=== PATIENT | male | born 1995 | race Caucasian/White ===

== ENCOUNTER 2022-11-10 16:14 | Emergency (ER) | payer BC, SELFPAY ==
[2022-11-10 16:17] VITALS: BP 122/74; PULSE 125; RESP 16; TEMP 36.6; O2SAT 99; BMI 25.8
--- NOTE | 2022-11-10 16:33 | CRLHL7_ITS ---
For Patients: As a result of the Century Cures Act, medical imaging exams and procedure reports are released immediately into your electronic medical record. You may view this report before your referring provider. If you have questions, please contact your health care provider. INDICATION: Right lower quadrant abdominal pain. Vomiting. History of pancreatitis. CT ABDOMEN AND PELVIS WITH CONTRAST TECHNIQUE: Multidetector CT imaging was performed through the abdomen and pelvis following intravenous contrast administration using 79 mL Isovue 370. Coronal and sagittal reconstructions were generated. COMPARISON: 05/30/2020 CT abdomen and pelvis. FINDINGS: Lower chest: Lung bases are clear aside from minimal bibasilar atelectasis or scarring. Liver: Within normal limits. Gallbladder and bile ducts: Status post cholecystectomy, as before. No biliary dilation identified. Pancreas: Atrophic pancreas containing punctate calcifications, consistent with chronic pancreatitis. Spleen: Normal sized spleen. 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 Adrenals: No nodules or masses. Kidneys, ureters, and urinary bladder: No renal masses or hydronephrosis. Urinary bladder wall prominence due to nondistention. No bladder mass or definite pathologic wall thickening. Gastrointestinal tract: Normal caliber small bowel without obstruction or wall thickening. The appendix is normal. Diffuse wall prominence of the colon is likely due to nondistention as no definite pericolonic fat stranding is seen to indicate colitis. Vascular structures: Normal for age. Peritoneum: No free air, abscess, or significant free fluid. Lymph nodes: No pathologically enlarged nodes identified. Reproductive organs: No pelvic masses. Bones: Normal for age. IMPRESSION: 1. No acute abnormality identified. Normal appendix. No specific cause for the patient`s symptoms is demonstrated. 2. 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 3. Status post cholecystectomy. SHIVA DORANTES MD [facility] Dictated by Shiraz Dorantes MD @ 11/10/2022 6:38:46 PM Please note that all CT scans at this facility use dose modulation, iterative reconstruction, and/or weight-based dosing when appropriate to reduce radiation dose to as low as reasonably achievable. Dictated by: Shiraz Dorantes MD @ 11/10/2022 18:39:06 (Electronically Signed)
--- NOTE | 2022-11-10 16:34 | ED_ITS ---
HPI - General Adult General Chief complaint: Abdominal Pain Stated complaint: Abdominal pain, Vomiting Time Seen by Provider: 11/10/22 16:16 Source: patient Mode of arrival: ambulatory Limitations: no limitations History of Present Illness HPI narrative: 27-year-old male well known to our team presents with abdominal pain in the right lower quadrant area of his abdomen that started last evening and was very mild at initial onset. He woke up this morning with worsening pain, intermittent, crampy in nature. Vomiting started at 5:00 a.m. and has been persistent throughout the day, unable to hold down even liquids. His last drink of alcohol was about 2 days ago. His last bout of pancreatitis was 2 years ago. His pancreatitis course has been quite complicated in the past. He has required drains, never stenting. He does not currently have any implanted devices in his abdomen. No history of other abdominal surgeries besides drain placement. He normally does not drink alcohol due to his history of pa ncreatitis but since he had not had a spell in so long, he indulged in a couple of drinks. Reports that his symptoms started a couple of days later. He does not think that this pain he is having is related to his pancreatitis as it is located more in the right lower quadrant area and does seem different than his typical pancreatitis episodes. There is no dysuria, no fevers. There is no blood in his vomit. Last bowel movement was yesterday, uncomplicated. No trauma or injury. He tried taking some Tylenol this morning with some mild temporary improvement in his symptoms, has not tried other interventions. No history of kidney stones. Past medical history is notable for recurrent pancreatitis, type 1 diabetes as a result of the pancreatitis. His only home medications are NovoLog and Lantus. Socially, no tobacco use but did have alcohol a couple of days ago, does not normally drink. No pertinent travel. Family history negative for GI cancers per his report. No history of inflammatory bowel disease either. Less is notable for the GI symptoms as above, otherwise denies times 12 systems. Related Data Home Medications Medication Instructions Recorded Confirmed insulin aspart U-100 100 unit/mL 6 unit subcut 3XD 11/10/22 11/10/22 (3 mL) subcutaneous pen insulin glargine 100 unit/mL (3 34 unit subcut QPM 11/10/22 11/10/22 mL) subcutaneous pen (Lantus Solostar U-100 Insulin) Previous Rx's Medication Instructions Recorded ondansetron 4 mg disintegrating 4 mg PO Q8H #15 tabs 11/10/22 tablet Allergies Allergy/AdvReac Type Severity Reaction Status Date / Time No Known Drug Allergies Allergy Verified 11/10/22 16:22 [facility] Medical History (Updated 11/10/22 @ 18:49 by Paris Shahid MD) Insulin dependent diabetes mellitus Recurrent pancreatitis Social History Smoking Status: Current some day smoker Do you use any of these nicotine containing products: None Second hand tobacco smoke exposure: No How often do you have a drink containing alcohol: 2-3 times a week How many standard drinks containing alcohol do you have on a typical day: 3 or 4 How often do you have six or more drinks on one occasion: Less than monthly AUDIT-C Alcohol total score: 5 Non-prescribed substance use: marijuana (any form) service: No Exam Const: Vital Signs, click to edit/add: Vital Signs - 24 hr 11/10/22 16:17 11/10/22 17:06 Temperature 97.9 F Pulse Rate [Right Pulse Oximeter] 125 H 94 Respiratory Rate 16 20 Blood Pressure [Le ft Upper Arm] 108/62 Blood Pressure [Ri ght Upper Arm] 122/74 Pulse Oximetry 99 97 Oxygen Delivery Me thod Room Air Room Air Documenting provider has reviewed patient's vital signs: yes Common normals: no apparent distress and alert General appearance: cooperative, comfortable and well kempt Other: Looks a little thinner than the last time I saw him but well-nourished, well- hydrated, not intoxicated. HENMT: Common normals: normocephalic and head/scalp atraumatic Head and scalp: normocephalic and atraumatic Face and sinus: normal facial exam Mo uth: oral and palatal mucosa normal Throat: posterior oropharynx normal Eye: Common normals: EOMs intact bilaterally and conjunctivae normal General eye: normal appearance of both eyes Conjunctiva: conjunctiva(e) normal Neck & C-Spine: Common normals: no lymphadenopathy Resp: Common normals: normal respiratory effort and no use of accessory mu scles Effort & inspection: able to speak in complete sentences Cardio: Common normals: regular rate, regular rhythm, S1 normal heart sound, S2 normal heart sound, no murmurs and peripheral pulses 2+ throughout Rate: regular rate Rhythm: regular rhythm Heart sounds: S1 normal and S2 normal Peripheral pulses: pulses 2+ throughout GI: Other: Bowel sounds normoactive throughout. No masses, no hernia. Liver is not enlarged. Mild tenderness in the right lower quadrant only, not the right upper quadrant. There is some very mild CVA tenderness on the right only but not is reproducible is the right lower quadrant abdominal pain. There is no guarding. No mass. Extremity: Common normals: normal to inspection, normal capillary refill and no pedal edema Neuro: Sensorium/orientation: alert Speech: speech normal Motor exam: no tremor noted and no movement abnormalities noted Psych: Common normals: speech normal Appearance: well kempt Attitude: engaged Activity/motor behavior: appropriate eye contact Speech: normal speech Attention/concentration: attention grossly intact Memory/cognition: memory grossly intact Insight: insight good Judgement: judgment good Skin: Common normals: no rashes or lesions noted General skin exam: no rashes or lesions noted Course Vital Signs Vital signs: Initial Vital Signs Temperature 97.9 F 11/10/22 16:17 Temperature Source Temporal Artery Scan 11/10/22 16:17 Pulse Rate 125 H 11/10/22 16:17 Respiratory Rate 16 11/10/22 16:17 Blood Pressure 122/74 11/10/22 16:17 Blood Pressure Mean 90 11/10/22 16:17 Blood Pressure Position Sitting 11/10/22 16:17 Pulse Oximetry 99 11/10/22 16:17 Oxygen Delivery Method 11/10/22 16:17 Vital Signs Temperature 97.9 F 11/10/22 16:17 Pulse Rate 125 H 11/10/22 16:17 Respiratory Rate 16 11/10/22 16:17 Blood Pressure 122/74 11/10/22 16:17 Pulse Oximetry 99 11/10/22 16:17 Oxygen Delivery Method 11/10/22 16:17 Temperature 97.9 F 11/10/22 16:17 Pulse Rate 94 11/10/22 17:06 Respiratory Rate 20 11/10/22 17:06 Blood Pressure 108/62 11/10/22 17:06 Pulse Oximetry 97 11/10/22 17:06 Oxygen Delivery Method 11/10/22 17:06 Medical Decision Making MDM Narrative Medical decision making narrative: Pancreatitis high in the differential diagnosis, cannot exclude colitis, kidney stone, appendicitis, other etiologies. Recommended placing an IV, LR, Zofran. CT scan of the abdomen, liver enzymes, CBC, CRP, lipase levels. Re-evaluate once these results are available. Will hold off on IV pain medicine for now. Update: No vomiting while here. Pain has not worsened. Labs and CT findings reviewed with patient. Suspect some underlying gastroenteritis. I do strongly recommend that he avoid alcohol because his pancreas history than the we are not seeing any signs of acute pancreatitis today. Prescription for Zofran provided, discussed soft, bland diet, off of work tomorrow, alarm symptoms reviewed as indications to come back to the ED. He verbalizes understanding and agreement. Mild leukocytosis noted but nonspecific. Remainder of labs are encouraging as his CT scan. Lab Data Lab results reviewed: Yes I reviewed the patient's lab results Labs: Lab Results 11/10/22 11/10/22 Range/Units 16:50 16:50 WBC 15.01 H (4.50-11.00) K/uL RBC 5.20 (4.30-5.90) m/uL Hgb 14.7 (13.5-17.5) gm/dL Hct 42.8 (37.0-53.0) % MCV 82 (80-100) fL MCH 28 (26-34) pg MCHC 34 (32-36) gm/dL RDW Coeff of Braydon 12.1 (11.5-15.5) % Plt Count 236 (140-440) K/uL Neut % (Auto) 89.4 H (42.0-72.0) % Lymph % (Auto) 3.9 L (20-44) % [place] % (Auto) 5.3 (0.0-11.0) % Eos % (Auto) 0.1 (0.0-7.0) % Baso % (Auto) 0.3 (0.0-3.0) % Neut # (Auto) 13.40 H (1.7-7.0) K/uL Lymph # (Auto) 0.60 L (0.90-2.90) K/uL [place] # (Auto) 0.80 (0.00-0.90) K/UL Eos # (Auto) 0.00 (0.00-0.50) K/uL Baso # (Auto) 0.00 (0.00-0.30) K/uL Sodium 143 (135-149) mmol/L Potassium 3.8 (3.6-5.1) mmol/L Chloride 103 (96-114) mmol/L Carbon Dioxide 31 (20-32) mmol/L BUN 10 (5-24) mg/dL Creatinine 0.6 (0.5-1.5) mg/dL Estimated Creat Clear 165.41 Estimated GFR 135 ml/min Glucose 222 H (60-115) mg/dL Calcium 9.4 (8.4-10.6) mg/dL Total Bilirubin 0.6 (0.1-1.5) mg/dL AST 33 (12-35) U/L ALT 34 (4-50) U/L Alkaline Phosphatase 119 (40-150) U/L C-Reactive Protein 0.6 (0.5-1.0) mg/dL Total Protein 8.1 (6.0-8.3) g/dL Albumin 4.9 (3.3-5.0) g/dL Lipase 11 L (23-300) U/L Imaging Data CT scan - abdomen: My impression: Chronic pancreatitis with splenic vein abnormality. Did compare to previous reports from prior to computer upgraded does note chronic findings there. Appendix looks okay per my interpretation. Radiologist's impression: IMPRESSION: 1. No acute abnormality identified. Normal appendix. No specific cause for the patient`s symptoms is demonstrated. 2. 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 3. Status post cholecystectomy. Discharge Plan Discharge Clinical Impression: Gastroenteritis Condition: Improved Instructions: Gastroenteritis (DC) Additional Instructions: Your CT scan shows chronic changes of pancreatitis but nothing acute, this is good news. Your appendix looks normal. Your labs show mild infection but nonspecific. Your inflammatory markers look okay. Your liver and pancreas labs look great today. I suspect that the vomiting is from gastroenteritis, a common stomach flu. I w ould like for you to use Zofran as needed for nausea and vomiting. I would like for you to stay away from alcohol as it certainly will only make the situation worse. Drink plenty of fluids, rest for today and tomorrow. You should be able to resume all normal activity on Monday. Come back to the emergency department if the pain becomes severe, constant. Come back especially if it is accompanied by fever, blood in your stools or other worrisome signs. Activity Level: Activity as Tolerated Discharge Diet: Diabetic Prescriptions: New ondansetron 4 mg tablet,disintegrating 4 mg PO Q8H Qty: 15 0RF No Action insulin aspart U-100 100 unit/mL (3 mL) insulin pen 6 unit subcut 3XD insulin glargine [Lantus Solostar U-100 Insulin] 100 unit/mL (3 mL) insulin pen 34 unit subcut QPM Follow Up/Referrals: JEVON KEY DO [Primary Care Provider] - Stand Alone Forms: [facility] Info Instructions
[2022-11-10] MEDS: LACTATED RINGERS 1000 ML 1,000 ML IV (16:52)
[2022-11-10 16:58] LABS: Basophils Percent Auto 0.3 % (0.0-3.0); Eosinophils Percent Auto 0.1 % (0.0-7.0); Hematocrit 42.8 % (37.0-53.0); Hemoglobin* 14.7 gm/dL (13.5-17.5); Lymphocytes Percent Auto 3.9 % (20-44); Mean Corpuscular HGB Conc 34 gm/dL (32-36); Mean Corpuscular Hemoglobin 28 pg (26-34); Mean Corpuscular Volume 82 fL (80-100); Monocytes Percent Auto 5.3 % (0.0-11.0); Neutrophils Percent Auto 89.4 % (42.0-72.0); Platelet Count* 236 K/uL (140-440); RDW Coefficient of Variation % 12.1 % (11.5-15.5); White Blood Count* 15.01 K/uL (4.50-11.00)
[2022-11-10] MEDS: ONDANSETRON 2 MG/ML inj 8 MG IVP (16:58)
[2022-11-10 17:02] LABS: Slide Review Reflex No
[2022-11-10 17:06] VITALS: BP 108/62; PULSE 94; RESP 20; O2SAT 97
[2022-11-10 17:14] LABS: Albumin* 4.9 g/dL (3.3-5.0); Chloride* 103 mmol/L (96-114); Sodium* 143 mmol/L (135-149)
[2022-11-10 17:15] LABS: Potassium* 3.8 mmol/L (3.6-5.1)
[2022-11-10 17:17] LABS: Carbon Dioxide* 31 mmol/L (20-32); Creatinine* 0.6 mg/dL (0.5-1.5); Est. Creatinine Clearance* 165.41; Estimated Glomerular Filt Rate 135 ml/min
[2022-11-10 17:18] LABS: Alanine Aminotransferase* 34 U/L (4-50); Alkaline Phosphatase* 119 U/L (40-150); Aspartate Amino Transferase* 33 U/L (12-35); Bilirubin Total* 0.6 mg/dL (0.1-1.5); Blood Urea Nitrogen* 10 mg/dL (5-24); Calcium* 9.4 mg/dL (8.4-10.6); Glucose* 222 mg/dL (60-115); Lipase* 11 U/L (23-300); Total Protein* 8.1 g/dL (6.0-8.3)
[2022-11-10 17:21] LABS: C Reactive Protein* 0.6 mg/dL (0.5-1.0)
== END 2022-11-10 19:09 | disposition home or self-care (01) ==
PROVIDERS: Emergency Provider Family Medicine; PCP Student in an Organized Health Care Education/Training Program
DX: K52.9 Noninfective gastroenteritis and colitis, unspecified (principal)
CPT/HCPCS: 36415; 74177; 80053; 81003; 83690; 85025; 86140; 96361; 96374; 99283; 99284; 99285; J2405; J7120; Q9967

== ENCOUNTER 2022-11-24 07:50 | Day surgery (SDC) | payer BC, SELFPAY ==
[2022-11-24] MEDS: LACTATED RINGERS 1000 ML 1,000 ML 100 ML IV (08:20)
--- NOTE | 2022-11-24 08:24 | SUR.PREOP ---
Patient provided home covid negative results to RN.
--- NOTE | 2022-11-24 08:27 | PC.NURSE ---
Patient used monitoring system at home for BS levels
--- NOTE | 2022-11-24 08:45 | W.ANESCHARGE ---
Anesthesia Charges Start Date/Time Anesthesia Start Date: 11/24/22 Anesthesia Start Time: 09:45 Stop Date/Time Anesthesia Stop Date: 11/24/22 Anesthesia Stop Time: 10:20
[2022-11-24 09:16] VITALS: BP 138/98; PULSE 58; RESP 16; TEMP 36.3; O2SAT 99
[2022-11-24] MEDS: SODIUM CHLORIDE 0.9 % (FLUSH) 10 ML SYRINGE IVF (09:19)
[2022-11-24] MEDS: CEFAZOLIN 1 GM inj IVP (09:55)
[2022-11-24] MEDS: BUPIVACAINE 0.25% 30 ML INJECTION (10:03)
--- NOTE | 2022-11-24 10:14 | PM.GSPRC ---
Operative Note Date of procedure: 11/24/22 Pre-op diagnosis: Posterior left ear mass Post-op diagnosis: Same Type of Procedure: Excision of posterior left ear mass Indications: Patient is a 27-year-old male who presented to clinic with an enlarging mass on the back of his left ear. Different treatment options were reviewed with the patient, including observation versus excision. Risks and benefits of excision were discussed at length. Risks included, but were not limited to: Bleeding, infection, risk of recurrence and possible need for additional procedures. Additionally we reviewed the risk of damage to surrounding structures. All questions and concerns were addressed with patient agreeing to proceed. Procedure Description: After discussing the risks and benefits of the procedure, the patient signed informed consent.? The operative site was marked and the patient was brought to the operating room and placed on the operating table in supine position.? Care was taken to pad the patient's pressure points.?? The patient was then given sedation by anesthesia.?? The operative site was then prepped and draped in the usual sterile fashion.? A time-out was then performed. Local anesthetic of 1% lidocaine and 0.25% Marcaine was used to anesthetize the surgical field. An elliptical incision was made around the subcutaneous mass. Dissection was continued through subcutaneous tissue. The mass was able to be removed in its entirety and did not appear to invade the underlying cartilage. Once the specimen was removed it was sent for pathology. Hemostasis was assured with electrocautery. The incision was then brought together in layers of interrupted Vicryl and running 4-0 chromic suture. A single interrupted 4-0 chromic suture were its place in the middle of the incision, to minimize the risk of dehiscence. The incision length was 2 cm. The size of the mass was 5 mm. The incision was dressed with Dermabond. ? The patient was then woken and transported to the recovery area in stable condition. ? The patient tolerated the procedure well. Findings: Posterior left ear mass Anesthesia: MAC and local Surgeon: Nesha Reddy MD Estimated blood loss (mL): 2 Additional Specimen Information: Posterior left ear mass Condition: stable Disposition: same day
[2022-11-24 10:15] VITALS: BP 98/50; PULSE 78; RESP 12; TEMP 36.4; O2SAT 95
[2022-11-24 10:30] VITALS: BP 97/59; PULSE 68; RESP 14; TEMP 36.3; O2SAT 95
[2022-11-24 10:46] VITALS: BP 102/71; PULSE 68; RESP 14; TEMP 36.3; O2SAT 96
[2022-11-24 11:00] VITALS: BP 99/70; PULSE 73; RESP 16; O2SAT 96
[2022-11-24 11:15] VITALS: BP 107/73; PULSE 59; RESP 16; TEMP 36.4; O2SAT 96
--- NOTE | 2022-11-24 11:18 | W.ANESCHARGE ---
Anesthesia Charges Start Date/Time Anesthesia Start Date: 11/24/22 Anesthesia Start Time: 09:45 Stop Date/Time Anesthesia Stop Date: 11/24/22 Anesthesia Stop Time: 10:20
--- NOTE | 2022-11-24 11:20 | W.ANESCHARGE ---
Anesthesia Charges Start Date/Time Anesthesia Start Date: 11/24/22 Anesthesia Start Time: 09:45 Stop Date/Time Anesthesia Stop Date: 11/24/22 Anesthesia Stop Time: 10:20
== END 2022-11-24 12:04 | disposition home or self-care (01) ==
PROVIDERS: PCP Student in an Organized Health Care Education/Training Program; Visit Provider Surgery
PROC: (CPT 11444; principal; 2022-11-24 09:15)
DX: L91.0 Hypertrophic scar (principal)
CPT/HCPCS: 11444; 12051; 00300; 88305; J0690; J2250; J2405; J2704; J2710; J3010; J3490; J7120

== ENCOUNTER 2023-03-27 03:45 | Emergency (ER) | payer BC, SELFPAY ==
[2023-03-27 03:51] VITALS: BP 157/83; PULSE 83; RESP 16; TEMP 36.7; O2SAT 98; BMI 25.0
--- NOTE | 2023-03-27 04:06 | CRLHL7_ITS ---
For Patients: As a result of the Century Cures Act, medical imaging exams and procedure reports are released immediately into your electronic medical record. You may view this report before your referring provider. If you have questions, please contact your health care provider. INDICATION: Injury COMPARISON: May 30, 2020 TECHNIQUE: CT examination of the head was performed as axial sections without intravenous contrast. Images were obtained from the vertex of the skull through the skull base. Please note that all CT scans at this facility use dose modulation, iterative reconstruction, and/or weight-based dosing when appropriate to reduce radiation dose to as low as reasonably achievable. FINDINGS: The brain shows no sign of mass lesion, mass effect, hemorrhage, or edema. The ventricles and sulci are normal in appearance for the patient`s age. The visualized portions of the orbits are normal in appearance. The osseous structures are normal in their appearance with no sign of abnormality in the skull base or calvarium. IMPRESSION: No acute intracranial posttraumatic findings Please note that all CT scans at this facility use dose modulation, iterative reconstruction, and/or weight-based dosing when appropriate to reduce radiation dose to as low as reasonably achievable. Dictated by Pete Chand MD @ 03/27/2023 4:48:17 AM (Electronically Signed)
--- NOTE | 2023-03-27 04:06 | CRLHL7_ITS ---
For Patients: As a result of the Century Cures Act, medical imaging exams and procedure reports are released immediately into your electronic medical record. You may view this report before your referring provider. If you have questions, please contact your health care provider. Indication: Injury Technique: CT of the facial bones was performed. Contrast was not administered. The study was acquired in the axial plane. Imaging was performed from above the frontal sinuses to below the hyoid bone. Sagittal and coronal reformatted imaging was performed. Please note that all CT scans at this facility use dose modulation, iterative reconstruction, and/or weight-based dosing when appropriate to reduce radiation dose to as low as reasonably achievable. Comparison: None specific to this area Findings: Extensive dental caries including multiple periapical lucencies. Follow-up dental consultation recommended at a clinically appropriate time Facial region soft tissue swelling. No gas within soft tissues. No radiopaque foreign body No fracture identified involving the facial bones. Incidental frontoethmoidal osteoma. Impression: 1. No fracture identified involving the facial bones 2. Facial region soft tissue swelling but no gas within soft tissues or radiopaque foreign body. 3. Extensive dental caries with multiple periapical lucencies Please note that all CT scans at this facility use dose modulation, iterative reconstruction, and/or weight-based dosing when appropriate to reduce radiation dose to as low as reasonably achievable. Dictated by Pete Chand MD @ 03/27/2023 4:53:58 AM (Electronically Signed)
[2023-03-27 04:11] VITALS: TEMP 36.7
[2023-03-27] MEDS: ACETAMINOPHEN 500 MG TABLET 1000 MG PO (04:11)
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
[2023-03-27 04:20] LABS: Basophils Percent Auto 0.4 % (0.0-3.0); Eosinophils Percent Auto 1.2 % (0.0-7.0); Hematocrit 46.6 % (37.0-53.0); Hemoglobin* 15.6 gm/dL (13.5-17.5); Immature Granulocytes Pct Auto 0.2 %; Lymphocytes Percent Auto 18.6 % (20-44); Mean Corpuscular HGB Conc 34 gm/dL (32-36); Mean Corpuscular Hemoglobin 28 pg (26-34); Mean Corpuscular Volume 84 fL (80-100); Monocytes Percent Auto 7.8 % (0.0-11.0); Neutrophils Percent Auto 71.8 % (42.0-72.0); Platelet Count* 270 K/uL (140-440); Red Blood Count 5.55 m/uL (4.30-5.90); White Blood Count* 11.25 K/uL (4.50-11.00)
[2023-03-27 04:23] LABS: Slide Review Reflex No
[2023-03-27 04:42] LABS: Chloride* 107 mmol/L (96-114); Sodium* 144 mmol/L (135-149)
[2023-03-27 04:43] LABS: Potassium* 3.7 mmol/L (3.6-5.1)
[2023-03-27 04:45] LABS: Blood Urea Nitrogen* 6 mg/dL (5-24); Carbon Dioxide* 24 mmol/L (20-32); Creatinine* 0.5 mg/dL (0.5-1.5); Estimated Glomerular Filt Rate 142 ml/min
[2023-03-27 04:46] LABS: Calcium* 9.7 mg/dL (8.4-10.6); Ethanol* 0.18 % (0.01-0.03); Glucose* 161 mg/dL (60-115)
[2023-03-27 04:50] VITALS: BP 144/74; PULSE 87; RESP 16; TEMP 36.7; O2SAT 98
[2023-03-27 04:58] VITALS: BP 144/74; PULSE 87; RESP 16; TEMP 36.7
--- OUTSIDE RECORDS SUMMARY | 2023-03-27 05:17 | XMS_ITS | Continuity of Care Document ---
Author Name Unknown Organization [facility] Address [address] [address] [place] [address] Phone Care Team Providers Care Trade Economist Name Role Phone Nesset SENIOR CONSUMER INSIGHTS CONSULTANT, [place] Unavailable Unavailable Procedures Procedure Date Subsqt Hosp-da E&m Minr Compl 7 Subsqt Hosp-da E&m Stable 15 M 17 Subsqt Hosp-da E&m Minr Compl 7 Init Inpt Cons New/est Mod-hi 7 Subsqt Hosp-da E&m Minr Compl 7 Subsqt Hosp-da E&m Minr Compl 7 Subsqt Hosp-da E&m Minr Compl 7 Ercp; W/endo Retro Remov Stone 17 ERCP w/rem stent & sphinc Init Inpt Cons New/est Mod-hi 7 Subsqt Hosp-da E&m Minr Compl 7 Subsqt Hosp-da E&m Minr Compl 7 Subsqt Hosp-da E&m Minr Compl 7 Init Inpt Cons New/est Mod-hi 7 Subsqt Hosp-da E&m Minr Compl 7 Subsqt Hosp-da E&m Minr Compl 7 Ugi Endo; W/endo Ultrasound Ex 17 ERCP w/stent & sphinc Subsqt Hosp-da E&m Minr Compl 7 Subsqt Hosp-da E&m Minr Compl 7 Init Inpt Cons New/estab Mod 5 17 Init Inpt Cons New/est Mod-hi 7 Subsqt Hosp-da E&m Minr Compl 6 Init Inpt Cons New/est Mod-hi 6 ERCP w/rem stent & sphinc Ercp; W/endo Retro Remov Stone 15 Subsqt Hosp-da E&m Minr Compl 5 Subsqt Hosp-da E&m Minr Compl 5 Ercp; W/endo Retro Remov Stone 15 ERCP w/stent & sphinc Subsqt Hosp-da E&m Minr Compl 5 Subsqt Hosp-da E&m Minr Compl 5 Subsqt Hosp-da E&m Minr Compl 5 Subsqt Hosp-da E&m Minr Compl 5 Subsqt Hosp-da E&m Stable 15 M 15 Init Inpt Cons New/estab Mod 5 15 Offic/outpt E&m Estab Low-mod 5 Init Inpt Cons New/est Mod-hi 5 Subsqt Hosp-da E&m Minr Compl 5 Subsqt Hosp-da E&m Minr Compl 5 Subsqt Hosp-da E&m Minr Compl 5 Subsqt Hosp-da E&m Minr Compl 5 Subsqt Hosp-da E&m Stable 15 M 15 Subsqt Hosp-da E&m Minr Compl 5 Subsqt Hosp-da E&m Minr Compl 5 Subsqt Hosp-da E&m Minr Compl 5 Init Inpt Cons New/est Mod-hi 5 Ugi Endo; W/endo Ultrasound Ex 15 Ercp; W/endo Retro Remov Stone 15 Subsqt Hosp-da E&m Minr Compl 5 Subsqt Hosp-da E&m Minr Compl 5 Init Inpt Cons New/est Mod-hi 5 Hepatic Function Panel Offic/outpt E&m Estab Low-mod 4 Routine Serum Collection Offic/outpt E&m Estab Mod-tn 2 13 Offic/outpt E&m Estab Low-mod 3 Subsqt Hosp-da E&m Minr Compl 3 Subsqt Hosp-da E&m Minr Compl 3 Subsqt Hosp-da E&m Minr Compl 3 Subsqt Hosp-da E&m Minr Compl 3 Offic/outpt E&m Estab Mod-tn 2 12 Ercp; W/endo Retro Remov Stone 12 Ercp; W/endo Retro Remov Fb/ch 12 Subsqt Hosp-da E&m Stable 15 M 12 Subsqt Hosp-da E&m Minr Compl 2 Subsqt Hosp-da E&m Minr Compl 2 Ugi Endo; W/remov Fb Ercp; W/sphincterotomy/papillo Outpt Mar Ercp; W/endo Retro Insrt Tube Outpt Ugi Endo; W/endo Untrasound Ex Outpt Mar Ercp; W/endo Retro Insrt Tube Outpt Ercp; W/endo Retro Remov Stone Outpt Mar Subsqt Hosp-da E&m Minr Compl 2 Subsqt Hosp-da E&m Minr Compl 2 Subsqt Hosp-da E&m Minr Compl 2 Subsqt Hosp-da E&m Minr Compl 2 Subsqt Hosp-da E&m Minr Compl 2 Subsqt Hosp-da E&m Minr Compl 2 Subsqt Hosp-da E&m Minr Compl 2 Subsqt Hosp-da E&m Minr Compl 2 Subsqt Hosp-da E&m Minr Compl 2 Subsqt Hosp-da E&m Minr Compl 2 Subsqt Hosp-da E&m Stable 15 M 12 Subsqt Hosp-da E&m Minr Compl 2 Subsqt Hosp-da E&m Minr Compl 2 Subsqt Hosp-da E&m Minr Compl 2 Subsqt Hosp-da E&m Minr Compl 2 Subsqt Hosp-da E&m Minr Compl 2 Subsqt Hosp-da E&m Minr Compl 2 Init Inpt Cons New/est Mod-hi 2 Subsqt Hosp-da E&m Minr Compl 2 Subsqt Hosp-da E&m Minr Compl 2 Subsqt Hosp-da E&m Minr Compl 2 Subsqt Hosp-da E&m Minr Compl 2 Subsqt Hosp-da E&m Minr Compl 2 Subsqt Hosp-da E&m Minr Compl 2 Subsqt Hosp-da E&m Stable 15 M 12 Subsqt Hosp-da E&m Minr Compl 2 Subsqt Hosp-da E&m Minr Compl 2 Subsqt Hosp-da E&m Minr Compl 2 Subsqt Hosp-da E&m Minr Compl 2 Subsqt Hosp-da E&m Minr Compl 2 Subsqt Hosp-da E&m Minr Compl 2 Subsqt Hosp-da E&m Sig Compl 3 12 Subsqt Hosp-da E&m Minr Compl 2 Subsqt Hosp-da E&m Minr Compl 2 Subsqt Hosp-da E&m Minr Compl 2 Subsqt Hosp-da E&m Minr Compl 2 Subsqt Hosp-da E&m Minr Compl 2 Subsqt Hosp-da E&m Minr Compl 2 Subsqt Hosp-da E&m Minr Compl 2 Subsqt Hosp-da E&m Minr Compl 2 Subsqt Hosp-da E&m Minr Compl 2 Subsqt Hosp-da E&m Minr Compl 2 Subsqt Hosp-da E&m Minr Compl 2 Subsqt Hosp-da E&m Minr Compl 2 Subsqt Hosp-da E&m Minr Compl 2 Subsqt Hosp-da E&m Minr Compl 2 Subsqt Hosp-da E&m Minr Compl 2 Init Inpt Cons New/est Mod-hi 2 Subsqt Hosp-da E&m Minr Compl 2 Subsqt Hosp-da E&m Minr Compl 2 Offic/outpt E&m Estab Mod-hi 2 12 Routine Serum Collection G8447 Offic Cons New/estab Mod Routine Serum Collection [id number] Advance Directives Directive Yes / No Effective Date File Name No Information Encounters Encounter Description Practice Location Reason(s) For Visit Diagnoses Date Provider Providers Copied on Encounter Subsqt Hosp-da E&m Minr Compl [facility] [address], [place], [place], [address], [place] tel:[phone] [facility] No Information 7 Collin SENIOR CONSUMER INSIGHTS CONSULTANT [place]. [address], [id number], [place]. tel:[phone] Galo Huang DO. tel:[phone] erring Provider: Robin Holcomb, [address], [place], [address]. tel:[phone] Subsqt Hosp-da E&m Stable 15 M [facility], [address] [address], [place], [address], [place] tel:[phone] [facility] No Information Sep-2 7 Chandrakant Joyher. [address] [place] [address], [id number], [place]. tel:[phone] Referring Provider: Robin Holcomb, [address], [place], [address]. tel:[phone] Init Inpt Cons New/est Mod-hi [facility], [address] [address], [place], [address], [place] tel:[phone] [facility] No Information Sep-2 7 Jean Claude Diaz. [address] [place] [address], [id number], [place]. tel:[phone] Referring Provider: Robin Holcomb, [address], [place], [address]. tel:[phone] Subsqt Hosp-da E&m Minr Compl [facility], [address] [address], [place], [address], [place] tel:[phone] [facility] No Information Sep-2 0 7 Nesset SENIOR CONSUMER INSIGHTS CONSULTANT [place]. [address] [place] [address], [id number], [place]. tel:[phone] Referring Provider: Robin Holcomb, [address], [place], [address]. tel:[phone] Subsqt Hosp-da E&m Minr Compl [facility], [address] [address], [place], [address], [place] tel:[phone] [facility] No Information Apr- 7 Chandrakant CHANG Kay. [address] [facility], [facility] [address], [place], [address], [place]. tel:[phone] Referring Provider: Robin Holcomb, [address], [place], [address]. tel:[phone] [facility], [address] [address], [place], [address], [place] tel:[phone] [facility] No Information Apr- 7 Licha Pryor. [address] [facility], [facility] [address], [place], [address], [place]. tel:[phone] Referring Provider: Robin Holcomb, [address], [place], [address]. tel:[phone] [facility], [address] [address], [place], [address], [place] tel:[phone] [facility] Encounter for removal of biliary stentChronic pancreatitis , unspecified pancreatitis type Sep- 7 Licha Pryor. [address] [facility], [address], [address], [place]. tel:[phone] Init Inpt Cons New/est Mod-hi [facility], [address] [address], [place], [address], [place] tel:[phone] [facility] No Information Apr- 7 Elsa Alfred. [address] [facility], [facility] [address], [place], [address], [place]. tel:[phone] Referring Provider: Robin Holcomb, [address], [place], [address]. tel:[phone] [facility], [address] [address], [place], [address], [place] tel:[phone] [facility] Chronic pancreatitis , unspecified pancreatitis type Sep- 7 Ganesh King. [address], [address], [place]. tel:[phone] Galo Huang DO. tel:[phone] Subsqt Hosp-da E&m Minr [facility] [place], [address] [address], [place], [place], [address], [place] tel:[phone] [facility] No Information Sep-0 7 Stephane EDWIN Nel. [address] [place] [address], [place], [address], [place]. tel:[phone] Referring Provider: Robin Holcomb, [address], [place], [address]. tel:[phone] Subsqt Hosp-da E&m [facility] [place], [address] [address], [place], [place], [address], [place] tel:[phone] [facility] No Information Sep-0 7 Chandrakant Villanueva. [address] [place] [address], [id number], [place]. tel:[phone] Referring Provider: Robin Holcomb, [address], [place], [address]. tel:[phone] Init Inpt Cons New/est Mod-hi [facility] [place], [address] [address], [place], [place], [address], [place] tel:[phone] [facility] No Information Sep-0 7 Ganesh King. [address] [facility] [address], [place], [address], [place]. tel:[phone] Referring Provider: Robin Holcomb, [address], [place], [address]. tel:[phone] Subst Hosp-da E&m [facility] [place], [address] [address], [place], [place], [address], [place] tel:[phone] [facility] No Information Mar-2 7 No Information Referring Provider: Robin Holcomb, [address], [place], [address]. tel:[phone] [facility], [address] [address], [place], [address], [place] tel:[phone] [facility] No Information Licha Pryor. [address] [facility], [facility] [address], [place], [place], [address], [place]. tel:[phone] Referring Provider: Robin Holcomb, [address], [place], [address]. tel:[phone] Subsqt Hosp-da E&m Minr Compl [facility], [address] [address], [place], [address], [place] tel:[phone] [facility] No Information No Information Referring Provider: Robin Holcomb, [address], [place], [address]. tel:[phone] Init Inpt Cons New/estab Mod 5 [facility], [address] [address], [place], [address], [place] tel:[phone] [facility] No Information Madi Mcconnell. [address] [place] [address], [facility] [address], [place], [place], [address], [place]. tel:[phone] Referring Provider: Robin Holcomb, [address], [place], [address]. tel:[phone] [facility], [address] [address], [place], [address], [place] tel:[phone] [facility] Chronic pancreatitis , unspecified pancreatitis type Licha Pryor. [address] [place] [address], [facility] [address], [place], [place], [address], [place]. tel:[phone] Galo Huang DO. tel:[phone] Init Inpt Cons New/est Mod-hi [facility], [address] [address], [place], [address], [place] tel:[phone] [facility] No Information 7 Paloma Gomes. [address] [facility], [facility] 500, [place], [place], [address], [place]. [phone] Referring Provider: Robin Alcantar MD R, [address], [place], [address]. tel:[phone] [facility], [address] [address], [place], [address], [place] tel:[phone] [facility] Chronic pancreatitis , unspecified pancreatitis type 7 Dakota Reed. [address] [place] [address], [facility] [address], [place], [place], [address], [place]. tel:[phone] Subsqt Hosp-da E&m Minr Compl [facility], [address] [address], [place], [address], [place] tel:[phone] [facility] No Information 6 Jesus Duran. [address] [facility], [facility] 500, [place], [place], [address], [place]. tel:[phone] Referring Provider: Renee Lee NP P, [address] [facility] 500, [place], [address] . tel:[phone] Init Inpt Cons New/est Mod-hi [facility], [address] [address], [place], [address], [place] tel:[phone] [facility] No Information 6 Danuta Gomes. [address] [facility], [facility] [address], [place], [place], [address], [place]. [phone] Referring Provider: Eliseo Burkett, [address] [facility] [address], [place], [address] . tel:[phone] [facility], [address] [address], [place], [address], [place] tel:[phone] [facility] No Information Licha Pryor. [address] [facility], [address], [place], [place], [address], [place]. tel:[phone] Referring Provider: Konstantin uHrt MD, [address] [facility] [address], [place], [address] . tel:[phone] [facility], [address] [address], [place], [address], [place] tel:[phone] [facility] Bile duct obstruction Licha Pryor. [address] [facility], [address], [place], [place], [address], [place]. tel:[phone] Galo Huang DO. tel:[phone] erring Provider: Referral Self. [facility], [address] [address], [place], [address], [place] tel:[phone] [facility] No Information Licha Pryor. [address] [facility], [address], [place], [place], [address], [place]. tel:[phone] Referring Provider: Konstantin Hurt MD, [address] [facility] [address], [place], [address] . tel:[phone] Subsqt Hosp-da E&m Minr Compl [facility] [place], [address] [address], [place], [address], [place] tel:[phone] [facility] No Information 5 Nesset SENIOR CONSUMER INSIGHTS CONSULTANT [place]. [address] [facility], [address], [place], [place], [address], [place]. tel:[phone] Referring Provider: Isai Ac MD, [address], [place], [address]. tel:[phone] [facility], [address] [address], [place], [address], [place] tel:[phone] [facility] No Information Sep-0 9201 5 Licha Pryor. [address] [facility], [address], [place], [place], [address], [place]. tel:[phone] Referring Provider: Isai Ac MD, [address], [place], [address]. tel:[phone] [facility], [address] [address], [place], [address], [place] tel:[phone] [facility] Acute Pancreatitis Acute pancreatitis , unspecified Sep-0 8201 5 Licha Pryor. [address] [facility], [facility] 500, [place], [place], [address], [place]. tel:[phone] [facility], [address] [address], [place], [address], [place] tel:[phone] [facility] Acute Pancreatitis Aug-0 6 5 Licha Pryor. [address] [facility], [facility] 500, [place], [place], [address], [place]. tel:[phone] Referring Provider: Referral Self. Subsqt Hosp-da E&m Minr Compl [facility], [address] [address], [place], [address], [place] tel:[phone] [facility] No Information Aug-0 3-201 5 Mckennaset BIANCA Zambrano. [address] [facility], [facility] [address], [place], [address], [place]. tel:[phone] Referring Provider: Isai Ac MD, [address] [facility] [address], [place], [address]. tel:[phone] Subsqt Hosp-da E&m Minr Compl [facility], [address] [address], [place], [address], [place] tel:[phone] [facility] No Information Aug-0 1201 5 Stephane Neumann. [address] [facility], [address], [place], [place], [address], [place]. tel:[phone] Referring Provider: Isai Ac MD, [address], [place], [address]. tel:[phone] Init Inpt Cons New/estab Mod 5 [facility], [address] [address], [place], [address], [place] tel:[phone] [facility] No Information Nesset SENIOR CONSUMER INSIGHTS CONSULTANT [place]. [address] [facility] 500, [place], [place], [address], [place]. tel:[phone] Referring Provider: Isai Ac MD, [address], [place], [address]. tel:[phone] Offic/outpt E&m Estab Low-mod [facility], [address] [address], [place], [address], [place] tel:[phone] [facility] No Information Licha Pryor. [address] [facility] [address], [place], [place], [address], [place]. tel:[phone] Referring Provider: Annabelle Nieto, [address] [facility], [place], [address]. tel:[phone] Init Inpt Cons New/est Mod-hi [facility], [address] [address], [place], [address], [place] tel:[phone] [facility] No Information 5 Danuta Gomes. [address] [facility], [facility] 500, [place], [place], [address], [place]. tel:[phone] Referring Provider: Annabelle Nieto, [address] [facility], [place], [address]. tel:[phone] Subsqt Hosp-da E&m Minr Compl [facility], [address] [address], [place], [address], [place] tel:[phone] [facility] No Information Nesset SENIOR CONSUMER INSIGHTS CONSULTANT [place]. [address] [facility] 500, [place], [place], [address], [place]. tel:[phone] Referring Provider: Annabelle Nieto, [address], [place], [address]. tel:[phone] Subsqt Hosp-da E&m Minr Compl [facility], [address] [address], [place], [address], [place] tel:[phone] [facility] No Information Nesset SENIOR CONSUMER INSIGHTS CONSULTANT [place]. [address] [facility], [facility] 500, [place], [place], [address], [place]. tel:[phone] Referring Provider: Annabelle Nieto, [address], [place], [address]. tel:[phone] Subsqt Hosp-da E&m Stable 15 M [facility], [address] [address], [place], [address], [place] tel:[phone] [facility] No Information No Information Referring Provider: Annabelle Nieto, [address], [place], [address]. tel:[phone] Subsqt Hosp-da E&m Minr Compl [facility], [address] [address], [place], [address], [place] tel:[phone] [facility] No Information Nesset SENIOR CONSUMER INSIGHTS CONSULTANT [place]. [address] [facility], [facility] 500, [place], [place], [address], [place]. tel:[phone] Referring Provider: Annabelle Nieto, [address], [place], [address]. tel:[phone] Init Inpt Cons New/est Mod-hi [facility], [address] [address], [place], [address], [place] tel:[phone] [facility] No Information Licha Pryor. [address], [address], [place]. tel:[phone] Referring Provider: Annabelle Nieto, [address], [place], [address]. tel:[phone] [facility], [address] [address], [place], [address], [place] tel:[phone] [facility] No Information 5 Licha Pryor. [facility] [address], [place], [address], [place]. tel:[phone] Referring Provider: Annabelle Nieto, [address], [place], [address]. tel:[phone] [facility], [address] [address], [place], [address], [place] tel:[phone] [facility] Acute Pancreatitis 0 5 No Information Referring Provider: Referral Self. Subsqt Hosp-da E&m Minr Compl [facility], [address] [address], [place], [address], [place] tel:[phone] [facility] No Information 0 5 Collin Zambrano. [address] [place] [address], [address], [place]. tel:[phone] Referring Provider: Yariel Cortez MD, [address] [facility] [address], [place], [address]. tel:[phone] Init Inpt Cons New/est Mod-hi [facility], [address] [address], [place], [address], [place] tel:[phone] [facility] No Information 0 5 No Information Referring Provider: Yariel Cortez MD, [address], [place], [address]. 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 tel:[phone] Offic/outpt E&m Estab Low-mod [facility], [address] [address], [place], [place], [address], [place] tel:[phone] [facility] No Information 3 Licha Pryor. [address] [address], [place], [place], [address], [place]. tel:[phone] Referring Provider: Annabelle Nieto, [address] [facility], [place], [address]. tel:[phone] Subsqt Hosp-da E&m Minr Compl [facility], [address] [address], [place], [place], [address], [place] tel:[phone] [facility] No Information 3 Nesset SENIOR CONSUMER INSIGHTS CONSULTANT [place]. [address], [address], [place]. tel:[phone] Referring Provider: Rudi Garcia MD A, [address], [place], [address]. tel:[phone] Subsqt Hosp-da E&m Minr Compl [facility] Dig[facility]ive [facility], [address] [address], [place], [place], [address], [place] tel:[phone] [facility] No Information 3 [place] SENIOR CONSUMER INSIGHTS CONSULTANT [place]. [address], [id number], [place]. tel:[phone] Referring Provider: Rudi Burkett, [address], [place], [address]. tel:[phone] Subsqt Hosp-da E&m Minr Compl [facility], [address] [address], [facility] [place], [id number], [place] tel:[phone] [facility] No Information 3 Chandrakant Joyher. [address] [facility], [address], [place], [place], [id number], [place]. tel:[phone] Referring Provider: Rudi Burkett, [address], [place], [address]. tel:[phone] Offic/outpt E&m Estab Mod-hi 2 [facility], [address] [address], [place], [place], [id number], [place] tel:[phone] [facility] No Information 2 Licha Pryor. [address] [facility], [facility] [address], [place], [place], [id number], [place]. tel:[phone] [facility], [address] [address], [place], [place], [id number], [place] tel:[phone] [facility] Obstruction Of Bile Duct 2 Licha Pryor. [address] [facility], [facility] [address], [place], [place], [id number], [place]. tel:[phone] [facility], PO [address] [address], [place], [place], [id number], [place] tel:[phone] [facility] No Information 2 Licha Pryor. [address] [facility], [facility] [address], [place], [place], [id number], [place]. tel:[phone] Referring Provider: Annabelle Nieto, [address] [facility], [place], [address]. tel:[phone] [facility] H[facility]&m Stable 15 M [facility], [address] [address], [place], [id number], [place] tel:[phone] [facility] No Information 2 Mahamedcristina PINEDA Radha. [address] [place] [address], [id number], [place]. tel:[phone] Referring Provider: Annabelle Nieto, [address], [place], [address]. tel:[phone] Sub[facility] H[facility]-da E&m Minr Compl [facility] [place], [address] [address], [place], [id number], [place] tel:[phone] [facility] No Information 2 Collin Zambrano. [address] [place] [address], [id number], [place]. tel:[phone] Referring Provider: Annabelle Nieto, [address], [place], [address]. tel:[phone] [facility], [address] [address], [place] [address], [place] tel:[phone] [facility] No Information 2 Licha Pryor. [address] [place] [address], [id number], [place]. tel:[phone] Referring Provider: Annabelle Nieto, [address], [place], [address]. tel:[phone] [facility], [address] [address], [place], [id number], [place] tel:[phone] [facility] Obstruction Of Bile DuctAcute Pancreatitis 2 Licha Pryor. [address] [place] [address], [id number], [place]. tel:[phone] Referring Provider: Annabelle Nieto, [address], [place], [address]. tel:[phone] [facility] Minr Compl [facility], [address] [address], [place], [id number], [place] tel:[phone] [facility] No Information 2 Nesset [employer]SULT[employer] [place]. [address] [facility], [facility] [address], [place], [place], [id number], [place]. tel:[phone] Referring Provider: Maurice Burkett, [address] [place] [address], [place], [address]. tel:[phone] [facility]da [facility]&m Minr Compl [facility], [address] [address], [place], [address], [place] tel:[phone] [facility] No Information 2 No Information Referring Provider: Maurice Burkett, [address] [place] [address], [place], [address]. tel:[phone] Subsqt Hosp-da E&m Minr Compl [facility], [address] [address], [place], [id number], [place] tel:[phone] [facility] No Information 2 No Information Referring Provider: Maurice Burkett, [address] [facility] [place] [place] [place] [address], [place], [address]. tel:[phone] Sub[facility]t H[facility]-da E&m Minr Compl [facility], [address] [address], [place], [id number], [place] tel:[phone] [facility] No Information 2 Nesset [employer] CONSULTANT [place]. [address] [facility] [address], [place], [place], [id number], [place]. tel:[phone] Referring Provider: Maurice Burkett, [address] [place] [address], [place], [address]. tel:[phone] Sub[facility]t Hosp-da E&m Minr Compl [facility], [address] [address], [place], [address], [place] tel:[phone] [facility]osp No Information 2 Chandrakant Villanueva. [address] [facility], [facility] [address], [place], [place], [id number], [place]. tel:[phone] Referring Provider: Maurice Burkett, [address] [place] [address], [place], [address]. tel:[phone] [facility]da E&m Stable 15 M [facility], [address] [address], [place], [address], [place] tel:[phone] [facility] No Information 2 Mahamed Garcia. [address] [facility], [facility] [address], [place], [place], [id number], [place]. tel:[phone] Referring Provider: Maurice Burkett, [address] [place] [address], [place], [address]. tel:[phone] Subsqt Hosp-da E&m Minr Compl [facility], [address] [address], [place], [id number], [place] tel:[phone] [facility] No Information 2 No Information Referring Provider: Maurice Burkett, [address] [place] [address], [place], [address]. tel:[phone] Subsqt Hosp-da E&m Minr Compl [facility], [address] [address], [place], [address], [place] tel:[phone] [facility] No Information 2 No Information Referring Provider: Maurice Burkett, [address] [place] [address], [place], [address]. tel:[phone] Subsqt Hosp-da E&m Minr Compl [facility], [address] [address], [place], [address], [place] tel:[phone] [facility] No Information 2 Chandrakant Villanueva. [address] [facility], [address], [place], [place], [id number], [place]. tel:[phone] Referring Provider: Maurice Burkett, [address] [place] [address], [place], [address]. tel:[phone] Subsqt Hosp-da E&m Minr Compl [facility], [address] [address], [place], [address], [place] tel:[phone] [facility] No Information 2 No Information Referring Provider: Maurice Burkett, [address] [place] [address], [place], [address]. tel:[phone] Init Inpt Cons New/est Mod-hi [facility], [address] [address], [place], [address], [place] tel:[phone] [facility] No Information 2 Flora Alexandra. [address] [place] [address], [place], [place], [id number], [place]. tel:[phone] Referring Provider: Maurice Burkett, [address] [place] [address], [place], [address]. tel:[phone] Subsqt Hosp-da E&m Minr Compl [facility], [address] [address], [place], [address], [place] tel:[phone] [facility] No Information 2 No Information Referring Provider: Maurice Burkett, [address] [place] [address], [place], [address]. tel:[phone] Subsqt Hosp-da E&m Minr Compl [facility], [address] [address], [place], [id number], [place] tel:[phone] [facility] No Information 2 Chandrakant Villanueva. [address] [place] [address], [id number], [place]. tel:[phone] Referring Provider: Maurice Burkett, [address] [place] [address], [place], [address]. tel:[phone] Subsqt Hosp-da E&m Minr Compl [facility], [address] [address], [place], [place], [address], [place] tel:[phone] [facility] No Information 2 Chandrakant CHANG Kay. [address] [facility], [address], [place], [place], [address], [place]. tel:[phone] Referring Provider: Kay Vu, [address] [facility] [address], [place], [address] . tel:[phone] Subsqt Hosp-da E&m Stable 15 M [facility] [place], [address] [address], [place], [place], [address], [place] tel:[phone] [facility] No Information 2 No Information Subsqt Hosp-da E&m Minr Compl [facility] [place], [address] [address], [place], [place], [address], [place] tel:[phone] [facility] No Information 2 No Information Subsqt Hosp-da E&m Minr Compl [facility] [place], [address] [address], [place], [place], [address], [place] tel:[phone] [facility] No Information 2 Chandrakant CHANG Kay. [address] [facility], [address], [place], [place], [address], [place]. tel:[phone] Referring Provider: Annabelle Burkett [facility], [address] [place] [address], [place], [address]. tel:[phone] Subsqt Hosp-da E&m Minr Compl [facility] [place], [address] [address], [place], [place], [id number], [place] tel:[phone] [facility] No Information 2 No Information Subsqt Hosp-da E&m Sig Compl 3 [facility] [place], [address] [address], [place], [place], [id number], [place] tel:[phone] [facility] No Information Tyler ARMSTRONG November. [address] [facility], [facility] [address], [place], [place], [address], [place]. tel:[phone] Referring Provider: Annabelle Nieto, [address], [place], [address]. tel:[phone] Subsqt Hosp-da E&m Minr Compl [facility], [address] [address], [place], [place], [address], [place] tel:[phone] [facility] No Information 2 No Information Referring Provider: Annabelle Nieto, [address] , [place], [address]. tel:[phone] Subsqt Hosp-da E&m Minr Compl [facility], [address] [address], [place], [place], [address], [place] tel:[phone] [facility] No Information No Information Referring Provider: Annabelle Nieto, [address] , [place], [address]. tel:[phone] Subsqt Hosp-da E&m Minr Compl [facility], [address] [address], [place], [place], [address], [place] tel:[phone] [facility] No Information No Information Referring Provider: Annabelle Nieto, [address] , [place], [address]. tel:[phone] Subsqt Hosp-da E&m Minr Compl [facility], [address] [address], [place], [place], [address], [place] tel:[phone] [facility] No Information No Information Referring Provider: Annabelle Nieto, [address], [place], [address]. tel:[phone] Subsqt Hosp-da E&m Minr Compl [facility], [address] [address], [place], [place], [address], [place] tel:[phone] [facility] No Information 2 Nesset [employer] CONSULTANT [place]. [address] [place] [address], [id number], [place]. tel:[phone] Referring Provider: Annabelle Nieto, [address], [place], [address]. tel:[phone] Subsqt Hosp-da E&m Minr Compl [facility], [address] [address], [place], [place], [address], [place] tel:[phone] [facility] No Information 0 2 No Information Referring Provider: Annabelle Nieto, [address], [place], [address]. tel:[phone] Subsqt Hosp-da E&m Minr Compl [facility], [address] [address], [place], [place], [address], [place] tel:[phone] [facility] No Information 0 2 Nesset [employer] INSIGHT[employer] CONSULTANT [place]. [address] [place] [address], [id number], [place]. tel:[phone] Referring Provider: Annabelle Nieto, [address] , [place], [address]. tel:[phone] Init Inpt Cons New/est Mod-hi [facility], [address] [address], [place], [place], [address], [place] tel:[phone] [facility] No Information 0 2 Paloma Gomes. [address] [place] [address], [id number], [place]. tel:[phone] Referring Provider: Annabelle Nieto, [address], [place], [address]. 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 tel:[phone] [facility] [employer] [facility], [address] [address], [place], [id number], tel:[phone] [facility] Acute Pancreatitis 1 No Information Offic Cons New/estab Mod [facility] [employer] [place], [address] [address], [place], [id number], tel:[phone] [facility] Pancreatitis (chief complaint) Acute Pancreatitis Non-alcoholi c Fatty Liver 1 No Information Referring Provider: Annabelle Nieto, [address], [place], [address]. tel:[phone] Family History Family Member Type Diagnosis Age At Onset Paternal aunt Problem (finding) Maternal histo ry of diabetes mellitus First degree family history Problem (finding) No Family history of No history of Colon Polyps First degree family history Problem (finding) No history of Colon Rectal Cancer First degree family history Problem (finding) No histo ry of Crohn's Paternal uncle Problem (finding) Maternal histo ry of diabetes mellitus Paternal grandmother Problem (finding) Maternal history of diabetes mellitus First degree family history Problem (finding) No history of Ulcerative Colitis First degree family history Problem (finding) Thyroid disorder Payers Payer name Insurance type Covered constitution party ID Authoriza tion(s) [employer] [facility] [id number] Social History Type Description Quantity Date Captured Comments Alcohol Use Details Unknown Caffeine Use Details Unknown Tobacco Use Status No Information Smoking Status No Information Sex Male Chief Complaint And Reason For Visit No Information Reason For Referral Reason For Referral No Information Plan Of Treatment Date Type Action Status Referral Ordered: Xray Abdomen; Limited (AP View Only) (KUB) Appointment date/timeframe: 05/29/2017 ordered Referral Ordered: referred to [facility] chronic pain w/ pancreatitis ordered Referral Ordered: ERCP Appointment date/timeframe: 11/20/2014 ordered Referral Ordered: EUS Appointment date/timeframe: 11/20/2014 ordered History Of Present Illness Encounter Date Complaint History Of Prese nt Illness No Information Functional Status Date Functional Assessmen t No Information Instructions Date Instruction Additional Dur estelle ERCP Assessments Type Assessment Date No Information Patient Care Teams Name Effective Dates (start - stop) Status Members No Information
== END 2023-03-27 05:15 | disposition home or self-care (01) ==
LOC: ED 05:15
PROVIDERS: Emergency Provider Family Medicine; PCP Student in an Organized Health Care Education/Training Program
DX: F10.129 Alcohol abuse with intoxication, unspecified (principal); S61.212A Laceration without foreign body of right middle finger without damage to nail, initial encounter; S06.0X0A Concussion without loss of consciousness, initial encounter; Y04.2XXA Assault by strike against or bumped into by another person, initial encounter
CPT/HCPCS: 36415; 70450; 70486; 80048; 82077; 85025; 99284; A9270

== ENCOUNTER 2023-04-01 10:30 | Emergency (ER) | payer BC, SELFPAY ==
[2023-04-01 10:33] VITALS: BP 148/106; PULSE 80; RESP 18; TEMP 36.1; O2SAT 99; BMI 26.6
--- NOTE | 2023-04-01 11:20 | ED_ITS ---
HPI - Wound/Laceration General Chief Complaint: Laceration/Wound Stated Complaint: infected lacerations Time Seen by Provider: 04/01/23 10:50 History of Present Illness HPI narrative: This 27-year-old male was seen fiber 6 days ago in this emergency department after an injury that occurred involving his fingers of the right and left hand among other places. He returns today because the right middle finger has a wound that was closed with Steri-Strips and now appears worse with infection. He states that 1 of the Steri-Strips came off and now there is drainage from this portion of the wound. He has erythema extending throughout that particular finger. He does not report any fevers. He has superficial lacerations on other fingers that do not appear to be infected and seem to be healing properly. Related Data Home Medications Medication Instructions Recorded Confirmed insulin aspart U-100 100 unit/mL 6 unit subcut 3XD 11/10/22 03/27/23 (3 mL) subcutaneous pen insulin glargine 100 unit/mL (3 34 unit subcut QPM 11/10/22 03/27/23 mL) subcutaneous pen (Lantus Solostar U-100 Insulin) sumatriptan succinate 25 mg tablet 25 mg PO Q2H PRN 11/22/22 03/27/23 (Imitrex) Previous Rx's Medication Instructions Recorded ondansetron 4 mg disintegrating 4 mg PO Q8H #15 tabs 11/10/22 tablet cephalexin 500 mg capsule 500 mg PO TID 7 days #21 caps 04/01/23 Allergies Allergy/AdvReac Type Severity Reaction Status Date / Time ketorolac [From Toradol] Allergy Mild Hives Verified 03/27/23 03:53 oxycodone Allergy Mild itching Verified 03/27/23 03:53 prochlorperazine Allergy Mild hives, Verified 03/27/23 03:53 [From Compazine] itching Review of Systems Status of ROS: Reports: 10 or more systems reviewed and unremarkable except as noted in History and below Narrative: Constitutional: No fevers, no weight gain or loss. Eyes: No discharge. No vision changes. HENT: No congestion, no sore throat, no ear pain. Cardiovascular: No chest pain, no palpitations. Respiratory: No shortness of breath, no wheezes, no cough. Gastrointestinal: No abdominal pain, no vomiting, no diarrhea. Genitourinary: No dysuria, no hematuria. Musculoskeletal: Decreased range of motion of the right middle finger due to swelling and infection. Skin: No rashes, no pruritis. Neurological: No dizziness, weakness, sensory change, speech change. Endo/Heme/Allergies: No bruising or bleeding. No polydipsia. Pysch: no suicidality, no anxiety, no insomnia. All other systems reviewed and are negative. [facility] History Microcytic anemia ?D50.9 - Iron deficiency anemia, unspecified (ICD-10) Leukocytosis ?D72.829 - Elevated white blood cell count, unspecified (ICD-10) Chronic pain ?G89.29 - Other chronic pain (ICD-10) Depression ?F32.A - Depression, unspecified (ICD-10) Insulin dependent diabetes mellitus Recurrent pancreatitis Surgical History Hx of tracheostomy ?Z98.890 - Other specified postprocedural states (ICD-10) History of esophagogastroduodenoscopy (EGD) ?Z98.890 - Other specified postprocedural states (ICD-10) History of ERCP ?Z98.890 - Other specified postprocedural states (ICD-10) Hx of cholecystectomy ?Z90.49 - Acquired absence of other specified parts of digestive tract (ICD- 10) Social History Smoking Status: Never smoker Do you use any of these nicotine containing products: None Second hand tobacco smoke exposure: No How often do you have a drink containing alcohol: monthly or less Alcohol type: beer How many standard drinks containing alcohol do you have on a typical day: 1 or 2 How often do you have six or more drinks on one occasion: Never AUDIT-C Alcohol total score: 1 Non-prescribed substance use: marijuana (any form) Caffeine: Yes service: No Exam Narrative: Exam Narrative: Constitutional: Well-developed, well-nourished, no acute distress. HEENT: Normocephalic, atraumatic. Neck: Normal range of motion. Nontender. Supple. Heart: Intact distal pulses. Lungs: No chest discomfort. No wheezes, rhonchi, or rales. Abdomen: Nontender. Back: Normal range of motion. Extremities: Right middle finger has a laceration over the dorsal aspect of the PIP joint that has [address] The proximal portion of the wound is yielding a small amount of drainage. He has erythema and some swelling throughout the finger typical of a secondary infection of this wound. Skin: Intact. No rash. Warm. No erythema or pallor. Neurologic: No altered sensation. No weakness. Alert and oriented. Psychiatric: No suicidality. No anxiety or depression. No insomnia. Nursing notes and vitals signs are reviewed. Const: Vital Signs, click to edit/add: Vital Signs - 24 hr 04/01/23 10:33 Temperature 96.9 F L Pulse Rate [Pulse Oximeter] 80 Respiratory Rate 18 Blood Pressure [Le ft Upper Arm] 148/106 H Pulse Oximetry 99 Oxygen Delivery Me thod Room Air Course Vital Signs Vital signs: Initial Vital Signs Temperature 96.9 F L 04/01/23 10:33 Temperature Source Temporal Artery Scan 04/01/23 10:33 Pulse Rate 80 04/01/23 10:33 Respiratory Rate 18 04/01/23 10:33 Blood Pressure 148/106 H 04/01/23 10:33 Blood Pressure Mean 120 H 04/01/23 10:33 Blood Pressure Position Sitting 04/01/23 10:33 Pulse Oximetry 99 04/01/23 10:33 Oxygen Delivery Method Room Air 04/01/23 10:33 Vital Signs Temperature 96.9 F L 04/01/23 10:33 Pulse Rate 80 04/01/23 10:33 Respiratory Rate 18 04/01/23 10:33 Blood Pressure 148/106 H 04/01/23 10:33 Pulse Oximetry 99 04/01/23 10:33 Oxygen Delivery Method Room Air 04/01/23 10:33 Temperature 96.9 F L 04/01/23 10:33 Pulse Rate 80 04/01/23 10:33 Respiratory Rate 18 04/01/23 10:33 Blood Pressure 148/106 H 04/01/23 10:33 Pulse Oximetry 99 04/01/23 10:33 Oxygen Delivery Method Room Air 04/01/23 10:33 MDM - Wound/Laceration MDM Narrative Medical decision making narrative: This patient has wounds on his fingers 1 of which show sign of infection. This is a localized area of infection involving the middle finger of the right hand only. The proximal portion of the wound is providing a small amount of drainage. The other wounds on his fingers are superficial and appear to be healing properly. The patient received a prescription for Keflex. I did describe signs and symptoms that would indicate need for return and re- evaluation if worsening. Discharge Plan Discharge Clinical Impression: Posttraumatic wound infection Patient Disposition: Home, Self-Care Condition: Stable Additional Instructions: Take medication as prescribed. Follow up with MD or return if worsening symptoms occur. Prescriptions: New cephalexin 500 mg capsule 500 mg PO TID 7 Days Qty: 21 0RF No Action insulin aspart U-100 100 unit/mL (3 mL) insulin pen 6 unit subcut 3XD insulin glargine [Lantus Solostar U-100 Insulin] 100 unit/mL (3 mL) insulin pen 34 unit subcut QPM ondansetron 4 mg tablet,disintegrating 4 mg PO Q8H Qty: 15 0RF sumatriptan succinate [Imitrex] 25 mg tablet 25 mg PO Q2H PRN Rx Instructions: do not exceed 8 doses per 24 hrs Follow Up/Referrals: JEVON KEY DO [Primary Care Provider] - Stand Alone Forms: MyHealth Info Instructions
== END 2023-04-01 11:33 | disposition home or self-care (01) ==
PROVIDERS: Emergency Provider Emergency Medicine Emergency Medical Services; PCP Student in an Organized Health Care Education/Training Program
DX: T81.41XA Infection following a procedure, superficial incisional surgical site, initial encounter (principal)
CPT/HCPCS: 99283; 99284

== ENCOUNTER 2023-06-18 15:56 | Emergency (ER) | payer BC, SELFPAY ==
[2023-06-18 16:00] VITALS: BP 153/84; RESP 18; TEMP 36.2; O2SAT 99; BMI 25.8
--- NOTE | 2023-06-18 16:08 | ED_ITS ---
HPI - General Adult General Time Seen by Provider: 16:08 Date Seen: 06/18/23 Chief complaint: Unspecified Complaint, Adult Stated complaint: insulin issue Time Seen by Provider: 06/18/23 16:08 Source: patient and RN notes reviewed Mode of arrival: ambulatory Limitations: no limitations History of Present Illness HPI narrative: Ascencion is a very pleasant 27-year-old male who comes to the emergency room as he has been unable to fill his insulin. Patient usually takes Lantus 24 units every night as well as NovoLog 6 units with meals t.i.d.. He notes that he try to fill his insulin on MondayJune 14 and told that he would not be able to get it that day. They did not give him reason for this. The following day he tried to contact his primary physician Dr Mathur at [facility]. Unfortunately did not hear back from this provider. Nor did patient received his response to a [employer] message sent on MondayJune 16. Patient last had insulin yesterday. He has not had any insulin today. States he is feeling tired but denies excessive urination, fever, dizziness. States he has been limiting his food intake today. Nursing checks with [facility] and patient was denied prescription for NovoLog secondary to refill on May 24. 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 However, instead of 24 units they have documented 34 units nightly. Patient denies losing any bottles or sharing his prescription. Related Data Home Medications Medication Instructions Recorded Confirmed insulin aspart U-100 100 unit/mL 6 unit subcut 3XD 11/10/22 03/27/23 (3 mL) subcutaneous pen insulin glargine 100 unit/mL (3 34 unit subcut QPM 11/10/22 03/27/23 mL) subcutaneous pen (Lantus Solostar U-100 Insulin) sumatriptan succinate 25 mg tablet 25 mg PO Q2H PRN 11/22/22 03/27/23 (Imitrex) Previous Rx's Medication Instructions Recorded ondansetron 4 mg disintegrating 4 mg PO Q8H #15 tabs 11/10/22 tablet cephalexin 500 mg capsule 500 mg PO TID 7 days #21 caps 04/01/23 insulin aspart U-100 100 unit/mL 10 unit (0.1 mL) subcut TID #15 mL 06/18/23 (3 mL) subcutaneous pen insulin glargine 100 unit/mL (3 24 unit (0.24 mL) subcut QPM #15 mL 06/18/23 mL) subcutaneous pen (Lantus Solostar U-100 Insulin) Allergies Allergy/AdvReac Type Severity Reaction Status Date / Time ketorolac [From Toradol] Allergy Mild Hives Verified 03/27/23 03:53 oxycodone Allergy Mild itching Verified 03/27/23 03:53 prochlorperazine Allergy Mild hives, Verified 03/27/23 03:53 [From Compazine] itching Review of Systems Narrative: Denies dizziness, fever, vomiting, excessive urination, abdominal pain. PFSH PFS Medical History Microcytic anemia ?D50.9 - Iron deficiency anemia, unspecified (ICD-10) Leukocytosis ?D72.829 - Elevated white blood cell count, unspecified (ICD-10) Chronic pain ?G89.29 - Other chronic pain (ICD-10) Depression ?F32.A - Depression, unspecified (ICD-10) Insulin dependent diabetes mellitus Recurrent pancreatitis Surgical History Hx of tracheostomy ?Z98.890 - Other specified postprocedural states (ICD-10) History of esophagogastroduodenoscopy (EGD) ?Z98.890 - Other specified postprocedural states (ICD-10) History of ERCP ?Z98.890 - Other specified postprocedural states (ICD-10) Hx of cholecystectomy ?Z90.49 - Acquired absence of other specified parts of digestive tract (ICD- 10) Social History Smoking Status: Never smoker Do you use any of these nicotine containing products: None Second hand tobacco smoke exposure: No How often do you have a drink containing alcohol: monthly or less Alcohol type: beer How many standard drinks containing alcohol do you have on a typical day: 1 or 2 How often do you have six or more drinks on one occasion: Never AUDIT-C Alcohol total score: 1 Non-prescribed substance use: marijuana (any form) Caffeine: Yes service: No Exam Narrative: Exam Narrative: Alert and oriented. Mentating normally. Bedside glucose check 209. No respiratory distress. Nontoxic in appearance. Moving all extremities. \ Const: Vital Signs, click to edit/add: Vital Signs - 24 hr 06/18/23 16:00 Temperature 97.2 F L Respiratory Rate 18 Blood Pressure [Ri ght Upper Arm] 153/84 H Pulse Oximetry 99 Oxygen Delivery Me thod Room Air Documenting provider has reviewed patient's vital signs: yes Course Course ED Course: At this time I also call clementina pacheco to ascertain what we can do about giving him a prescription for NovoLog. Ascencion did explain to me that he has actually been using instead of 6 units occasionally 8-9 based on his blood sugar reading. He is adamant that he has been using Lantus 24 units at night. [facility] does instruct me to created new prescription with instructions for 6-9 units with meals. Vital Signs Vital signs: Initial Vital Signs Temperature 97.2 F L 06/18/23 16:00 Temperature Source Temporal Artery Scan 06/18/23 16:00 Respiratory Rate 18 06/18/23 16:00 Blood Pressure 153/84 H 06/18/23 16:00 Blood Pressure Mean 107 H 06/18/23 16:00 Blood Pressure Position Sitting 06/18/23 16:00 Pulse Oximetry 99 06/18/23 16:00 Oxygen Delivery Method Room Air 06/18/23 16:00 Vital Signs Temperature 97.2 F L 06/18/23 16:00 Respiratory Rate 18 06/18/23 16:00 Blood Pressure 153/84 H 06/18/23 16:00 Pulse Oximetry 99 06/18/23 16:00 Oxygen Delivery Method Room Air 06/18/23 16:00 Temperature 97.2 F L 06/18/23 16:00 Respiratory Rate 18 06/18/23 16:00 Blood Pressure 153/84 H 06/18/23 16:00 Pulse Oximetry 99 06/18/23 16:00 Oxygen Delivery Method Room Air 06/18/23 16:00 Medical Decision Making MDM Narrative Medical decision making narrative: 1. Medication refill need-prescription for Lantus 24 units nightly as well as NovoLog 6-9 units with meals or/t.i.d. sent to [facility]. I have instructed patient to do frequent blood checks over the next 72 hours to ensure that he does not actually experience low blood sugar. I would like him to check with his primary as well. 2. Disposition-return to the emergency room as needed. Follow-up with primary MD. Medical Records Medical records reviewed: Yes I reviewed the patient's medical records Lab Data Lab results reviewed: Yes I reviewed the patient's lab results Lab results narrative: Glucose 209 bedside Discharge Plan Discharge Clinical Impression: Medication refill Patient Disposition: Home, Self-Care Condition: Unchanged Additional Instructions: 1. Prescription for Lantus 24 units nightly sent to [facility]. Notes that they have you on file for 34 units so you may want to check with your primary doctor regarding the correct dosing. 2. I did send prescription for NovoLog 6-9 units 3 times daily or with meals. Monitor your blood sugar frequently over the next 72 hours. We would want to avoid low blood sugars. Return to the emergency room as needed. Prescriptions: New insulin glargine [Lantus Solostar U-100 Insulin] 100 unit/mL (3 mL) insulin pen 24 unit subcut QPM Qty: 15 0RF insulin aspart U-100 100 unit/mL (3 mL) insulin pen 10 unit subcut TID Qty: 15 0RF Rx Instructions: Use 6-9 units with meals 3 times daily. No Action insulin aspart U-100 100 unit/mL (3 mL) insulin pen 6 unit subcut 3XD insulin glargine [Lantus Solostar U-100 Insulin] 100 unit/mL (3 mL) insulin pen 34 unit subcut QPM ondansetron 4 mg tablet,disintegrating 4 mg PO Q8H Qty: 15 0RF sumatriptan succinate [Imitrex] 25 mg tablet 25 mg PO Q2H PRN Rx Instructions: do not exceed 8 doses per 24 hrs cephalexin 500 mg capsule 500 mg PO TID 7 Days Qty: 21 0RF Follow Up/Referrals: JEVON KEY DO [Primary Care Provider] - Stand Alone Forms: [facility] Info Inst[facility]
== END 2023-06-18 17:05 | disposition home or self-care (01) ==
PROVIDERS: Emergency Provider Family Medicine; PCP Student in an Organized Health Care Education/Training Program
DX: Z76.0 Encounter for issue of repeat prescription (principal)
CPT/HCPCS: 82962; 99281; 99282; 99283

== ENCOUNTER 2023-06-20 16:02 | Outpatient (CLI) | payer OTHER, BC, SELFPAY | END 2023-06-20 16:03 | disposition home or self-care (01) | LOC: AMB 07-13 13:16 | PROVIDERS: PCP Student in an Organized Health Care Education/Training Program; Visit Provider Emergency Medicine Emergency Medical Services | DX: S89.91XA Unspecified injury of right lower leg, initial encounter (principal); V23.41XA Electric (assisted) bicycle driver injured in collision with car, pick-up truck or van in traffic accident, initial encounter; Y92.414 Local residential or business street as the place of occurrence of the external cause | CPT/HCPCS: A0425; A0427 ==

== ENCOUNTER 2023-06-20 16:33 | Emergency (ER) | payer OTHER, BC, SELFPAY ==
[2023-06-20] VITALS (9 sets, daily range): BP systolic 138–148; BP diastolic 86–95; PULSE 73–99; RESP 22; TEMP 36.6; O2SAT 97–100; BMI 25.8
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
[2023-06-20] MEDS: HYDROmorphone 0.5 mg/0.5 ml inj IVP (16:48)
[2023-06-20 16:51] LABS: Basophils Absolute Auto 0.04 K/uL (0.00-0.30); Basophils Percent Auto 0.4 % (0.0-3.0); Hemoglobin* 16.8 gm/dL (13.5-17.5); Immature Granulocytes Abs Auto 0.02 K/uL (0.00-0.30); Immature Granulocytes Pct Auto 0.2 %; Lymphocytes Percent Auto 15.1 % (20-44); Mean Corpuscular HGB Conc 34 gm/dL (32-36); Mean Corpuscular Hemoglobin 28 pg (26-34); Mean Corpuscular Volume 84 fL (80-100); Monocytes Percent Auto 7.8 % (0.0-11.0); Neutrophils Percent Auto 75.5 % (42.0-72.0); Platelet Count* 254 K/uL (140-440); RDW Coefficient of Variation % 12.3 % (11.5-15.5); Red Blood Count 5.97 m/uL (4.30-5.90); White Blood Count* 10.37 K/uL (4.50-11.00)
[2023-06-20 16:53] LABS: Slide Review Reflex No
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
[2023-06-20 17:07] LABS: Chloride* 104 mmol/L (96-114); Potassium* 3.9 mmol/L (3.6-5.1); Sodium* 143 mmol/L (135-149)
[2023-06-20 17:10] LABS: Creatinine* 0.6 mg/dL (0.5-1.5); Est. Creatinine Clearance* 165.41; Estimated Glomerular Filt Rate 135 ml/min
[2023-06-20 17:11] LABS: Anion Gap 13 mEq/L (7-15); Blood Urea Nitrogen* 7 mg/dL (5-24); Calcium* 9.8 mg/dL (8.4-10.6); Carbon Dioxide* 26 mmol/L (20-32); Glucose* 91 mg/dL (60-115)
== END 2023-06-20 18:34 | disposition home or self-care (01) ==
PROVIDERS: Emergency Provider Emergency Medicine Emergency Medical Services; PCP Student in an Organized Health Care Education/Training Program
DX: S82.891A Other fracture of right lower leg, initial encounter for closed fracture (principal); V86.06XA Driver of dirt bike or motor/cross bike injured in traffic accident, initial encounter
CPT/HCPCS: 36415; 70450; 72125; 73610; 76604; 76705; 80048; 85025; 93005; 93308; 96374; 99284; 99285; 99291; G0390; J1170

== ENCOUNTER 2023-06-28 09:45 | Day surgery (SDC) | payer OTHER, BC, SELFPAY ==
[2023-06-28] VITALS (14 sets, daily range): BP systolic 97–123; BP diastolic 55–90; PULSE 67–101; RESP 13–17; TEMP 36.3–36.9; O2SAT 95–97; BMI 25.2
[2023-06-28] MEDS: LACTATED RINGERS 1000 ML 1,000 ML 100 ML IV ×2 (10:40→11:46)
[2023-06-28] MEDS: SODIUM CHLORIDE 0.9 % (FLUSH) 10 ML SYRINGE IVF (10:40)
--- NOTE | 2023-06-28 11:00 | W.PM.H&PU ---
History & Physical Update History & Physical Update H&P Reviewed and patient assessed: No changes noted
[2023-06-28] MEDS: fentaNYL 100 MCG/2 ML inj IVP (11:21)
[2023-06-28] MEDS: MIDAZOLAM HCL 1 MG/ML inj IVP (11:21)
--- NOTE | 2023-06-28 11:35 | SUR.PREOP ---
TIME?OUT:?1120 PT/RN/MDA?VERIFICATION?OF?SURGICAL?SITE,?PROCEDURE,?AND?CONSENT OBTAINED?PRIOR?TO?INVASIVE?PROCEDURE. all in agreement
[2023-06-28] MEDS: CEFAZOLIN 2 GM in 0.9 % SODIUM CHLORIDE Mini-bag 100 ML IVPB (11:46)
--- NOTE | 2023-06-28 11:56 | P.NB_ITS ---
Nerve Block Nerve Block Time Seen by Provider: : Date Seen: 06/28/23 Type of block requested by surgeon for post-operative analgesia: popliteal Side: right Time out performed: Yes Verification of patient name: Yes Verification of date of : Yes Site marking: site marked Name of person performing procedure: Rohit Continuous monitoring Was continuous monitoring of O2 sat, B/P, editor continuity and script, recorded every 15 minutes?: Yes Procedure Checklist: sterile prep, needles and gloves Ultrasound guided. Images saved: Yes Medications given in 5ml increments after negative aspiration: Ropivicaine %: 0.5 mL: 20 Needle gauge: 22 Patient tolerated procedure well: Yes Additional comments: Needle noted adjacent to nerve Block Charges Block Charge (with Pro Fee): Sciatic Nerve Use of Ultrasound Machine for Block: Yes- US Guidance/pain block
--- NOTE | 2023-06-28 11:57 | P.NB_ITS ---
Nerve Block Nerve Block Time Seen by Provider: :20 Date Seen: 06/28/23 Type of block requested by surgeon for post-operative analgesia: adductor canal Side: right Time out performed: Yes Verification of patient name: Yes Verification of date of : Yes Site marking: site marked Name of person performing procedure: Rohit Continuous monitoring Was continuous monitoring of O2 sat, B/P, rn cardiac, recorded every 15 minutes?: Yes Procedure Checklist: sterile prep, needles and gloves Ultrasound guided. Images saved: Yes Medications given in 5ml increments after negative aspiration: Ropivicaine %: 0.5 mL: 20 Needle gauge: 20 Patient tolerated procedure well: Yes Additional comments: Needle noted adjacent to nerve Block Charges Block Charge (with Pro Fee): Femoral Nerve Use of Ultrasound Machine for Block: Yes- US Guidance/pain block
--- NOTE | 2023-06-28 11:57 | W.ANESCHARGE ---
Anesthesia Charges Start Date/Time Anesthesia Start Date: 06/28/23 Anesthesia Start Time: 11:35 Stop Date/Time Anesthesia Stop Date: 06/28/23 Anesthesia Stop Time: 12:54
--- NOTE | 2023-06-28 12:00 | CRLHL7_ITS ---
For Patients: As a result of the Cures Act, medical imaging exams and procedure reports are released immediately into your electronic medical record. You may view this report before your referring provider. If you have questions, please contact your health care provider. Indication: Right Ankle Medial Malleolus ORIF Technique: Three fluoroscopic images of the right ankle. Fluoroscopic time 9.8 seconds. IMPRESSION: Fluoroscopic guidance for open reduction internal fixation of medial malleolus fracture. Dictated by Fernando Arboleda MD @ 06/28/2023 12:32:43 PM (Electronically Signed)
--- NOTE | 2023-06-28 12:21 | PM.ORPRC ---
Procedure Note Date of procedure: 06/28/23 Procedure: PREOPERATIVE DIAGNOSES: 1. Right ankle medial malleolus fracture, intra-articular, closed, acute POSTOPERATIVE DIAGNOSES: 1. Right ankle medial malleolus fracture, intra-articular, closed, acute NAME OF OPERATION: 1. Right ankle medial malleolus open reduction with internal fixation 2. 00501 - intraoperative fluoroscopy up to 1 hour. SURGEON: Bruno Baker MD SUPERVISOR DENTAL LABORATORY: Donny TRIPP; Of note, an anesthesiologist assistant certified was critical for this case to aide in patient positioning, leg manipulation, tissue retraction, closure, & splinting. ANESTHESIA: Spinal plus popliteal block. EBL: IMPLANTS: Arthrex 4.0 mm partially threaded cannulated screws (x2). TOURNIQUET: 20 minutes at 300 torr INDICATIONS: The patient is a pleasant 27-year-old male who sustained a right ankle injury in the recent past with difficulty bearing weight. Workup included xrays which revealed an unstable ankle fracture as noted above. Given these findings, surgery was recommended to stablize the ankle. FINDINGS: Closed, comminuted, displaced medialmalleolar fractures with good bone quality. The fracture was intra-articular and mildly displaced. After securing this, the syndesmosis was tested and found to be stable. There was a question if there is a proximal fibular fracture like a masonneuve fracture, but this could not be confirmed as we did not clearly see a proximal fibular neck fracture. Large heme arthrosis of the ankle noted and evacuated with thorough irrigation of normal saline following that. PROCEDURE: Following a thorough discussion of risks, benefits, and alternatives, consent was obtained and the right ankle was marked. The patient was brought to the operating room and placed supine on the operating table. Induction of anesthesia was undertaken. Appropriate time out was performed identifying proper patient, site and procedure. 1 gram of iv Ancef was administered within 1 hour of incision preoperatively. The right lower extremity was prepped and draped in the appropriate sterile fashion using ChloraPrep. The limb was exsanguinated and the tourniquet inflated. A longitudinal incision was made overlying the distal medial malleolus. Sharp incision through skin and subcutaneous tissue was performed while protecting any crossing neurologic structures. The fracture was encountered, and cleared of interposed periosteum and fracture hematoma. The joint was entered, and thoroughly irrigated with normal saline completed after evacuating the hemarthrosis. The fracture was reduced and temporarily held with a dental pick. 4.0 mm partially-threaded cannulated screws were then placed with guidewires, drilling, and screw placement. C-arm fluoroscopic imaging was utilized at various stages to confirm the pins to be extra-articular but in appropriate position for securing the fracture fragment. Again, after stabilizing the medial malleolus, the syndesmosis was tested for stability and found to be stable without significant medial clear space widening. The proximal fibula was assessed fluoroscopically, and no clear proximal fibular fracture could be appreciated. At this stage, the wound was thoroughly irrigated with normal saline. Closure was performed with #2-0 Vicryl for the deep periosteum. 2-0 Stratafix and 4-0 Stratafix for the subcutaneous and subcuticular layers, respectively. Dressings were applied and a sugar-tong splint was applied. The patient was awoken from anesthesia and transferred to the PACU in stable condition. PLAN: 1. Elevate operative extremity. 2. Encouraged ice. 3. Arcade for pain as needed. 4. Follow up with me in 2-3 weeks for wound check and splint removal. Anticipate cam boot placement at that time and initiation of weight-bearing as tolerated as well as Physical Therapy for ROM and gradual strengthing. 5. Toe-touch weight-bearing operative lower extremity
--- NOTE | 2023-06-28 13:02 | W.ANESCHARGE ---
Anesthesia Charges Start Date/Time Anesthesia Start Date: 06/28/23 Anesthesia Start Time: 11:35 Stop Date/Time Anesthesia Stop Date: 06/28/23 Anesthesia Stop Time: 12:54
== END 2023-06-28 14:40 | disposition home or self-care (01) ==
PROVIDERS: PCP Student in an Organized Health Care Education/Training Program; Visit Provider Orthopaedic Surgery Sports Medicine
PROC: (CPT 27766; principal; 2023-06-28 12:00)
DX: S82.51XA Displaced fracture of medial malleolus of right tibia, initial encounter for closed fracture (principal); G89.18 Other acute postprocedural pain
CPT/HCPCS: 27766; 01480; 64445; 64447; 73600; 76000; 76942; 82962; A4580; C1713; J0690; J1100; J2250; J2405; J2704; J2795; J3010; J7120

== ENCOUNTER 2023-06-29 07:26 | Emergency (ER) | payer BC, SELFPAY ==
[2023-06-29 07:34] VITALS: BP 171/105; PULSE 101; RESP 18; TEMP 37.4; O2SAT 97; BMI 25.8
--- NOTE | 2023-06-29 08:20 | ED_ITS ---
HPI - General Adult General Date Seen: 06/29/23 Chief complaint: Post Op Complication Stated complaint: post surgery, R ankle pain Time Seen by Provider: 06/29/23 08:08 Source: patient Mode of arrival: ambulatory Limitations: no limitations History of Present Illness HPI narrative: Patient is a 27-year-old male who had an ORIF of his right ankle yesterday. He says he woke up this morning feeling like the nerve block had worn off. He took 1 [place], but an hour later he still had pain so he called his mother, and then they called the hospital and they were told to come here. No problem with perfusion of the toes. No fevers. No other complaints. Related Data Home Medications Medication Instructions Recorded Confirmed insulin aspart U-100 100 unit/mL 6 unit subcut 3XD 11/10/22 06/22/23 (3 mL) subcutaneous pen insulin glargine 100 unit/mL (3 34 unit subcut QPM 11/10/22 06/22/23 mL) subcutaneous pen (Lantus Solostar U-100 Insulin) sumatriptan succinate 25 mg tablet 25 mg PO Q2H PRN 11/22/22 06/22/23 (Imitrex) flash glucose sensor (FreeStyle 06/20/23 06/22/23 Jean 14 Day Sensor kit) Previous Rx's Medication Instructions Recorded insulin aspart U-100 100 unit/mL 10 unit (0.1 mL) subcut TID #15 mL 06/18/23 (3 mL) subcutaneous pen insulin glargine 100 unit/mL (3 24 unit (0.24 mL) subcut QPM #15 mL 06/18/23 mL) subcutaneous pen (Lantus Solostar U-100 Insulin) hydrocodone 5 mg-acetaminophen 325 1 tab PO Q4-6H PRN pain #15 tabs 06/22/23 mg tablet sulfamethoxazole 800 1 tab PO BID #14 tabs 06/22/23 mg-trimethoprim 160 mg tablet (Bactrim DS) hydrocodone 5 mg-acetaminophen 325 1 tab PO Q4-8H PRN pain #20 tabs 06/28/23 mg tablet ondansetron 4 mg disintegrating 4 mg PO Q8H #15 tabs 06/28/23 tablet sennosides 8.6 mg-docusate sodium 1 tab-cap PO BID PRN constipation 06/28/23 50 mg tablet (Senna-S) #60 tabs Allergies Allergy/AdvReac Type Severity Reaction Status Date / Time ketorolac [From Toradol] Allergy Mild Hives Verified 06/22/23 10:23 oxycodone Allergy Mild itching Verified 06/22/23 10:23 prochlorperazine Allergy Mild hives, Verified 06/22/23 10:23 [From Compazine] itching Review of Systems Status of ROS: Reports: 6 or more systems reviewed and unremarkable except as noted in History and below [facility] Medical History Ankle fracture, right ?S82.891A - Other fracture of right lower leg, initial encounter for closed fracture (ICD-10) Microcytic anemia ?D50.9 - Iron deficiency anemia, unspecified (ICD-10) Leukocytosis ?D72.829 - Elevated white blood cell count, unspecified (ICD-10) Chronic pain ?G89.29 - Other chronic pain (ICD-10) Depression ?F32.A - Depression, unspecified (ICD-10) Insulin dependent diabetes mellitus Recurrent pancreatitis Surgical History Hx of tracheostomy ?Z98.890 - Other specified postprocedural states (ICD-10) History of esophagogastroduodenoscopy (EGD) ?Z98.890 - Other specified postprocedural states (ICD-10) History of ERCP ?Z98.890 - Other specified postprocedural states (ICD-10) Hx of cholecystectomy ?Z90.49 - Acquired absence of other specified parts of digestive tract (ICD- 10) Social History Smoking Status: Never smoker Do you use any of these nicotine containing products: None Second hand tobacco smoke exposure: No How often do you have a drink containing alcohol: monthly or less Alcohol type: beer How many standard drinks containing alcohol do you have on a typical day: 1 or 2 How often do you have six or more drinks on one occasion: Never AUDIT-C Alcohol total score: 1 Non-prescribed substance use: marijuana (any form) Caffeine: Yes service: No Exam Narrative: Exam Narrative: Vital signs reviewed. Mildly tachy, hypertensive. In general, an alert, tearful male. Extremities: The right lower extremity is in a Eliseo Heck type cast. Toes are well perfused. No significant swelling in the visible foot. Skin: Warm dry well perfused Const: Vital Signs, click to edit/add: Vital Signs - 24 hr 06/29/23 07:34 Temperature 99.3 F Pulse Rate [Pulse Oximeter] 101 H Respiratory Rate 18 Blood Pressure [Ri ght Forearm] 171/105 H Pulse Oximetry 97 Oxygen Delivery Me thod Room Air Documenting provider has reviewed patient's vital signs: yes Course Course ED Course: Will give him some IM morphine and touch base with Orthopedics. Advised him that regardless of treatment he will have some pain in the ankle now that the nerve block has worn off. Feels improved after morphine. Orthopedics saw him and changed his cast to something less bulky. At this time he reports feeling well. Okay to discharge, call Orthopedics for ongoing concerns. Otherwise follow-up as planned. Vital Signs Vital signs: Initial Vital Signs Temperature 99.3 F 06/29/23 07:34 Temperature Source Temporal Artery Scan 06/29/23 07:34 Pulse Rate 101 H 06/29/23 07:34 Pulse Rhythm Regular 06/29/23 07:34 Respiratory Rate 18 06/29/23 07:34 Blood Pressure 171/105 H 06/29/23 07:34 Blood Pressure Mean 127 H 06/29/23 07:34 Blood Pressure Position Supine 06/29/23 07:34 Pulse Oximetry 97 06/29/23 07:34 Oxygen Delivery Method Room Air 06/29/23 07:34 Vital Signs Temperature 99.3 F 06/29/23 07:34 Pulse Rate 101 H 06/29/23 07:34 Respiratory Rate 18 06/29/23 07:34 Blood Pressure 171/105 H 06/29/23 07:34 Pulse Oximetry 97 06/29/23 07:34 Oxygen Delivery Method Room Air 06/29/23 07:34 Temperature 99.3 F 06/29/23 07:34 Pulse Rate 101 H 06/29/23 07:34 Respiratory Rate 18 06/29/23 07:34 Blood Pressure 171/105 H 06/29/23 07:34 Pulse Oximetry 97 06/29/23 07:34 Oxygen Delivery Method Room Air 06/29/23 07:34 Discharge Plan Discharge Clinical Impression: Post-op pain Patient Disposition: Home, Self-Care Condition: Improved Instructions: Pain Management After Surgery (DC) Additional Instructions: Continue current medications. Call the ortho clinic if you have ongoing concerns. Prescriptions: No Action sulfamethoxazole-trimethoprim [Bactrim DS] 800-160 mg tablet 1 tab PO BID Qty: 14 0RF hydrocodone-acetaminophen 5-325 mg tablet 1 tab PO Q4-6H MDD 6 PRN (Reason: pain) Qty: 15 0RF insulin aspart U-100 100 unit/mL (3 mL) insulin pen 6 unit subcut 3XD insulin glargine [Lantus Solostar U-100 Insulin] 100 unit/mL (3 mL) insulin pen 34 unit subcut QPM insulin glargine [Lantus Solostar U-100 Insulin] 100 unit/mL (3 mL) insulin pen 24 unit subcut QPM Qty: 15 0RF insulin aspart U-100 100 unit/mL (3 mL) insulin pen 10 unit subcut TID Qty: 15 0RF Rx Instructions: Use 6-9 units with meals 3 times daily. hydrocodone-acetaminophen 5-325 mg tablet 1 tab PO Q4-8H PRN (Reason: pain) Qty: 20 0RF sennosides-docusate sodium [Senna-S] 8.6-50 mg tablet 1 tab-cap PO BID PRN (Reason: constipation) Qty: 60 2RF Rx Instructions: 1-2 tabs by mouth twice daily as needed. Recommended to take while using narcotics. ondansetron 4 mg tablet,disintegrating 4 mg PO Q8H Qty: 15 0RF sumatriptan succinate [Imitrex] 25 mg tablet 25 mg PO Q2H PRN Rx Instructions: do not exceed 8 doses per 24 hrs (DME) FreeStyle Jean 14 Day Sensor Kit MISCELLANEOUS DIRECTED Follow Up/Referrals: JEVON KEY DO [Primary Care Provider] - Stand Alone Forms: [facility] Info Instructions
[2023-06-29] MEDS: MORPHINE 4 MG/ML INJ 8 MG IM (08:26)
[2023-06-29 09:39] VITALS: BP 143/81; PULSE 70; RESP 16; O2SAT 96
--- NOTE | 2023-06-29 10:01 | ED.NURSE ---
did get new plaster cast placed per ortho PA.
== END 2023-06-29 09:51 | disposition home or self-care (01) ==
PROVIDERS: Emergency Provider Emergency Medicine; PCP Student in an Organized Health Care Education/Training Program
DX: G89.18 Other acute postprocedural pain (principal)
CPT/HCPCS: 96372; 99283; 99284; J2270

== ENCOUNTER 2023-09-17 13:49 | Emergency (ER) | payer BC, SELFPAY ==
[2023-09-17 13:54] VITALS: BP 148/98; PULSE 122; RESP 16; TEMP 37.3; O2SAT 96; BMI 27.5
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
--- OUTSIDE RECORDS SUMMARY | 2023-09-17 14:16 | XMS_ITS | Referral Summary ---
Author Name Unknown Organization [facility] Address [address] [place] [address] Care Team Providers Care Swimming Instructor Name Role Phone Elsewhere, Pcp Primary Care Provider Unavailabl e Source Comments Patient records contain information from all sites at [facility]. For routine questions regarding patient records, call [phone] during business hours, M-F 8:00 AM - 5:00 PM Central Time. Record requests for emergency care only can be directed to [phone] at any time.[facility] Allergies No known active allergies Medications No known medications Active Problems No known active problems Social History Tobacco Use Types Packs/Day Years Used Date Smoking Tobacco: Never Smokeless Tobacco: Never Alcohol Use Standard Drinks/Week Comments Not Currently 0 (1 standard drink = 0.6 oz pur e alcohol) trying to quit Nutrition Answer Date Recorded Nutrition: EVOO Fat Source Unknown 01/01 Nutrition: Servings of Fruits/Vegetables per Day Not on file 01/01/2022 Dental Answer Date Recorded Dental: Regular Dentist Unknown 01/02/20 Sex and Gender Information Value Date Recorded Sex Assigned at Not on file Gender Identity Not on file Sexual Orientation Not on file Last Filed Vital Signs Vital Sign Reading Time Taken Comments Blood Pressure 144/98 01/01/2022 10:30 PM CDT Pulse 97 01/01/2022 10:30 PM CDT Temperature 36.7 ??C (98.1 ??F) 01/01/2022 8:57 PM CD T Respiratory Rate 16 01/01/2022 10:30 PM CDT Oxygen Saturation 98% 01/01/2022 10:30 PM CDT Inhaled Oxygen Concentration - - Weight 70.1 kg (154 lb 8.7 oz) 01/01/2022 8:58 P M CDT Height 165.1 cm (5' 5) 01/01/2022 8:58 PM CDT Body Mass Index 25.72 01/01/2022 8:58 PM CDT Plan of Treatment Not on file Care Teams Swimming Instructor Relationship Specialty Start Date End Date Elsewhere, Pcp PCP - General Internal Medicine 01/01/22
--- OUTSIDE RECORDS SUMMARY | 2023-09-17 14:16 | XMS_ITS ---
Author Name Unknown Organization [facility] Address [address] [place] [address] Care Team Providers Care Sales Project Coordinator Name Role Phone Unavailable Unavailable Unavailable Surgery Details Not on file Complications Check Surgery Details section. Procedure Estimated Blood Loss Check Surgery Details section. Procedure Findings Check Surgery Details section. Procedure Specimens Taken Check Surgery Details section.
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
--- OUTSIDE RECORDS SUMMARY | 2023-09-17 14:16 | XMS_ITS | Clinical Summary ---
Author Name Unknown Organization [facility] Address [address] [place] [address] Care Team Providers Care Environmental Technical Officer Name Role Phone Elsewhere, Pcp Primary Care Provider Unavailabl e Source Comments Patient records contain information from all sites at [facility]. For routine questions regarding patient records, call [phone] during business hours, M-F 8:00 AM - 5:00 PM Central Time. Record requests for emergency care only can be directed to [phone] at any time.[facility] Allergies No known active allergies Medications No [...] of Treatment Not on file Care Teams Environmental Technical Officer Relationship Specialty Start Date End Date Elsewhere, Pcp PCP - General Internal Medicine 01/01/22
== END 2023-09-17 14:22 | disposition home or self-care (01) ==
LOC: ED 14:14
PROVIDERS: Emergency Provider Family Medicine; PCP Student in an Organized Health Care Education/Training Program
DX: K04.7 Periapical abscess without sinus (principal)
CPT/HCPCS: 99283

== ENCOUNTER 2023-09-17 17:52 | Emergency (ER) | payer BC, SELFPAY ==
[2023-09-17 18:00] VITALS: BP 165/113; PULSE 97; RESP 14; TEMP 36.5; O2SAT 96; BMI 27.5
[2023-09-17] MEDS: MORPHINE 4 MG/ML INJ IM (18:31)
--- OUTSIDE RECORDS SUMMARY | 2023-09-17 18:47 | XMS_ITS | Referral Summary ---
Author Name Unknown Organization [facility] Address [address] [place] [address] Care Team Providers Care Residential Care Officer Name Role Phone Elsewhere, Pcp Primary Care Provider Unavailabl e Source Comments Patient records contain information from all sites at [facility]. For routine questions regarding patient records, call [phone] during business hours, M-F 8:00 AM - 5:00 PM Central Time. Record requests for emergency care only can be directed to [phone] at any time.[facility] Allergies No known active allergies Medications No [...] of Treatment Not on file Care Teams Residential Care Officer Relationship Specialty Start Date End Date Elsewhere, Pcp PCP - General Internal Medicine 01/01/22
--- OUTSIDE RECORDS SUMMARY | 2023-09-17 18:47 | XMS_ITS ---
Author Name Unknown Organization [facility] Address [address] [place] [address] Care Team Providers Care Malt Liquors Sales Representative Name Role Phone Unavailable Unavailable Unavailable Surgery Details Not on file Complications Check Surgery Details section. Procedure Estimated Blood Loss Check Surgery Details section. Procedure Findings Check Surgery Details section. Procedure Specimens Taken Check Surgery Details section.
--- OUTSIDE RECORDS SUMMARY | 2023-09-17 18:47 | XMS_ITS | Clinical Summary ---
Author Name Unknown Organization [facility] Address [place], [place] [address] Care Team Providers Care Bead Filler Name Role Phone Kyle Scherer Primary Care Provider Allergies Active Allergy Reactions Criticality Noted Date [...] Department Care Team Description 09/16/2023 Nurse Triage [facility] [address] [place] [address] Kyle Scherer DO Questions 09/15/2023 1:40 PM BAG SHAKER Office Visit [facility] [address] [place] [address] Kyle Scherer DO Diabetes (X1 week - 200-300s - has been giving himself 9u for meals and 28-29u at bedtime - coming down to 120s with that - no new diet changes or medications ) 09/15/2023 Telephone [facility] [address] [place] [address] Kyle Scherer DO Medication Problem (insulin aspart, U-100, (NOVOLOG FLEXPEN) 100 unit/mL (3 mL) pen) 09/15/2023 Travel 09/08/2023 Refill [facility] [address] [place] [address] Kyle Scherer DO Refill Request (Bd Insulin Pen Needle Uf) 08/17/2023 Refill [facility] [address] [place] [address] Kyle Scherer DO Refill Request (Insulin Aspart (U-100)) 07/26/2023 Refill [facility] [address] [place] [address] Kyle Scherer DO Refill Request (Insulin Aspart (U-100)) 07/25/2023 Refill [facility] [address] [place] [address] Kyle Scherer DO Refill Request (Freestyle Jean 14 Day Sensor) 06/28/2023 Orders Only [facility] Scanner 1 scan: (1-Ord) [facility], XR ANKLE RT 2V, 06/28/2023 06/27/2023 8:40 AM CDT Preop Visit [facility] [address] [place] [address] Carlin Quezada MD Pre-Op Exam (DOS 06/28/23) 06/27/2023 Travel 06/20/2023 Orders Only [facility] Scanner 1 scan: (1-Ord) [facility], CERVICAL SPINE WO CONTRAST, 06/20/2023 06/20/2023 Orders Only [facility] Scanner 1 scan: (1-Ord) [facility], HEAD/BRAIN WO CONTRAST, 06/20/2023 from Last 3 [...] Diabetes Paternal Grandmother Heart Disease Paternal Uncle [place] Anesthesia Problem No Family History Blood Disease [...] Comments Blood Pressure 145/95 09/15/2023 1:43 PM BAG SHAKER Pulse 82 09/15/2023 1:43 PM BAG SHAKER Temperature 36.9 ??C (98.5 ??F) 06/27/2023 8 :44 AM CDT Respiratory Rate 20 05/30/2017 12:0 3 PM CDT Oxygen Saturation 100% 09/15/2023 1:4 3 PM BAG SHAKER Inhaled Oxygen Concentration - - Weight 75.2 kg (165 lb 12.8 oz) 09/15/2023 1:43 PM BAG SHAKER w/ coat and shoes Height 167.6 cm (5' 6) 06/27/2023 8:44 AM CDT Body Mass Index 26.76 06/27/2023 8:44 AM CDT Plan of Treatment Upcoming Encounters Date Type Department Care Team (Late st Contact Info) Description 10/16/2023 2:30 PM BAG SHAKER Office Visit [facility] [address] [place] [address] Kyle Scherer DO [address] [place] [address] Health Maintenance Due Date Last Done Comments [...] 11/12/19, 10/11/2021 Medical Devices Implanted Type Area Cremator Device Identifier Shelf Expiration Date Model / Serial / Lot Stent Biliary 10-7 Cotton Huibregste - [id number] Implanted:Qty: 1 on 04/11/2012 by Konstantin Hurt MD at [facility] N/A: Common Bile Duct [facility] CHBSO-10- 7# / / [id number] Stent Pancreatic Geenen 7-9gepd-7-9 Cook - [id number] Implanted:Qty: 1 on 04/11/2012 by Konstantin Hurt MD at [facility] N/A: Pancreas [employer] GEPD-7-9# / / Stent Pancreatic 9emb1kj Geenen Set - [id number] Implanted:Qty: 1 on 05/06/2015 by Konstantin Hurt MD at [facility] N/A: Pancreas [employer] GEPD-7-9# / / [id number] Stent Pancreatic 10fr 7cm Gpso Geenen - [id number] Implanted:Qty: 1 on 06/10/2015 by Konstantin Hurt MD at [facility] GPSO-10-7 # / / [id number] Stent Pancreatic 7mty4ff Geenen Sof-Flex No Flap - [id number] Implanted:Qty: 1 on 07/01/2015 by Konstantin Hurt MD at [facility] 01/25/2018 GPSOS-SF- 5-7# / / [id number] Description:implanted to ibrahim creatic duct during ERCP. Stent Pancreatic 5knt1qh Advanix Stra Una Plst - [id number] Implanted:Qty: 1 on 04/21/2017 by Konstantin Hurt MD at [facility] N/A: Pancreas [facility] 07/11/2018 [id number] # / / [id number] Inactive/Delete 04/07/17stent Pancreatic 9ffk2bk Geene - [id number] Implanted:Qty: 1 on 05/15/2017 by Konstantin Hurt MD at [facility] 03/16/2020 [facility]-SF- 5-5# / / Procedures Procedure Name Priority [...] 11.0 thou/cu mm 06/27/2023 9:22 AM CDT [facility] RED BLOOD COUNT 5.30 4.30 - 5.90 mil/cu mm 06/27/2023 9:22 AM CDT [facility] HEMOGLOBIN 15.5 13.5 - 17.5 g/dL 06/27/2023 9:22 AM CDT [facility] HEMATOCRIT 45.6 37.0 - 53.0 % 06/27/2023 9:22 AM CDT [facility] MCV 86 80 - 100 fL 06/27/2023 9:22 AM CDT [facility] MCH 29.2 26.0 - 34.0 pg 06/27/2023 9:22 AM CDT [facility] MCHC 34.0 32.0 - 36.0 g/dL 06/27/2023 9:22 AM CDT [facility] RDW 13.7 11.5 - 15.5 % 06/27/2023 9:22 AM CDT [facility] PLATELET COUNT 257 140 - 440 thou/cu mm 06/27/2023 9:22 AM CDT [facility] MPV 8.8 6.5 - 11.0 fL 06/27/2023 9:22 AM CDT [facility] % NEUT 65.9 % 06/27/2023 9:22 AM CDT [facility] % LYMPH 16.4 % 06/27/2023 9:22 AM CDT [facility] % MONO 11.3 % 06/27/2023 9:22 AM CDT [facility] % EOS 6.0 % 06/27/2023 9:22 AM CDT [facility] % BASO 0.4 % 06/27/2023 9:22 AM CDT [facility] ABSOLUTE NEUTROPHILS 5.6 1.7 - 7.0 thou/cu mm 06/27/2023 9:22 AM CDT [facility] ABSOLUTE LYMPHOCYTES 1.4 0.9 - 2.9 thou/cu mm 06/27/2023 9:22 AM CDT [facility] ABSOLUTE MONOCYTES 1.0(H) <0.9 thou/cu mm 06/27/2023 9:22 AM CDT [facility] ABSOLUTE EOSINOPHILS 0.5(H) <0.5 thou/cu mm 06/27/2023 9:22 AM CDT [facility] ABSOLUTE BASOPHILS 0.0 <0.3 thou/cu mm 06/27/2023 9:22 AM CDT [facility] Blood BLOOD SPECIMEN / Unknown Venipuncture / Unknown 06/27/2023 9:17 AM CDT 06/27/2023 9:18 AM CDT Carlin Quezada MD HEMATOLOGY Performing Organization Address [facility] Co de Phone Number [facility] [address] [place] [address], * PROTIME-INR (06/27/2023 9:17 AM CDT) INR 1.0 <1.3 06/27/2023 3:24 PM CDT [facility] PROTIME 13.3 12.2 - 14.3 sec 06/27/2023 3:24 PM CDT [facility] Blood BLOOD SPECIMEN / Unknown Venipuncture / Unknown 06/27/2023 9:17 AM CDT 06/27/2023 9:18 AM CDT Narrative [facility] - 06/27/2023 3:24 PM CDT [...] Carlin Quezada MD HEMATOLOGY Performing Organization Address [facility] Co de Phone Number [facility] [address] [place] [address], * HEMOGLOBIN A1C MONITORING (POCT) (06/27/2023 9:17 AM CDT) HEMOGLOBIN A1C MONITORING (POCT) 5.9 <=6.4 % 06/27/2023 9:28 AM CDT [facility] Blood BLOOD SPECIMEN / Unknown Venipuncture / Unknown 06/27/2023 9:17 AM CDT 06/27/2023 9:18 AM CDT Narrative [facility] - 06/27/2023 9:28 AM [...] Anemias, Splenectomy ? Carlin Quezada MD CHEMISTRY [facility] [address] [place] [address], * (ABNORMAL) COMP METABOLIC PANEL (06/27/2023 9:17 AM CDT) SODIUM 138 136 - 145 mmol/L 06/27/2023 5:42 PM CDT [facility] POTASSIUM 4.9 3.5 - 5.1 mmol/L 06/27/2023 5:42 PM CDT [facility] CHLORIDE 101 98 - 107 mmol/L 06/27/2023 5:42 PM CDT [facility] CO2,TOTAL 23 22 - 29 mmol/L 06/27/2023 5:42 PM CDT [facility] ANION GAP 14 5 - 18 06/27/2023 5:42 PM CDT [facility] GLUCOSE 97 70 - 99 mg/dL 06/27/2023 5:42 PM CDT [facility] CALCIUM 10.4(H) 8.6 - 10.0 mg/dL 06/27/2023 5:42 PM CDT [facility] BUN 10 6 - 20 mg/dL 06/27/2023 5:42 PM CDT [facility] CREATININE 0.98 0.70 - 1.20 mg/dL 06/27/2023 5:42 PM CDT [facility] BUN/CREAT RATIO 10 10 - 20 5:42 PM CDT [facility] eGFR >90 >90 mL/min/1.7 3m2 06/27/2023 5:42 PM CDT [facility] Comment:As of 2021, eG FR is calculated by the CKD-EPI creatinine equation without race adjustment. ??eGFR can be influenced by muscle mass, exercise, and diet. ??The reported eGFR is an estimation only and is only applicable if the renal function is stable. ALBUMIN 4.9 4.0 - 4.9 g/dL 06/27/2023 5:42 PM CDT [facility] PROTEIN,TOTAL 7.9 6.0 - 8.0 g/dL 06/27/2023 5:42 PM CDT [facility] BILIRUBIN,TOTAL 0.4 0.0 - 1.2 mg/dL 06/27/2023 5:42 PM CDT [facility] ALK PHOSPHATASE 133(H) 40 - 129 IU/L 06/27/2023 5:42 PM CDT [facility] ALT (SGPT) 74(H) 10 - 50 IU/L 06/27/2023 5:42 PM CDT [facility] AST (SGOT) 68(H) 10 - 50 IU/L 06/27/2023 5:42 PM CDT [facility] Blood BLOOD SPECIMEN / Unknown Venipuncture / Unknown 06/27/2023 9:17 AM CDT 06/27/2023 9:18 AM CDT Carlin Quezada MD CHEMISTRY [facility] [address] [place] [address], * SCAN-CT INTERPRETATION (06/20/2023 12:00 AM CDT) [...] 7:59 AM 05/04/2017 9:53 AM Care Teams Bead Filler Relationship Specialty Start Date End Date Kyle Scherer DO [address] [place] [address] PCP - General Family Practice 03/11/21
--- OUTSIDE RECORDS SUMMARY | 2023-09-17 18:47 | XMS_ITS | Clinical Summary ---
Author Name Unknown Organization [facility] Address [address] [place] [address] Care Team Providers Care Boiler/Chiller Operator Name Role Phone Elsewhere, Pcp Primary Care Provider Unavailabl e Source Comments Patient records contain information from all sites at [facility]. For routine questions regarding patient records, call [phone] during business hours, M-F 8:00 AM - 5:00 PM Central Time. Record requests for emergency care only can be directed to [phone] at any time.[facility] Allergies No known active allergies Medications No [...] of Treatment Not on file Care Teams Boiler/Chiller Operator Relationship Specialty Start Date End Date Elsewhere, Pcp PCP - General Internal Medicine 01/01/22
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
== END 2023-09-17 19:36 | disposition home or self-care (01) ==
PROVIDERS: Emergency Provider Student in an Organized Health Care Education/Training Program; PCP Student in an Organized Health Care Education/Training Program
DX: K02.9 Dental caries, unspecified (principal)
CPT/HCPCS: 96372; 99282; 99283; 99284; J2270

== ENCOUNTER 2023-09-18 04:45 | Emergency (ER) | payer BC, SELFPAY ==
[2023-09-18 04:50] VITALS: BP 168/124; PULSE 100; RESP 18; TEMP 36.4; O2SAT 97; BMI 27.5
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
[2023-09-18] MEDS: ONDANSETRON ODT 4 MG TAB PO (05:37)
[2023-09-18] MEDS: OXYCODONE 5 MG TABLET 10 MG PO (05:37)
[2023-09-18] MEDS: cefTRIAXone 1 GM VIAL IM (05:41)
[2023-09-18] MEDS: LIDOCAINE 1% 5 ml (pf) 5 ML VIAL 2.1 ML IM (05:42)
== END 2023-09-18 05:54 | disposition home or self-care (01) ==
LOC: ED 05:25
PROVIDERS: Emergency Provider Family Medicine; PCP Student in an Organized Health Care Education/Training Program
DX: K02.9 Dental caries, unspecified (principal)
CPT/HCPCS: 96372; 99283; 99284; A9270; J0696

== ENCOUNTER 2023-12-18 20:45 | Emergency (ER) | payer MEDICAID, SELFPAY ==
[2023-12-18 20:58] VITALS: BP 143/94; PULSE 82; RESP 16; TEMP 37.1; O2SAT 98
[2023-12-18 21:45] VITALS: PULSE 80; RESP 18; TEMP 36.7; O2SAT 96
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
--- OUTSIDE RECORDS SUMMARY | 2023-12-18 22:41 | XMS_ITS | Continuity of Care Document ---
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 [address] [address], [place], [place], [id number], [place]. tel:[phone] Galo Huang DO. tel:[phone] erring Provider: Robin Holcomb, [address], [place], [address]. tel:[phone] Subsqt Hosp-da E&m Stable 15 M [facility], [address] [address], [place], [address], [place] tel:[phone] [facility] No Information Sep-2 Chandrakant Villanueva. [address], [id number], [place]. tel:[phone] Referring Provider: Robin Holcomb, [address], [place], [address]. tel:[phone] Init Inpt Cons New/est Mod-hi [facility], [address] [address], [facility] [place] [address], [place] tel:[phone] [facility] No Information Sep-2 7 No Information Referring Provider: Robin Holcomb, [address], [place], [address]. tel:[phone] Subsqt Hosp-da E&m Minr Compl [facility], [address] [address], [facility] [place], [address], [place] tel:[phone] [facility] No Information Sep-2 7 Nesset BIANCA Ortizy. [address] [address], [place], [place], [address], [place]. tel:[phone] Referring Provider: Robin Holcomb, [address], [place], [address]. tel:[phone] Subsqt Hosp-da E&m Minr Compl [facility], [address] [address], [place], [address], [place] tel:[phone] [facility] No Information Sep-1 Chandrakant Villanueva. [address] [facility] 500, [place], [place], [address], [place]. tel:[phone] Referring Provider: Robin Holcomb, [address], [place], [address]. tel:[phone] [facility], [address] [address], [place], [address], [place] tel:[phone] [facility] No Information Apr- 7 Licha Pryor. [address] [facility] [address], [place], [address], [place]. tel:[phone] Referring Provider: Robin Holcomb, [address], [place], [address]. tel:[phone] [facility], [address] [address], [place], [address], [place] tel:[phone] [facility] Encounter for removal of biliary stentChronic pancreatitis , unspecified pancreatitis type Sep- 7 Licha Pryor. [facility] [address], [place], [address], [place]. tel:[phone] Init Inpt Cons New/est Mod-hi [facility], [address] [address], [place], [address], [place] tel:[phone] [facility] No Information Apr- 7 Elsa Alfred. [address] [place] [address], [place], [address], [place]. tel:[phone] Referring Provider: Robin Holcomb, [address], [place], [address]. tel:[phone] [facility], [address] [address], [place], [address], [place] tel:[phone] [facility] Chronic pancreatitis , unspecified pancreatitis type Sep- 7 Ganesh King. [facility], [facility] [address], [place], [address], [place]. tel:[phone] Galo Huang DO. tel:[phone] Subsqt Hosp-da E&m Minr Compl [facility], [address] [address], [place], [address], [place] tel:[phone] [facility] No Information Sep-0 7 Stephane EDWIN Nel. [address] [place] [address], [id number], [place]. tel:[phone] Referring Provider: Robin Holcomb, [address], [place], [address]. tel:[phone] Subsqt Hosp-da E&m Minr Compl [facility], [address] [address], [place], [address], [place] tel:[phone] [facility] No Information Apr-0 7 Chandrakant Joyher. [address] [place] [address], [id number], [place]. tel:[phone] Referring Provider: Robin Holcomb, [address], [place], [address]. tel:[phone] Init Inpt Cons New/est Mod-hi [facility], [address] [address], [place], [address], [place] tel:[phone] [facility] No Information Apr-0 7 Ganesh King. [address] [place] [address], [id number], [place]. tel:[phone] Referring Provider: Robin Holcomb, [address], [place], [address]. tel:[phone] Subsqt Hosp-da E&m Minr Compl [facility], [address] [address], [place], [address], [place] tel:[phone] [facility] No Information 7 No Information Referring Provider: Robin Holcomb, [address], [place], [address]. tel:[phone] [facility], [address] [address], [place], [address], [place] tel:[phone] [facility] No Information Licha Pryor. [address] [facility], [address], [id number], [place]. tel:[phone] Referring Provider: Robin Holcomb, [address], [place], [address]. tel:[phone] Subsqt Hosp-da E&m Minr Compl [facility], [address] [address], [place], [address], [place] tel:[phone] [facility] No Information No Information Referring Provider: Robin Holcomb, [address] , [place], [address]. tel:[phone] Init Inpt Cons New/estab Mod 5 [facility], [address] [address], [place], [address], [place] tel:[phone] [facility] No Information Madi Mcconnell. [address] [facility], [facility] [address], [place], [address], [place]. tel:[phone] Referring Provider: Robin Holcomb, [address] , [place], [address]. tel:[phone] [facility], [address] [address], [place], [address], [place] tel:[phone] [facility] Chronic pancreatitis , unspecified pancreatitis type Licha Pryor. [address] [facility], [facility] [address], [place], [address], [place]. tel:[phone] Galo Huang DO. tel:[phone] Init Inpt Cons New/est Mod-hi [facility], [address] [address], [place], [address], [place] tel:[phone] [facility] No Information Paloma Gomes. [address] [facility], [facility] 500, [place], [place], [address], [place]. tel:[phone] Referring Provider: Robin Alcantar MD R, [address], [place], [address]. tel:[phone] [facility], [address] [address], [place], [address], [place] tel:[phone] [facility] Chronic pancreatitis , unspecified pancreatitis type 7 Dakota Reed. [facility], [facility] 500, [place], [place], [address], [place]. tel:[phone] Subsqt Hosp-da E&m Minr Compl [facility], [address] [address], [place], [address], [place] tel:[phone] [facility] No Information 6 Jesus Duran. [address] [place] [address], [facility] [address], [place], [address], [place]. tel:[phone] Referring Provider: Renee Lee NP P, [address] [place] [address] 500, [place], [address] . tel:[phone] Init Inpt Cons New/est Mod-hi [facility], [address] [address], [place], [address], [place] tel:[phone] [facility] No Information 6 Danuta Gomes. [address] [place] [address], [facility] 500, [place], [place], [address], [place]. tel:[phone] Referring Provider: Eliseo Burkett, [address] [place] [address] [address], [facility], [address] . tel:[phone] [facility], [address] [address], [place], [address], [place] tel:[phone] [facility] No Information 5 Licha Pryor. [address] [place] [address], [facility] 500, [place], [place], [address], [place]. tel:[phone] Referring Provider: Konstantin Hurt MD, [address] [facility] [address], [place], [address] . tel:[phone] [facility], [address] [address], [place], [address], [place] tel:[phone] [facility] Bile duct obstruction 5 Licha Pryor. [address] [facility], [address], [place], [place], [address], [place]. tel:[phone] Galo Huang DO. tel:[phone] erring Provider: Referral Self, USE FOR SELF REFERRALS. [facility], [address] [address], [place], [address], [place] tel:[phone] [facility] No Information 5 Licha Pryor. [address] [facility], [address], [place], [place], [address], [place]. tel:[phone] Referring Provider: Konstantin Hurt MD, [address] [facility] [address], [place], [address] . tel:[phone] Subst Hosp-da E&m Minr Compl [facility], [address] [address], [facility] [place], [address], [place] tel:[phone] [facility] No Information 5 Collin Zambrano. [address] [facility], [address], [place], [place], [address], [place]. tel:[phone] Referring Provider: Isai Ac MD, [address], [place], [address]. tel:[phone] [facility], [address] [address], [place], [address], [place] tel:[phone] [facility] No Information Sep0 5 Licha Pryor. [address] [facility], [address], [place], [place], [address], [place]. tel:[phone] Referring Provider: Isai Ac MD, [address], [place], [address]. tel:[phone] [facility], [address] [address], [place], [address], [place] tel:[phone] [facility] Acute Pancreatitis Acute pancreatitis , unspecified Apr-0 5 Licha Pryor. [address] [facility], [address], [place], [place], [address], [place]. tel:[phone] [facility], [address] [address], [place], [address], [place] tel:[phone] [facility] Acute Pancreatitis Mar- 5 Licha Pryor. [address] [facility], [facility] 500, [place], [place], [address], [place]. tel:[phone] Referring Provider: Referral Self, USE FOR SELF REFERRALS. Subsqt Hosp-da E&m Minr Compl [facility], [address] [address], [place], [address], [place] tel:[phone] [facility] No Information 0 5 Collin Zambrano. [address] [facility], [facility] 500, [place], [place], [address], [place]. tel:[phone] Referring Provider: Isai Ac MD, [address], [place], [address]. tel:[phone] Subsqt Hosp-da E&m Minr Compl [facility], [address] [address], [place], [address], [place] tel:[phone] [facility] No Information 5 Stephane Neumann. [address] [facility], [address], [place], [place], [address], [place]. tel:[phone] Referring Provider: Isai Ac MD, [address], [place], [address]. tel:[phone] Init Inpt Cons New/estab Mod 5 [facility], [address] [address], [facility] [place], [address], [place] tel:[phone] [facility] No Information [facility] [place]. [address] [facility], [facility] 500, [place], [place], [address], [place]. tel:[phone] Referring Provider: Isai Ac MD, [facility] [address], [place], [address]. tel:[phone] Offic/outpt E&m Estab Low-mod [facility], [address] [address], [facility] [place], [address], [place] tel:[phone] [facility] No Information 5 Licha Pryor. [address] [facility], [facility] 500, [place], [place], [address], [place]. tel:[phone] Referring Provider: Annabelle Nieto, [address] [facility], [place], [address]. tel:[phone] Init Inpt Cons New/est Mod-hi [facility], [address] [address], [facility] [place], [address], [place] tel:[phone] [facility] No Information 5 Danuta Gomes. [address] [facility], [facility] 500, [place], [place], [address], [place]. tel:[phone] Referring Provider: Annabelle Nieto, [address] [facility], [place], [address]. tel:[phone] Subsqt Hosp-da E&m Minr Compl [facility], [address] [address], [facility] [place], [address], [place] tel:[phone] [facility] No Information 5 [facility] [place]. [address] [facility], [facility] 500, [place], [address], [place]. tel:[phone] Referring Provider: Annabelle Nieto, [address], [place], [address]. tel:[phone] Subsqt Hosp-da E&m Minr Compl [facility], [address] [address], [place], [place], [address], [place] tel:[phone] [facility] No Information [facility] [place]. [address], [id number], [place]. tel:[phone] Referring Provider: Annabelle Nieto, [address] [facility], [place], [address]. tel:[phone] Subsqt Hosp-da E&m Stable 15 M [facility], [address] [address], [place], [place], [address], tel:[phone] [facility] No Information No Information Referring Provider: Annabelle Nieto, [address] [facility], [place], [address]. tel:[phone] Subsqt Hosp-da E&m Minr Compl [facility] [place], [address] [address], [place], [place], [address], [place] tel:[phone] [facility] No Information 5 [facility] [place]. [address] [place] [address], [id number], [place]. tel:[phone] Referring Provider: Annabelle Nieto, [address] [facility], [place], [address]. tel:[phone] Init Inpt Cons New/est Mod-hi [facility], [address] [address], [place], [address], [place] tel:[phone] [facility] No Information Licha Pryor. [address], [address], [place]. tel:[phone] Referring Provider: Annabelle Nieto, [address], [place], [address]. tel:[phone] [facility], [address] [address], [place], [address], [place] tel:[phone] [facility] No Information 0 5 Licha Pryor. [address] [facility], [facility] 500, [place], [place], [address], [place]. tel:[phone] Referring Provider: Annabelle Nieto, [address] [facility], [place], [address]. tel:[phone] [facility], [address] [address], [facility] [place], [address], [place] tel:[phone] [facility] Acute Pancreatitis b0 5 No Information Referring Provider: Referral Self, USE FOR SELF REFERRALS. Subsqt Hosp-da E&m Minr Compl [facility], [address] [address], [place], [address], [place] tel:[phone] [facility] No Information b0 5 Collin Zambrano. [address] [facility], [facility] 500, [place], [place], [address], [place]. tel:[phone] Referring Provider: Yariel Cortez MD, [address], [place], [address]. tel:[phone] Init Inpt Cons New/est Mod-hi [facility], [address] [address], [facility] [place], [address], [place] tel:[phone] [facility] No Information b0 5 No Information Referring Provider: Yariel Cortez MD, [address], [place], [address]. 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 Offic/outpt E&m Estab Mod-hi 2 [facility], [address] [address], [place], [place], [address], [place] tel:[phone] [facility] Non-alcoholi c Fatty LiverNon-alc oholic Fatty Liver 3 No Information Referring Provider: Annabelle Nieto, [address], [place], [address]. tel:[phone] Offic/outpt E&m Estab Low-mod [facility], [address] [address], [place], [place], [address], [place] tel:[phone] [facility] No Information 3 Licha Pryor. [address] [place] [address], [id number], [place]. tel:[phone] Referring Provider: Annabelle Nieto, [address] , [place], [address]. tel:[phone] Subsqt Hosp-da E&m Minr Compl [facility] [place], [address] [address], [place], [place], [address], [place] tel:[phone] [facility] No Information 3 [facility] [place]. [address] [place] [address], [id number], [place]. tel:[phone] Referring Provider: Rudi Burkett, [address], [place], [address]. tel:[phone] Subsqt Hosp-da E&m Minr Compl [facility] [place], [address] [address], [place], [place], [address], [place] tel:[phone] [facility] No Information 3 [facility] [place]. [address] [place] [address], [id number], [place]. tel:[phone] Referring Provider: Rudi Burkett, [address], [place], [address]. tel:[phone] Subsqt Hosp-da E&m Minr Compl [facility], [address] [address], [place], [address], [place] tel:[phone] [facility] No Information 3 Chandrakant CHANG Kay. [address] [facility], [address], [place], [place], [address], [place]. tel:[phone] Referring Provider: Rudi Burkett, [address], [place], [address]. tel:[phone] Offic/outpt E&m Estab Mod-hi 2 [facility], [address] [address], [place], [address], [place] tel:[phone] [facility] No Information 2 Licha Pryor. [address] [facility], [facility] 500, [place], [place], [address], [place]. tel:[phone] [facility], [address] [address], [place], [id number], [place] tel:[phone] [facility] Obstruction Of Bile Duct 2 Licha Pryor. [address] [facility], [facility] 500, [place], [place], [address], [place]. tel:[phone] [facility], [address] [address], [place], [address], [place] tel:[phone] [facility] No Information 2 Licha Pryor. [address] [facility], [facility] 500, [place], [place], [address], [place]. tel:[phone] Referring Provider: Annabelle Nieto, [address] [place] [address], [place], [address]. tel:[phone] Subsqt Hosp-da E&m Stable 15 M [facility] PA, [address] [address], [place], [address], [place] tel:[phone] [facility] No Information 2 Mahamed EDWIN Radha. [address] [place] [address], [id number], [place]. tel:[phone] Referring Provider: Annabelle Nieto, [address], [place], [address]. tel:[phone] Subsqt Hosp-da E&m Minr Compl [facility] [place], [address] [address], [place], [address], [place] tel:[phone] [facility] No Information 2 Collin Ortizy. [address] [place] [address], [id number], [place]. tel:[phone] Referring Provider: Annabelle Nieto, [address] , [place], [address]. tel:[phone] [facility] [place], [address] [address], [facility], [place], [address], [place] tel:[phone] [facility] No Information 2 Licha Pryor. [address] [place] [address], [id number], [place]. tel:[phone] Referring Provider: Annabelle Nieto, [address] , [place], [address]. tel:[phone] [facility], [address] [address], [facility] [place], [address], [place] tel:[phone] [facility] Obstruction Of Bile DuctAcute Pancreatitis 2 Licha Pryor. [address] [place] [address], [id number], [place]. tel:[phone] Referring Provider: Annabelle Nieto, [address], [place], [address]. tel:[phone] Subsqt Hosp-da E&m Minr Compl [facility] [place], [address] [address], [place], [address], [place] tel:[phone] [facility] No Information 2 [facility] [place]. [address] [address], [place], [place], [id number], [place]. tel:[phone] Referring Provider: Maurice Burkett, [address] [place] [address], [place], [address]. tel:[phone] Subsqt Hosp-da E&m Minr Compl [facility], [address] [address], [place], [address], [place] tel:[phone] [facility] No Information 2 No Information Referring Provider: Maurice Burkett, [address] [place] [address], [place], [address]. tel:[phone] Subsqt Hosp-da E&m Minr Compl [facility] [place], [address] [address], [place], [address], [place] tel:[phone] [facility] No Information 2 No Information Referring Provider: Maurice Burkett, [address] [place] [address], [place], [address]. tel:[phone] Subsqt Hosp-da E&m Minr Compl [facility] [place], [address] [address], [place], [address], [place] tel:[phone] [facility] No Information 2 [facility] [place]. [address] [facility] 500, [place], [place], [address], [place]. tel:[phone] Referring Provider: Maurice Burkett, [address] [facility] [place] [id number], [place], [address]. tel:[phone] [facility], [address] [address], [place], [place], [id number], [place] tel:[phone] [facility] No Information 2 Chandrakant Villanueva. [address] [facility], [place], [place], [id number], [place]. tel:[phone] Referring Provider: Maurice Burkett, [address] [place] [address] [place] [id number], [place], [address]. tel:[phone] [facility] Stable [address] [facility] [facility], [address] [address], [place], [place], [id number], [place] tel:[phone] [facility] No Information 2 Mahamed EDWIN Radha. [address] [facility], [facility] [address], [place], [place], [id number], [place]. tel:[phone] Referring Provider: Maurice Burkett, [address] [place] [address], [place], [address]. tel:[phone] Subsqt Hosp-[facility] E&m Minr Compl [facility], [address] [address], [place], [id number], [place] tel:[phone] [facility] No Information 2 No Information Referring Provider: Maurice Burkett, [address] [place] [id number], [place], [address]. tel:[phone] Sub[facility]t Hosp-da E&m Minr Compl [facility], [address] [address], [place], [id number], [place] tel:[phone] [facility] No Information No Information Referring Provider: Maurice Burkett, [address] [place] [id number], [place], [address]. tel:[phone] Sub[facility]t Hosp-da E&m Minr Compl [facility], [address] [address], [place], [id number], [place] tel:[phone] [facility] No Information 2 Chandrakant Villanueva. [address], [address], [place], [place], [id number], [place]. tel:[phone] Referring Provider: Maurice Burkett, [address] [place] [address], [place], [address]. tel:[phone] Sub[facility]t Hosp-da E&m Minr Compl [facility], [address] [address], [place], [id number], [place] tel:[phone] [facility] No Information 2 No Information Referring Provider: Maurice Burkett, [address] [place] [address], [place], [address]. tel:[phone] Init Inpt Cons New/est Mod-hi [facility], [address] [address], [place], [address], [place] tel:[phone] [facility] No Information 2 Flora Alexandra. [address] [place] [address], [id number], [place]. tel:[phone] Referring Provider: Maurice Burkett, [address] [place] [address], [place], [address]. tel:[phone] Subsqt Hosp-da E&m Minr Compl [facility], [address] [address], [place], [address], [place] tel:[phone] [facility] No Information 2 No Information Referring Provider: Maurice Burkett, [address] [place] [address], [place], [address]. tel:[phone] Subsqt Hosp-da E&m Minr Compl [facility], [address] [address], [place], [address], [place] tel:[phone] [facility] No Information 2 Chandrakant Villanueva. [address] [place] [address], [id number], . tel:[phone] Referring Provider: Maurice Burkett, [address] [facility] [place] [address], [place], [address]. tel:[phone] Subsqt Hosp-da E&m Minr Compl [facility] [place], [address] [address], [place], [id number], [place] tel:[phone] [facility] No Information 2 Chandrakant CHANG Kay. [address] [facility], [address], [place], [place], [id number], [place]. tel:[phone] Referring Provider: Kay Vu, [address] [facility] [address], [place], [address] . tel:[phone] Subsqt Hosp-da E&m Stable 15 M [facility] [place], [address] [address], [place], [id number], [place] tel:[phone] [facility] No Information 2 No Information Subsqt Hosp-da E&m Minr Compl [facility] [place], [address] [address], [place], [id number], [place] tel:[phone] [facility] No Information 2 No Information Subsqt Hosp-da E&m Minr Compl [facility]ive [facility] [place], [address] [address], [place], [id number], [place] tel:[phone] [facility] No Information 2 Chandrakant CHANG Kay. [address] [facility], [address], [place], [place], [id number], [place]. tel:[phone] Referring Provider: Annabelle Nieto, [address] [place] [address], [address]. tel:[phone] Subsqt Hosp-da E&m Minr Compl [facility] [place], [address] [address], [place], [id number], [place] tel:[phone] [facility] No Information 2 No Information Subsqt Hosp-da E&m Sig Compl 3 [facility] [place], [address] [address], [place], [id number], [place] tel:[phone] [facility] No Information Tyler ARMSTRONG November. [address], [address], [place], [place], [id number], [place]. tel:[phone] Referring Provider: Annabelle Nieto, [address] , [place], [address]. tel:[phone] Subsqt Hosp-da E&m Minr Compl [facility], [address] [address], [place], [id number], [place] tel:[phone] [facility] No Information 2 No Information Referring Provider: Annabelle Nieto, [address] , [place], [address]. tel:[phone] Subsqt Hosp-da E&m Minr Compl [facility], [address] [address], [place], [address], [place] tel:[phone] [facility] No Information No Information Referring Provider: Annabelle Nieto, [address] , [place], [address]. tel:[phone] Subsqt Hosp-da E&m Minr Compl [facility], [address] [address], [place], [id number], [place] tel:[phone] [facility] No Information No Information Referring Provider: Annabelle Nieto, [address], [place], [address]. tel:[phone] Subsqt Hosp-da E&m Minr Compl [facility], [address] [address], [place], [address], [place] tel:[phone] [facility] No Information No Information Referring Provider: Annabelle Nieto, [address], [place], [address]. tel:[phone] Subsqt Hosp-da E&m Minr Compl [facility], [address] [address], [place], [address], [place] tel:[phone] [facility] No Information 2 [employer] [facility] [employer] [place]. [address], [id number], [place]. tel:[phone] Referring Provider: Annabelle Nieto, [address] , [place], [address]. tel:[phone] Subsqt Hosp-da E&m Minr Compl [facility], [address] [address], [place], [place], [address], [place] tel:[phone] [facility] No Information 0 2 No Information Referring Provider: Annabelle Nieto, [address] [facility], [place], [address]. tel:[phone] Subsqt Hosp-da E&m Minr Compl [facility], [address] [address], [place], [place], [id number], [place] tel:[phone] [facility] No Information 0 2 [employer] [employer] [place]. [address], [id number], [place]. tel:[phone] Referring Provider: Annabelle Nieto, [address] [place] [address], [place], [address]. tel:[phone] Init Inpt Cons New/est Mod-hi [facility] [place], [address] [address], [place], [place], [id number], [place] tel:[phone] [facility] No Information 0 2 Paloma Gomes. [address] [facility] [address], [place], [place], [id number], [place]. tel:[phone] Referring Provider: Annabelle Nieto, [address] [facility], [place], [address]. 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 tel:[phone] [facility] [employer] [place], [address] [address], [place], [id number], tel:[phone] [facility] Acute Pancreatitis No Information Offic Cons New/estab Mod [facility] [employer] [facility], [address] [address], [place], [place], [id number], [place] tel:[phone] [facility] Pancreatitis (chief complaint) Acute Pancreatitis Non-alcoholi c Fatty Liver No Information Referring Provider: Annabelle Nieto, [address] , [place], [address]. tel:[phone] Family History Family Member Type Diagnosis Age [...] disorder Payers Payer name Insurance type Covered democrat ID Wil ca(s) [employer] Of [facility] [id number] Social History Type Description Quantity Date Captured [...] date/timeframe: 05/29/2017 ordered Referral Ordered: referred to [facility] chronic pain w/ pancreatitis ordered [...]
--- OUTSIDE RECORDS SUMMARY | 2023-12-18 22:41 | XMS_ITS | Referral Summary ---
Author Name Unknown Organization [facility] Address [address] [place] [address] Care Team Providers Care Adult Psychiatrist Name Role Phone Elsewhere, Pcp Primary Care Provider Unavailabl e Source Comments Patient records contain information from all sites at [facility]. For routine questions regarding patient records, call [phone] during business hours, M-F 8:00 AM - 5:00 PM Central Time. Record requests for emergency care only can be directed to [phone] at any time.[facility] Allergies No known active allergies Medications [...] of Treatment Not on file Care Teams Adult Psychiatrist Relationship Specialty Start Date End Date Elsewhere, Pcp PCP - General Internal Medicine 01/01/22
--- OUTSIDE RECORDS SUMMARY | 2023-12-18 22:41 | XMS_ITS ---
Author Name Unknown Organization [facility] Address [address] [place] [address] Care Team Providers Care Manager Willow Name Role Phone Unavailable Unavailable Unavailable Surgery Details Not on file Complications Check Surgery Details section. Procedure Estimated Blood Loss Check Surgery Details section. Procedure Findings Check Surgery Details section. Procedure Specimens Taken Check Surgery Details section.
--- OUTSIDE RECORDS SUMMARY | 2023-12-18 22:41 | XMS_ITS | Clinical Summary ---
Author Name Unknown Organization [facility] Address [place], [place] [address] Care Team Providers Care Prospecting Driller Name Role Phone Kyle Scherer Primary Care Provider [phone] Allergies Active Allergy Reactions Criticality Noted Date Comments Prochlorperazine Hives,Itching 04/17/2017 Oxycodone Itching 05/27/2017 Per patient he does not get itching with Percocet and is effective .05/27/2017 Ketorolac Hives 05/30/2017 Medications Medication Sig Dispensed Refills Start Date End Date Status lancetsIndications:T ype 1 diabetes mellitus without complication (HC) As directed. Test 3-4 times per day. 400 Each 11 01/15/2019 Active SUMAtriptan (IMITREX) 25 mg tabletIndications:Mi graine syndrome Take 1 Tablet (25 mg) by mouth every 2 hours if needed for Migraine. Give at minimum 2hrs apart. Max Dose: 200mg per 24hrs. 10 Tablet 3 08/31/2021 Active blood-glucose meterIndications:Typ e 1 diabetes mellitus without complication (HC) Dispense meter covered by pt ins. 1 Kit 08/31/2021 Active Blood Sugar Diagnostic, Disc stripIndications:Typ e 1 diabetes mellitus without complication (HC) As directed. Test 3 times per day 200 Each 3 09/01/2021 Active Accu-Chek Guide test strips strip 3 times daily. 10/02/2021 Active erythromycin ophthalmic ointment 0.5%Indications:Solo eolum externum of left upper eyelid Apply 1 Strip to left eye 6 times daily. 3.5 g 07/04/2022 Active ondansetron (ZOFRAN ODT) 4 mg disintegrating tablet 11/10/2022 Active trimethoprim-sulfame thoxazole, 160-800 mg, (BACTRIM DS, SEPTRA DS) tab Take 1 Tablet by mouth two times daily. 06/22/2023 Active FreeStyle Jean 14 Day SensorIndications:Ty pe 1 diabetes mellitus with hyperglycemia (HC) USE DIRECTED 6 Each 3 07/25/2023 Active pen needle, diabetic (BD Insulin Pen Needle UF) 31 gauge x 01/10Indications:Court betes mellitus type 1, uncomplicated (HC) USE FOUR TIMES DAILY 400 Each 3 09/10/2023 Active Lantus Solostar U-100 Insulin 100 unit/mL (3 mL) penIndications:Type 1 diabetes mellitus without complication (HC) Inject 32 units subcutaneous before bedtime. Product desired: LANTUS SOLOSTAR 30 mL 3 09/15/2023 Active insulin aspart, U-100, (NOVOLOG FLEXPEN) 100 unit/mL (3 mL) penIndications:Type 1 diabetes mellitus without complication (HC) INJECT 9 UNITS PREMEAL SUBCUTANEOUS THREE TIMES DAILY 60 mL 09/15/2023 Active Active Problems Problem Noted Date Diagnosed Date [...] Encounters Date Type Department Care Team Description 11/17/2023 Lab Requisition [facility] [phone] Anjelica Barrios MD 09/26/2023 Refill [facility] [address] [place] [address] Kyle Scherer DO Refill Request (Bd Insulin Pen Needle Uf) from Last 3 Months Immunizations Name Administration [...] Diabetes Paternal Grandmother Heart Disease Paternal Uncle PR Anesthesia Problem No Family History Blood Disease [...] Comments Blood Pressure 145/95 09/15/2023 1:43 PM POTTERY DECORATOR Pulse 82 09/15/2023 1:43 PM POTTERY DECORATOR Temperature 36.9 ??C (98.5 ??F) 06/27/2023 8 :44 AM CDT Respiratory Rate 20 05/30/2017 12:0 3 PM CDT Oxygen Saturation 100% 09/15/2023 1:4 3 PM POTTERY DECORATOR Inhaled Oxygen Concentration - - Weight 75.2 kg (165 lb 12.8 oz) 09/15/2023 1:43 PM POTTERY DECORATOR w/ coat and shoes Height 167.6 cm (5' 6) 06/27/2023 8:44 AM CDT Body Mass Index 26.76 06/27/2023 8:44 AM CDT Plan of Treatment Health Maintenance Due Date Last Done Comments COVID-19 vaccine series ( season) 2023 07/05/2022, 07/08/2021, 11/04/2020 Depression screening for age 12+ 11/02/2023 11/01/2022, 07/15/2021, 07/07/2021, Additional history exists Influenza for age 9-49 04/28/2024 , 06/02/2021, 06/06/2019, Additional history exists BMI (ht and wt [...] 11/12/19, 10/11/2021 Medical Devices Implanted Type Area Tarp Repairer Device Identifier Shelf Expiration Date Model / Serial / Lot Stent Biliary 10-7 Cotton Huibregste - [id number] Implanted:Qty: 1 on 04/11/2012 by Konstantin Hurt MD at [facility] N/A: Common Bile Duct [facility] CHBSO-10- 7# / / [id number] Stent Pancreatic Geenen 7-9gepd-7-9 Cook - [id number] Implanted:Qty: 1 on 04/11/2012 by Konstantin Hurt MD at [facility] N/A: Pancreas [facility] GEPD-7-9# / / Stent Pancreatic 6ixb3tm Geenen Set - [id number] Implanted:Qty: 1 on 05/06/2015 by Konstantin Hurt MD at [facility] N/A: Pancreas [facility] GEPD-7-9# / / [id number] Stent Pancreatic 10fr 7cm Gpso Geenen - [id number] Implanted:Qty: 1 on 06/10/2015 by Konstantin Hurt MD at [facility] Endoscopy GPSO-10-7 # / / [id number] Stent Pancreatic 9ooc5zw Geenen Sof-Flex No Flap - [id number] Implanted:Qty: 1 on 07/01/2015 by Konstantin Hurt MD at [facility]oscopy 01/25/2018 GPSOS-SF- 5-7# / / [id number] Description:implanted to ibrahim creatic duct during ERCP. Stent Pancreatic 3qxp3ll Advanix Stra Una Plst - [id number] Implanted:Qty: 1 on 04/21/2017 by Konstantin Hurt MD at [facility] N/A: Pancreas [facility] 07/11/2018 [id number] # / / [id number] Inactive/Delete 04/07/17stent Pancreatic [id number] Geene - [id number] Implanted:Qty: 1 on 05/15/2017 by Konstantin Hurt MD at [facility] 03/16/2020 GPSOS-SF- 5-5# / / Procedures Procedure Name Priority Date/Time Associated Diagnosis Comments QFT MITOGEN PERFORMABLE Routine 11/16/2023 1:26 PM CDT QFT TB2 PERFORMABLE Routine 11/16/2023 1 :26 PM CDT QFT TB1 PERFORMABLE Routine 11/16/2023 1 :26 PM CDT QUANTIFERON TB GOLD PLUS Routine 11/16/2023 1:26 PM CDT QUANTIFERON TB GOLD PLUS Routine 11/16/2023 1:26 PM CDT LC HIV-1/O/2, 4TH GENERATION Routine 11/01/2022 3:38 PM POTTERY DECORATOR Screening for HIV (human immunodeficiency virus) ANTI HCV Early AM 04/18/2017 7:23 AM CDT from Last 3 Months or Most Recently Relevant to Health Maintenance Results * QFT MITOGEN PERFORMABLE (11/16/2023 1:26 PM CDT) MITOGEN 10.00 IU/mL 11/18/2023 11:04 AM CDT [facility] Blood BLOOD SPECIMEN / Unknown Client Collect / Unknown 11/16/2023 1:26 PM CDT 11/17/2023 8:51 PM CDT Anjelica Barrios MD CHEMISTRY [facility] [address] [place] [address], [place] * QFT TB2 PERFORMABLE (11/16/2023 1:26 PM CDT) TB2 0.00 IU/mL 11/18/2023 11:04 AM CDT [facility] Blood BLOOD SPECIMEN / Unknown Client Collect / Unknown 11/16/2023 1:26 PM CDT 11/17/2023 8:51 PM CDT Anjelica Barrios MD CHEMISTRY Performing Organization Address City/[facility]/ZIP Co de Phone Number [facility] [address] [place] [address], [place] * QFT TB1 PERFORMABLE (11/16/2023 1:26 PM CDT) TB1 0.00 IU/mL 11/18/2023 11:04 AM CDT [facility] Blood BLOOD SPECIMEN / Unknown Client Collect / Unknown 11/16/2023 1:26 PM CDT 11/17/2023 8:51 PM CDT Anjelica Barrios MD CHEMISTRY [facility] [address] [address], [place] * QUANTIFERON TB GOLD PLUS (11/16/2023 1:26 PM CDT) QFTP NIL 0.00 11/18/2023 11:58 AM CDT [facility] TB1 0.00 IU/mL 11/18/2023 11:58 AM CDT [facility] TB2 0.00 IU/mL 11/18/2023 11:58 AM CDT [facility] MITOGEN 10.00 IU/mL 11/18/2023 11:58 AM CDT [facility] QFTP TB AG1 - NIL 0.00 024 11:58 AM CDT [facility] TB1-NIL % OF NIL 11/18/19 24 11:58 AM CDT [facility] Comment:Unable to calculate QFTP TB AG2 - NIL 0.00 024 11:58 AM CDT [facility] TB2-NIL % OF NIL 11/18/19 24 11:58 AM CDT [facility] Comment:Unable to calculate QFTP MITOGEN - NIL 10.00 2023 11:58 AM CDT [facility] QFTP QUANTIFERON INTERPRETATION Negative Negative 11/18/2023 11:58 AM CDT [facility] Blood BLOOD SPECIMEN / Unknown Client Collect / Unknown 11/16/2023 1:26 PM CDT 11/17/2023 8:51 PM CDT [facility] - 11/18/2023 11:58 AM CDT M. tuberculosis infection not likely, but cannot be excluded in cases of immunosuppression. CAUTION: The performance of QuantiFERON-TB Gold Plus has not been evaluated in specimens from: - Individuals with impaired or altered immune factors (HIV infections, transplant patients, those receieving immunosuppressive drugs such as corticosteroids) and those with other clinical conditions (e.g., diabetes, hematological disorders). - Individuals younger than 17 years old. ??Refer to CDC website for testing recommendations in children 6-17 years old. - women Anjelica Barrios MD CHEMISTRY [facility] [address] [place] [address], * LC HIV-1/O/2, 4TH GENERATION (11/01/2022 3:38 PM POTTERY DECORATOR) Pathologist [facility] HIV Scr 4th Gen Non Reactive Non Reactive 11/04/2022 10:06 PM POTTERY DECORATOR [facility]) Comment: HIV Negative HIV-1/HIV-2 antibodies and HIV-1 p24 antigen were NOT detected. There is no laboratory evidence of HIV infection. Blood BLOOD SPECIMEN / Unknown Venipuncture / Unknown 11/01/2022 3:38 PM POTTERY DECORATOR 11/01/2022 3:39 PM POTTERY DECORATOR Narrative [facility] - 11/04/2022 10:06 PM POTTERY DECORATOR Performed at: ??01 - [address] ??[id number] Photoengraving Etcher Apprentice: Pravin Gardner MD, Phone: ??[phone] Kyle Scherer DO LABORATORY [facility] ([facility]) [facility] [address] * ANTI HCV (04/18/2017 7:23 AM CDT) HEPATITIS C ANTIBODY Non-Reacti ve Non-Reacti ve 04/18/2017 9:14 AM CDT [facility]AT[facility] Blood BLOOD SPECIMEN / Unknown Venipuncture / Unknown 04/18/2017 7:23 AM CDT 04/18/2017 7:29 AM CDT Narrative [facility] - 04/18/2017 9:14 AM CDT Antibodies to HCV not detected; does not exclude the possibility of exposure to HCV. Enedina Barraza MD SEND OUTS [facility] [address] [place] [address], from Last 3 Months or Most Recently Relevant to Health Maintenance Advance Directives * Full Code (Latest Code Status on File) Date Activated Date Inactivated Comments 05/27/2017 9:28 AM 05/28/2017 7:17 PM * Full Code Date Activated Date Inactivated Comments 05/21/2017 4:59 AM 05/24/2017 5:31 PM * Full Code Date Activated Date Inactivated Comments 05/14/2017 11:17 AM 05/18/2017 6:26 PM Question Answer Comments Code Status Discussion: Discussed * Full Code Date Activated Date Inactivated Comments 05/04/2017 9:53 AM 05/08/2017 2:06 PM * Full Code Date Activated Date Inactivated Comments 05/04/2017 7:59 AM 05/04/2017 9:53 AM Care Teams Prospecting Driller Relationship Specialty Start Date End Date Kyle Scherer DO [address] [place] [address] PCP - General Family Practice 03/11/21
--- OUTSIDE RECORDS SUMMARY | 2023-12-18 22:41 | XMS_ITS | Clinical Summary ---
Author Name Unknown Organization [facility] Address [address] [place] [address] Care Team Providers Care Noise Tester Name Role Phone Elsewhere, Pcp Primary Care Provider Unavailabl e Source Comments Patient records contain information from all sites at [facility]. For routine questions regarding patient records, call [phone] during business hours, M-F 8:00 AM - 5:00 PM Central Time. Record requests for emergency care only can be directed to [phone] at any time.[facility] Allergies No known active allergies Medications No [...] of Treatment Not on file Care Teams Noise Tester Relationship Specialty Start Date End Date Elsewhere, Pcp PCP - General Internal Medicine 01/01/22
--- NOTE | 2023-12-19 14:21 | ED.NURSE ---
ELLEN calling for update on patient disposition. Understands patient was discharged home. No further questions/concerns.
== END 2023-12-18 22:48 | disposition home or self-care (01) ==
LOC: ED 22:40
PROVIDERS: Emergency Provider Student in an Organized Health Care Education/Training Program; PCP Student in an Organized Health Care Education/Training Program
DX: F32.A Depression, unspecified (principal)
CPT/HCPCS: 99283

== ENCOUNTER 2024-05-09 14:17 | Emergency (ER) | payer BC, SELFPAY ==
[2024-05-09 14:30] VITALS: BP 122/76; PULSE 95; RESP 18; TEMP 36.6; O2SAT 97; BMI 27.4
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
--- NOTE | 2024-05-09 14:58 | CRLHL7_ITS ---
For Patients: As a result of the Century Cures Act, medical imaging exams and procedure reports are released immediately into your electronic medical record. You may view this report before your referring provider. If you have questions, please contact your health care provider. INDICATION: Abdominal pain, history of pancreatitis. TECHNIQUE: CT abdomen and pelvis acquired with 83 cc Isovue 370 IV contrast. COMPARISON: None. FINDINGS: Lower chest: Scattered atelectasis. Tiny 5 millimeter right lower lobe pulmonary nodule. Tiny hiatal hernia. Liver: Hepatic steatosis. No suspicious masses. Gallbladder and bile ducts: Cholecystectomy. Pancreas: Trace peripancreatic inflammatory stranding. No drainable fluid collections or pancreatic duct dilation Spleen: Unremarkable. Normal in size. No masses. Adrenal glands: Unremarkable. No nodules. Kidneys: Punctate nonobstructing renal stones. No suspicious masses, or hydronephrosis. GI tract: Mild wall thickening of the ileum and proximal colon. No bowel obstruction. Normal appendix. Vasculature: Abdominal aorta is normal in caliber. Mesenteric arteries are patent. Lymph nodes: No lymphadenopathy. Peritoneum/Abdominal Wall: Unremarkable. No sign of mass or infiltration. No free air or significant free fluid. Pelvis: Prostatomegaly. Mildly distended bladder with circumferential wall thickening. Bones: Unremarkable for age. IMPRESSION: Trace peripancreatic inflammatory stranding possibly related to prior pancreatitis. Recommend correlation with lipase to exclude acute uncomplicated pancreatitis. No drainable fluid collections. Mild wall thickening of the ileum and proximal colon, likely enterocolitis in the appropriate clinical setting. Hepatic steatosis. Additional chronic findings as above. Please note that all CT scans at this facility use dose modulation, iterative reconstruction, and/or weight-based dosing when appropriate to reduce radiation dose to as low as reasonably achievable. Dictated by Brian Yoon MD @ 05/09/2024 5:30:25 PM (Electronically Signed)
[2024-05-09] MEDS: ONDANSETRON 2 MG/ML inj 4 MG IVP (15:27)
[2024-05-09] MEDS: fentaNYL 100 MCG/2 ML inj 50 MCG IVP (15:28)
[2024-05-09] MEDS: 0.9 % SODIUM CHLORIDE 1000 ml 1,000 ML 500 ML IV (15:28)
[2024-05-09 15:37] LABS: Lactate* 2.2 mmol/L (0.5-1.9)
[2024-05-09 15:53] LABS: Albumin* 4.5 g/dL (3.3-5.0); Chloride* 105 mmol/L (96-114); Sodium* 138 mmol/L (135-149)
[2024-05-09 15:54] LABS: Potassium* 3.8 mmol/L (3.6-5.1)
[2024-05-09 15:55] LABS: Amylase* 57 U/L (18-89); Creatinine* 0.6 mg/dL (0.5-1.5); Est. Creatinine Clearance* 163.93; Estimated Glomerular Filt Rate 134 ml/min
[2024-05-09 15:56] LABS: Alanine Aminotransferase* 22 U/L (4-50); Alkaline Phosphatase* 83 U/L (40-150); Anion Gap 9 mEq/L (7-15); Aspartate Amino Transferase* 25 U/L (12-35); Bilirubin Direct* 0.4 mg/dL (0.0-0.5); Bilirubin Total* 0.7 mg/dL (0.1-1.5); Blood Urea Nitrogen* 15 mg/dL (5-24); Calcium* 9.4 mg/dL (8.4-10.6); Carbon Dioxide* 24 mmol/L (20-32); Glucose* 175 mg/dL (60-115); Lipase* 14 U/L (23-300); Total Protein* 7.1 g/dL (6.0-8.3)
[2024-05-09 15:58] LABS: Basophils Percent Auto 0.7 % (0.0-3.0); Eosinophils Percent Auto 6.5 % (0.0-7.0); Hematocrit 46.3 % (37.0-53.0); Hemoglobin* 15.6 gm/dL (13.5-17.5); Immature Granulocytes Pct Auto 0.2 %; Lymphocytes Percent Auto 25.4 % (20-44); Mean Corpuscular HGB Conc 34 gm/dL (32-36); Mean Corpuscular Hemoglobin 29 pg (26-34); Mean Corpuscular Volume 85 fL (80-100); Monocytes Percent Auto 21.9 % (0.0-11.0); Neutrophils Percent Auto 45.3 % (42.0-72.0); Platelet Count* 236 K/uL (140-440); RDW Coefficient of Variation % 12.1 % (11.5-15.5); Red Blood Count 5.46 m/uL (4.30-5.90); White Blood Count* 4.33 K/uL (4.50-11.00)
[2024-05-09 16:11] LABS: Slide Review Reflex No
[2024-05-09 16:14] LABS: Ethanol* < 0.01 % (0.01-0.03)
[2024-05-09 16:29] LABS: Appearance Urine Clear (Clear); Bilirubin Urine 1+ (Negative); Blood Urine Negative (Negative); Color Urine Orange (Yellow); Glucose Urine Negative (Negative); Ketones Urine Trace (Negative); Leukocyte Esterase Urine Negative (Negative); Nitrite Urine Negative (Negative); Protein Urine 1+ (Negative); Specific Gravity Urine >= 1.030 (1.000-1.030); Urobilinogen Urine 0.2 (0.2-1.0)
[2024-05-09 16:37] VITALS: BP 111/59; PULSE 76; O2SAT 97
[2024-05-09 16:59] LABS: Bacteria Urine Few; RBC Urine 0-2 (0-2); Squamous Epithelial Cell Urine Few (None-Few); WBC Urine 0-2 (0-5)
[2024-05-09 17:02] LABS: SARS PCR* Negative SARS-CoV-2 (Negative)
[2024-05-09 17:45] VITALS: RESP 16
[2024-05-09 18:03] VITALS: BP 129/85; PULSE 61; RESP 18
== END 2024-05-09 18:05 | disposition home or self-care (01) ==
PROVIDERS: Emergency Provider Family Medicine; PCP Student in an Organized Health Care Education/Training Program
DX: K52.9 Noninfective gastroenteritis and colitis, unspecified (principal)
CPT/HCPCS: 36415; 74177; 80053; 81001; 82077; 82150; 82248; 83605; 83690; 85025; 86140; 87086; 87635; 94761; 96361; 96374; 96375; 99284; 99285; J2405; J3010; J7030; Q9967

== ENCOUNTER 2024-06-20 09:21 | Emergency (ER) | payer BC, SELFPAY ==
[2024-06-20 09:27] VITALS: BP 160/99; PULSE 99; RESP 18; TEMP 36.7; O2SAT 98; BMI 26.3
[2024-06-20 09:41] VITALS: BP 138/88
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
[2024-06-20] MEDS: ONDANSETRON 2 MG/ML inj 4 MG IVP ×2 (10:38→12:46)
[2024-06-20] MEDS: HYDROmorphone 0.5 mg/0.5 ml inj IVP ×2 (10:38→12:45)
[2024-06-20 10:39] LABS: HCO3 VBG 26 mmol/L (21-28); PCO2 VBG 38 mmHG (40-50); PO2 VBG 64.9 mmHG (25-47)
[2024-06-20 10:43] LABS: Appearance Urine Clear (Clear); Bilirubin Urine Negative (Negative); Blood Urine Negative (Negative); Color Urine Yellow (Yellow); Glucose Urine 2+ (Negative); Ketones Urine 2+ (Negative); Leukocyte Esterase Urine Negative (Negative); Nitrite Urine Negative (Negative); Protein Urine Negative (Negative); Specific Gravity Urine 1.015 (1.000-1.030); Urobilinogen Urine 0.2 (0.2-1.0)
[2024-06-20 10:45] LABS: Basophils Absolute Auto 0.04 K/uL (0.00-0.30); Basophils Percent Auto 0.4 % (0.0-3.0); Eosinophils Absolute Auto 0.15 K/uL (0.00-0.50); Eosinophils Percent Auto 1.4 % (0.0-7.0); Hematocrit 44.9 % (37.0-53.0); Hemoglobin* 15.6 gm/dL (13.5-17.5); Immature Granulocytes Abs Auto 0.02 K/uL (0.00-0.30); Immature Granulocytes Pct Auto 0.2 %; Lymphocytes Percent Auto 8.2 % (20-44); Mean Corpuscular HGB Conc 35 gm/dL (32-36); Mean Corpuscular Hemoglobin 29 pg (26-34); Mean Corpuscular Volume 83 fL (80-100); Monocytes Percent Auto 4.2 % (0.0-11.0); Neutrophils Percent Auto 85.6 % (42.0-72.0); Platelet Count* 227 K/uL (140-440); RDW Coefficient of Variation % 11.8 % (11.5-15.5); Red Blood Count 5.42 m/uL (4.30-5.90); White Blood Count* 10.66 K/uL (4.50-11.00)
[2024-06-20 10:50] LABS: Slide Review Reflex No
[2024-06-20 10:59] LABS: Bacteria Urine Few; RBC Urine 0-2 (0-2); Squamous Epithelial Cell Urine Few (None-Few); WBC Urine 0-2 (0-5)
[2024-06-20 11:12] LABS: Chloride* 98 mmol/L (96-114); Potassium* 4.1 mmol/L (3.6-5.1); Sodium* 133 mmol/L (135-149)
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
[2024-06-20 11:14] LABS: Anion Gap 12 mEq/L (7-15); Aspartate Amino Transferase* 22 U/L (12-35); Bilirubin Total* 0.6 mg/dL (0.1-1.5); Carbon Dioxide* 23 mmol/L (20-32); Creatinine* 0.4 mg/dL (0.5-1.5); Est. Creatinine Clearance* 237.03; Estimated Glomerular Filt Rate 151 ml/min; Total Protein* 7.8 g/dL (6.0-8.3)
[2024-06-20 11:15] LABS: Alanine Aminotransferase* 25 U/L (4-50); Alkaline Phosphatase* 146 U/L (40-150); Blood Urea Nitrogen* 9 mg/dL (5-24); Calcium* 9.7 mg/dL (8.4-10.6); Lipase* 107 U/L (23-300)
[2024-06-20 11:23] LABS: Glucose* 487 mg/dL (60-115)
[2024-06-20] MEDS: INSULIN REGULAR, HUMAN 100 UNIT/ML VIAL 10 UNIT SUBCUT (12:00)
[2024-06-20 12:02] VITALS: BP 133/81; RESP 16
[2024-06-20 12:55] VITALS: PULSE 68; O2SAT 96
[2024-06-20 12:58] LABS: Glucose, Point-of-Care* 355 mg/dl (60-115)
[2024-06-20 14:16] VITALS: BP 115/72; PULSE 85; RESP 18; O2SAT 98
== END 2024-06-20 14:35 | disposition home or self-care (01) ==
PROVIDERS: Emergency Provider Emergency Medicine; PCP Student in an Organized Health Care Education/Training Program
DX: K85.90 Acute pancreatitis without necrosis or infection, unspecified (principal)
CPT/HCPCS: 36415; 74177; 80053; 81001; 82803; 82947; 83690; 85025; 87086; 96374; 96375; 99284; 99285; J1171; J1815; J2405; Q9967

== ENCOUNTER 2024-06-20 22:21 | Emergency (ER) | payer BC, SELFPAY ==
--- OUTSIDE RECORDS SUMMARY | 2024-06-20 23:19 | XMS_ITS | Continuity of Care Document ---
Author Organization [facility] Address [address] [address] [place] [address] Phone Care Team Providers Care Airport Operations Manager Name Role Phone Nesset LEATHER SPONGER, [place] Unavailable Unavailable Procedures Procedure Date Subsqt [...] E&m Minr Compl 3 Offic/outpt E&m Estab Mod-hi 2 12 Ercp; W/endo Retro Remov Stone [...] Compl [facility] [address] [address], [place], [place], [address], [place] tel:[phone] [facility] No Information 7 Collin Zambrano. [address] [facility], [address], [place], [place], [address], [place]. tel:[phone] Galo Huang DO. tel:[phone] erring Provider: Robin Holcomb, [address], [place], [address]. tel:[phone] Subsqt Hosp-da E&m Stable [address] [facility], [address] [address], [place], [address], [place] tel:[phone] [facility] No Information Sep-2 7 Chandrakant Villanueva. [address], [id number], [place]. tel:[phone] Referring Provider: Robin Holcomb, [address], [place], [address]. tel:[phone] Init Inpt Cons New/est Mod-hi [facility], [address] [address], [facility] [place] [address], [place] tel:[phone] [facility] No Information Sep-2 7 No Information Referring Provider: Robin Holcomb, [address], [place], [address]. tel:[phone] Subsqt Hosp-da E&m Minr Compl [facility], [address] [address], [place], [address], [place] tel:[phone] [facility] No Information Sep-2 7 Nesset LEATHER SPONGER [place]. [address] [address], [place], [place], [address], [place]. tel:[phone] Referring Provider: Robin Holcomb, [address], [place], [address]. tel:[phone] Subsqt Hosp-da E&m Minr Compl [facility], [address] [address], [place], [address], [place] tel:[phone] [facility] No Information Sep-1 7 Chandrakant Villanueva. [address], [address], [id number], [place]. tel:[phone] Referring Provider: Robin Holcomb, [address], [place], [address]. tel:[phone] [facility], [address] [address], [place], [address], [place] tel:[phone] [facility] No Information Apr- 7 Licha Pryor. [address] [facility] [address], [place], [address], [place]. tel:[phone] Referring Provider: Robin Holcomb, [address], [place], [address]. tel:[phone] [facility], [address] [address], [place], [address], [place] tel:[phone] [facility] Encounter for removal of biliary stentChronic pancreatitis , unspecified pancreatitis type Apr- 7 Licha Pryor. [address] [place] [address], [id number], [place]. tel:[phone] Init Inpt Cons New/est Mod-hi [facility], [address] [address], [place], [address], [place] tel:[phone] [facility] No Information Apr- 7 Elsa Alfred. [address] [place] [address], [place], [address], [place]. tel:[phone] Referring Provider: Robin Holcomb, [address], [place], [address]. tel:[phone] [facility], [address] [address], [place], [address], [place] tel:[phone] [facility] Chronic pancreatitis , unspecified pancreatitis type Sep- 7 Ganesh King. [address] [place] [address], [facility] [address], [place], [address], [place]. tel:[phone] Galo Huang DO. tel:[phone] Subsqt Hosp-da E&m Minr Compl [facility], [address] [address], [place], [address], [place] tel:[phone] [facility] No Information Sep-0 7 Stephane EDWIN Nel. [address] [place] [address], [id number], [place]. tel:[phone] Referring Provider: Robin Holcomb, [address], [place], [address]. tel:[phone] Subsqt Hosp-da E&m Minr Compl [facility], [address] [address], [place], [address], [place] tel:[phone] [facility] No Information Sep-0 7 Chandrakant Joyher. [address] [place] [address], [id number], [place]. tel:[phone] Referring Provider: Robin Holcomb, [address], [place], [address]. tel:[phone] Init Inpt Cons New/est Mod-hi [facility], [address] [address], [place], [address], [place] tel:[phone] [facility] No Information Sep-0 7 Ganesh King. [address] [place] [address], [id number], [place]. tel:[phone] Referring Provider: Robin Holcomb, [address], [place], [address]. tel:[phone] Subsqt Hosp-da E&m Minr Compl [facility], [address] [address], [place], [address], [place] tel:[phone] [facility] No Information 2 7 No Information Referring Provider: Robin Holcomb, [address], [place], [address]. tel:[phone] [facility], [address] [address], [place], [address], [place] tel:[phone] [facility] No Information Licha Pryor. [address] [facility], [address], [id number], [place]. tel:[phone] Referring Provider: Robin Holcomb, [address], [place], [address]. tel:[phone] Subsqt Hosp-da E&m Minr Compl [facility], [address] [address], [place], [address], [place] tel:[phone] [facility] No Information No Information Referring Provider: Robin Holcomb, [address] , [place], [address]. tel:[phone] Init Inpt Cons New/estab Mod 5 [facility], [address] [address], [place], [address], [place] tel:[phone] [facility] No Information Madi Mcconnell. [address] [facility], [facility] 500, [place], [place], [address], [place]. tel:[phone] Referring Provider: Robin Holcomb, [address] [facility], [place], [address]. tel:[phone] [facility], [address] [address], [place], [address], [place] tel:[phone] [facility] Chronic pancreatitis , unspecified pancreatitis type Licha Pryor. [address] [facility], [facility] [address], [place], [address], [place]. tel:[phone] Galo Huang DO. tel:[phone] Init Inpt Cons New/est Mod-hi [facility], [address] [address], [place], [address], [place] tel:[phone] [facility] No Information 7 Paloma Gomes. [address] [facility], [facility] 500, [place], [place], [address], [place]. tel:[phone] Referring Provider: Robin Alcantar MD R, [address], [place], [address]. tel:[phone] [facility], [address] [address], [facility] [address], [place] tel:[phone] [facility] Chronic pancreatitis , unspecified pancreatitis type 7 Dakota Reed. [address] [place] [address] 500, [place], [address], [place]. tel:[phone] Subsqt Hosp-da E&m Minr Compl [facility], [address] [address], [facility], [address], [place] tel:[phone] [facility] No Information 6 Jesus Duran. [address] [place] [address], [id number], [place]. tel:[phone] Referring Provider: Renee Lee NP P, [address] [place] [address] 500, [facility] [place], [address] . tel:[phone] Init Inpt Cons New/est Mod-hi [facility], [address] [address], [facility], [address], [place] tel:[phone] [facility] No Information 6 Danuta Gomes. [address] [place] [address], [facility] 500, [place], [place], [address], [place]. tel:[phone] Referring Provider: Eliseo Burkett, [address] [place] [address] 500, [place], [address] . tel:[phone] [facility], [address] [address], [facility], [address], [place] tel:[phone] [facility] No Information 5 Licha Pryor. [address] [place] [address] 500, [place], [place], [address], [place]. tel:[phone] Referring Provider: Konstantin Hurt MD, [address] [facility] [address], [place], [address] . tel:[phone] [facility], [address] [address], [place], [address], [place] tel:[phone] [facility] Bile duct obstruction 5 Licha Pryor. [address] [facility], [address], [place], [place], [address], [place]. tel:[phone] Galo Huang DO. tel:[phone] erring Provider: Referral Self, USE FOR SELF REFERRALS. [facility], [address] [address], [place], [address], [place] tel:[phone] [facility] No Information 5 Licha Pryor. [address] [facility], [address], [place], [place], [address], [place]. tel:[phone] Referring Provider: Konstantin Hurt MD, [address] [facility] [address], [place], [address] . tel:[phone] Subst Hosp- E&m Minr Compl [facility], [address] [address], [facility] [place], [address], [place] tel:[phone] [facility] No Information 5 Collin Zambrano. [address] [facility], [address], [place], [place], [address], [place]. tel:[phone] Referring Provider: Isai Ac MD, [address], [place], [address]. tel:[phone] [facility], [address] [address], [place], [address], [place] tel:[phone] [facility] No Information Sep-0 5 Licha Pryor. [address] [facility], [address], [place], [place], [address], [place]. tel:[phone] Referring Provider: Isai Ac MD, [address], [place], [address]. tel:[phone] [facility], [address] [address], [place], [address], [place] tel:[phone] [facility] Acute Pancreatitis Acute pancreatitis , unspecified Apr- 5 Licha Pryor. [address] [facility], [address], [place], [place], [address], [place]. [phone] [facility], [address] [address], [place], [address], [place] tel:[phone] [facility] Acute Pancreatitis Mar- Licha Pryor. [address] [facility], [facility] 500, [place], [place], [address], [place]. [phone] Referring Provider: Referral Self, USE FOR SELF REFERRALS. Subsqt Hosp-da E&m Minr Compl [facility], [address] [address], [place], [address], [place] tel:[phone] [facility] No Information 0 5 Collin Zambrano. [address] [facility], [facility] 500, [place], [place], [address], [place]. [phone] Referring Provider: Isai Ac MD, [address], [place], [address]. tel:[phone] Subsqt Hosp-da E&m Minr Compl [facility], [address] [address], [place], [address], [place] tel:[phone] [facility] No Information 5 Stephane Neumann. [address] [facility], [facility] 500, [place], [place], [address], [place]. tel:[phone] Referring Provider: Isai Ac MD, [address], [place], [address]. tel:[phone] Init Inpt Cons New/estab Mod 5 [facility], [address] [address], [place], [address], [place] tel:[phone] [facility] No Information Nesset LEATHER SPONGER [place]. [address] [facility], [facility] 500, [place], [place], [address], [place]. tel:[phone] Referring Provider: Isai Ac MD, [address] [facility] [address], [place], [address]. tel:[phone] Offic/outpt E&m Estab Low-mod [facility], [address] [address], [place], [address], [place] tel:[phone] [facility] No Information Licha Pryor. [address] [facility], [facility] 500, [place], [place], [address], [place]. tel:[phone] Referring Provider: Annabelle Nieto, [address] [facility], [place], [address]. tel:[phone] Init Inpt Cons New/est Mod-hi [facility], [address] [address], [place], [address], [place] tel:[phone] [facility] No Information 5 Danuta Gomes. [address] [facility], [facility] 500, [place], [place], [address], [place]. tel:[phone] Referring Provider: Annabelle Nieto, [address] [facility], [place], [address]. tel:[phone] Subsqt Hosp-da E&m Minr Compl [facility], [address] [address], [place], [address], [place] tel:[phone] [facility] No Information Nesset LEATHER SPONGER [place]. [address] [facility], [facility] 500, [place], [place], [address], [place]. tel:[phone] Referring Provider: Annabelle Nieto, [address], [place], [address]. tel:[phone] Subsqt Hosp-da E&m Minr Compl [facility], [address] [address], [place], [place], [address], [place] tel:[phone] [facility] No Information Nesset LEATHER SPONGER [place]. [address], [address], [place]. tel:[phone] Referring Provider: Annabelle Nieto, [address] [facility], [place], [address]. tel:[phone] Subsqt Hosp-da E&m Stable [address] [facility] [place], [address] [address], [place], [place], [address], tel:[phone] [facility] No Information No Information Referring Provider: Annabelle Nieto, [address] [facility], [place], [address]. tel:[phone] Subsqt Hosp-da E&m Minr Compl [facility] [place], [address] [address], [place], [place], [address], [place] tel:[phone] [facility] No Information 5 Nesset LEATHER SPONGER [place]. [address], [id number], [place]. tel:[phone] Referring Provider: Annabelle Nieto, [address] [facility], [place], [address]. tel:[phone] Init Inpt Cons New/est Mod-hi [facility], [address] [address], [place], [place], [address], [place] tel:[phone] [facility] No Information Licha Pryor. [address], [id number], [place]. tel:[phone] Referring Provider: Annabelle Nieto, [address] [facility], [place], [address]. tel:[phone] [facility], [address] [address], [place], [address], [place] tel:[phone] [facility] No Information 5 Licha Pryor. [address] [facility], [facility] 500, [place], [place], [address], [place]. tel:[phone] Referring Provider: Annabelle Nieto, [address] [facility], [place], [address]. tel:[phone] [facility], [address] [address], [place], [address], [place] tel:[phone] [facility] Acute Pancreatitis 0 5 No Information Referring Provider: Referral Self, USE FOR SELF REFERRALS. Subsqt Hosp-da E&m Minr Compl [facility], [address] [address], [place], [address], [place] tel:[phone] [facility] No Information 0 5 Collin Zambrano. [address] [facility], [facility] 500, [place], [place], [address], [place]. tel:[phone] Referring Provider: Yariel Cortez MD, [address], [place], [address]. tel:[phone] Init Inpt Cons New/est Mod-hi [facility], [address] [address], [facility] [place], [address], [place] tel:[phone] [facility] No Information 0 5 No Information Referring Provider: Yariel Cortez MD, [address], [place], [address]. tel:[phone] Offic/outpt E&m Estab Low-mod 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 Offic/outpt E&m Estab Mod-hi [address] 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 tel:[phone] Offic/outpt E&m Estab Low-mod [facility] [place], [address] [address], [place], [place], [address], [place] tel:[phone] [facility] No Information 3 Licha Pryor. [address] [place] [address], [id number], [place]. tel:[phone] Referring Provider: Annabelle Nieto, [address] [facility], [place], [address]. tel:[phone] Subsqt Hosp-da E&m Minr Compl [facility] Digestive [facility] [place], [address] [address], [place], [place], [address], [place] tel:[phone] [facility] No Information 3 Nesset LEATHER SPONGER [place]. [address] [place] [address], [id number], [place]. tel:[phone] Referring Provider: Rudi Burkett, [address], [place], [address]. tel:[phone] Subsqt Hosp-da E&m Minr Compl [facility] Dig[facility]ive [facility] [place], [address] [address], [place], [place], [address], [place] tel:[phone] [facility] No Information 3 Nesset LEATHER SPONGER [place]. [address] [place] [address], [id number], [place]. tel:[phone] Referring Provider: Rudi Burkett, [address], [place], [address]. tel:[phone] Subsqt Hosp-da E&m Minr Compl [facility], [address] [address], [place], [address], [place] tel:[phone] [facility] No Information 3 Chandrakant CHANG Kay. [address] [facility], [address], [place], [place], [address], [place]. tel:[phone] Referring Provider: Rudi Burkett, [address], [place], [address]. tel:[phone] Offic/outpt E&m Estab Mod-hi [address] [facility], [address] [address], [place], [id number], [place] tel:[phone] [facility] No Information 2 Licha Pryor. [address] [facility], [facility] 500, [place], [place], [address], [place]. tel:[phone] [facility], [address] [address], [place], [address], [place] tel:[phone] [facility] Obstruction Of Bile Duct 2 Licha Pryor. [address] [facility], [address], [place], [place], [address], [place]. [phone] [facility], [address] [address], [place], [address], [place] tel:[phone] [facility] No Information 2 Licha Pryor. [address] [facility], [address], [place], [place], [address], [place]. tel:[phone] Referring Provider: Annabelle Nieto, [address] [place] [address], [place], [address]. tel:[phone] Subsqt Hosp-da E&m Stable [address] [facility], [address] [address], [place], [id number], [place] tel:[phone] [facility] No Information 2 Mahamed EDWIN Radha. [address] [place] [address], [id number], [place]. tel:[phone] Referring Provider: Annabelle Nieto, [address], [place], [address]. tel:[phone] Subsqt Hosp-da E&m Minr Compl [facility] [place], [address] [address], [place], [address], [place] tel:[phone] [facility] No Information 2 Collin Ortizy. [address] [place] [address], [id number], [place]. tel:[phone] Referring Provider: Annabelle Nieto, [address] , [place], [address]. tel:[phone] [facility] Digestive [facility], [address] [address], [place], [address], [place] tel:[phone] [facility] No Information 2 Licha Pryor. [address] [place] [address], [id number], [place]. tel:[phone] Referring Provider: Annabelle Nieto, [address] , [place], [address]. tel:[phone] [facility], [address] [address], [place], [address], [place] tel:[phone] [facility] Obstruction Of Bile DuctAcute Pancreatitis 2 Licha Pryor. [address] [place] [address], [id number], [place]. tel:[phone] Referring Provider: Annabelle Nieto, [address], [place], [address]. tel:[phone] Subsqt Hosp-da E&m Minr Compl [facility] [place], [address] [address], [place], [address], [place] tel:[phone] [facility] No Information 2 Nesset LEATHER SPONGER [place]. [address] [address], [place], [place], [address], [place]. tel:[phone] Referring Provider: Maurice Burkett, [address] [facility] [place] [address], [place], [address]. tel:[phone] Subsqt Hosp-da E&m Minr Compl [facility], [address] [address], [place], [address], [place] tel:[phone] [facility] No Information 2 No Information Referring Provider: Maurice Burkett, [address] [place] [address], [place], [address]. tel:[phone] Subsqt Hosp-da E&m Minr Compl [facility], [address] [address], [place], [address], [place] tel:[phone] [facility] No Information 2 No Information Referring Provider: Maurice Burkett, [address] [place] [address], [place], [address]. tel:[phone] Subsqt Hosp-da E&m Minr Compl [facility], [address] [address], [place], [address], [place] tel:[phone] [facility] No Information 2 Nesset LEATHER SPONGER [place]. [address] [facility] 500, [place], [place], [address], [place]. tel:[phone] Referring Provider: Maurice Burkett, [address] [place] [address], [place], [address]. tel:[phone] Subsqt Hosp-da E&m Minr Compl [facility], [address] [address], [place], [address], [place] tel:[phone] [facility] No Information 2 Chandrakant Villanueva. [address] [facility], [address], [place], [place], [address], [place]. tel:[phone] Referring Provider: Maurice Burkett, [address] [place] [address], [place], [address]. tel:[phone] Subsqt Hosp-da E[facility] [address] [facility], [address] [address], [place], [place], [id number], [place] tel:[phone] [facility] No Information 2 Mahamed EDWIN Radha. [address] [facility], [facility] [address], [place], [place], [id number], [place]. tel:[phone] Referring Provider: Maurice Burkett, [address] [place] [id number], [place], [address]. tel:[phone] [facility] Compl [facility], [address] [address], [place], [place], [id number], [place] tel:[phone] [facility] No Information 2 No Information Referring Provider: Maurice Burkett, [address] [place] [address], [place], [address]. tel:[phone] Subsqt Hosp-da E&m Minr Compl [facility], [address] [address], [place], [id number], [place] tel:[phone] [facility] No Information No Information Referring Provider: Maurice Burkett, [address] [place] [address], [place], [address]. tel:[phone] Subsqt Hosp-da E&m Minr Compl [facility], [address] [address], [place], [place], [id number], [place] tel:[phone] [facility] No Information 2 Chandrakant Villanueva. [address] [facility], [address], [place], [place], [id number], [place]. tel:[phone] Referring Provider: Maurice Burkett, [address] [place] [address], [place], [address]. tel:[phone] Subsqt Hosp-da E&m Minr Compl [facility], [address] [address], [place], [id number], [place] tel:[phone] [facility] No Information 2 No Information Referring Provider: Maurice Burkett, [address] [place] [address], [place], [address]. tel:[phone] Init Inpt Cons New/est Mod-hi [facility], [address] [address], [place], [id number], [place] tel:[phone] [facility] No Information 2 Flora Alexandra. [address] [place] [address], [id number], [place]. tel:[phone] Referring Provider: Maurice Burkett, [address] [place] [address], [place], [address]. tel:[phone] Sub[facility]t Hosp-da E&m Minr Compl [facility], [address] [address], [place], [address], [place] tel:[phone] [facility] No Information 2 No Information Referring Provider: Maurice Burkett, [address] [place] [address], [place], [address]. tel:[phone] Subsqt Hosp-da E&m Minr Compl [facility], [address] [address], [place], [id number], [place] tel:[phone] [facility] No Information 2 Chandrakant Villanueva. [address] [place] [address], [id number], [place]. tel:[phone] Referring Provider: Maurice Burkett, [address] [place] [address], [place], [address]. tel:[phone] Sub[facility]t H[facility]-da E&m Minr Compl [facility] [place], [address] [address], [place], [id number], [place] tel:[phone] [facility] No Information 2 Chandrakant CHANG Kay. [address] [facility], [address], [place], [place], [id number], [place]. tel:[phone] Referring Provider: Kay Vu, [address] [facility] [address], [place], [address] . tel:[phone] [facility] H[facility]-da E&m Stable [address] [facility] [place], [address] [address], [place], [id number], [place] tel:[phone] [facility] No Information 2 No Information Subsqt Hosp-da E&m Minr Compl [facility] [place], [address] [address], [place], [id number], [place] tel:[phone] [facility] No Information 2 No Information Subsqt Hosp-da E&m Minr Compl [facility] [place], [address] [address], [place], [id number], [place] tel:[phone] [facility] No Information 2 Chandrakant CHANG Kay. [address] [facility], [address], [place], [place], [id number], [place]. tel:[phone] Referring Provider: Annabelle Nieto, [address] [place] [address], [place], [address]. tel:[phone] Subsqt Hosp-da E&m Minr Compl [facility] [place], [address] [address], [place], [id number], [place] tel:[phone] [facility] No Information 2 No Information Subsqt Hosp-da E&m Sig Compl [address] [facility] [place], [address] [address], [place], [id number], [place] tel:[phone] [facility] No Information 2 Tyler ARMSTRONG November. [address] [facility], [address], [place], [place], [id number], [place]. tel:[phone] Referring Provider: Annabelle Nieto, [address], [place], [address]. tel:[phone] Subsqt Hosp-da E&m Minr Compl [facility], [address] [address], [place], [id number], [place] tel:[phone] [facility] No Information 2 No Information Referring Provider: Annabelle Nieto, [address], [place], [address]. tel:[phone] Subsqt Hosp-da E&m Minr Compl [facility], [address] [address], [place], [id number], [place] tel:[phone] [facility] No Information No Information Referring Provider: Annabelle Nieto, [address] , [place], [address]. tel:[phone] Subsqt Hosp-da E&m Minr Compl [facility], [address] [address], [place], [id number], [place] tel:[phone] [facility] No Information No Information Referring Provider: Annabelle Nieto, [address] , [place], [address]. tel:[phone] Subsqt Hosp-da E&m Minr Compl [facility], [address] [address], [place], [id number], [place] tel:[phone] [facility] No Information No Information Referring Provider: Annabelle Nieto, [address], [place], [address]. tel:[phone] Subsqt Hosp-da E&m Minr Compl [facility], [address] [address], [place], [id number], [place] tel:[phone] [facility] No Information 2 Nesset LEATHER SPONGER Kenya. [address], [id number], [place]. tel:[phone] Referring Provider: Annabelle Nieto, [address] , [place], [address]. tel:[phone] Subsqt Hosp-da E&m Minr Compl [facility], [address] [address], [place], [place], [id number], [place] tel:[phone] [facility] No Information 0 2 No Information Referring Provider: Annabelle Nieto, [address] , [place], [address]. tel:[phone] Subsqt Hosp-da E&m Minr Compl [facility], [address] [address], [place], [place], [id number], [place] tel:[phone] [facility] No Information Jan-0 2 Nesset LEATHER SPONGER [place]. [address], [id number], [place]. tel:[phone] Referring Provider: Annabelle Nieto, [facility], [place], [address]. tel:[phone] Init Inpt Cons New/est Mod-hi [facility], [address] [address], [place], [place], [id number], [place] tel:[phone] [facility] No Information 0 2 Paloma Gomes. [address] [facility] [address], [place], [place], [id number], [place]. tel:[phone] Referring Provider: Annabelle Nieto, [address] , [place], [address]. tel:[phone] Offic/outpt E&m Estab Mod-hi [address] [facility], [address] [address], [place], [place], [id number], [place] tel:[phone] [facility] Pancreatitis (chief complaint)Fat ty Liver disease (chief complaint) Non-alcoholi c Fatty LiverNon-alc oholic Fatty Liver 2 No Information Referring Provider: Annabelle Nieto, [address], [place], [address]. tel:[phone] [facility] [employer] [facility], [address] [address], [place], [id number], tel:[phone] [facility] Acute Pancreatitis No Information Offic Cons New/estab Mod [facility], [address] [address], [place], [place], [id number], [place] tel:[phone] [facility] Pancreatitis (chief complaint) Acute Pancreatitis Non-alcoholi c Fatty Liver No Information Referring Provider: Annabelle Nieto, [address] , [place], [address]. tel:[phone] Family History Family Member Type Diagnosis Age [...] name Insurance type Covered constitution party ID Authorsandraa tikathy(s) [employer] Of [facility] [id number] Social History Type Description Quantity Date Captured [...] date/timeframe: 05/29/2017 ordered Referral Ordered: referred to [facility] chronic pain w/ pancreatitis ordered Referral Ordered: ERCP Appointment date/timeframe: 11/20/2014 ordered Referral Ordered: EUS Appointment date/timeframe: 11/20/2014 ordered History Of Present Illness Encounter Date Complaint History Of Prese nt Illness No Information Functional Status Date Functional Assessmen t No Information Instructions Date Instruction Additional Infor estelle ERCP Assessments Type Assessment Date No Information Patient Care Teams Name Effective Dates (start - stop) Status Members No Information
--- OUTSIDE RECORDS SUMMARY | 2024-06-20 23:19 | XMS_ITS | Clinical Summary ---
Author Organization [facility] Address [place], [place] [address] Care Team Providers Care Block Setter Gypsum Name Role Phone Kyle Scherer Primary Care Provider [phone] Allergies Active Allergy Reactions Criticality Noted Date [...] strips strip 3 times daily. 10/02/2021 Act aoms erythromycin ophthalmic ointment 0.5%Indications:Hor deolum externum of [...] Type Department Care Team Description 05/27/2024 Telephone [facility] [address] [facility] [place] [address] Kyle Scherer, DO Results 05/24/2024 1:15 PM CDT Office Visit [facility] [address] [facility] [place] [address] Kyle Scherer DO Diabetes 05/24/2024 Travel 05/09/2024 Orders Only [facility] Scanner 1 scan: (1-Ord) [facility], ABDOMEN PELVIS WITH CONTRAST, 05/09/2024 04/30/2024 Travel 04/25/2024 Refill [facility] [address] [place] [address] Kyle Scherer DO Refill Request (Insulin Aspart (U-100)) 04/16/2024 Lab Requisition [facility] [phone] Anjelica Barrios MD from Last 3 Months [...] Diabetes Paternal Grandmother Heart Disease Paternal Uncle [place] Anesthesia Problem No Family History Blood Disease [...] st Contact Info) Description 08/26/2024 10:15 AM 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 Orders Only [facility] [address] [place] [address] [place], [place] 08/26/2024 10:35 AM 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 Office Visit [facility] [address] [place] [address] Kyle Scherer DO [address] [place] [address] Health Maintenance Due Date Last Done Comments [...] 11/12/19, 10/11/2021 Medical Devices Implanted Type Area Business Process Representative Device Identifier Shelf Expiration Date Model / Serial / Lot Stent Biliary 10-7 Cotton Huibregste - [id number] Implanted:Qty: 1 on 04/11/2012 by Konstantin Hurt MD at [facility] N/A: Common Bile Duct [employer] [facility] CHBSO-10- 7# / / [id number] Stent Pancreatic Geenen 7-9gepd-7-9 Cook - [id number] Implanted:Qty: 1 on 04/11/2012 by Konstantin Hurt MD at [facility] N/A: Pancreas [employer] [facility] GEPD-7-9# / / Stent Pancreatic 7avt3ca Geenen Set - [id number] Implanted:Qty: 1 on 05/06/2015 by Konstantin Hurt MD at [facility] N/A: Pancreas [employer] GEPD-7-9# / / [id number] Stent Pancreatic 10fr 7cm Gpso Geenen - [id number] Implanted:Qty: 1 on 06/10/2015 by Konstantin Hurt MD at [facility] Endoscopy GPSO-10-7 # / / [id number] Stent Pancreatic 8ipa3mh Geenen Sof-Flex No Flap - [id number] Implanted:Qty: 1 on 07/01/2015 by Konstantin Hurt MD at [facility] Endoscopy 01/25/2018 GPSOS-SF- 5-7# / / [id number] Description:implanted to ibrahim creatic duct during ERCP. Stent Pancreatic [id number] Advanix Stra Una Plst - [id number] Implanted:Qty: 1 on 04/21/2017 by Konstantin Hurt MD at [facility] N/A: Pancreas [facility]SC [facility] 07/11/2018 [id number] # / / [id number] Inactive/Delete 04/07/17stent Pancreatic 8dfb4xi Geene - [id number] Implanted:Qty: 1 on 05/15/2017 by Konstantin Hurt MD at [facility] Endoscopy 03/16/2020 GPSOS-SF- 5-5# / / [...] HIV-1/O/2, 4TH GENERATION Routine 11/01/2022 3:38 PM 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 Screening for HIV (human immunodeficiency virus) ANTI [...] 1:27 PM CDT Kyle Scherer DO URINE [employer] [facility] [address] [place] [address], [facility] [place] [address] [place] [address] * (ABNORMAL) BASIC METABOLIC PANEL [79253.0] (05/24/2024 1:27 PM CDT) GLUCOSE 362(H) 65 - 99 mg/dL [employer] [facility] Comment: ? Fasting reference interval For someone without known diabetes, a glucose value >125 mg/dL indicates that they may have diabetes and this should be confirmed with a follow-up test. UREA NITROGEN (BUN) 11 7 - 25 mg/dL [facility] CREATININE 0.91 0.60 - 1.24 mg/dL [employer] [facility] EGFR 117 > OR = 60 mL/min/1. 73m2 [facility] BUN/CREATININE RATIO SEE NOTE: (calc) [facility] Comment: ?? Not Reported: BUN and Creatinine are within ?? reference range. ? SODIUM 136 135 - 146 mmol/L [facility] POTASSIUM 5.0 3.5 - 5.3 mmol/L [facility] CHLORIDE 98 98 - 110 mmol/L [facility] CARBON DIOXIDE 24 20 - 32 mmol/L [facility] ELECTROLYTE BALANCE 14 7 - 17 mmol/L (calc) [facility] CALCIUM 10.0 8.6 - 10.3 mg/dL [facility] Blood BLOOD SPECIMEN / Unknown 05/24/2024 1:27 PM CDT 05/24/2024 1:27 PM CDT [facility] CHEMISTRY Performing Organization Address City/[facility]/ZIP Co de Phone Number [facility] [address] [place] [address], [facility] [address] [place] [address] * (ABNORMAL) HEMOGLOBIN A1C MONITORING POCT (05/24/2024 1:25 PM CDT) POC HEMOGLOBIN A1C 8.5(H) <6.0 % OF TOTAL HGB [facility] Comment: Any point of care results exhibiting inconsistency with the patient's clinical status should be repeated using a different testing method. Blood BLOOD SPECIMEN / Unknown 05/24/2024 1:25 PM CDT 05/24/2024 1:26 PM CDT [facility] Jasekiara LOVELL CHEMISTRY Performing Organization Address City/[facility]/ZIP Co de Phone Number [facility] [address] [place] [address], [facility] [address] [place] [address] * SCAN-CT INTERPRETATION (05/09/2024 12:00 AM CDT) Anatomical Region Laterality Modality Other Scanner OTHER * QFT MITOGEN PERFORMABLE (04/15/2024 2:20 PM CDT) MITOGEN 10.00 IU/mL 04/17/2024 1:19 PM CDT [facility] Blood BLOOD SPECIMEN / Unknown Client Collect / Unknown 04/15/2024 2:20 PM CDT 04/16/2024 10:26 PM CDT Anjelica Barrios MD CHEMISTRY Performing Organization Address City/[facility]/ZIP Co de Phone Number [facility] [address] [place] [address], [place] * QFT TB2 PERFORMABLE (04/15/2024 2:20 PM CDT) TB2 0.01 IU/mL 04/17/2024 1:19 PM CDT [facility] Blood BLOOD SPECIMEN / Unknown Client Collect / Unknown 04/15/2024 2:20 PM CDT 04/16/2024 10:26 PM CDT Anjelica Barrios MD CHEMISTRY Performing Organization Address City/[facility] Co de Phone Number [facility] [address] [place] [address], [place] * QFT TB1 PERFORMABLE (04/15/2024 2:20 PM CDT) TB1 0.03 IU/mL 04/17/2024 12:26 PM CDT [facility] Blood BLOOD SPECIMEN / Unknown Client Collect / Unknown 04/15/2024 2:20 PM CDT 04/16/2024 10:26 PM CDT Anjelica Barrios MD CHEMISTRY Performing Organization Address City/[facility]/ZIP Co de Phone Number [facility] [address] [place] [address], [place] * QUANTIFERON TB GOLD PLUS (04/15/2024 2:20 PM CDT) QFTP NIL 0.00 04/17/2024 2:43 PM CDT [facility] TB1 0.03 IU/mL 04/17/2024 2:43 PM CDT [facility] TB2 0.01 IU/mL 04/17/2024 2:43 PM CDT [facility] MITOGEN 10.00 IU/mL 04/17/2024 2:43 PM CDT [facility] QFTP TB AG1 - NIL 0.03 024 2:43 PM CDT [facility] TB1-NIL % OF NIL 04/17/20 24 2:43 PM CDT [facility] Comment:Unable to calculate QFTP TB AG2 - NIL 0.01 024 2:43 PM CDT [facility] TB2-NIL % OF NIL 04/17/20 24 2:43 PM CDT [facility] Comment:Unable to calculate QFTP MITOGEN - NIL 10.00 2023 2:43 PM CDT [facility] QFTP QUANTIFERON INTERPRETATION Negative Negative 04/17/2024 2:43 PM CDT [facility] Blood BLOOD SPECIMEN / Unknown Client Collect / Unknown 04/15/2024 2:20 PM CDT 04/16/2024 10:26 PM CDT [facility] LABORATORY - 04/17/2024 2:43 PM CDT M. [...] old. - women Anjelica Barrios MD CHEMISTRY [facility] [address] [place] [address], * LC HIV-1/O/2, 4TH GENERATION (11/01/2022 3:38 PM 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) HIV Scr 4th Gen Non Reactive Non Reactive 11/04/2022 10:06 PM 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 [facility] Comment: HIV Negative HIV-1/HIV-2 antibodies and HIV-1 p24 antigen were NOT detected. There is no laboratory evidence of HIV infection. Blood BLOOD SPECIMEN / Unknown Venipuncture / Unknown 11/01/2022 3:38 PM 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 11/01/2022 3:39 PM 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 Narrative [facility] ([facility]) - 11/04/2022 10:06 PM 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 Performed at: ??01 - [address] ??[id number] Legal Manager: Pravin Gardner MD, Phone: ??[phone] Kyle Scherer DO LABORATORY [facility] ([facility]) [address] [place] [address] * ANTI HCV (04/18/2017 7:23 AM CDT) HEPATITIS C ANTIBODY Non-Reacti ve Non-Reacti ve 04/18/2017 9:14 AM CDT [facility]ORAT[facility] Blood BLOOD SPECIMEN / Unknown Venipuncture / Unknown 04/18/2017 7:23 AM CDT 04/18/2017 7:29 AM CDT Narrative [facility] - 04/18/2017 9:14 AM CDT Antibodies to HCV not detected; does not exclude the possibility of exposure to HCV. Enedina Barraza MD SEND OUTS [facility] [address] [place] [address], [place] from Last 3 Months or Most [...] 7:59 AM 05/04/2017 9:53 AM Care Teams Block Setter Gypsum Relationship Specialty Start Date End Date Kyle [place] [address] PCP - General Family Practice 03/11/21
--- NOTE | 2024-06-20 23:21 | W.ED.CHARTNO ---
ED Chart Note Chart Note Details Date: 06/20/24 Details: Patient left without being seen by provider
== END 2024-06-20 23:19 | disposition left against medical advice (07) ==
LOC: ED 23:17
PROVIDERS: Emergency Provider Student in an Organized Health Care Education/Training Program; PCP Student in an Organized Health Care Education/Training Program
DX: Z53.21 Procedure and treatment not carried out due to patient leaving prior to being seen by health care provider (principal)

== ENCOUNTER 2024-06-21 04:57 | Emergency (ER) | payer BC, SELFPAY ==
[2024-06-21 05:17] VITALS: BP 152/106; PULSE 60; RESP 16; TEMP 36.4; O2SAT 98; BMI 26.3
[2024-06-21] MEDS: ONDANSETRON 2 MG/ML inj 4 MG IVP (05:36)
[2024-06-21 05:37] LABS: Lactate* 1.4 mmol/L (0.5-1.9)
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
[2024-06-21 05:41] LABS: Basophils Absolute Auto 0.04 K/uL (0.00-0.30); Basophils Percent Auto 0.4 % (0.0-3.0); Hematocrit 45.9 % (37.0-53.0); Hemoglobin* 15.8 gm/dL (13.5-17.5); Immature Granulocytes Abs Auto 0.01 K/uL (0.00-0.30); Immature Granulocytes Pct Auto 0.1 %; Lymphocytes Percent Auto 16.9 % (20-44); Mean Corpuscular HGB Conc 34 gm/dL (32-36); Mean Corpuscular Hemoglobin 29 pg (26-34); Mean Corpuscular Volume 83 fL (80-100); Neutrophils Percent Auto 74.6 % (42.0-72.0); Platelet Count* 199 K/uL (140-440); RDW Coefficient of Variation % 11.9 % (11.5-15.5); Red Blood Count 5.53 m/uL (4.30-5.90); White Blood Count* 10.13 K/uL (4.50-11.00)
[2024-06-21] MEDS: 0.9 % SODIUM CHLORIDE 500 ML 500 ML IV (05:43)
--- OUTSIDE RECORDS SUMMARY | 2024-06-21 05:44 | XMS_ITS | Clinical Summary ---
Author Organization [employer] Address [place], [place] [address] Care Team Providers Care Superintendent Production Name Role Phone Kyle Scherer Primary Care Provider [phone] Allergies Active Allergy Reactions Criticality Noted Date [...] Type Department Care Team Description 05/27/2024 Telephone [facility] [address] [facility] [place] [address] Kyle Scherer, DO Results 05/24/2024 1:15 PM CDT Office Visit [facility] [address] [facility] [place] [address] Kyle Scherer DO Diabetes 05/24/2024 Travel 05/09/2024 Orders Only [facility] Scanner 1 scan: (1-Ord) [facility] PELVIS WITH CONTRAST, 05/09/2024 04/30/2024 Travel 04/25/2024 Refill [facility] [address] [place] [address] Kyle Scherer DO Refill Request (Insulin Aspart (U-100)) 04/16/2024 Lab Requisition [facility] [phone] Anjelica Barrios MD from Last 3 Months [...] Diabetes Paternal Grandmother Heart Disease Paternal Uncle [place] Anesthesia Problem No Family History Blood Disease [...] st Contact Info) Description 08/26/2024 10:15 AM SELVAGE MACHINE OPERATOR Orders Only [facility] [address] [place] [address] [place], [place] 08/26/2024 10:35 AM SELVAGE MACHINE OPERATOR Office Visit [facility] [address] [place] [address] Kyle Scherer DO [address] [place] [address] Health Maintenance Due Date Last Done Comments [...] 11/12/19, 10/11/2021 Medical Devices Implanted Type Area Biometric Fingerprinting Technician Device Identifier Shelf Expiration Date Model / Serial / Lot Stent Biliary 10-7 Cotton Huibregste - [id number] Implanted:Qty: 1 on 04/11/2012 by Konstantin Hurt MD at [facility] N/A: Common Bile Duct [employer] CHBSO-10- 7# / / [id number] Stent Pancreatic Geenen 7-9gepd-7-9 Cook - [id number] Implanted:Qty: 1 on 04/11/2012 by Konstantin Hurt MD at [facility] N/A: Pancreas [employer] GEPD-7-9# / / Stent Pancreatic 5orx5jg Geenen Set - [id number] Implanted:Qty: 1 on 05/06/2015 by Konstantin Hurt MD at [facility] N/A: Pancreas [employer] GEPD-7-9# / / [id number] Stent Pancreatic 10fr 7cm Gpso Geenen - [id number] Implanted:Qty: 1 on 06/10/2015 by Konstantin Hurt MD at [facility] Endoscopy GPSO-10-7 # / / [id number] Stent Pancreatic 3nzy0hb Geenen Sof-Flex No Flap - [id number] Implanted:Qty: 1 on 07/01/2015 by Konstantin Hurt MD at [facility] Endoscopy 01/25/2018 GPSOS-SF- 5-7# / / [id number] Description:implanted to ibrahim creatic duct during ERCP. Stent Pancreatic 4mef0gv Advanix Stra Una Plst - [id number] Implanted:Qty: 1 on 04/21/2017 by Konstantin Hurt MD at [facility] N/A: Pancreas BSC Gastroenterology 07/11/2018 [id number] # / / [id number] Inactive/Delete 04/07/17stent Pancreatic 8cyi1gf Geene - [id number] Implanted:Qty: 1 on 05/15/2017 by Konstantin Hurt MD at [facility] Endoscopy 03/16/2020 GPSOS-SF- 5-5# / / Procedures [...] HIV-1/O/2, 4TH GENERATION Routine 11/01/2022 3:38 PM SELVAGE MACHINE OPERATOR Screening for HIV (human immunodeficiency [...] 1:27 PM CDT Kyle Scherer DO URINE [facility] [address] [place] [address], [facility] [address] [place] [address] * (ABNORMAL) BASIC METABOLIC PANEL [46167.0] (05/24/2024 1:27 PM CDT) GLUCOSE 362(H) 65 - 99 mg/dL [facility] Comment: ? Fasting reference interval For someone without known diabetes, a glucose value >125 mg/dL indicates that they may have diabetes and this should be confirmed with a follow-up test. UREA NITROGEN (BUN) 11 7 - 25 mg/dL [facility] CREATININE 0.91 0.60 - 1.24 mg/dL [facility] EGFR 117 > OR = 60 mL/min/1. 73m2 [facility] BUN/CREATININE RATIO SEE NOTE: (calc) [facility] Comment: ?? Not Reported: BUN and Creatinine are within ?? reference range. ? SODIUM 136 135 - 146 mmol/L [facility] POTASSIUM 5.0 3.5 - 5.3 mmol/L [facility] CHLORIDE 98 98 - 110 mmol/L [facility] CARBON DIOXIDE 24 20 - 32 mmol/L [facility] ELECTROLYTE BALANCE 14 7 - 17 mmol/L (calc) [facility] CALCIUM 10.0 8.6 - 10.3 mg/dL [facility] Blood BLOOD SPECIMEN / Unknown 05/24/2024 1:27 PM CDT 05/24/2024 1:27 PM CDT [facility] CHEMISTRY Performing Organization Address City/[facility]/ZIP Co de Phone Number [facility] [address] [place] [address], [facility] [address] [place] [address] * (ABNORMAL) HEMOGLOBIN A1C MONITORING POCT (05/24/2024 1:25 PM CDT) POC HEMOGLOBIN A1C 8.5(H) <6.0 % OF TOTAL HGB [facility] Comment: Any point of care results exhibiting inconsistency with the patient's clinical status should be repeated using a different testing method. Blood BLOOD SPECIMEN / Unknown 05/24/2024 1:25 PM CDT 05/24/2024 1:26 PM CDT [facility] CHEMISTRY Performing Organization Address City/[facility]/ZIP Co de Phone Number [facility] [address] [place] [address], [facility] [address] [place] [address] * SCAN-CT INTERPRETATION (05/09/2024 12:00 AM CDT) Anatomical Region Laterality Modality Other Scanner OTHER * QFT MITOGEN PERFORMABLE (04/15/2024 2:20 PM CDT) MITOGEN 10.00 IU/mL 04/17/2024 1:19 PM CDT [facility] Blood BLOOD SPECIMEN / Unknown Client Collect / Unknown 04/15/2024 2:20 PM CDT 04/16/2024 10:26 PM CDT Anjelica Barrios MD CHEMISTRY Performing Organization Address City/[facility]/ZIP Co de Phone Number [facility] [address] [place] [address], [place] * QFT TB2 PERFORMABLE (04/15/2024 2:20 PM CDT) TB2 0.01 IU/mL 04/17/2024 1:19 PM CDT [facility] Blood BLOOD SPECIMEN / Unknown Client Collect / Unknown 04/15/2024 2:20 PM CDT 04/16/2024 10:26 PM CDT Anjelica Barrios MD CHEMISTRY Performing Organization Address City/[facility] Co de Phone Number [facility] [address] [place] [address], [place] * QFT TB1 PERFORMABLE (04/15/2024 2:20 PM CDT) TB1 0.03 IU/mL 04/17/2024 12:26 PM CDT [facility] Blood BLOOD SPECIMEN / Unknown Client Collect / Unknown 04/15/2024 2:20 PM CDT 04/16/2024 10:26 PM CDT Anjelica Barrios MD CHEMISTRY Performing Organization Address City/[facility]/ZIP Co de Phone Number [facility] [address] [place] [address], [place] * QUANTIFERON TB GOLD PLUS (04/15/2024 2:20 PM CDT) QFTP NIL 0.00 04/17/2024 2:43 PM CDT [facility] TB1 0.03 IU/mL 04/17/2024 2:43 PM CDT [facility] TB2 0.01 IU/mL 04/17/2024 2:43 PM CDT [facility] MITOGEN 10.00 IU/mL 04/17/2024 2:43 PM CDT [facility] QFTP TB AG1 - NIL 0.03 024 2:43 PM CDT [facility] TB1-NIL % OF NIL 04/17/20 24 2:43 PM CDT [facility] Comment:Unable to calculate QFTP TB AG2 - NIL 0.01 024 2:43 PM CDT [facility] TB2-NIL % OF NIL 04/17/20 24 2:43 PM CDT [facility] Comment:Unable to calculate QFTP MITOGEN - NIL 10.00 2023 2:43 PM CDT [facility] QFTP QUANTIFERON INTERPRETATION Negative Negative 04/17/2024 2:43 PM CDT [facility] Blood BLOOD SPECIMEN / Unknown Client Collect / Unknown 04/15/2024 2:20 PM CDT 04/16/2024 10:[address] [facility] - 04/17/2024 2:43 [...] [facility] [address] [place] [address], * LC HIV-1/O/2, 4TH GENERATION (11/01/2022 3:38 PM SELVAGE MACHINE OPERATOR) HIV Scr 4th Gen Non Reactive Non Reactive 11/04/2022 10:06 PM SELVAGE MACHINE OPERATOR [facility] Comment: HIV Negative HIV-1/HIV-2 antibodies and HIV-1 p24 antigen were NOT detected. There is no laboratory evidence of HIV infection. Blood BLOOD SPECIMEN / Unknown Venipuncture / Unknown 11/01/2022 3:38 PM SELVAGE MACHINE OPERATOR 11/01/2022 3:39 PM SELVAGE MACHINE OPERATOR Narrative [facility] ([facility]) - 11/04/2022 10:06 PM SELVAGE MACHINE OPERATOR Performed at: ??01 - Lab[address] ??[id number] Landscaping Crew Leader: Pravin Gardner MD, Phone: ??[phone] Kyle Scherer DO LABORATORY [facility] ([facility]) [address] [place] [address] * ANTI HCV (04/18/2017 7:23 AM CDT) HEPATITIS C ANTIBODY Non-Reacti ve Non-Reacti ve 04/18/2017 9:14 AM CDT [facility] Blood BLOOD SPECIMEN / Unknown Venipuncture / Unknown 04/18/2017 7:23 AM CDT 04/18/2017 7:29 AM CDT Narrative [facility] - 04/18/2017 9:14 AM CDT Antibodies to HCV not detected; does not exclude the possibility of exposure to HCV. Enedina Barraza MD SEND OUTS [facility] [address] [place] [address], [place] from Last 3 Months or Most [...] 7:59 AM 05/04/2017 9:53 AM Care Teams Superintendent Production Relationship Specialty Start Date End Date Kyle Sc[place] [address] PCP - General Family Practice 03/11/21
--- OUTSIDE RECORDS SUMMARY | 2024-06-21 05:44 | XMS_ITS | Continuity of Care Document ---
Author Organization [facility] Address [address] [address] [place] [address] Phone Care Team Providers Care Class B Driver Name Role Phone Nesset ELECTRONIC PAGINATION SYSTEM OPERATOR, [place] Unavailable Unavailable Procedures Procedure Date Subsqt [...] 4 Routine Serum Collection Offic/outpt E&m Estab Mod-nv 2 13 Offic/outpt E&m Estab Low-mod 3 [...] Compl [facility] [address] [address], [place], [place], [address], [place] tel:[phone] [facility] No Information 7 Collin Zambrano. [address] [facility], [address], [place], [place], [address], [place]. tel:[phone] Galo Huang DO. tel:[phone] erring Provider: Robin Holcomb, [address], [place], [address]. tel:[phone] Subsqt Hosp-da E&m Stable 15 M [facility], [address] [address], [place], [address], [place] tel:[phone] [facility] No Information Sep-2 7 Chandrakant Villanueva. [address], [id number], [place]. tel:[phone] Referring Provider: Robin Holcomb, [address], [place], [address]. tel:[phone] Init Inpt Cons New/est Mod-hi [facility], [address] [address], [facility] [place], [address], [place] tel:[phone] [facility] No Information Sep-2 7 No Information Referring Provider: Robin Holcomb, [address], [place], [address]. tel:[phone] Subsqt Hosp-da E&m Minr Compl [facility], [address] [address], [place], [address], [place] tel:[phone] [facility] No Information Sep-2 7 Nesset ELECTRONIC PAGINATION SYSTEM OPERATOR [place]. [address] [address], [place], [place], [address], [place]. tel:[phone] Referring Provider: Robin Holcomb, [address], [place], [address]. tel:[phone] Subsqt Hosp-da E&m Minr Compl [facility], [address] [address], [place], [address], [place] tel:[phone] [facility] No Information Sep-1 7 Chandrakant Villanueva. [address], [address], [id number], [place]. tel:[phone] Referring Provider: Robin Holcomb, [address], [place], [address]. tel:[phone] [facility], [address] [address], [place], [address], [place] tel:[phone] [facility] No Information Apr- 7 Licha Pryor. [address] [facility] [address], [place], [address], [place]. tel:[phone] Referring Provider: Robin Holcomb, [address], [place], [address]. tel:[phone] [facility], [address] [address], [place], [address], [place] tel:[phone] [facility] Encounter for removal of biliary stentChronic pancreatitis , unspecified pancreatitis type Apr- 7 Licha Pryor. [address] [place] [address], [id number], [place]. tel:[phone] Init Inpt Cons New/est Mod-hi [facility], [address] [address], [place], [address], [place] tel:[phone] [facility] No Information Apr- 7 Elsa Alfred. [address] [place] [address], [place], [address], [place]. tel:[phone] Referring Provider: Robin Holcomb, [address], [place], [address]. tel:[phone] [facility], [address] [address], [place], [address], [place] tel:[phone] [facility] Chronic pancreatitis , unspecified pancreatitis type Sep- 7 Ganesh King. [address] [place] [address], [facility] [address], [place], [address], [place]. tel:[phone] Galo Huang DO. tel:[phone] Subsqt Hosp-da E&m Minr Compl [facility], [address] [address], [place], [address], [place] tel:[phone] [facility] No Information Sep-0 7 Stephane EDWIN Nel. [address] [place] [address], [id number], [place]. tel:[phone] Referring Provider: Robin Holcomb, [address], [place], [address]. tel:[phone] Subsqt Hosp-da E&m Minr Compl [facility], [address] [address], [place], [address], [place] tel:[phone] [facility] No Information Sep-0 7 Chandrakant Joyher. [address] [place] [address], [id number], [place]. tel:[phone] Referring Provider: Robin Holcomb, [address], [place], [address]. tel:[phone] Init Inpt Cons New/est Mod-hi [facility], [address] [address], [place], [address], [place] tel:[phone] [facility] No Information Sep-0 7 Ganesh King. [address] [place] [address], [id number], [place]. tel:[phone] Referring Provider: Robin Holcomb, [address], [place], [address]. tel:[phone] Subsqt Hosp-da E&m Minr Compl [facility], [address] [address], [place], [address], [place] tel:[phone] [facility] No Information 2 7 No Information Referring Provider: Robin Holcomb, [address], [place], [address]. tel:[phone] [facility], [address] [address], [place], [address], [place] tel:[phone] [facility] No Information Licha Pryor. [address] [facility], [address], [id number], [place]. tel:[phone] Referring Provider: Robin Holcomb, [address], [place], [address]. tel:[phone] Subsqt Hosp-da E&m Minr Compl [facility], [address] [address], [place], [address], [place] tel:[phone] [facility] No Information No Information Referring Provider: Robin Holcomb, [address] , [place], [address]. tel:[phone] Init Inpt Cons New/estab Mod 5 [facility], [address] [address], [place], [address], [place] tel:[phone] [facility] No Information Madi Mcconnell. [address] [facility], [facility] 500, [place], [place], [address], [place]. tel:[phone] Referring Provider: Robin Holcomb, [address] [facility], [place], [address]. tel:[phone] [facility], [address] [address], [place], [address], [place] tel:[phone] [facility] Chronic pancreatitis , unspecified pancreatitis type Licha Pryor. [address] [facility], [facility] [address], [place], [address], [place]. tel:[phone] Galo Huang DO. tel:[phone] Init Inpt Cons New/est Mod-hi [facility], [address] [address], [place], [address], [place] tel:[phone] [facility] No Information 7 Paloma Gomes. [address] [facility], [facility] 500, [place], [place], [address], [place]. tel:[phone] Referring Provider: Robin Alcantar MD R, [address], [place], [address]. tel:[phone] [facility], [address] [address], [facility] [address], [place] tel:[phone] [facility] Chronic pancreatitis , unspecified pancreatitis type 7 Dakota Reed. [address] [place] [address], [place], [place], [address], [place]. tel:[phone] Subsqt Hosp-da E&m Minr Compl [facility], [address] [address], [facility] [address], [place] tel:[phone] [facility] No Information 6 Jesus Duran. [address] [place] [address], [id number], [place]. tel:[phone] Referring Provider: Renee Lee NP P, [address] [place] [address] 500, [facility] [place], [address] . tel:[phone] Init Inpt Cons New/est Mod-hi [facility], [address] [address], [facility] [address], [place] tel:[phone] [facility] No Information 6 Danuta Gomes. [address] [place] [address], [facility] 500, [place], [place], [address], [place]. tel:[phone] Referring Provider: Eliseo Burkett, [address] [place] [address] 500, [place], [address] . tel:[phone] [facility], [address] [address], [facility], [address], [place] tel:[phone] [facility] No Information 5 Licha Pryor. [address] [place] [address], [place], [place], [address], [place]. tel:[phone] Referring Provider: Konstantin Hurt MD, [address] [facility] [address], [place], [address] . tel:[phone] [facility], [address] [address], [place], [address], [place] tel:[phone] [facility] Bile duct obstruction 5 Licha Pryor. [address] [facility], [address], [place], [place], [address], [place]. tel:[phone] Galo Huang DO. tel:[phone] erring Provider: Referral Self, USE FOR SELF REFERRALS. [facility], [address] [address], [place], [address], [place] tel:[phone] [facility] No Information 5 Licah Pryor. [address] [facility], [address], [place], [place], [address], [place]. tel:[phone] Referring Provider: Konstantin Hurt MD, [address] [facility] [address], [place], [address] . tel:[phone] Subst Hosp- E&m Minr Compl [facility], [address] [address], [facility] [place], [address], [place] tel:[phone] [facility] No Information 5 Collin Zambrano. [address] [facility], [address], [place], [place], [address], [place]. tel:[phone] Referring Provider: Isai Ac MD, [address], [place], [address]. tel:[phone] [facility], [address] [address], [place], [address], [place] tel:[phone] [facility] No Information Sep-0 5 Licha Pryor. [address] [facility], [address], [place], [place], [address], [place]. tel:[phone] Referring Provider: Isai Ac MD, [address], [place], [address]. tel:[phone] [facility], [address] [address], [place], [address], [place] tel:[phone] [facility] Acute Pancreatitis Acute pancreatitis , unspecified Apr- 5 Licha Pryor. [address] [facility], [address], [place], [place], [address], [place]. [phone] [facility], [address] [address], [place], [address], [place] tel:[phone] [facility] Acute Pancreatitis Mar- Licha Pryor. [address] [facility], [facility] 500, [place], [place], [address], [place]. [phone] Referring Provider: Referral Self, USE FOR SELF REFERRALS. Subsqt Hosp-da E&m Minr Compl [facility], [address] [address], [place], [address], [place] tel:[phone] [facility] No Information 0 5 Collin Zambrano. [address] [facility], [facility] 500, [place], [place], [address], [place]. [phone] Referring Provider: Isai Ac MD, [address], [place], [address]. tel:[phone] Subsqt Hosp-da E&m Minr Compl [facility], [address] [address], [place], [address], [place] tel:[phone] [facility] No Information 5 Stephane Neumann. [address] [facility], [facility] 500, [place], [place], [address], [place]. tel:[phone] Referring Provider: Isai Ac MD, [address], [place], [address]. tel:[phone] Init Inpt Cons New/estab Mod 5 [facility], [address] [address], [place], [address], [place] tel:[phone] [facility] No Information Nesset ELECTRONIC PAGINATION SYSTEM OPERATOR [place]. [address] [facility], [facility] 500, [place], [place], [address], [place]. tel:[phone] Referring Provider: Isai Ac MD, [address] [facility] [address], [place], [address]. tel:[phone] Offic/outpt E&m Estab Low-mod [facility], [address] [address], [place], [address], [place] tel:[phone] [facility] No Information Licha Pryor. [address] [facility], [facility] 500, [place], [place], [address], [place]. tel:[phone] Referring Provider: Annabelle Nieto, [address] [facility], [place], [address]. tel:[phone] Init Inpt Cons New/est Mod-hi [facility], [address] [address], [place], [address], [place] tel:[phone] [facility] No Information 5 Danuta Gomes. [address] [facility], [facility] 500, [place], [place], [address], [place]. tel:[phone] Referring Provider: Annabelle Nieto, [address] [facility], [place], [address]. tel:[phone] Subsqt Hosp-da E&m Minr Compl [facility], [address] [address], [place], [address], [place] tel:[phone] [facility] No Information Nesset ELECTRONIC PAGINATION SYSTEM OPERATOR [place]. [address] [facility], [facility] 500, [place], [place], [address], [place]. tel:[phone] Referring Provider: Annabelle Nieto, [address], [place], [address]. tel:[phone] Subsqt Hosp-da E&m Minr Compl [facility], [address] [address], [place], [place], [address], [place] tel:[phone] [facility] No Information Nesset ELECTRONIC PAGINATION SYSTEM OPERATOR [place]. [address], [id number], [place]. tel:[phone] Referring Provider: Annabelle Nieto, [address] [facility], [place], [address]. tel:[phone] Subsqt Hosp-da E&m Stable 15 M [facility], [address] [address], [place], [place], [address], tel:[phone] [facility] No Information No Information Referring Provider: Annabelle Nieto, [address] [facility], [place], [address]. tel:[phone] Subsqt Hosp-da E&m Minr Compl [facility], [address] [address], [place], [place], [address], [place] tel:[phone] [facility] No Information 5 Nesset ELECTRONIC PAGINATION SYSTEM OPERATOR [place]. [address], [id number], [place]. tel:[phone] Referring Provider: Annabelle Nieto, [address] [facility], [place], [address]. tel:[phone] Init Inpt Cons New/est Mod-hi [facility], [address] [address], [place], [place], [address], [place] tel:[phone] [facility] No Information Licha Pryor. [address], [id number], [place]. tel:[phone] Referring Provider: Annabelle Nieto, [address] [facility], [place], [address]. tel:[phone] [facility], [address] [address], [place], [address], [place] tel:[phone] [facility] No Information 5 Licha Pryor. [address] [facility], [facility] 500, [place], [place], [address], [place]. tel:[phone] Referring Provider: Annabelle Nieto, [address] [facility], [place], [address]. tel:[phone] [facility], [address] [address], [place], [address], [place] tel:[phone] [facility] Acute Pancreatitis 0 5 No Information Referring Provider: Referral Self, USE FOR SELF REFERRALS. Subsqt Hosp-da E&m Minr Compl [facility], [address] [address], [place], [address], [place] tel:[phone] [facility] No Information 0 5 Collin Zambrano. [address] [facility], [facility] 500, [place], [place], [address], [place]. tel:[phone] Referring Provider: Yariel Cortez MD, [address], [place], [address]. tel:[phone] Init Inpt Cons New/est Mod-hi [facility], [address] [address], [facility] [place] [place], [address], [place] tel:[phone] [facility] No Information 0 5 No Information Referring Provider: Yariel Cortez MD, [address], [place], [address]. 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 tel:[phone] Offic/outpt E&m Estab Low-mod [facility], [address] [address], [place], [place], [address], [place] tel:[phone] [facility] No Information 3 Licha Pryor. [address] [place] [address], [id number], [place]. tel:[phone] Referring Provider: Annabelle Nieto, [address] [facility], [place], [address]. tel:[phone] Subsqt Hosp-da E&m Minr Compl [facility]ive [facility], [address] [address], [place], [place], [address], [place] tel:[phone] [facility] No Information 3 Nesset ELECTRONIC PAGINATION SYSTEM OPERATOR [place]. [address] [place] [address], [id number], [place]. tel:[phone] Referring Provider: Rudi Burkett, [address], [place], [address]. tel:[phone] Subsqt Hosp-da E&m Minr Compl [facility], [address] [address], [place], [place], [address], [place] tel:[phone] [facility] No Information 3 Nesset ELECTRONIC PAGINATION SYSTEM OPERATOR [place]. [address] [place] [address], [id number], [place]. tel:[phone] Referring Provider: Rudi Burkett, [address], [place], [address]. tel:[phone] Subsqt Hosp-da E&m Minr Compl [facility], [address] [address], [place], [address], [place] tel:[phone] [facility] No Information 3 Chandrakant CHANG Kay. [address] [facility], [address], [place], [place], [address], [place]. tel:[phone] Referring Provider: Rudi Burkett, [address], [place], [address]. tel:[phone] Offic/outpt E&m Estab Mod-hi 2 [facility], [address] [address], [place], [address], [place] tel:[phone] [facility] No Information 2 Licha Pryor. [address] [facility], [facility] 500, [place], [place], [address], [place]. tel:[phone] [facility], [address] [address], [place], [address], [place] tel:[phone] [facility] Obstruction Of Bile Duct 2 Licha Pryor. [address] [facility], [address], [place], [place], [address], [place]. [phone] [facility], [address] [address], [place], [address], [place] tel:[phone] [facility] No Information 2 Licha Pryor. [address] [facility], [address], [place], [place], [address], [place]. tel:[phone] Referring Provider: Annabelle Nieto, [address] [place] [address], [place], [address]. tel:[phone] Subsqt Hosp-da E&m Stable 15 M [facility], [address] [address], [place], [address], [place] tel:[phone] [facility] No Information 2 Mahamed EDWIN Radha. [address] [place] [address], [id number], [place]. tel:[phone] Referring Provider: Annabelle Nieto, [address], [place], [address]. tel:[phone] Subsqt Hosp-da E&m Minr Compl [facility] [place], [address] [address], [place], [address], [place] tel:[phone] [facility] No Information 2 Collin Ortizy. [address] [place] [address], [id number], [place]. tel:[phone] Referring Provider: Annabelle Nieto, [address] , [place], [address]. tel:[phone] [facility]ive [facility], [address] [address], [place], [place], [address], [place] tel:[phone] [facility] No Information 2 Licha Pryor. [address] [place] [address], [id number], [place]. tel:[phone] Referring Provider: Annabelle Nieto, [address] , [place], [address]. tel:[phone] [facility], [address] [address], [place], [address], [place] tel:[phone] [facility] Obstruction Of Bile DuctAcute Pancreatitis 2 Licha Pryor. [address] [place] [address], [id number], [place]. tel:[phone] Referring Provider: Annabelle Nieto, [address], [place], [address]. tel:[phone] Subsqt Hosp-da E&m Minr Compl [facility] [place], [address] [address], [place], [address], [place] tel:[phone] [facility] No Information 2 Nesset ELECTRONIC PAGINATION SYSTEM OPERATOR [place]. [address] [address], [place], [place], [address], [place]. tel:[phone] Referring Provider: Maurice Burkett, [address] [place] [address], [place], [address]. tel:[phone] Subsqt Hosp-da E&m Minr Compl [facility], [address] [address], [place], [address], [place] tel:[phone] [facility] No Information 2 No Information Referring Provider: Maurice Burkett, [address] [place] [address], [place], [address]. tel:[phone] Subsqt Hosp-da E&m Minr Compl [facility], [address] [address], [place], [address], [place] tel:[phone] [facility] No Information 2 No Information Referring Provider: Maurice Burkett, [address] [place] [address], [place], [address]. tel:[phone] Subsqt Hosp-da E&m Minr Compl [facility], [address] [address], [place], [address], [place] tel:[phone] [facility] No Information 2 Nesset ELECTRONIC PAGINATION SYSTEM OPERATOR [place]. [address] [facility] 500, [place], [place], [address], [place]. tel:[phone] Referring Provider: Maurice Burkett, [address] [place] [address], [place], [address]. tel:[phone] Subsqt Hosp-da E&m Minr Compl [facility], [address] [address], [place], [address], [place] tel:[phone] [facility] No Information 2 Chandrakant Villanueva. [address] [facility], [address], [place], [place], [address], [place]. tel:[phone] Referring Provider: Maurice Burkett, [address] [place] [address], [place], [address]. tel:[phone] Subsqt Hosp-da E&m Stable 15 M [facility], [address] [address], [place], [place], [id number], [place] tel:[phone] [facility] No Information 2 Mahamed EDWIN Radha. [address] [facility], [facility] [address], [place], [place], [id number], [place]. tel:[phone] Referring Provider: Maurice Burkett, [address] [place] [address], [place], [address]. tel:[phone] [facility], [address] [address], [place], [place], [id number], [place] tel:[phone] [facility] No Information 2 No Information Referring Provider: Maurice Burkett, [address] [place] [id number], [place], [address]. tel:[phone] [facility], [address] [address], [place], [place], [id number], [place] tel:[phone] [facility] No Information No Information Referring Provider: Maurice Burkett, [address] [place] [id number], [place], [address]. tel:[phone] [facility], [address] [address], [place], [id number], [place] tel:[phone] [facility] No Information 2 Chandrakant Villanueva. [address] [facility] [address], [place], [place], [id number], [place]. tel:[phone] Referring Provider: Maurcie Burkett, [address] [place] [address], [place], [address]. tel:[phone] [facility], [address] [address], [place], [address], [place] tel:[phone] [facility] No Information 2 No Information Referring Provider: Maurice Burkett, [address] [place] [address], [place], [address]. tel:[phone] Init Inpt Cons New/est Mod-hi [facility], [address] [address], [place], [id number], [place] tel:[phone] [facility] No Information 2 Flora Alexandra. [address] [place] [address], [id number], [place]. tel:[phone] Referring Provider: Maurice Burkett, [address] [place] [address], [place], [address]. tel:[phone] [facility], [address] [address], [place], [address], [place] tel:[phone] [facility] No Information 2 No Information Referring Provider: Maurice Burkett, [address] [place] [address], [place], [address]. tel:[phone] [facility], [address] [address], [place], [address], [place] tel:[phone] [facility] No Information 2 Chandrakant Villanueva. [address] [place] [address], [id number], [place]. tel:[phone] Referring Provider: Maurice Burkett, [address] [place] [address], [place], [address]. tel:[phone] [facility], [address] [address], [place], [id number], [place] tel:[phone] [facility] No Information 2 Chandrakant CHANG Kay. [address] [facility], [address], [place], [place], [address], [place]. tel:[phone] Referring Provider: Kay Vu, [address], [place], [address] . tel:[phone] [facility]able 15 M [facility], [address] [address], [place], [id number], [place] tel:[phone] [facility] No Information 2 No Information [facility], [address] [address], [place], [id number], [place] tel:[phone] [facility] No Information 2 No Information [facility] Compl [facility], [address] [address], [place], [id number], [place] tel:[phone] [facility] No Information 2 Chandrakant CHANG Kay. [address] [facility], [address], [place], [place], [id number], [place]. tel:[phone] Referring Provider: Annabelle Nieto, [address] [place] [address], [place], [address]. tel:[phone] [facility], [address] [address], [place], [id number], [place] tel:[phone] [facility] No Information 2 No Information [facility] Sig Compl 3 [facility], [address] [address], [place], [id number], [place] tel:[phone] [facility] No Information 2 Tyler ARMSTRONG November. [address] [facility], [address], [place], [place], [id number], [place]. tel:[phone] Referring Provider: Annabelle Nieto, [address], [place], [address]. tel:[phone] [facility], [address] [address], [place], [address], [place] tel:[phone] [facility] No Information 2 No Information Referring Provider: Annabelle Nieto, [address], [place], [address]. tel:[phone] [facility] Min[facility] Compl [facility], [address] [address], [place], [id number], [place] tel:[phone] [facility] No Information No Information Referring Provider: Annabelle Nieto, [address] , [place], [address]. tel:[phone] [facility] Min[facility] Compl [facility], [address] [address], [place], [address], [place] tel:[phone] [facility] No Information No Information Referring Provider: Annabelle Nieto, [address] , [place], [address]. tel:[phone] [facility] Min[facility] Compl [facility], [address] [address], [place], [address], [place] tel:[phone] [facility] No Information No Information Referring Provider: Annabelle Nieto, [address], [place], [address]. tel:[phone] [facility] Minr Compl [facility], [address] [address], [place], [address], [place] tel:[phone] [facility] No Information 2 [employer] [place]. [address], [id number], [place]. tel:[phone] Referring Provider: Annabelle Nieto, [address] , [place], [address]. tel:[phone] [facility] Compl [facility], [address] [address], [place], [place], [address], [place] tel:[phone] [facility] No Information 0 2 No Information Referring Provider: Annabelle Nieto, [address] , [place], [address]. tel:[phone] [facility] Compl [facility], [address] [address], [place], [place], [address], [place] tel:[phone] [facility] No Information Jan-0 2 [employer] [place]. [address], [id number], [place]. tel:[phone] Referring Provider: Annabelle Nieto, [facility], [place], [address]. tel:[phone] Init Inpt Cons New/est Mod-hi [facility], [address] [address], [place], [place], [id number], [place] tel:[phone] [facility] No Information 0 2 Paloma Gomes. [address] [facility] [address], [place], [place], [id number], [place]. tel:[phone] Referring Provider: Annabelle Nieto, [address] , [place], [address]. tel:[phone] Offic/outpt E&m Estab Mod-hi 2 [facility], [address] [address], [place], [place], [id number], [place] tel:[phone] [facility] Pancreatitis (chief complaint)Fat ty Liver disease (chief complaint) Non-alcoholi c Fatty LiverNon-alc oholic Fatty Liver 2 No Information Referring Provider: Annabelle Nieto, [address], [place], [address]. tel:[phone] [facility] [employer] [facility], [address] [address], [place], [id number], tel:[phone] [facility] Acute Pancreatitis No Information Offic Cons New/estab Mod [facility] [employer] [facility], [address] [address], [place], [place], [id number], [place] tel:[phone] [facility] Pancreatitis (chief complaint) Acute Pancreatitis Non-alcoholi c Fatty Liver No Information Referring Provider: Annabelle Nieto, [address] , [place], [address]. tel:[phone] Family History Family Member Type Diagnosis Age [...] disorder Payers Payer name Insurance type Covered alliance party ID Authorsandraa tikathy(s) [employer] Of [facility] [id number] Social History Type Description Quantity Date Captured [...] date/timeframe: 05/29/2017 ordered Referral Ordered: referred to [facility] chronic pain w/ pancreatitis ordered Referral Ordered: [...]
[2024-06-21 06:06] LABS: Albumin* 4.9 g/dL (3.3-5.0); Chloride* 92 mmol/L (96-114)
[2024-06-21 06:07] LABS: Potassium* 4.7 mmol/L (3.6-5.1); Sodium* 130 mmol/L (135-149)
[2024-06-21 06:08] LABS: Slide Review Reflex No
[2024-06-21 06:09] LABS: Anion Gap 10 mEq/L (7-15); Aspartate Amino Transferase* 79 U/L (12-35); Bilirubin Total* 1.1 mg/dL (0.1-1.5); Blood Urea Nitrogen* 13 mg/dL (5-24); Carbon Dioxide* 28 mmol/L (20-32); Creatinine* 0.4 mg/dL (0.5-1.5); Est. Creatinine Clearance* 237.03; Estimated Glomerular Filt Rate 151 ml/min; Total Protein* 8.3 g/dL (6.0-8.3)
[2024-06-21 06:10] LABS: Alanine Aminotransferase* 34 U/L (4-50); Alkaline Phosphatase* 107 U/L (40-150); Calcium* 9.1 mg/dL (8.4-10.6); Glucose* 348 mg/dL (60-115); Lipase* 60 U/L (23-300); Magnesium* 2.1 mg/dL (1.5-2.6)
[2024-06-21 06:11] LABS: Ethanol* < 0.01 % (0.01-0.03)
== END 2024-06-21 06:41 | disposition home or self-care (01) ==
PROVIDERS: Emergency Provider Internal Medicine; PCP Student in an Organized Health Care Education/Training Program; Visit Provider Internal Medicine
DX: K86.1 Other chronic pancreatitis (principal)
CPT/HCPCS: 36415; 80053; 82077; 83605; 83690; 83735; 85025; 96374; 99283; 99284; J2405; J7030

== ENCOUNTER 2024-06-21 21:06 | Inpatient (IN) | payer BC, SELFPAY ==
[2024-06-21 21:19] VITALS: BP 151/101; PULSE 80; RESP 16; TEMP 36.4; O2SAT 96; BMI 26.3
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
--- OUTSIDE RECORDS SUMMARY | 2024-06-21 22:09 | XMS_ITS | Clinical Summary ---
Author Organization [employer] [facility] Address [place], [place] [address] Care Team Providers Care Correction Warden Name Role Phone Kyle Scherer Primary Care Provider [phone] Allergies Active Allergy Reactions Criticality Noted Date [...] Encounters Date Type Department Care Team Description 06/20/2024 Orders Only [facility] SERVICES Scanner 1 scan: (1-Ord) [facility], ABDOMEN PELVIS W/CONTRAST, 06/20/2024 05/27/2024 Telephone [facility] [address] [place] [address] Kyle Scherer, DO Results 05/24/2024 1:15 PM CDT Office Visit [facility] [address] [facility] [address] Kyle Scherer DO Diabetes 05/24/2024 Travel 05/09/2024 Orders Only [facility] HIM SERVICES Scanner 1 scan: (1-Ord) [facility], ABDOMEN PELVIS WITH CONTRAST, 05/09/2024 04/30/2024 Travel 04/25/2024 Refill [facility] [address] [facility] [address] Kyle Scherer DO Refill Request (Insulin Aspart (U-100)) 04/16/2024 Lab Requisition [facility] [phone] Anjelica Barrios MD from Last 3 Months [...] Diabetes Paternal Grandmother Heart Disease Paternal Uncle [place] Anesthesia Problem No Family History Blood Disease [...] st Contact Info) Description 08/26/2024 10:15 AM TRANSITIONS MANAGER Orders Only [facility] [address] [place] [address] [place], [place] 08/26/2024 10:35 AM TRANSITIONS MANAGER Office Visit [facility] [address] [place] [address] Kyle Scherer, [address] [place] [address] Health Maintenance Due Date Last Done Comments [...] 11/01/2022 Pneumococcal series for age 6-64 Completed 11/12/19 23, 10/11/2021 Medical Devices Implanted Type Area [place] Performer Device Identifier Shelf Expiration Date Model / Serial / Lot Stent Biliary 10-7 Cotton Huibregste - [id number] Implanted:Qty: 1 on 04/11/2012 by Konstantin Hurt MD at [facility] N/A: Common Bile Duct [facility] CHBSO-10- 7# / / [id number] Stent Pancreatic Geenen 7-9gepd-7-9 Cook - [id number] Implanted:Qty: 1 on 04/11/2012 by Konstantin Hurt MD at [facility] N/A: Pancreas [facility] GEPD-7-9# / / Stent Pancreatic 6fot5za Geenen Set - [id number] Implanted:Qty: 1 on 05/06/2015 by Konstantin Hurt MD at [facility] N/A: Pancreas [facility] GEPD-7-9# / / [id number] Stent Pancreatic 10fr 7cm Gpso Geenen - [id number] Implanted:Qty: 1 on 06/10/2015 by Konstantin Hurt MD at [facility] GPSO-10-7 # / / [id number] Stent Pancreatic 0yyc3pn Geenen Sof-Flex No Flap - [id number] Implanted:Qty: 1 on 07/01/2015 by Konstantin Hurt MD at [facility] 01/25/2018 GPSOS-SF- 5-7# / / [id number] Description:implanted to ibrahim creatic duct during ERCP. Stent Pancreatic 2ksh8vd Advanix Stra Una Plst - [id number] Implanted:Qty: 1 on 04/21/2017 by Konstantin Hurt MD at [facility] N/A: Pancreas [facility] 07/11/2018 [id number] # / / [id number] Inactive/Delete 04/07/17stent Pancreatic 9cqs4rw Geene - [id number] Implanted:Qty: 1 on 05/15/2017 by Konstantin Hurt MD at [facility] 03/16/2020 GPSOS-SF- 5-5# / / Procedures Procedure Name Priority Date/Time Associated Diagnosis Comments SCAN-CT INTERPRETATION 06/20/2024 12:00 AM CDT BASIC METABOLIC PANEL Routine 05/24/2024 1:27 PM [...] HIV-1/O/2, 4TH GENERATION Routine 11/01/2022 3:38 PM TRANSITIONS MANAGER Screening for HIV (human immunodeficiency virus) ANTI HCV Early AM 04/18/2017 7:23 AM CDT from Last 3 Months or Most Recently Relevant to Health Maintenance Results * SCAN-CT INTERPRETATION (06/20/2024 12:00 AM CDT) Only the most recent of2 resultswithin the time period is included. Anatomical Region Laterality Modality Other Scanner OTHER * URINE ALBUMIN TO CREATININE RATIO, RANDOM (05/24/2024 1:27 PM CDT) CREATININE, RANDOM URINE 191 20 - 320 mg/dL [employer] [facility] ALBUMIN, URINE 3.3 See Note: mg/dL [employer] elmermarcela Encinas Comment: Reference Range: Reference Range Not established ALBUMIN/CREATININE RATIO, RANDOM URINE 17 <30 mg/g creat [employer] fadumo Encinas Comment: The ADA defines abnormalities in [...] 1:27 PM CDT Kyle Scherer DO URINE [employer] [facility] [address] [place] [address], [facility] [facility] [address] [place] [address] * (ABNORMAL) BASIC METABOLIC PANEL [84533.0] (05/24/2024 1:27 PM CDT) GLUCOSE 362(H) 65 - 99 mg/dL [employer] fadumo Huang Comment: ? Fasting reference interval For someone without known diabetes, a glucose value >125 mg/dL indicates that they may have diabetes and this should be confirmed with a follow-up test. UREA NITROGEN (BUN) 11 7 - 25 mg/dL [employer] EquipmentIntamac Systemsmarcela Huang CREATININE 0.91 0.60 - 1.24 mg/dL [facility] [facility] EGFR 117 > OR = 60 mL/min/1. 73m2 [facility] [facility] BUN/CREATININE RATIO SEE NOTE: 6 - 22 (calc) [facility] Comment: ?? Not Reported: BUN and Creatinine are within ?? reference range. ? SODIUM 136 135 - 146 mmol/L [facility] POTASSIUM 5.0 3.5 - 5.3 mmol/L [facility] CHLORIDE 98 98 - 110 mmol/L [facility] CARBON DIOXIDE 24 20 - 32 mmol/L [facility] ELECTROLYTE BALANCE 14 7 - 17 mmol/L (calc) [facility] CALCIUM 10.0 8.6 - 10.3 mg/dL [facility] Blood BLOOD SPECIMEN / Unknown 05/24/2024 1:27 PM CDT 05/24/2024 1:27 PM CDT Kyle Scherer DO CHEMISTRY Performing Organization Address City/[facility]/ZIP Co de Phone Number [employer] [facility] [address] [place] [address], [employer] [facility] [address] [place] [address] * (ABNORMAL) HEMOGLOBIN A1C MONITORING POCT (05/24/2024 1:25 PM CDT) POC HEMOGLOBIN A1C 8.5(H) <6.0 % OF TOTAL HGB [facility] Comment: Any point of care results exhibiting inconsistency with the patient's clinical status should be repeated using a different testing method. Blood BLOOD SPECIMEN / Unknown 05/24/2024 1:25 PM CDT 05/24/2024 1:26 PM CDT Kyle Scherer DO CHEMISTRY [facility] [address] [place] [address], [place] [phone] [facility] [address] [place] [address] * QFT MITOGEN PERFORMABLE (04/15/2024 2:20 PM CDT) MITOGEN 10.00 IU/mL 04/17/2024 1:19 PM CDT [facility] Blood BLOOD SPECIMEN / Unknown Client Collect / Unknown 04/15/2024 2:20 PM CDT 04/16/2024 10:26 PM CDT Anjelica Barrios MD CHEMISTRY Performing Organization Address City/[facility]/ZIP Co de Phone Number [facility] [address] [place] [address], [place] * QFT TB2 PERFORMABLE (04/15/2024 2:20 PM CDT) TB2 0.01 IU/mL 04/17/2024 1:19 PM CDT [facility] Blood BLOOD SPECIMEN / Unknown Client Collect / Unknown 04/15/2024 2:20 PM CDT 04/16/2024 10:26 PM CDT Anjelica Barrios MD CHEMISTRY Performing Organization Address [facility] Co de Phone Number [facility] [address] [place] [address], [place] * QFT TB1 PERFORMABLE (04/15/2024 2:20 PM CDT) Pathologist [facility] TB1 0.03 IU/mL 04/17/2024 12:26 PM CDT [facility] Blood BLOOD SPECIMEN / Unknown Client Collect / Unknown 04/15/2024 2:20 PM CDT 04/16/2024 10:26 PM CDT Anjelica Barrios MD CHEMISTRY Performing Organization Address City/[facility] Co de Phone Number [facility] [address] [place] [address], [place] * QUANTIFERON TB GOLD PLUS (04/15/2024 2:20 PM CDT) Pathologist [facility] QFTP NIL 0.00 04/17/2024 2:43 PM CDT [facility] TB1 0.03 IU/mL 04/17/2024 2:43 PM CDT [facility] TB2 0.01 IU/mL 04/17/2024 2:43 PM CDT [facility] MITOGEN 10.00 IU/mL 04/17/2024 2:43 PM CDT [facility] QFTP TB AG1 - NIL 0.03 024 2:43 PM CDT [facility] TB1-NIL % OF NIL 04/17/20 24 2:43 PM CDT [facility] Comment:Unable to calculate QFTP TB AG2 - NIL 0.01 024 2:43 PM CDT [facility] TB2-NIL % OF NIL 04/17/20 24 2:43 PM CDT [facility] Comment:Unable to calculate QFTP MITOGEN - NIL 10.00 2023 2:43 PM CDT [facility] QFTP QUANTIFERON INTERPRETATION Negative Negative 04/17/2024 2:43 PM CDT [facility] Blood BLOOD SPECIMEN / Unknown Client Collect / Unknown 04/15/2024 2:20 PM CDT 04/16/2024 10:26 PM CDT [facility] - 04/17/2024 2:43 PM CDT [...] old. - women Anjelica Barrios MD CHEMISTRY [facility] [address] [place] [address], * LC HIV-1/O/2, 4TH GENERATION (11/01/2022 3:38 PM TRANSITIONS MANAGER) Pathologist [facility] HIV Scr 4th Gen Non Reactive Non Reactive 11/04/2022 10:06 PM TRANSITIONS MANAGER [facility] Comment: HIV Negative HIV-1/HIV-2 antibodies and HIV-1 p24 antigen were NOT detected. There is no laboratory evidence of HIV infection. Blood BLOOD SPECIMEN / Unknown Venipuncture / Unknown 11/01/2022 3:38 PM TRANSITIONS MANAGER 11/01/2022 3:39 PM TRANSITIONS MANAGER Narrative [facility] - 11/04/2022 10:06 PM TRANSITIONS MANAGER Performed at: ??[address] - [address] ??[id number] Body And Fender Worker: Pravin Gardner MD, Phone: ??[phone] Kyle Scherer DO LABORATORY [facility]) [address] [place] [address] * ANTI HCV (04/18/2017 7:23 AM CDT) Pathologist [facility] HEPATITIS C ANTIBODY Non-Reacti ve Non-Reacti ve 04/18/2017 9:14 AM CDT [facility] Blood BLOOD SPECIMEN / Unknown Venipuncture / Unknown 04/18/2017 7:23 AM CDT 04/18/2017 7:29 AM CDT Narrative [facility] - 04/18/2017 9:14 AM CDT Antibodies to HCV not detected; does not exclude the possibility of exposure to HCV. Enedina Barraza MD SEND OUTS [facility] [address] [place] [address], [place] from Last 3 Months or Most [...] 7:59 AM 05/04/2017 9:53 AM Care Teams Correction Warden Relationship Specialty Start Date End Date Kyle Schere[place] [address] PCP - General Family Practice 03/11/21
[2024-06-21 22:22] LABS: Lactate* 1.8 mmol/L (0.5-1.9)
[2024-06-21 22:23] LABS: Basophils Percent Auto 0.3 % (0.0-3.0); Eosinophils Percent Auto 1.2 % (0.0-7.0); Hematocrit 49.4 % (37.0-53.0); Hemoglobin* 16.9 gm/dL (13.5-17.5); Immature Granulocytes Pct Auto 0.8 %; Lymphocytes Percent Auto 9.8 % (20-44); Mean Corpuscular HGB Conc 34 gm/dL (32-36); Mean Corpuscular Hemoglobin 29 pg (26-34); Mean Corpuscular Volume 84 fL (80-100); Monocytes Percent Auto 8.2 % (0.0-11.0); Neutrophils Percent Auto 79.7 % (42.0-72.0); Platelet Count* 256 K/uL (140-440); Red Blood Count 5.89 m/uL (4.30-5.90); White Blood Count* 12.98 K/uL (4.50-11.00)
[2024-06-21] MEDS: ONDANSETRON 2 MG/ML inj 4 MG IVP (22:24)
[2024-06-21] MEDS: MORPHINE 4 MG/ML INJ IVP (22:24)
[2024-06-21] MEDS: 0.9 % SODIUM CHLORIDE 500 ML 500 ML IV (22:24)
[2024-06-21 22:37] LABS: Albumin* 5.4 g/dL (3.3-5.0); Chloride* 92 mmol/L (96-114)
[2024-06-21 22:38] LABS: Potassium* 3.2 mmol/L (3.6-5.1); Sodium* 134 mmol/L (135-149)
[2024-06-21 22:40] LABS: Alkaline Phosphatase* 148 U/L (40-150); Anion Gap 17 mEq/L (7-15); Aspartate Amino Transferase* 33 U/L (12-35); Bilirubin Direct* 0.4 mg/dL (0.0-0.5); Bilirubin Total* 1.2 mg/dL (0.1-1.5); Blood Urea Nitrogen* 11 mg/dL (5-24); Carbon Dioxide* 25 mmol/L (20-32); Creatinine* 0.5 mg/dL (0.5-1.5); Est. Creatinine Clearance* 189.63; Estimated Glomerular Filt Rate 142 ml/min; Lipase* 115 U/L (23-300); Total Protein* 8.8 g/dL (6.0-8.3)
[2024-06-21 22:41] LABS: Alanine Aminotransferase* 34 U/L (4-50); Calcium* 9.9 mg/dL (8.4-10.6); Glucose* 289 mg/dL (60-115)
[2024-06-21 22:43] LABS: C Reactive Protein* 0.5 mg/dL (0.5-1.0)
[2024-06-21 22:45] LABS: Ethanol* < 0.01 % (0.01-0.03)
[2024-06-21 22:46] LABS: Slide Review Reflex No
--- NOTE | 2024-06-21 23:20 | CRLHL7_ITS ---
For Patients: As a result of the Century Cures Act, medical imaging exams and procedure reports are released immediately into your electronic medical record. You may view this report before your referring provider. If you have questions, please contact your health care provider. INDICATION: Abdominal pain. TECHNIQUE: CT abdomen and pelvis acquired with 78 cc Omnipaque 370 IV contrast. COMPARISON: CT abdomen pelvis 06/20/2024. FINDINGS: Lower chest: Bibasilar atelectasis. Liver: Mild hepatic steatosis. No suspicious hepatic lesion. Gallbladder and bile ducts: Cholecystectomy. No biliary ductal dilatation. Pancreas: Again noted is pancreatic parenchymal edematous changes and peripancreatic haziness, questionably minimally increased in prominence compared to the previous CT. No peripancreatic fluid collection. Spleen: Unremarkable. Normal in size. No masses. Adrenal glands: Unremarkable. No nodules. Kidneys: Unremarkable. No suspicious masses, stones, or hydronephrosis. GI tract: No bowel obstruction. No suspicious bowel wall thickening. Normal appendix. Vasculature: Abdominal aorta is normal in caliber. Mesenteric arteries are patent. Lymph nodes: No suspicious lymphadenopathy. Peritoneum/Abdominal Wall: No ascites or pneumoperitoneum. Pelvis: Normal bladder. Unremarkable prostate and seminal vesicles. Bones: No acute or suspicious abnormality. IMPRESSION: 1. Redemonstrated pancreatic edematous changes in peripancreatic haziness, questionably mildly increased compared to the previous CT. Findings may reflect acute pancreatitis in the appropriate clinical setting. No peripancreatic fluid collection. 2. Mild hepatic steatosis. Please note that all CT scans at this facility use dose modulation, iterative reconstruction, and/or weight-based dosing when appropriate to reduce radiation dose to as low as reasonably achievable. Dictated by Linwood Peck MD @ 06/22/2024 12:01:52 AM (Electronically Signed)
[2024-06-21 23:41] LABS: HCO3 VBG 27 mmol/L (21-28); PCO2 VBG 46 mmHG (40-50); PO2 VBG < 30.1 mmHG (25-47); pH VBG 7.382 (7.32-7.43)
[2024-06-22] VITALS (10 sets, daily range): BP systolic 124–154; BP diastolic 71–109; PULSE 62–99; RESP 16–18; TEMP 36.4–37.1; O2SAT 97–100; BMI 26.2
[2024-06-22] MEDS: POTASSIUM CHLORIDE 10 MEQ/100 ML PIGGYBACK 100 MEQ IVPB ×5 (00:29→07:54)
[2024-06-22] MEDS: MORPHINE 2 MG/ML inj IVP (00:29)
[2024-06-22] MEDS: 0.9 % SODIUM CHLORIDE 1000 ml 1,000 ML IV (00:30)
[2024-06-22] MEDS: INSULIN REGULAR, HUMAN 100 UNIT/ML VIAL 6 UNIT IVP (00:45)
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
[2024-06-22] MEDS: 0.9 % SODIUM CHLORIDE 1000 ml 1,000 ML 100 ML IV (02:17)
[2024-06-22] MEDS: HYDROmorphone 0.5 mg/0.5 ml inj IVP ×7 (02:42→21:48)
[2024-06-22 04:02] LABS: Appearance Urine Clear (Clear); Bilirubin Urine 1+ (Negative); Blood Urine Negative (Negative); Color Urine Yellow (Yellow); Glucose Urine 2+ (Negative); Ketones Urine 4+ (Negative); Leukocyte Esterase Urine Negative (Negative); Nitrite Urine Negative (Negative); Protein Urine Trace (Negative); Urobilinogen Urine 0.2 (0.2-1.0); pH Urine 6.5 (5.0-8.5)
[2024-06-22 04:03] LABS: RBC Urine 0-2 (0-2); WBC Urine 0-2 (0-5)
[2024-06-22 07:06] LABS: Chloride* 99 mmol/L (96-114)
[2024-06-22 07:07] LABS: Potassium* 3.6 mmol/L (3.6-5.1); Sodium* 133 mmol/L (135-149)
[2024-06-22 07:09] LABS: Anion Gap 11 mEq/L (7-15); Carbon Dioxide* 23 mmol/L (20-32); Creatinine* 0.4 mg/dL (0.5-1.5); Est. Creatinine Clearance* 237.03; Estimated Glomerular Filt Rate 151 ml/min
[2024-06-22 07:10] LABS: Blood Urea Nitrogen* 8 mg/dL (5-24); Calcium* 8.4 mg/dL (8.4-10.6); Glucose* 179 mg/dL (60-115); Magnesium* 2.1 mg/dL (1.5-2.6)
[2024-06-22] MEDS: INSULIN ASPART 100 UNIT/ML SUBCUT ×4 (08:22→17:23)
[2024-06-22] MEDS: ONDANSETRON 2 MG/ML inj 4 MG IVP ×3 (09:00→18:40)
--- NOTE | 2024-06-22 14:37 | PC.NURSE ---
End of Shift: Patient pleasant and cooperative, A&O. VSS, afebrile. Patients blood sugars this shift were 167 and 252, insulin given per sliding scale. Patient reports pain on his abdomen this shift, managed with PRN medication, see MAR. He states when he tries to eat it hurts, so he has not had much food intake this shift. Patient reported nausea this shift, managed with PRN medication, see MAR. Clear liquid diet. Independent in room.
--- NOTE | 2024-06-22 14:39 | P.IMPN_ITS ---
Progress Note: A&P Assessment and plan (1) Recurrent pancreatitis: Problem details: Longstanding history of alcohol related pancreatitis. Previous history of stenting. Status post cholecystectomy. Status: Acute (2) Alcohol use disorder: Problem details: Longstanding history of alcohol use disorder. Has had intermittent periods of abstinence but recently has had a return to some drinking. Status: Acute (3) Dehydration: Problem details: Improving with IV fluids Status: Acute (4) Type 1 diabetes mellitus: Problem details: Resume basal bolus insulin as his blood sugar and oral intake require Status: Acute Plan Continue in hospital for IV fluids, pain management, diabetes management. Anticipate discharge to home as symptoms improve Time Spent With Patient Total time spent: Total time spent today is 50 minutes in coordination of care and discussing with patient and other providers ongoing management pancreatitis Subjective Date Seen: 06/22/24 Interval history: 28-year-old male with diabetes mellitus and recurrent pancreatitis thought secondary to alcohol abuse. Admitted to the hospital with epigastric pain. He had 3 emergency department visits in 2 days prior to admission for abdominal pain. He is also having nausea vomiting and unable to keep food and fluid down. Because this he is admitted to the hospital. CT scan x2 did show mild inflammatory changes around the pancreas. He has not had fever. He has not had hematemesis. Reports his blood sugars have been adequately controlled. Longstanding remote history of alcohol induced pancreatitis. Previously is also had pancreatic stents placed. He is status post cholecystectomy. He has been largely absent from alcohol but has had some recently. Exam Narrative: Exam Narrative: He is alert and appears in no distress. He gives his own history. Respirations are clear to auscultation. Cardiovascular: S1, S2, regular rate and rhythm. Abdomen: Bowel sounds active. Abdomen is soft he has mild to moderate epigastric tenderness and mild to moderate lower abdominal tenderness. No peritonitis. No mass. Extremities without edema. No rash. Const: Vital Signs, click to edit/add: Vital Signs - 24 hr 06/21/24 21:19 06/22/24 00:16 06/22/24 02:52 Temperature 97.6 F 97.6 F Pulse Rate [Pulse Oximeter] 80 87 70 Respiratory Rate 16 16 16 Blood Pressure [Le ft Arm] 154/98 H Blood Pressure [Ri ght Upper Arm] 151/101 H 136/87 Pulse Oximetry 96 98 98 Oxygen Delivery Me thod Room Air Room Air Room Air 06/22/24 02:52 06/22/24 03:00 06/22/24 08:07 Temperature 98.4 F 98.0 F Pulse Rate [Pulse Oximeter] 62 66 Respiratory Rate 16 18 18 Blood Pressure [Le ft Arm] 128/83 124/71 Blood Pressure [Ri ght Upper Arm] Pulse Oximetry 98 97 98 Oxygen Delivery Me thod Room Air Room Air Room Air 06/22/24 09:37 06/22/24 12:30 Temperature 98.2 F Pulse Rate [Pulse Oximeter] 70 Respiratory Rate 18 18 Blood Pressure [Le ft Arm] 146/95 H Blood Pressure [Ri ght Upper Arm] Pulse Oximetry 98 Oxygen Delivery Me thod Room Air Documenting provider has reviewed patient's vital signs: yes Labs Labs: Laboratory Results - last 24 hr 06/21/24 06/21/24 06/21/24 22:00 22:00 22:00 WBC 12.98 H RBC 5.89 Hgb 16.9 Hct 49.4 MCV 84 MCH 29 MCHC 34 RDW Coeff of Braydon 12.0 Plt Count 256 Neut % (Auto) 79.7 H Lymph % (Auto) 9.8 L [place] % (Auto) 8.2 Eos % (Auto) 1.2 Baso % (Auto) 0.3 Neut # (Auto) 10.30 H Lymph # (Auto) 1.30 [place] # (Auto) 1.10 H Eos # (Auto) 0.20 Baso # (Auto) 0.00 Abs Immat Gran (auto) 0.10 Imm/Tot Granulo (auto) 0.8 VBG pH 7.382 VBG pCO2 46 VBG pO2 < 30.1 VBG HCO3 27 Sodium 134 L Potassium 3.2 L Chloride 92 L Carbon Dioxide 25 Anion Gap 17 H BUN 11 Creatinine 0.5 Estimated Creat Clear 189.63 Estimated GFR 142 Glucose 289 H Lactate 1.8 Calcium 9.9 Magnesium Total Bilirubin 1.2 Direct Bilirubin 0.4 AST 33 ALT 34 Alkaline Phosphatase 148 C-Reactive Protein 0.5 Total Protein 8.8 H Albumin 5.4 H Lipase 115 Cancelled Urine Color Urine Appearance Urine pH Ur Specific [place] Urine Protein Urine Glucose (UA) Urine Ketones Urine Blood Urine Nitrite Urine Bilirubin Urine Urobilinogen Ur Leukocyte Esterase Urine RBC Urine WBC Ur Squamous Epith Cells Urine Bacteria Ethyl Alcohol < 0.01 L Cancelled Lab Acknowledgement 06/21/24 06/21/24 06/22/24 23:20 23:21 06:27 WBC RBC Hgb Hct MCV MCH MCHC RDW Coeff of Braydon Plt Count Neut % (Auto) Lymph % (Auto) [place] % (Auto) Eos % (Auto) Baso % (Auto) Neut # (Auto) Lymph # (Auto) [place] # (Auto) Eos # (Auto) Baso # (Auto) Abs Immat Gran (auto) Imm/Tot Granulo (auto) VBG pH VBG pCO2 VBG pO2 VBG HCO3 Sodium 133 L Potassium 3.6 Chloride 99 Carbon Dioxide 23 Anion Gap 11 BUN 8 Creatinine 0.4 L Estimated Creat Clear 237.03 Estimated GFR 151 Glucose 179 H Lactate Calcium 8.4 Magnesium 2.1 Total Bilirubin Direct Bilirubin AST ALT Alkaline Phosphatase C-Reactive Protein Total Protein Albumin Lipase Urine Color Yellow Urine Appearance Clear Urine pH 6.5 Ur Specific [place] 1.010 Urine Protein Trace A Urine Glucose (UA) 2+ A Urine Ketones 4+ A Urine Blood Negative Urine Nitrite Negative Urine Bilirubin 1+ A Urine Urobilinogen 0.2 Ur Leukocyte Esterase Negative Urine RBC 0-2 Urine WBC 0-2 Ur Squamous Epith Cells None Urine Bacteria None Ethyl Alcohol Lab Acknowledgement Test Added
[2024-06-22] MEDS: INSULIN GLARGINE,HUM.REC.ANLOG 100 UNIT/ML INSULN.PEN 28 UNIT SUBCUT (18:41)
[2024-06-22] MEDS: ENOXAPARIN 40 MG/0.4 ML INJ SUBCUT (21:47)
[2024-06-22] MEDS: SODIUM CHLORIDE 0.9 % (FLUSH) 10 ML SYRINGE 5 ML IVF (21:49)
--- NOTE | 2024-06-22 22:29 | PC.NURSE ---
Pt VSS. A&O. Rates pain at about 3-4/10. Pain is located in lower left quadrant and tender. PRN dilaudid given throughout shift to help ease pain. Clear liquid diet. PT c/o some nausea after eating jello, broth and grape juice for dinner, prn Zofran given for nausea and was effective. Amb. independently. Amb. through the halls today 3 times.
[2024-06-23] VITALS (7 sets, daily range): BP systolic 129–150; BP diastolic 82–99; PULSE 51–102; RESP 14–18; TEMP 36.5–37; O2SAT 97–100
[2024-06-23] MEDS: HYDROmorphone 0.5 mg/0.5 ml inj IVP ×4 (00:33→09:59)
[2024-06-23] MEDS: SODIUM CHLORIDE 0.9 % (FLUSH) 10 ML SYRINGE 5 ML IVF ×5 (00:33→20:55)
[2024-06-23] MEDS: ONDANSETRON 2 MG/ML inj 4 MG IVP (09:58)
[2024-06-23] MEDS: INSULIN ASPART 100 UNIT/ML SUBCUT ×4 (13:20→20:54)
--- NOTE | 2024-06-23 14:44 | PC.NURSE ---
End of Shift ([id number]): Patient pleasant and cooperative, A&O. VSS, afebrile. SpO2 maintained above 90% on RA. Patient reports pain in his abdomen this shift, managed with PRN medication, see MAR. Patient also reported some nausea this morning, managed with PRN medication, see MAR. Blood sugars this shift were 72 this morning (juice given, held insulin), and 146 this afternoon. He has been walking the halls independently this shift. Patient is tolerating clear liquid diet. Independent in room. ?
[2024-06-23] MEDS: ACETAMINOPHEN 325 MG TABLET 1000 MG PO (14:59)
--- NOTE | 2024-06-23 15:32 | PM.IMPN1 ---
Progress Note: A&P Assessment and plan (1) Recurrent pancreatitis: Problem details: Longstanding history of alcohol related pancreatitis. Previous history of stenting. Status post cholecystectomy. Improving Status: Acute (2) Alcohol use disorder: Problem details: Longstanding history of alcohol use disorder. Has had intermittent periods of abstinence but recently has had a return to some drinking. Status: Acute (3) Dehydration: Problem details: Improving with IV fluids. Saline lock to assess if he is going to be able to maintain his own hydration Status: Acute (4) Type 1 diabetes mellitus: Problem details: Resume basal bolus insulin as his blood sugar and oral intake require. Continue to monitor as he advances diet Status: Acute (5) Constipation: Problem details: Likely a combination of poor oral intake for the last few days and opioid pain medicines. Initiate laxatives. Status: Acute Plan Continue in hospital for 1 more day. He is able to maintain his own hydration and nutrition can get adequate pain control will discharge tomorrow. Time Spent With Patient Total time spent: Total time spent today is 35 minutes in coordination of care and discussing with patient and other providers ongoing evaluation management Subjective Date Seen: 06/23/24 Interval history: 28-year-old male with diabetes mellitus and recurrent pancreatitis thought secondary to alcohol abuse. Admitted to the hospital with epigastric pain. He had 3 emergency department visits in 2 days prior to admission for abdominal pain. He is also having nausea vomiting and unable to keep food and fluid down. Because this he is admitted to the hospital. CT scan x2 did show mild inflammatory changes around the pancreas. He has not had fever. He has not had hematemesis. Reports his blood sugars have been adequately controlled. Longstanding remote history of alcohol induced pancreatitis. Previously is also had pancreatic stents placed. He is status post cholecystectomy. He has been largely absent from alcohol but has had some recently. 06/23/2024: [facility] reports feeling better today. Pain is improving. He is tolerating clear liquids a little better. He has had no nausea or vomiting. He has not had a bowel movement in the last couple days. He is passing gas. He is urinating regularly. Exam Narrative: Exam Narrative: He is alert and appears in no distress. Respirations are clear to auscultation. Cardiovascular: S1, S2, regular rate and rhythm. Abdomen: Bowel sounds active. Abdomen is soft with mild diffuse tenderness. Extremities without edema. He is observed to ambulate in the hallway as well. Const: Vital Signs, click to edit/add: Vital Signs - 24 hr 06/22/24 15:54 06/22/24 19:00 06/22/24 23:51 Temperature 98.1 F 98.0 F 98.8 F Pulse Rate [Pulse Oximeter] 99 99 74 Respiratory Rate 18 18 18 Blood Pressure [Le ft Arm] 132/96 H 130/86 138/109 H Pulse Oximetry 97 97 100 Oxygen Delivery Me thod Room Air Room Air Room Air 06/23/24 03:47 06/23/24 07:55 06/23/24 07:57 Temperature 97.8 F 97.7 F Pulse Rate [Pulse Oximeter] 71 51 L 51 L Respiratory Rate 16 18 18 Blood Pressure [Le ft Arm] 129/98 H 133/94 H Pulse Oximetry 98 97 Oxygen Delivery Me thod Room Air Room Air 06/23/24 11:30 Temperature 98.1 F Pulse Rate [Pulse Oximeter] 76 Respiratory Rate 18 Blood Pressure [Le ft Arm] 132/82 Pulse Oximetry 98 Oxygen Delivery Me thod Room Air Documenting provider has reviewed patient's vital signs: yes
[2024-06-23] MEDS: polyethylene glycoL 3350 17 GM PACK PO (16:26)
[2024-06-23] MEDS: INSULIN GLARGINE,HUM.REC.ANLOG 100 UNIT/ML INSULN.PEN 24 UNIT SUBCUT (17:34)
[2024-06-23] MEDS: ENOXAPARIN 40 MG/0.4 ML INJ SUBCUT (20:53)
[2024-06-23] MEDS: OXYCODONE 5 MG TABLET PO (20:56)
[2024-06-24 03:10] VITALS: BP 133/88; PULSE 54; RESP 16; TEMP 36.4; O2SAT 99
[2024-06-24] MEDS: ACETAMINOPHEN 325 MG TABLET 1000 MG PO (04:48)
--- NOTE | 2024-06-24 04:53 | PC.NURSE ---
END OF SHIFT NOTE: A&O. AMBULATES INDEPENDENTLY. VSS ON RA; AFEBRILE. PT C/O ABD PAIN LEFT SIDE WORSE THAN RIGHT; RATES PAIN 2-3/10 WITH RELIEF FROM PRN PAIN RELIEVER. DENIES CP/SOB/N/V. DURING PHYSICAL DRAFTER DIRECTIONAL SURVEY NOTED SCENT OF MARIJUANA; PT WAS ASKED IF HE SMOKED TO WHICH PT DENIED. RN THEN FOUND THC CART IN PT'S GOWN POCKET. CART WAS REMOVED AND PT REQUESTED IT BE PLACED IN BELONGINGS BAG ON TABLE. PT WAS EDUCATED ON HOSPITAL SMOKING POLICY. HOUSE SUP AND CHARGE NURSE NOTIFIED. CHARGE NURSE PRINTED HOSPITAL POLICY AND REVIEWED WITH PT. CALL LIGHT WITHIN PT REACH.
[2024-06-24 06:25] LABS: Basophils Absolute Auto 0.04 K/uL (0.00-0.30); Basophils Percent Auto 0.7 % (0.0-3.0); Eosinophils Absolute Auto 0.27 K/uL (0.00-0.50); Eosinophils Percent Auto 4.8 % (0.0-7.0); Hemoglobin* 15.4 gm/dL (13.5-17.5); Immature Granulocytes Abs Auto 0.05 K/uL (0.00-0.30); Immature Granulocytes Pct Auto 0.9 %; Lymphocytes Absolute Auto 1.36 K/uL (0.90-2.90); Lymphocytes Percent Auto 24.2 % (20-44); Mean Corpuscular HGB Conc 34 gm/dL (32-36); Mean Corpuscular Hemoglobin 29 pg (26-34); Mean Corpuscular Volume 85 fL (80-100); Monocytes Percent Auto 12.5 % (0.0-11.0); Neutrophils Absolute Auto 3.19 K/uL (1.7-7.0); Neutrophils Percent Auto 56.9 % (42.0-72.0); Platelet Count* 202 K/uL (140-440); RDW Coefficient of Variation % 12.1 % (11.5-15.5); White Blood Count* 5.61 K/uL (4.50-11.00)
[2024-06-24 06:27] LABS: Slide Review Reflex No
[2024-06-24 06:39] LABS: Chloride* 99 mmol/L (96-114); Sodium* 139 mmol/L (135-149)
[2024-06-24 06:42] LABS: Anion Gap 9 mEq/L (7-15); Blood Urea Nitrogen* 5 mg/dL (5-24); Carbon Dioxide* 31 mmol/L (20-32); Creatinine* 0.5 mg/dL (0.5-1.5); Est. Creatinine Clearance* 189.63; Estimated Glomerular Filt Rate 142 ml/min
[2024-06-24 06:43] LABS: Calcium* 9.7 mg/dL (8.4-10.6); Glucose* 86 mg/dL (60-115)
[2024-06-24 07:41] VITALS: BP 133/95; PULSE 68; RESP 18; TEMP 36.4; O2SAT 98
[2024-06-24] MEDS: SODIUM CHLORIDE 0.9 % (FLUSH) 10 ML SYRINGE 5 ML IVF (08:42)
[2024-06-24] MEDS: polyethylene glycoL 3350 17 GM PACK PO (08:43)
--- NOTE | 2024-06-24 09:47 | NUTR.NU ---
RDN with diet education related to recurrent pancreatitis. Patient admitted with pancreatitis. Past medical history includes but not limited to diabetes mellitus type 1, alcoholic induced pancreatitis, alcohol use disorder. Current weight 156lb' height 5ft 5in; BMI 26.0 kg/m2. Patient reports stable weight recently. Current diet is Regular. Patient reports tolerating solid food at this time. RDN offered diet education related to pancreatitis. Patient agreed. Patient was provided diet education on a low fat diet. Discussed foods to include and foods to avoid. Education also provided following a low fat diet (about 60 grams/day) long-term. Verbal and written information as well as a sample menu provided from [facility]. Patient verbalized understanding. RDN's contact information was provided and patient was encouraged to contact RDN with questions.
[2024-06-24] MEDS: INSULIN ASPART 100 UNIT/ML SUBCUT (11:04)
[2024-06-24] MEDS: POTASSIUM BICARB 25 MEQ EFFERVESCENT TAB 50 MEQ PO (11:08)
--- NOTE | 2024-06-24 11:34 | P.DS_ITS ---
DS: Providers Provider Date Seen: 06/24/24 Date of admission: 06/22/24 01:39 Primary care physician: JEVON KEY DO Admitting Clinician: Jv Duque MD Attending Physician on discharge: Karri Owusu MD Date of Discharge: 06/24/24 DS: Diagnosis Discharge Diagnosis (1) Recurrent pancreatitis: Status: Acute Problem details: Longstanding history of alcohol related pancreatitis. Previous history of stenting. Status post cholecystectomy. Improving (2) Alcohol use disorder: Status: Acute Problem details: Longstanding history of alcohol use disorder. Has had intermittent periods of abstinence but recently has had a return to some minimal drinking. (3) Dehydration: Status: Acute Problem details: Improving with IV fluids. Saline lock to assess if he is going to be able to maintain his own hydration (4) Type 1 diabetes mellitus: Status: Acute Problem details: Resume basal bolus insulin as his blood sugar and oral intake require. Continue to monitor as he advances diet (5) Constipation: Status: Acute Problem details: Likely a combination of poor oral intake for the last few days and opioid pain medicines. Initiate laxatives. (6) Cannabis use disorder: Status: Acute Problem details: Advised caution with cannabis use as it can cause serious gastrointestinal symptoms as well DS: Summary Hospital Course Hospital Course: 28-year-old male with diabetes mellitus and recurrent pancreatitis thought secondary to alcohol abuse. Admitted to the hospital with epigastric pain. He had 3 emergency department visits in 2 days prior to admission for abdominal pain. He is also having nausea vomiting and unable to keep food and fluid down. Because this he is admitted to the hospital. CT scan x2 did show mild inflammatory changes around the pancreas. He has not had fever. He has not had hematemesis. Reports his blood sugars have been adequately controlled. Longstanding remote history of alcohol induced pancreatitis. Previously is also had pancreatic stents placed. He is status post cholecystectomy. He has been largely absent from alcohol but has had some recently. During his hospital stay he had continuous improvement in his pain. He was able to eat without recurrent vomiting. His abdominal pain was continuously improving as well. Status at Discharge Overall status at discharge: patient is progressing back to baseline Time Spent with Patient Time attestation: Total time spent providing and/or coordinating discharge services: 35 min Time spent: Greater than 30 minutes Exam Narrative: Exam Narrative: He is alert and appears in no distress. Abdomen is soft with minimal diffuse tenderness. Const: Vital Signs, click to edit/add: Vital Signs - 24 hr 06/23/24 16:00 06/23/24 19:30 06/23/24 19:30 Temperature 97.8 F 98.3 F Pulse Rate [Apical ] 76 Pulse Rate [Pulse Oximeter] 63 102 H 76 Respiratory Rate 14 18 18 Blood Pressure [Le ft Arm] 149/95 H 142/89 H Pulse Oximetry 97 100 Oxygen Delivery Me thod Room Air Room Air 06/23/24 22:30 06/24/24 03:10 06/24/24 07:41 Temperature 98.6 F 97.5 F L 97.5 F L Pulse Rate [Apical ] 68 Pulse Rate [Pulse Oximeter] 81 54 L Respiratory Rate 18 16 18 Blood Pressure [Le ft Arm] 150/99 H 133/88 133/95 H Pulse Oximetry 100 99 98 Oxygen Delivery Me thod Room Air Room Air Room Air Documenting provider has reviewed patient's vital signs: yes DS: Data Data Completed and Pending Labs on day of discharge: Labs from last 24 hours 06/24/24 06:06 WBC 5.61 RBC 5.40 Hgb 15.4 Hct 46.0 MCV 85 MCH 29 MCHC 34 RDW Coeff of Braydon 12.1 Plt Count 202 Neut % (Auto) 56.9 Lymph % (Auto) 24.2 [place] % (Auto) 12.5 H Eos % (Auto) 4.8 Baso % (Auto) 0.7 Neut # (Auto) 3.19 Lymph # (Auto) 1.36 [place] # (Auto) 0.70 Eos # (Auto) 0.27 Baso # (Auto) 0.04 Abs Immat Gran (auto) 0.05 Imm/Tot Granulo (auto) 0.9 Sodium 139 Potassium 3.0 L Chloride 99 Carbon Dioxide 31 Anion Gap 9 BUN 5 Creatinine 0.5 Estimated Creat Clear 189.63 Estimated GFR 142 Glucose [address] scan - abdomen: Radiologist's impression: INDICATION: Abdominal pain. TECHNIQUE: CT abdomen and pelvis acquired with 78 cc Omnipaque 370 IV contrast. COMPARISON: CT abdomen pelvis 06/20/2024. FINDINGS: Lower chest: Bibasilar atelectasis. Liver: Mild hepatic steatosis. No suspicious hepatic lesion. Gallbladder and bile ducts: Cholecystectomy. No biliary ductal dilatation. Pancreas: Again noted is pancreatic parenchymal edematous changes and peripancreatic haziness, questionably minimally increased in prominence compared to the previous CT. No peripancreatic fluid collection. Spleen: Unremarkable. Normal in size. No masses. Adrenal glands: Unremarkable. No nodules. Kidneys: Unremarkable. No suspicious masses, stones, or hydronephrosis. GI tract: No bowel obstruction. No suspicious bowel wall thickening. Normal appendix. Vasculature: Abdominal aorta is normal in caliber. Mesenteric arteries are patent. Lymph nodes: No suspicious lymphadenopathy. Peritoneum/Abdominal Wall: No ascites or pneumoperitoneum. Pelvis: Normal bladder. Unremarkable prostate and seminal vesicles. Bones: No acute or suspicious abnormality. IMPRESSION: 1. Redemonstrated pancreatic edematous changes in peripancreatic haziness, questionably mildly increased compared to the previous CT. Findings may reflect acute pancreatitis in the appropriate clinical setting. No peripancreatic fluid collection. 2. Mild hepatic steatosis. Discharge Plan Discharge Disposition: Home, Self-Care Date of Admission: 06/22/24 01:39 Attending Provider on Discharge: Lee Owusu Primary Care Provider: JEVON KEY Condition: Improved Anticipated Discharge Date/Time: 06/24/24 10:14 Discharge Medications: Continued insulin aspart U-100 100 unit/mL (3 mL) insulin pen 10 unit subcut TID Qty: 15 0RF Rx Instructions: Use 6-9 units with meals 3 times daily. (DME) FreeStyle Jean 14 Day Sensor Kit MISCELLANEOUS DIRECTED ondansetron HCl 4 mg tablet 4 mg PO Q8H PRN (Reason: nausea and vomiting) 4 Days Qty: 10 0RF oxycodone-acetaminophen [Percocet] 5-325 mg tablet 1 tab PO Q4-6H PRN (Reason: pain) Qty: 14 0RF Changed insulin glargine [Lantus Solostar U-100 Insulin] 100 unit/mL (3 mL) insulin pen 24 unit subcut QPM Qty: 3 0RF Patient Comments: 05/24/24 appt recommended 37 units qhs Discharge Orders: Discharge Order (Routine); Ordered 06/24/24 Ordered By: Lee Owusu Patient Education: Pancreatitis (DC) Additional Instructions: I have reduced your Lantus insulin to 24 units a day temporarily. Once you are eating normally you can return to your dose of 34 units today. Avoid alcohol entirely. Cannabis can also cause gastrointestinal problems including pain and vomiting. Minimize cannabis use as well. Follow Up Appointments: JEVON KEY DO [Primary Care Provider] - 07/01/24 10:35 am ([facility] for follow-up, and have potassium check.) Forms: [employer] computer Info Instructions
--- NOTE | 2024-06-24 15:27 | PC.NURSE ---
shift note: dc'd IV intact RT AC. Reviewed dc instructions and copies sent with pt at dc. Belongings reviewed and sent with pt at dc.
== END 2024-06-24 11:21 | disposition home or self-care (01) | DRG 282 ==
LOC: ED 22:09 → MEDSURG 06-22 00:52
PROVIDERS: Family Medicine; Admitting Provider Internal Medicine; Emergency Provider Family Medicine; PCP Student in an Organized Health Care Education/Training Program; Visit Provider Internal Medicine
DX: K85.20 Alcohol induced acute pancreatitis without necrosis or infection (principal); K86.0 Alcohol-induced chronic pancreatitis; F10.20 Alcohol dependence, uncomplicated; E10.65 Type 1 diabetes mellitus with hyperglycemia; E87.6 Hypokalemia; Z79.4 Long term (current) use of insulin; K59.00 Constipation, unspecified; F12.90 Cannabis use, unspecified, uncomplicated; E86.0 Dehydration; Y90.0 Blood alcohol level of less than 20 mg/100 ml; Z86.718 Personal history of other venous thrombosis and embolism; K76.0 Fatty (change of) liver, not elsewhere classified
CPT/HCPCS: 36415; 74177; 80048; 80053; 81001; 82077; 82248; 82803; 82962; 83605; 83690; 83735; 85025; 86140; 99284; 99285; A9270; J1171; J1650; J1815; J2270; J2405; J3480; J7030; Q9967

== ENCOUNTER 2024-07-22 14:20 | Emergency (ER) | payer BC, SELFPAY ==
[2024-07-22 14:30] VITALS: BP 162/115; PULSE 92; RESP 16; TEMP 36.7; O2SAT 99; BMI 26.6
--- OUTSIDE RECORDS SUMMARY | 2024-07-22 14:54 | XMS_ITS | Clinical Summary ---
Author Organization [facility] Address [place], [place] [address] Care Team Providers Care Coal Hauler Operator Name Role Phone Kyle Scherer Primary Care Provider [phone] Allergies Active Allergy Reactions Criticality Noted Date [...] Insulin Pen Needle UF) 31 gauge x 5/16Indications:Court betes mellitus type 1, uncomplicated (HC) USE FOUR TIMES DAILY 400 Each 3 09/10/2023 Active FreeStyle Jean 14 Day SensorIndications:Ty pe [...] bedtime. Product desired: LANTUS SOLOSTAR 05/24/2024 Active Active Problems Problem Noted Date Diagnosed [...] Encounters Date Type Department Care Team Description 07/22/2024 Nurse Triage [facility] [address] [place] [address] Kyle Scherer, DO Penis/Scrotum Problem 06/21/2024 Orders Only [facility] Scanner 1 scan: (1-Ord) [place] ABDOMEN PELVIS W CON, 06/21/2024 06/20/2024 Orders Only [facility] Scanner 1 scan: (1-Ord) [facility], ABDOMEN PELVIS W/CONTRAST, 06/20/2024 05/27/2024 Telephone [facility] [address] [place] [address] Kyle Scherer DO Results 05/24/2024 1:15 PM CDT Office Visit [facility] [address] [facility] [address] Kyle Scherer DO Diabetes 05/24/2024 Travel 05/09/2024 Orders Only [facility] Scanner 1 scan: (1-Ord) [facility], ABDOMEN PELVIS WITH CONTRAST, 05/09/2024 04/30/2024 Travel 04/25/2024 Refill [facility] [address] [place] [address] Kyle Scherer DO Refill Request (Insulin Aspart (U-100)) from Last 3 Months Immunizations Name Administration [...] Diabetes Paternal Grandmother Heart Disease Paternal Uncle [place] Anesthesia Problem No Family History Blood Disease [...] 1 11/01/2022 Social Connections Answer Date Recorded Do you often feel lonely or isolated from those around you? 0 12/19/2023 Financial Resource Strain Answer Date R ecorded Difficulty of Paying Living Expenses 3 12/19/2023 Difficulty of Paying Living Expenses Not on file 12/19/2023 Food Insecurity Answer Date Recorded Do you worry your food will run out before you are able to buy more? 1 12/19/2023 Transportation Needs Answer Date Record ed Does lack of transportation keep you from medica l appointments? 1 12/19/2023 Does lack of transportation keep you from work, meetings or getting things that you need? 1 12/19/2023 Housing Stability Answer Date Recorded [...] 80 05/24/2024 1:33 PM CDT Temperature 36.9 C (98.5 F) 06/27/2023 8:44 AM CDT Respiratory Rate 20 05/30/2017 12:0 [...] st Contact Info) Description 08/26/2024 10:15 AM MARKETING RESEARCH ANALYST Orders Only [facility] [address] [place] [address] Lab, [place] 08/26/2024 10:35 AM MARKETING RESEARCH ANALYST Office Visit [facility] [address] [place] [address] Kyle Scherer DO [address] [place] [address] Health Maintenance Due Date Last Done Comments [...] 11/12/19, 10/11/2021 Medical Devices Implanted Type Area Environmental Consultant Device Identifier Shelf Expiration Date Model / Serial / Lot Stent Biliary 10-7 Cotton Huibregste - [id number] Implanted:Qty: 1 on 04/11/2012 by Konstantin Hurt MD at [facility] N/A: Common Bile Duct [facility] CHBSO-10- 7# / / [id number] Stent Pancreatic Geenen 7-9gepd-7-9 Cook - [id number] Implanted:Qty: 1 on 04/11/2012 by Konstantin Hurt MD at [facility] N/A: Pancreas [facility] GEPD-7-9# / / Stent Pancreatic [id number] Geenen Set - [id number] Implanted:Qty: 1 on 05/06/2015 by Konstantin Hurt MD at [facility] N/A: Pancreas [facility] GEPD-7-9# / / [id number] Stent Pancreatic 10fr 7cm Gpso Geenen - [id number] Implanted:Qty: 1 on 06/10/2015 by Konstantin Hurt MD at [facility] GPSO-10-7 # / / [id number] Stent Pancreatic 6vei0ne Geenen Sof-Flex No Flap - [id number] Implanted:Qty: 1 on 07/01/2015 by Konstantin Hurt MD at [facility] 01/25/2018 GPSOS-SF- 5-7# / / [id number] Description:implanted to ibrahim creatic duct during ERCP. Stent Pancreatic 2fts7ke Advanix Stra Una Plst - [id number] Implanted:Qty: 1 on 04/21/2017 by Konstantin Hurt MD at [facility] N/A: Pancreas [facility] 07/11/2018 [id number] # / / [id number] Inactive/Delete 04/07/17stent Pancreatic [id number] Geene - [id number] Implanted:Qty: 1 on 05/15/2017 by Konstantin Hurt MD at [facility] 03/16/2020 GPSOS-SF- 5-5# / / Procedures Procedure Name Priority Date/Time Associated Diagnosis Comments SCAN-CT INTERPRETATION 06/21/2024 12:00 AM CDT SCAN-CT INTERPRETATION 06/20/2024 12:00 AM CDT BASIC METABOLIC PANEL Routine 05/24/2024 1:27 PM CDT Type 1 diabetes mellitus with hyperglycemia (HC) URINE ALBUMIN TO CREATININE RATIO, RANDOM Routine 05/24/2024 1:27 PM CDT Type 1 diabetes mellitus with hyperglycemia (HC) HEMOGLOBIN A1C MONITORING (POCT) Routine 05/24/2024 1:25 PM CDT Type 1 diabetes mellitus with hyperglycemia (HC) SCAN-CT INTERPRETATION 05/09/2024 12:00 AM CDT LC HIV-1/O/2, 4TH GENERATION Routine 11/01/2022 3:38 PM MARKETING RESEARCH ANALYST Screening for HIV (human immunodeficiency virus) ANTI HCV Early AM 04/18/2017 7:23 AM CDT from Last 3 Months or Most Recently Relevant to Health Maintenance Results * SCAN-CT INTERPRETATION (06/21/2024 12:00 AM CDT) Only the most recent of3 resultswithin the time period is included. Anatomical Region Laterality Modality Other Scanner OTHER * URINE ALBUMIN TO CREATININE RATIO, RANDOM (05/24/2024 1:27 PM CDT) CREATININE, RANDOM URINE 191 20 - 320 mg/dL [facility] ALBUMIN, URINE 3.3 See Note: mg/dL [facility] Comment: Reference Range: Reference Range Not established ALBUMIN/CREATININE RATIO, RANDOM URINE 17 <30 mg/g creat [facility] Comment: The ADA defines abnormalities in albumin excretion as follows: Albuminuria Category Result (mg/g creatinine) Normal to Mildly increased <30 Moderately increased 30-299 Severely increased > OR = 300 The ADA recommends that at least two of three specimens collected within a 3-6 month period be abnormal before considering a patient to be within a diagnostic category. Urine URINE SPECIMEN / Unknown 05/24/2024 1:27 PM CDT 05/24/2024 1:27 PM CDT Kyle Scherer DO URINE [employer] [facility] [address] [place] [address], [facility] [address] [place] [address] * (ABNORMAL) BASIC METABOLIC PANEL [24269.0] (05/24/2024 1:27 PM CDT) GLUCOSE 362(H) 65 - 99 mg/dL [facility] Comment: Fasting reference interval For someone without known diabetes, a glucose value >125 mg/dL indicates that they may have diabetes and this should be confirmed with a follow-up test. UREA NITROGEN (BUN) 11 7 - 25 mg/dL [facility] CREATININE 0.91 0.60 - 1.24 mg/dL [facility] EGFR 117 > OR = 60 mL/min/1. 73m2 [facility] BUN/CREATININE RATIO SEE NOTE: 6 - 22 (calc) [facility] Comment: Not Reported: BUN and Creatinine are within reference range. SODIUM 136 135 - 146 mmol/L [facility] [...] 1:27 PM CDT 05/24/2024 1:27 PM CDT Adeteresita Scherer DO CHEMISTRY [facility] [address] [place] [address], [place] [phone] [facility] [address] [place] [address] * (ABNORMAL) HEMOGLOBIN A1C MONITORING POCT (05/24/2024 1:25 PM CDT) Pathologist [facility] POC HEMOGLOBIN A1C 8.5(H) <6.0 % OF TOTAL HGB [facility] Comment: Any point of care results exhibiting inconsistency with the patient's clinical status should be repeated using a different testing method. Blood BLOOD SPECIMEN / Unknown 05/24/2024 1:25 PM CDT 05/24/2024 1:26 PM CDT Kyle Scherer DO CHEMISTRY Performing Organization Address City/[facility] Co de Phone Number [facility] [address] [place] [address], [place] [phone] [facility] [address] [place] [address] * LC HIV-1/O/2, 4TH GENERATION (11/01/2022 3:38 PM MARKETING RESEARCH ANALYST) [facility] HIV Scr 4th Gen Non Reactive Non Reactive 11/04/2022 10:06 PM MARKETING RESEARCH ANALYST [facility] Comment: HIV Negative HIV-1/HIV-2 antibodies and HIV-1 p24 antigen were NOT detected. There is no laboratory evidence of HIV infection. Blood BLOOD SPECIMEN / Unknown Venipuncture / Unknown 11/01/2022 3:38 PM MARKETING RESEARCH ANALYST 11/01/2022 3:39 PM MARKETING RESEARCH ANALYST Narrative [facility] ([facility]) - 11/04/2022 10:06 PM MARKETING RESEARCH ANALYST Performed at: [address] [place] [id number] [facility] Certified Concierge: Pravin Gardner MD, Phone: [phone] Kyle Lagunakiara [facility] ([facility]) [address] [place] [id number], * ANTI HCV (04/18/2017 7:23 AM CDT) HEPATITIS C ANTIBODY Non-Reacti ve Non-Reacti ve 04/18/2017 9:14 AM CDT [facility] Blood BLOOD SPECIMEN / Unknown Venipuncture / Unknown 04/18/2017 7:23 AM CDT 04/18/2017 7:29 AM CDT Narrative [facility] - 04/18/2017 9:14 AM CDT Antibodies to HCV not detected; does not exclude the possibility of exposure to HCV. Enedina Barraza MD SEND OUTS [facility] [address] [place] [address], [place] from Last 3 Months or Most [...] 7:59 AM 05/04/2017 9:53 AM Care Teams Coal Hauler Operator Relationship Specialty Start Date End Date Kyle [place] [address] PCP - General Family Practice 03/11/21
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
== END 2024-07-22 15:51 | disposition home or self-care (01) ==
PROVIDERS: Emergency Provider Family Medicine; PCP Student in an Organized Health Care Education/Training Program
DX: N48.1 Balanitis (principal); N47.1 Phimosis
CPT/HCPCS: 99283

== ENCOUNTER 2024-07-30 07:25 | Emergency (ER) | payer BC, SELFPAY ==
[2024-07-30] VITALS (23 sets, daily range): BP systolic 152–175; BP diastolic 93–111; PULSE 70–120; RESP 16; TEMP 36.3; O2SAT 92–99; BMI 26.6
[2024-07-30 07:53] LABS: HCO3 VBG 25 mmol/L (21-28); PCO2 VBG 39 mmHG (40-50); PO2 VBG 75.3 mmHG (25-47); pH VBG 7.413 (7.32-7.43)
[2024-07-30 07:55] LABS: Basophils Absolute Auto 0.04 K/uL (0.00-0.30); Basophils Percent Auto 0.5 % (0.0-3.0); Eosinophils Absolute Auto 0.07 K/uL (0.00-0.50); Eosinophils Percent Auto 0.9 % (0.0-7.0); Hematocrit 47.9 % (37.0-53.0); Hemoglobin* 16.8 gm/dL (13.5-17.5); Immature Granulocytes Abs Auto 0.02 K/uL (0.00-0.30); Immature Granulocytes Pct Auto 0.3 %; Mean Corpuscular HGB Conc 35 gm/dL (32-36); Mean Corpuscular Hemoglobin 29 pg (26-34); Mean Corpuscular Volume 83 fL (80-100); Monocytes Percent Auto 4.3 % (0.0-11.0); Platelet Count* 245 K/uL (140-440); RDW Coefficient of Variation % 12.5 % (11.5-15.5)
[2024-07-30] MEDS: ONDANSETRON 2 MG/ML inj 4 MG IVP (07:56)
[2024-07-30] MEDS: LACTATED RINGERS 1000 ML 1,000 ML IV (07:56)
[2024-07-30 07:57] LABS: Slide Review Reflex No
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
--- OUTSIDE RECORDS SUMMARY | 2024-07-30 08:15 | XMS_ITS | Clinical Summary ---
Author Organization [employer] [facility] Address [place], [place] [address] Care Team Providers Care Torpedoman'S Mate Name Role Phone Kyle Scherer Primary Care Provider [phone] Allergies Active Allergy Reactions Criticality Noted Date [...] Department Care Team Description 07/22/2024 Nurse Triage [facility] [address] [place] [address] Kyle Scherer, DO Penis/Scrotum Problem 06/21/2024 Orders Only [facility] Scanner 1 scan: (1-Ord) [place], [place] ABDOMEN PELVIS W CON, 06/21/2024 06/20/2024 Orders Only [facility] Scanner 1 scan: (1-Ord) [facility], ABDOMEN PELVIS W/CONTRAST, 06/20/2024 05/27/2024 Telephone [facility] [address] [place] [address] Kyle Scherer DO Results 05/24/2024 1:15 PM CDT Office Visit [facility] [address] [place] [address] Kyle Scherer DO Diabetes 05/24/2024 Travel 05/09/2024 Orders Only [facility] Scanner 1 scan: (1-Ord) [facility], ABDOMEN PELVIS WITH CONTRAST, 05/09/2024 04/30/2024 Travel from Last 3 Months Immunizations Name Administration [...] Diabetes Paternal Grandmother Heart Disease Paternal Uncle [place] Anesthesia Problem No Family History Blood Disease [...] st Contact Info) Description 08/26/2024 10:15 AM TRAIN STATION AGENT Orders Only [facility] [address] [place] [address] [place], [place] 08/26/2024 10:35 AM TRAIN STATION AGENT Office Visit [facility] [address] [place] [address] Kyle Scherer DO [address] [place] [address] Health Maintenance Due Date Last Done Comments [...] 23, 10/11/2021 Medical Devices Implanted Type Area Harnessmaker Apprentice Device Identifier Shelf Expiration Date Model / Serial / Lot Stent Biliary 10-7 Cotton Huibregste - [id number] Implanted:Qty: 1 on 04/11/2012 by Konstantin Hurt MD at [facility] N/A: Common Bile Duct [employer] CHBSO-10- 7# / / [id number] Stent Pancreatic Geenen 7-9gepd-7-9 Cook - [id number] Implanted:Qty: 1 on 04/11/2012 by Konstantin Hurt MD at [facility] N/A: Pancreas [employer] GEPD-7-9# / / Stent Pancreatic 3gaq3gn Geenen Set - [id number] Implanted:Qty: 1 on 05/06/2015 by Konstantin Hurt MD at [facility] N/A: Pancreas [employer] GEPD-7-9# / / [id number] Stent Pancreatic 10fr 7cm Gpso Geenen - [id number] Implanted:Qty: 1 on 06/10/2015 by Konstantin uHrt MD at [facility] GPSO-10-7 # / / [id number] Stent Pancreatic 6lsc1nn Geenen Sof-Flex No Flap - [id number] Implanted:Qty: 1 on 07/01/2015 by Konstantin Hurt MD at [facility] 01/25/2018 GPSOS-SF- 5-7# / / [id number] Description:implanted to ibrahim creatic duct during ERCP. Stent Pancreatic 9zqg0pi Advanix Stra Una Plst - [id number] Implanted:Qty: 1 on 04/21/2017 by Konstantin Hurt MD at [facility] N/A: Pancreas BSC Gastroenterology 07/11/2018 [id number] # / / [id number] Inactive/Delete 04/07/17stent Pancreatic 7jqb3iy Geene - [id number] Implanted:Qty: 1 on 05/15/2017 by Konstantin Hurt MD at [facility] 03/16/2020 GPSOS-SF- 5-5# / / Procedures [...] HIV-1/O/2, 4TH GENERATION Routine 11/01/2022 3:38 PM TRAIN STATION AGENT Screening for HIV (human immunodeficiency virus) ANTI [...] URINE 191 20 - 320 mg/dL [facility] ALBUMIN, URINE 3.3 See Note: mg/dL [...] 1:27 PM CDT 05/24/2024 1:27 PM CDT Adei Jaseq DO URINE Performing Organization Address City/[facility]/ZIP Co de Phone Number [facility] [address] [place] [address], [facility] [address] [place] [address] * (ABNORMAL) BASIC METABOLIC PANEL [25490.0] (05/24/2024 1:27 PM CDT) GLUCOSE 362(H) 65 - 99 mg/dL [facility] Comment: Fasting reference interval For [...] Kyle Scherer DO CHEMISTRY Performing Organization Address City/[facility]/ZIP Co de Phone Number [facility] [address] [place] [address], [facility] [address] [place] [address] * (ABNORMAL) HEMOGLOBIN A1C MONITORING POCT (05/24/2024 1:25 PM CDT) [facility] POC HEMOGLOBIN A1C 8.5(H) <6.0 % OF TOTAL HGB [facility] Comment: Any point of care results exhibiting inconsistency with the patient's clinical status should be repeated using a different testing method. Blood BLOOD SPECIMEN / Unknown 05/24/2024 1:25 PM CDT 05/24/2024 1:26 PM CDT Kyle Scherer DO CHEMISTRY Performing Organization Address City/[facility]/ZIP Co de Phone Number [facility] [address] [place] [address], [facility] [address] [place] [address] * LC HIV-1/O/2, 4TH GENERATION (11/01/2022 3:38 PM TRAIN STATION AGENT) [facility] HIV Scr 4th Gen Non Reactive Non Reactive 11/04/2022 10:06 PM TRAIN STATION AGENT [facility] Comment: HIV Negative HIV-1/HIV-2 antibodies and HIV-1 p24 antigen were NOT detected. There is no laboratory evidence of HIV infection. Blood BLOOD SPECIMEN / Unknown Venipuncture / Unknown 11/01/2022 3:38 PM TRAIN STATION AGENT 11/01/2022 3:39 PM TRAIN STATION AGENT Narrative [facility] ([facility] - 11/04/2022 10:06 PM TRAIN STATION AGENT Performed at: [address] [place] [id number] Timber Buyer: Pravin Gardner MD, Phone: [phone] Kyle Scherer DO LABORATORY [facility] ([facility]) [address] [place] [address], * ANTI HCV (04/18/2017 7:23 AM CDT) HEPATITIS C ANTIBODY Non-Reacti ve Non-Reacti ve 04/18/2017 9:14 AM CDT [facility] Blood BLOOD SPECIMEN / Unknown Venipuncture / Unknown 04/18/2017 7:23 AM CDT 04/18/2017 7:29 AM CDT Narrative [facility] - 04/18/2017 9:14 AM CDT Antibodies to HCV not detected; does not exclude the possibility of exposure to HCV. Enedina Barraza MD SEND OUTS [facility] [address] [place] [address], from Last 3 Months or Most Recently [...] 7:59 AM 05/04/2017 9:53 AM Care Teams Torpedoman'S Mate Relationship Specialty Start Date End Date Kyle [place] [address] [place] [address] PCP - General Family Practice 03/11/21
[2024-07-30 08:16] LABS: Chloride* 103 mmol/L (96-114); Sodium* 140 mmol/L (135-149)
[2024-07-30 08:17] LABS: Potassium* 3.5 mmol/L (3.6-5.1)
[2024-07-30] MEDS: FAMOTIDINE 10 MG/ML inj 20 MG IVP (08:18)
[2024-07-30 08:20] LABS: Alanine Aminotransferase* 36 U/L (4-50); Alkaline Phosphatase* 181 U/L (40-150); Anion Gap 16 mEq/L (7-15); Aspartate Amino Transferase* 35 U/L (12-35); Bilirubin Total* 0.4 mg/dL (0.1-1.5); Blood Urea Nitrogen* 4 mg/dL (5-24); Calcium* 9.6 mg/dL (8.4-10.6); Carbon Dioxide* 21 mmol/L (20-32); Creatinine* 0.4 mg/dL (0.5-1.5); Est. Creatinine Clearance* 237.03; Estimated Glomerular Filt Rate 151 ml/min; Lipase* 74 U/L (23-300)
[2024-07-30 08:21] LABS: Ethanol* 0.01 % (0.01-0.03)
[2024-07-30 08:27] LABS: C Reactive Protein* < 0.5 mg/dL (0.5-1.0)
[2024-07-30 08:28] LABS: Glucose* 494 mg/dL (60-115)
[2024-07-30] MEDS: 0.9 % SODIUM CHLORIDE 1000 ml 1,000 ML IV (08:36)
[2024-07-30] MEDS: INSULIN REGULAR, HUMAN 100 UNIT/ML VIAL 10 UNIT IVP (08:48)
[2024-07-30 10:06] LABS: HCO3 VBG 29 mmol/L (21-28); PCO2 VBG 50 mmHG (40-50); PO2 VBG 35.3 mmHG (25-47); pH VBG 7.372 (7.32-7.43)
[2024-07-30 10:13] LABS: Lactate* 3.6 mmol/L (0.5-1.9)
[2024-07-30 10:23] LABS: Appearance Urine Clear (Clear); Bilirubin Urine Negative (Negative); Blood Urine Trace-intact (Negative); Color Urine Yellow (Yellow); Glucose Urine 3+ (Negative); Ketones Urine Trace (Negative); Leukocyte Esterase Urine Negative (Negative); Nitrite Urine Negative (Negative); Protein Urine 2+ (Negative); Specific Gravity Urine 1.025 (1.000-1.030); Urobilinogen Urine 0.2 (0.2-1.0)
[2024-07-30 10:25] LABS: Glucose* 217 mg/dL (60-115)
[2024-07-30] MEDS: 0.9 % SODIUM CHLORIDE 500 ML 500 ML IV (10:45)
[2024-07-30 10:48] LABS: RBC Urine 0-2 (0-2); Squamous Epithelial Cell Urine Few (None-Few); WBC Urine 0-2 (0-5)
== END 2024-07-30 11:22 | disposition home or self-care (01) ==
PROVIDERS: Family Medicine; Emergency Provider Family Medicine; PCP Student in an Organized Health Care Education/Training Program
DX: E10.65 Type 1 diabetes mellitus with hyperglycemia (principal); R11.2 Nausea with vomiting, unspecified
CPT/HCPCS: 36415; 80053; 81001; 82077; 82803; 82947; 82962; 83605; 83690; 83735; 85025; 86140; 96374; 96375; 99284; J1815; J2405; J7030; J7120; S0028

== ENCOUNTER 2024-08-02 12:34 | Emergency (ER) | payer BC, SELFPAY ==
[2024-08-02] VITALS (25 sets, daily range): BP systolic 130–192; BP diastolic 89–124; PULSE 57–102; RESP 16–24; TEMP 35.5–36.7; O2SAT 91–99
--- NOTE | 2024-08-02 13:35 | CRLHL7_ITS ---
For Patients: As a result of the Century Cures Act, medical imaging exams and procedure reports are released immediately into your electronic medical record. You may view this report before your referring provider. If you have questions, please contact your health care provider. INDICATION: Abdominal pain. TECHNIQUE: Multiplanar CT examination of the abdomen and pelvis was performed after the administration of 89 mL Isovue 370 intravenous contrast. COMPARISON: CT abdomen pelvis 06/21/2024. FINDINGS: Lower chest: No focal consolidation. Normal heart size. No pleural effusions or pneumothorax. Subsegmental and dependent atelectasis. Small hiatal hernia. Liver: Severe diffuse hepatic steatosis. Gallbladder: Cholecystectomy. Biliary: Unremarkable. Pancreas: Atrophic pancreas. There is subtle peripancreatic fat stranding. No peripancreatic fluid collections. Spleen: Unremarkable. Adrenal glands: Unremarkable. Renal/ureters/bladder: Normal in size and symmetrically enhancing. No obstructive uropathy. No hydronephrosis or obstructive urinary calculi. No suspicious renal masses. The ureters appear unremarkable. The bladder is within normal limits. Pelvis: Unremarkable prostate. Gastrointestinal: No bowel wall thickening or bowel obstruction. Normal appendix. No significant colonic diverticulosis. Mild colonic stool burden. Vasculature: No aortic aneurysm. The portal vein remains patent. No significant atherosclerotic calcifications. Lymph nodes: No pathologic lymphadenopathy by size criteria. Peritoneum: No free fluid or pneumoperitoneum. No drainable fluid collections. Abdominal wall/soft tissues: Unremarkable. Bones: No acute osseous abnormalities. IMPRESSION: 1. There is mild peripancreatic fat stranding, which can be seen in the setting of acute pancreatitis. Correlation with serum lipase is advised. No peripancreatic fluid collections identified. 2. Severe diffuse hepatic steatosis. Please note that all CT scans at this facility use dose modulation, iterative reconstruction, and/or weight-based dosing when appropriate to reduce radiation dose to as low as reasonably achievable. Dictated by Alexandre Mcqueen MD @ 08/02/2024 2:49:09 PM (Electronically Signed)
[2024-08-02] MEDS: 0.9 % SODIUM CHLORIDE 1000 ml 1,000 ML IV (13:47)
[2024-08-02] MEDS: MORPHINE 4 MG/ML INJ IVP (13:47)
[2024-08-02] MEDS: ONDANSETRON 2 MG/ML inj 4 MG IVP (13:47)
[2024-08-02 13:55] LABS: Basophils Absolute Auto 0.04 K/uL (0.00-0.30); Basophils Percent Auto 0.4 % (0.0-3.0); Eosinophils Absolute Auto 0.04 K/uL (0.00-0.50); Eosinophils Percent Auto 0.4 % (0.0-7.0); Hemoglobin* 17.2 gm/dL (13.5-17.5); Immature Granulocytes Abs Auto 0.02 K/uL (0.00-0.30); Immature Granulocytes Pct Auto 0.2 %; Lymphocytes Percent Auto 9.3 % (20-44); Mean Corpuscular HGB Conc 34 gm/dL (32-36); Mean Corpuscular Hemoglobin 29 pg (26-34); Mean Corpuscular Volume 84 fL (80-100); Monocytes Percent Auto 8.5 % (0.0-11.0); Neutrophils Percent Auto 81.2 % (42.0-72.0); Platelet Count* 250 K/uL (140-440); RDW Coefficient of Variation % 12.4 % (11.5-15.5); Red Blood Count 6.04 m/uL (4.30-5.90)
[2024-08-02 13:57] LABS: Slide Review Reflex No
[2024-08-02 14:08] LABS: Albumin* 5.1 g/dL (3.3-5.0)
[2024-08-02 14:09] LABS: Chloride* 95 mmol/L (96-114); Potassium* 4.1 mmol/L (3.6-5.1); Sodium* 132 mmol/L (135-149)
[2024-08-02 14:11] LABS: Anion Gap 11 mEq/L (7-15); Aspartate Amino Transferase* 523 U/L (12-35); Bilirubin Total* 1.4 mg/dL (0.1-1.5); Carbon Dioxide* 26 mmol/L (20-32); Creatinine* 0.4 mg/dL (0.5-1.5); Estimated Glomerular Filt Rate 151 ml/min; Lipase* 73 U/L (23-300); Magnesium* 1.9 mg/dL (1.5-2.6); Total Protein* 8.3 g/dL (6.0-8.3)
[2024-08-02 14:12] LABS: Alanine Aminotransferase* 173 U/L (4-50); Alkaline Phosphatase* 193 U/L (40-150); Blood Urea Nitrogen* 8 mg/dL (5-24); Calcium* 9.7 mg/dL (8.4-10.6)
[2024-08-02 14:17] LABS: Glucose* 367 mg/dL (60-115)
[2024-08-02] MEDS: METOCLOPRAMIDE HCL 5 MG/ML INJ 10 MG IVP (14:25)
[2024-08-02 14:32] LABS: PCR FLU A Negative PCR FLU A (Negative); PCR FLU B Negative PCR FLU B (Negative); PCR RSV Negative PCR RSV (Negative); SARS PCR* Negative SARS-CoV-2 (Negative)
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
[2024-08-02 14:45] LABS: HCO3 VBG 30 mmol/L (21-28); PCO2 VBG 47 mmHG (40-50); PO2 VBG 44.2 mmHG (25-47)
[2024-08-02 16:04] LABS: Lactate Sepsis 2 Hour 1.3 mmol/L (0.5-1.9)
[2024-08-02] MEDS: HYDROmorphone 0.5 mg/0.5 ml inj IVP (16:32)
[2024-08-02] MEDS: 0.9 % SODIUM CHLORIDE 1000 ml 1,000 ML 125 ML IV (16:35)
[2024-08-02 16:54] LABS: Appearance Urine Clear (Clear); Bilirubin Urine Negative (Negative); Blood Urine Negative (Negative); Color Urine Yellow (Yellow); Glucose Urine 2+ (Negative); Ketones Urine 2+ (Negative); Leukocyte Esterase Urine Negative (Negative); Nitrite Urine Negative (Negative); Protein Urine Trace (Negative); Specific Gravity Urine 1.015 (1.000-1.030)
[2024-08-02 17:03] LABS: Amphetamine Screen Urine Negative (Negative); Barbiturate Screen Urine Negative (Negative); Benzodiazepines Screen Urine Negative (Negative); Cannabinoid Screen Urine POSITIVE (Negative); Cocaine Screen Urine POSITIVE (Negative); Methadone Screen Urine Negative (Negative); Methamphetamines Screen Urine Negative (Negative); Opiate Screen Urine POSITIVE (Negative); Oxycodone Screen Urine Negative (Negative); Phencyclidine Screen Urine Negative (Negative); Tricyclic Antidepressant Urine Negative (Negative)
[2024-08-02 17:18] LABS: RBC Urine 0-2 (0-2); WBC Urine 0-2 (0-5)
== END 2024-08-02 19:20 | disposition other institution (70) ==
PROVIDERS: Emergency Provider Student in an Organized Health Care Education/Training Program; PCP Student in an Organized Health Care Education/Training Program
DX: K85.90 Acute pancreatitis without necrosis or infection, unspecified (principal); R74.01 Elevation of levels of liver transaminase levels
CPT/HCPCS: 36415; 74177; 80053; 80306; 81001; 82803; 83605; 83690; 83735; 85025; 87040; 87631; 96374; 96375; 99285; J1171; J2270; J2405; J2765; J7030; Q9967

== ENCOUNTER 2024-08-02 19:19 | Outpatient (CLI) | payer BC, SELFPAY | END 2024-08-02 19:20 | disposition home or self-care (01) | LOC: AMB 08-05 03:40 | PROVIDERS: PCP Student in an Organized Health Care Education/Training Program; Visit Provider Emergency Medicine | DX: R10.9 Unspecified abdominal pain (principal); R74.8 Abnormal levels of other serum enzymes | CPT/HCPCS: A0425; A0427 ==

== ENCOUNTER 2024-11-04 02:37 | Emergency (ER) | payer BC, SELFPAY ==
[2024-11-04] VITALS (20 sets, daily range): BP systolic 93–190; BP diastolic 49–128; PULSE 82–109; RESP 16–20; TEMP 36.7; O2SAT 93–99; BMI 26.6
--- OUTSIDE RECORDS SUMMARY | 2024-11-04 02:40 | XMS_ITS | Clinical Summary ---
Author Organization [facility] Address [address] [place] [address] Care Team Providers Care Barrel Charrer Helper Name Role Phone JaseKyle craig Primary Care Provider [phone] Gianni Brink MD Unavailable Allergies Active Allergy Reactions Criticality Noted Date Comments Prochlorperazine Hives,Itching 04/17/2017 Oxycodone Itching 05/27/2017 Per patient he does not get itching with Percocet and is effective .05/27/2017 Ketorolac Hives 05/30/2017 Medications lancetsIndication s:Type 1 diabetes mellitus without complication (HC) As directed. Test 3-4 times per day. 400 Each 11 019 Active SUMAtriptan (IMITREX) 25 mg tabletIndications :Migraine syndrome Take 1 Tablet (25 mg) by mouth every 2 hours if needed for Migraine. Give at minimum 2hrs apart. Max Dose: 200mg per 24hrs. 10 Tablet 3 022 Active blood-glucose meterIndications: Type 1 diabetes mellitus without complication (HC) Dispense meter covered by pt ins. 1 Kit Active Blood Sugar Diagnostic, Disc stripIndications: Type 1 diabetes mellitus without complication (HC) As directed. Test 3 times per day 200 Each 3 022 Active Accu-Chek Guide test strips strip 3 times daily. 022 Active ondansetron (ZOFRAN ODT) [address] 4 mg on the tongue every 8 hours if needed for Nausea/Vomiting . 023 Active pen needle, diabetic (BD Insulin Pen Needle UF) 31 gauge x 01/10Indications: Diabetes mellitus type 1, uncomplicated (HC) USE FOUR TIMES DAILY 400 Each 3 024 Active FreeStyle Jean 14 Day SensorIndications :Type 1 diabetes mellitus with hyperglycemia (HC) USE DIRECTED 6 Each 3 024 Active insulin aspart, U-100, (NOVOLOG FLEXPEN) 100 unit/mL (3 mL) penIndications:Ty pe 1 diabetes mellitus without complication (HC) Inject 9 units subcutaneous three times daily before meals. INJECT 9 UNITS UNDER THE SKIN PRE-MEAL THREE TIMES DAILY 60 mL 1 024 Active clobetasol (TEMOVATE) 0.05 % cream APPLY TOPICALLY TO THE AFFECTED AREA TWICE DAILY FOR 2 WEEKS 024 Active Lantus Solostar U-100 Insulin 100 unit/mL (3 mL) penIndications:Ty pe 1 diabetes mellitus without complication (HC) INJECT 32 UNITS SUBCUTANEOUS BEFORE BEDTIME. 30 mL 025 Active Lantus Solostar U-100 Insulin 100 unit/mL (3 mL) penIndications:Ty pe 1 diabetes mellitus without complication (HC) Inject 34 units subcutaneous before bedtime. 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 [place], [place] [address] Gianni Brink MD Consult (Penile pain and Phimosis) 08/12/2024 Travel 2024 1:40 PM PULMONOLOGY TECHNICIAN Office Visit [facility] [address] [place] [address] Kyle Scherer, [facility] F/U (Feeling better - no pain or nausea - eating well ) 2024 Travel from Last 3 Months Immunizations Immunization Administration Dates Next Due AMB Influenza, IIV3 [...] or isolated from those around you? 0 08/02/2024 Financial Resource Strain Answer Date R ecorded Difficulty of Paying Living Expenses 3 08/03/2024 Difficulty of Paying Living Expenses Not on file 08/03/2024 Food Insecurity Answer Date Recorded Do you worry your food will run out before you are able to buy more? 1 08/02/2024 Transportation Needs Answer Date Record ed Does lack of transportation keep you from medica l appointments? 1 08/02/2024 Does lack of transportation keep you from work, meetings or getting things that you need? 1 08/02/2024 Housing Stability Answer Date Recorded What is your housing situation today? 1 08/02/2024 Interpersonal Safety Answer Date Record ed Are you being hit, kicked, p ushed or yelled at (see row info)? No 08/02/2024 Interpersonal Safety Abuse 12 - 18 Not on file 08/02/2024 Interpersonal Safety Ambulatory Vulnerability No t on file 08/02/2024 Utilities Answer Date Recorded Do you have trouble paying f or utilities (for example, heat, electricity, water, phone)? 1 08/02/2024 Sex and Gender Information Value Date Recorded Sex Assigned at Male 05/23/2021 10:03 PM CDT Legal Sex Male 5:27 AM PULMONOLOGY TECHNICIAN Gender Identity Male 05/23/2021 10:03 PM CDT Sexual Orientation Straight 05/23/2021 10 :03 PM CDT Obstetrics History Last Filed Vital Signs Vital Sign Reading Time Taken Comments Blood Pressure 126/80 08/12/2024 1:13 PM PULMONOLOGY TECHNICIAN Pulse 74 08/12/2024 1:13 PM PULMONOLOGY TECHNICIAN Temperature 36.6 C (97.8 F) 08/04/2024 7:53 AM PULMONOLOGY TECHNICIAN Respiratory Rate 20 08/04/2024 7:53 AM PULMONOLOGY TECHNICIAN Oxygen Saturation 98% 2024 1:46 PM PULMONOLOGY TECHNICIAN Inhaled Oxygen Concentration - - Weight 72.7 kg (160 lb 4.8 oz) 08/12/2024 1:13 P M PULMONOLOGY TECHNICIAN Height 167.6 cm (5' 6) 06/27/2023 8:44 AM CDT Body Mass Index 25.87 06/27/2023 8:44 AM CDT Plan of Treatment Health Maintenance Due Date Last Done Comments Depression screening for age 12+ 11/02/2023 11/01/2022, 07/15/2021, 07/07/2021, Additional history exists COVID-19 vaccine series () 04/28/2024 07/05/2022, 07/08/2021, 11/04/2020 Influenza Vaccine (#1) 2024 , 06/02/2021, 06/06/2019, Additional history exists BMI (ht and wt on same day) for age 18+ 06/27/2024 06/27/2023, 11/01/2022, 10/11/2019, Additional history exists Tetanus booster 01/09/2028 01/08/2018, 03/30, 04/27/2007 Hepatitis B series for Diabetes Completed 04/17/1995, 04/17/1995, 1994, Additional history exists Tdap Completed 04/27/2007 HIV for age 15-65 Completed 11/01/2022 Pneumococcal series for age 6-49 Completed 11/12/19 23, 10/11/2021 Hepatitis C screening for ag e 18-79 Completed 08/03/2024, 04/18/2017 Medical Devices Implanted Type Area Metal Melter Device Identifier Shelf Expiration Date Model / Serial / Lot Stent Biliary 10-7 Cotton Huibregste - [id number] Implanted:Qty: 1 on 04/11/2012 by Konsatntin Hurt MD at [facility] N/A: Common Bile Duct [employer] CHBSO-10- 7# / / [id number] Stent Pancreatic Geenen 7-9gepd-7-9 Cook - [id number] Implanted:Qty: 1 on 04/11/2012 by Konstantin Hurt MD at [facility] N/A: Pancreas [employer] GEPD-7-9# / / Stent Pancreatic 2ymn7dg Geenen Set - [id number] Implanted:Qty: 1 on 05/06/2015 by Konstantin Hurt MD at [facility] N/A: Pancreas [employer] GEPD-7-9# / / [id number] Stent Pancreatic 10fr 7cm Gpso Geenen - [id number] Implanted:Qty: 1 on 06/10/2015 by Konstantin Hurt MD at [facility] GPSO-10-7 # / / [id number] Stent Pancreatic 2xdu5pd Geenen Sof-Flex No Flap - [id number] Implanted:Qty: 1 on 07/01/2015 by Konstantin Hurt MD at [facility] 01/25/2018 GPSOS-SF- 5-7# / / [id number] Description:implanted to ibrahim creatic duct during ERCP. Stent Pancreatic 1ctz0lc Advanix Stra Una Plst - [id number] Implanted:Qty: 1 on 04/21/2017 by Konstantin Hurt MD at [facility] N/A: Pancreas BSC Gastroenterology 07/11/2018 [id number] # / / [id number] Inactive/Delete 04/07/17stent Pancreatic 8red8ky Geene - [id number] Implanted:Qty: 1 on 05/15/2017 by Konstantin Hurt MD at [facility] 03/16/2020 GPSOS-SF- 5-5# / / Procedures Procedure Name Priority Date/Time Associated Diagnosis Comments ACUTE HEPATITIS PANEL MARTHA 08/03/2024 7:09 AM PULMONOLOGY TECHNICIAN LC HIV-1/O/2, 4TH GENERATION Routine 11/01/2022 3:38 PM PULMONOLOGY TECHNICIAN Screening for HIV (human immunodeficiency virus) from Last 3 Months or Most Recently Relevant to Health Maintenance Results * ACUTE HEPATITIS PANEL (08/03/2024 7:09 AM PULMONOLOGY TECHNICIAN) HEPATITIS C ANTIBODY Non-Reactive Non-Reactive 08/04/2024 12:45 AM PULMONOLOGY TECHNICIAN [facility] Comment:Please note, per www .CDC.gov: If a patient is known to be at high risk of HCV infection, or is symptomatic, and the physician's suspicion of HCV infection is high, HCV RNA testing is often employed and is of diagnostic value, even after an initial negative anti-HCV test result. IGM ANTI HAV Non-Reactive Non-Reactive 08/04/20 12:45 AM PULMONOLOGY TECHNICIAN [facility] Comment:Anti-HAV IgM non-macie ctive. Does not exclude the possibility of exposure to/or infection with HAV. Level of anti-HAV IgM may be below the cut-off in early infection. HBSAG Nonreactive Nonreactive 08/04/2024 12:45 AM PULMONOLOGY TECHNICIAN [facility] IGM ANTI HBC Non-Reactive Non-Reactive 08/04/20 12:45 AM PULMONOLOGY TECHNICIAN [facility] Comment:Anti-HBc IgM not det ected. Does not exclude the possibility of exposure to or infection with HBV. Blood BLOOD SPECIMEN / Unknown Butterfly / Unknown 08/03/2024 7:09 AM PULMONOLOGY TECHNICIAN 08/03/2024 7:28 AM PULMONOLOGY TECHNICIAN Narrative [facility] - 08/04/2024 12:45 AM PULMONOLOGY TECHNICIAN Biotin supplements may cause clinically significant interference for this test assay. If interference is suspected, it is strongly recommended that biotin is discontinued for at least one week prior to retesting. us Robbie Dick MD SEND OUTS Final Result [facility] [address] [place] [address], * LC HIV-1/O/2, 4TH GENERATION (11/01/2022 3:38 PM PULMONOLOGY TECHNICIAN) HIV Scr 4th Gen Non Reactive Non Reactive 11/04/2022 10:06 PM PULMONOLOGY TECHNICIAN [facility] Comment: HIV Negative HIV-1/HIV-2 antibodies and HIV-1 p24 antigen were NOT detected. There is no laboratory evidence of HIV infection. Blood BLOOD SPECIMEN / Unknown Venipuncture / Unknown 11/01/2022 3:38 PM PULMONOLOGY TECHNICIAN 11/01/2022 3:39 PM PULMONOLOGY TECHNICIAN Narrative [facility] - 11/04/2022 10:06 PM PULMONOLOGY TECHNICIAN Performed at: [address] [place] [id number] Junior Bookkeeper: Pravin Gardner MD, Phone: [phone] us Kyle Scherer DO LABORATORY Final Result [facility] ([facility]) [address] [place] [address], from Last 3 Months or Most Recently Relevant to Health Maintenance Insurance [facility] [employer] * Guarantor: [id number] Account Type Relation to Patient Date of Phone Billing Address [facility] Health/Ann Employer Advance Directives * Full Code (Latest Code Status on File) Date Activated Date Inactivated Comments 08/02/2024 9:18 PM 08/04/2024 4:19 PM Question Answer Comments Code Status Discussion: Reviewed Preferences * Full Code Date Activated Date Inactivated Comments 05/27/2017 9:28 AM 05/28/2017 7:17 PM * Full Code Date Activated Date Inactivated Comments 05/21/2017 4:59 AM 05/24/2017 5:31 PM * Full Code Date Activated Date Inactivated Comments 05/14/2017 11:17 AM 05/18/2017 6:26 PM Question Answer Comments Code Status Discussion: Discussed * Full Code Date Activated Date Inactivated Comments 05/04/2017 9:53 AM 05/08/2017 2:06 PM Care Teams Barrel Charrer Helper Relationship Specialty Start Date End Date Kyle Scherer DO [facility] [place] [address] PCP - General Family Practice 03/11/21 Gianni Brink MD [address] [place] [address] [place] [address] Surgery - Urology 08/12/24
[2024-11-04 03:10] LABS: Amphetamine Screen Urine Negative (Negative); Barbiturate Screen Urine Negative (Negative); Benzodiazepines Screen Urine Negative (Negative); Cannabinoid Screen Urine POSITIVE (Negative); Cocaine Screen Urine POSITIVE (Negative); Methadone Screen Urine Negative (Negative); Methamphetamines Screen Urine Negative (Negative); Opiate Screen Urine Negative (Negative); Oxycodone Screen Urine Negative (Negative); Phencyclidine Screen Urine Negative (Negative); Tricyclic Antidepressant Urine Negative (Negative)
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
[2024-11-04] MEDS: 0.9 % SODIUM CHLORIDE 1000 ml 1,000 ML IV (03:43)
[2024-11-04 03:55] LABS: Basophils Absolute Auto 0.04 K/uL (0.00-0.30); Basophils Percent Auto 0.5 % (0.0-3.0); Eosinophils Absolute Auto 0.22 K/uL (0.00-0.50); Eosinophils Percent Auto 2.5 % (0.0-7.0); Hematocrit 49.4 % (37.0-53.0); Hemoglobin* 16.8 gm/dL (13.5-17.5); Immature Granulocytes Abs Auto 0.02 K/uL (0.00-0.30); Immature Granulocytes Pct Auto 0.2 %; Lymphocytes Absolute Auto 2.16 K/uL (0.90-2.90); Lymphocytes Percent Auto 24.4 % (20-44); Mean Corpuscular HGB Conc 34 gm/dL (32-36); Mean Corpuscular Hemoglobin 29 pg (26-34); Mean Corpuscular Volume 84 fL (80-100); Monocytes Percent Auto 6.9 % (0.0-11.0); Neutrophils Absolute Auto 5.81 K/uL (1.7-7.0); Neutrophils Percent Auto 65.5 % (42.0-72.0); Platelet Count* 264 K/uL (140-440); Red Blood Count 5.85 m/uL (4.30-5.90); White Blood Count* 8.86 K/uL (4.50-11.00)
[2024-11-04 03:56] LABS: Appearance Urine Clear (Clear); Bilirubin Urine Negative (Negative); Blood Urine Negative (Negative); Color Urine Yellow (Yellow); Glucose Urine 2+ (Negative); Ketones Urine Negative (Negative); Leukocyte Esterase Urine Negative (Negative); Nitrite Urine Negative (Negative); Protein Urine Negative (Negative); Specific Gravity Urine <= 1.005 (1.000-1.030); Urobilinogen Urine 0.2 (0.2-1.0); pH Urine 6.5 (5.0-8.5)
[2024-11-04 03:57] LABS: Slide Review Reflex No
[2024-11-04 04:04] LABS: RBC Urine 0-2 (0-2); Squamous Epithelial Cell Urine Few (None-Few); WBC Urine 0-2 (0-5)
[2024-11-04 04:09] LABS: Chloride* 105 mmol/L (96-114); Potassium* 3.6 mmol/L (3.6-5.1); Sodium* 142 mmol/L (135-149)
[2024-11-04 04:12] LABS: Anion Gap 16 mEq/L (7-15); Blood Urea Nitrogen* 6 mg/dL (5-24); Calcium* 9.7 mg/dL (8.4-10.6); Carbon Dioxide* 21 mmol/L (20-32); Creatinine* 0.5 mg/dL (0.5-1.5); Est. Creatinine Clearance* 194.94; Estimated Glomerular Filt Rate 141 ml/min; Glucose* 275 mg/dL (60-115)
[2024-11-04 04:18] LABS: Ethanol* 0.21 % (0.01-0.03); Lipase* 22 U/L (23-300)
[2024-11-04 05:01] LABS: Acetaminophen* < 10.0 ug/mL (10.0-30.0); Salicylate* < 1.0 mg/dL (1.0-10)
--- OUTSIDE RECORDS SUMMARY | 2024-11-04 07:52 | XMS_ITS | Clinical Summary ---
Author Organization [employer] [facility] [facility] Address [address] [place] [address] Care Team Providers Care Art Specialist Name Role Phone JaseKyle craig Primary Care Provider [phone] Gianni Brink MD Unavailable Allergies Active Allergy [...] Type Department Care Team Description 10/03/2024 Refill [facility] [address] [place] [address] Kyle Scherer DO Refill Request (Lantus Solostar U-100 Insulin) 09/08/2024 Travel 08/12/2024 1:00 PM FOUNDRY FINISHER Office Visit [facility] [address] [facility] [place], [place] [address] Gianni Brink MD Consult (Penile pain and Phimosis) 08/12/2024 Travel 2024 1:40 PM FOUNDRY FINISHER Office Visit [facility] [address] [facility] [place] [address] Kyle Scherer, [facility] F/U (Feeling better - no pain or [...] PM CDT Legal Sex Male 5:27 AM FOUNDRY FINISHER Gender Identity Male 05/23/2021 10:03 PM CDT Sexual Orientation Straight 05/23/2021 10 :03 PM CDT Obstetrics History Last Filed Vital Signs Vital Sign Reading Time Taken Comments Blood Pressure 126/80 08/12/2024 1:13 PM FOUNDRY FINISHER Pulse 74 08/12/2024 1:13 PM FOUNDRY FINISHER Temperature 36.6 C (97.8 F) 08/04/2024 7:53 AM FOUNDRY FINISHER Respiratory Rate 20 08/04/2024 7:53 AM FOUNDRY FINISHER Oxygen Saturation 98% 2024 1:46 PM FOUNDRY FINISHER Inhaled Oxygen Concentration - - Weight 72.7 kg (160 lb 4.8 oz) 08/12/2024 1:13 P M FOUNDRY FINISHER Height 167.6 cm (5' 6) 06/27/2023 8:44 [...] 08/03/2024, 04/18/2017 Medical Devices Implanted Type Area Printing Roller Polisher Device Identifier Shelf Expiration Date Model / Serial / Lot Stent Biliary 10-7 Cotton Huibregste - [id number] Implanted:Qty: 1 on 04/11/2012 by Konstantin Hurt MD at [facility] N/A: Common Bile Duct [facility] End[facility] CHBSO-10- 7# / / [id number] Stent Pancreatic Geenen 7-9gepd-7-9 Cook - [id number] Implanted:Qty: 1 on 04/11/2012 by Konstantin Hurt MD at [facility] N/A: Pancreas [facility] End[facility] GEPD-7-9# / / Stent Pancreatic [id number] Geenen Set - [id number] Implanted:Qty: 1 on 05/06/2015 by Konstantin Hurt MD at [facility] N/A: Pancreas Cook Endoscopy GEPD-7-9# / / [id number] Stent Pancreatic 10fr 7cm Gpso Geenen - [id number] Implanted:Qty: 1 on 06/10/2015 by Konstantin Hurt MD at [facility] GPSO-10-7 # / / [id number] Stent Pancreatic [id number] Geenen Sof-Flex No Flap - [id number] Implanted:Qty: 1 on 07/01/2015 by Konstantin Hurt MD at [facility] 01/25/2018 GPSOS-SF- 5-7# / / [id number] Description:implanted to ibrahim creatic duct during ERCP. Stent Pancreatic [id number] Advanix Stra Una Plst - [id number] Implanted:Qty: 1 on 04/21/2017 by Konstantin Hurt MD at [facility] N/A: Pancreas [facility] 07/11/2018 [id number] # / / [id number] Inactive/Delete 04/07/17stent Pancreatic [id number] Geene - [id number] Implanted:Qty: 1 on 05/15/2017 by Konstantin Hurt MD at [facility] 03/16/2020 GPSOS-SF- 5-5# / / Procedures Procedure Name Priority Date/Time Associated Diagnosis Comments ACUTE HEPATITIS PANEL MARTHA 08/03/2024 7:09 AM FOUNDRY FINISHER LC HIV-1/O/2, 4TH GENERATION Routine 11/01/2022 3:38 PM FOUNDRY FINISHER Screening for HIV (human immunodeficiency virus) from Last 3 Months or Most Recently Relevant to Health Maintenance Results * ACUTE HEPATITIS PANEL (08/03/2024 7:09 AM FOUNDRY FINISHER) HEPATITIS C ANTIBODY Non-Reactive Non-Reactive 08/04/2024 12:45 AM FOUNDRY FINISHER [facility] Comment:Please note, per www .CDC.gov: If a patient is known to be at high risk of HCV infection, or is symptomatic, and the physician's suspicion of HCV infection is high, HCV RNA testing is often employed and is of diagnostic value, even after an initial negative anti-HCV test result. IGM ANTI HAV Non-Reactive Non-Reactive 08/04/20 12:45 AM FOUNDRY FINISHER [facility] Comment:Anti-HAV IgM non-macie ctive. Does not exclude the possibility of exposure to/or infection with HAV. Level of anti-HAV IgM may be below the cut-off in early infection. HBSAG Nonreactive Nonreactive 08/04/2024 12:45 AM FOUNDRY FINISHER [facility] IGM ANTI HBC Non-Reactive Non-Reactive 08/04/20 12:45 AM FOUNDRY FINISHER [facility] Comment:Anti-HBc IgM not det ected. Does not exclude the possibility of exposure to or infection with HBV. Blood BLOOD SPECIMEN / Unknown Butterfly / Unknown 08/03/2024 7:09 AM FOUNDRY FINISHER 08/03/2024 7:28 AM FOUNDRY FINISHER Narrative [facility] - 08/04/2024 12:45 AM FOUNDRY FINISHER Biotin supplements may cause clinically significant interference for this test assay. If interference is suspected, it is strongly recommended that biotin is discontinued for at least one week prior to retesting. us Robbie Dick MD SEND OUTS Final Result [facility] [address] [place] [address], * LC HIV-1/O/2, 4TH GENERATION (11/01/2022 3:38 PM FOUNDRY FINISHER) HIV Scr 4th Gen Non Reactive Non Reactive 11/04/2022 10:06 PM FOUNDRY FINISHER [facility] Comment: HIV Negative HIV-1/HIV-2 antibodies and HIV-1 p24 antigen were NOT detected. There is no laboratory evidence of HIV infection. Blood BLOOD SPECIMEN / Unknown Venipuncture / Unknown 11/01/2022 3:38 PM FOUNDRY FINISHER 11/01/2022 3:39 PM FOUNDRY FINISHER Narrative [facility] ([facility]) - 11/04/2022 10:06 PM FOUNDRY FINISHER Performed at: [address] [place] [id number] Layout Designer: Pravin Gardner MD, Phone: [phone] us Kyle Scherer DO LABORATORY Final Result [facility] ([facility]) [address] [place] [address], from Last 3 Months or Most Recently Relevant to Health Maintenance Insurance [facility] [facility] * Guarantor: [id number] Account Type Relation to Patient Date of Phone Billing Address [facility]/Ann Employer Advance Directives * Full [...] 9:53 AM 05/08/2017 2:06 PM Care Teams Art Specialist Relationship Specialty Start Date End Date Kyle Scherer DO [facility] [address] [place] [address] PCP - General Family Practice 03/11/21 Gianni Brink MD [address] [place] [address] [place] [address] Surgery - Urology 08/12/24
== END 2024-11-04 08:06 | disposition home or self-care (01) ==
LOC: ED 07:48
PROVIDERS: Emergency Provider Family Medicine; PCP Student in an Organized Health Care Education/Training Program
DX: R45.851 Suicidal ideations (principal); F10.129 Alcohol abuse with intoxication, unspecified; F43.9 Reaction to severe stress, unspecified
CPT/HCPCS: 36415; 80048; 80143; 80179; 80306; 81001; 82077; 83690; 85025; 96360; 99284; J7030

== ENCOUNTER 2024-11-04 20:11 | Outpatient (CLI) | payer BC, SELFPAY | END 2024-11-04 20:12 | disposition home or self-care (01) | LOC: AMB 11-06 11:47 | PROVIDERS: PCP Student in an Organized Health Care Education/Training Program; Visit Provider Family Medicine | DX: R45.851 Suicidal ideations (principal); R55 Syncope and collapse | CPT/HCPCS: A0425; A0427 ==

== ENCOUNTER 2024-12-03 12:59 | Outpatient (CLI) | payer BC, SELFPAY | END 2024-12-03 13:00 | disposition home or self-care (01) | LOC: AMB 12-04 09:10 | PROVIDERS: PCP Student in an Organized Health Care Education/Training Program; Visit Provider Emergency Medicine Emergency Medical Services | DX: R45.851 Suicidal ideations (principal) | CPT/HCPCS: A0998 ==

== ENCOUNTER 2025-02-07 04:34 | Outpatient (CLI) | payer BC, SELFPAY | END 2025-02-07 04:35 | disposition home or self-care (01) | LOC: AMB 02-10 08:59 | PROVIDERS: PCP Student in an Organized Health Care Education/Training Program; Visit Provider Family Medicine | DX: R56.9 Unspecified convulsions (principal) | CPT/HCPCS: A0425; A0427 ==

== ENCOUNTER 2025-02-07 05:03 | Emergency (ER) | payer BC, SELFPAY ==
--- OUTSIDE RECORDS SUMMARY | 2024-08-02 19:00 | XMS_ITS | Continuity of Care Document ---
Author Organization [facility] Address [address] [address] [place] [address] Phone Care Team Providers Care A Operator Name Role Phone Radha Ordoñez Unavailabl [...] Encounter [facility] [address] [address], [place], [id number], [place] tel:[phone] [facility] No Information 4 Ap Garcia. [address] [facility], [facility] 500, [place], [place], [address], [place]. tel:[phone] Init Hosp-da E&m Mod Severity [facility], [address] [address], [place], [place], [address], [place] tel:[phone] [facility] No Information Jul-0 4 Ap Garcia. [address] [place] [address] 500, [place], [place], [address], [place]. tel:[phone] Referring Provider: Kyle Scherer DO, [address] [place] [address], [place], [address]. tel:[phone] Subsqt Hosp-da E&m Minr Compl [facility], [address] [address], [place], [place], [address], [place] tel:[phone] [facility] No Information Sep- Nesset BIANCA Zambrano. [address] [place] [address], [id number], [place]. tel:[phone] Galo Huang DO. tel:[phone] erring Provider: Robin Holcomb, [address] [facility], [place], [address]. tel:[phone] Subsqt Hosp-da E&m Stable 15 M [facility], [address] [address], [place], [place], [address], [place] tel:[phone] [facility] No Information Sep- 7 Chandrakant Villanueva. [address] [address], [place], [place], [address], [place]. tel:[phone] Referring Provider: Robin Holcomb, [address] [facility], [place], [address]. tel:[phone] Init Inpt Cons New/est Mod-hi [facility], [address] [address], [facility], [address], [place] tel:[phone] [facility] No Information Sep-2 7 No Information Referring Provider: Robin Holcomb, [address], [place], [address]. tel:[phone] Subsqt Hosp-da E&m Minr Compl [facility], [address] [address], [place], [address], [place] tel:[phone] [facility] No Information Sep-2 0 7 Nesset BIANCA Ortizy. [address] [place] [address], [id number], [place]. tel:[phone] Referring Provider: Robin Holcomb, [address], [place], [address]. tel:[phone] Subsqt Hosp-da E&m Minr Compl [facility], [address] [address], [place], [address], [place] tel:[phone] [facility] No Information Sep- Chandrakant Villanueva. [address] [place] [address], [id number], [place]. tel:[phone] Referring Provider: Robin Holcomb, [address], [place], [address]. tel:[phone] [facility], [address] [address], [place], [address], [place] tel:[phone] [facility] No Information Sep- Licha Pryor. [address] [place] [address], [id number], [place]. tel:[phone] Referring Provider: Robin Holcomb, [address], [place], [address]. tel:[phone] [facility], [address] [address], [place], [address], [place] tel:[phone] [facility] Encounter for removal of biliary stentChronic pancreatitis , unspecified pancreatitis type Sep- Licha Pryor. [address] [place] [address], [id number], [place]. tel:[phone] Init Inpt Cons New/est Mod-hi [facility], [address] [address], [place], [address], [place] tel:[phone] [facility] No Information Sep- 7 Elsa Alfred. [address] [facility], [address] [address], [place], [place], [address], [place]. tel:[phone] Referring Provider: Robin Holcomb, [address], [place], [address]. tel:[phone] [facility], [address] [address], [place], [address], [place] tel:[phone] [facility] Chronic pancreatitis , unspecified pancreatitis type Sep- 7 Ganesh King. [address] [place] [address], [id number], [place]. tel:[phone] Galo Huang DO. tel:[phone] Subsqt Hosp-da E&m Minr Compl [facility], [address] [address], [place], [address], [place] tel:[phone] [facility] No Information Sep-0 Stephane Neumann. [address] [address], [place], [place], [address], [place]. [phone] Referring Provider: Robin Holcomb, [address], [place], [address]. tel:[phone] Subsqt Hosp-da E&m Minr Compl [facility], [address] [address], [place], [address], [place] tel:[phone] [facility] No Information Sep-0 7 Chandrakant Villanueva. [address] [place] [address], [id number], [place]. tel:[phone] Referring Provider: Robin Holcomb, [address], [place], [address]. tel:[phone] Init Inpt Cons New/est Mod-hi [facility], [address] [address], [place], [address], [place] tel:[phone] [facility] No Information Ganesh King. [address] [facility], [facility] 500, [place], [place], [address], [place]. tel:[phone] Referring Provider: Robin Holcomb, [address], [place], [address]. tel:[phone] Subsqt Hosp-da E&m Minr Compl [facility], [address] [address], [place], [address], [place] tel:[phone] [facility] No Information No Information Referring Provider: Robin Holcomb, [address], [place], [address]. tel:[phone] [facility], [address] [address], [place], [address], [place] tel:[phone] [facility] No Information Licha Pryor. [address] [facility], [facility] 500, [place], [place], [address], [place]. tel:[phone] Referring Provider: Robin Holcomb, [address], [place], [address]. tel:[phone] Subsqt Hosp-da E&m Minr Compl [facility], [address] [address], [place], [address], [place] tel:[phone] [facility] No Information No Information Referring Provider: Robin Holcomb, [address], [place], [address]. tel:[phone] Init Inpt Cons New/estab Mod 5 [facility], [address] [address], [place], [address], [place] tel:[phone] [facility] No Information Madi Mcconnell. [address] [facility], [facility] 500[place], [place], [address], [place]. tel:[phone] Referring Provider: Robin Holcomb, [address], [place], [address]. tel:[phone] [facility], [address] [address], [facility] [facility] [address], [place] tel:[phone] [facility] Chronic pancreatitis , unspecified pancreatitis type 7 Licha Pryor. [address] [facility], [facility] [address], [place], [address], [place]. tel:[phone] Galo Huang DO. tel:[phone] Init Inpt Cons New/est Mod-hi [facility], [address] [address], [facility] [place], [address], [place] tel:[phone] [facility] No Information No Information Referring Provider: Robin Holcomb, [address], [place], [address]. tel:[phone] [facility], [address] [address], [facility] [place], [address], [place] tel:[phone] [facility] Chronic pancreatitis , unspecified pancreatitis type Dakota Reed. [address] [facility], [facility] [address], [place], [address], [place]. tel:[phone] Subsqt Hosp-da E&m Minr Compl [facility], [address] [address], [facility], [address], [place] tel:[phone] [facility] No Information 6 Jesus Duran. [address] [facility], [address] [address], [place], [place], [address], [place]. tel:[phone] Referring Provider: Renee James, [facility] 500, [place], [address] . tel:[phone] Init Inpt Cons New/est Mod-hi [facility], [address] [address], [place], [address], [place] tel:[phone] [facility] No Information Danuta Gomes. [address] [facility], [facility] 500, [place], [place], [address], [place]. tel:[phone] Referring Provider: Eliseo Burkett, [address] [facility] [address], [place], [address] . tel:[phone] [facility], [address] [address], [place], [address], [place] tel:[phone] [facility] No Information Licha Pryor. [address] [facility], [facility] 500, [place], [place], [address], [place]. tel:[phone] Referring Provider: Konstantin Hurt MD, [address] [place] [address] 500, [place], [address] . tel:[phone] [facility], [address] [address], [place], [address], [place] tel:[phone] [facility] Bile duct obstruction Licha Pryor. [address] [facility], [facility] 500, [place], [place], [address], [place]. tel:[phone] Galo Huang DO. tel:[phone] erring Provider: Referral Self, USE FOR SELF REFERRALS. [facility], [address] [address], [place], [address], [place] tel:[phone] [facility] No Information 5 Licha Pryor. [address] [place] [address], [facility] 500, [place], [place], [address], [place]. tel:[phone] Referring Provider: [place], [address] [place] [address] 500, [place], [address] . tel:[phone] Subsqt Hosp-da E&m Minr Compl [facility], [address] [address], [place], [address], [place] tel:[phone] [facility] No Information Apr-1 5 Nesset INSEAM TRIMMER [place]. [address] [facility], [facility] 500, [place], [place], [address], [place]. [phone] Referring Provider: Isai Ac MD, [address] [facility] [address], [place], [address]. tel:[phone] [facility], [address] [address], [place], [address], [place] tel:[phone] [facility] No Information Apr-0 5 Licha Pryor. [address] [facility], [facility] 500, [place], [place], [address], [place]. [phone] Referring Provider: Isai Ac MD, [address] [facility] [address], [place], [address]. tel:[phone] [facility], [address] [address], [place], [address], [place] tel:[phone] [facility] Acute Pancreatitis Acute pancreatitis , unspecified 0 5 Licha Pryor. [address] [facility], [facility] 500, [place], [place], [address], [place]. tel:[phone] [facility], [address] [address], [place], [address], [place] tel:[phone] [facility] Acute Pancreatitis Mar-0 5 Licha Pryor. [address] [facility], [facility] 500, [place], [place], [address], [place]. [phone] Referring Provider: Referral Self, USE FOR SELF REFERRALS. Subsqt Hosp-da E&m Minr Compl [facility], [address] [address], [place], [address], [place] tel:[phone] [facility] No Information 0 5 Nesset INSEAM TRIMMER [place]. [address] [facility], [facility] 500, [place], [place], [address], [place]. tel:[phone] Referring Provider: Isai Ac MD, [address] [facility] [address], [place], [address]. tel:[phone] Subsqt Hosp-da E&m Minr Compl [facility], [address] [address], [place], [address], [place] tel:[phone] [facility] No Information 5 Stephane EDWIN Nel. [address] [facility], [facility] 500, [place], [place], [address], [place]. tel:[phone] Referring Provider: Isai Ac MD, [address] [facility] [address], [place], [address]. tel:[phone] Init Inpt Cons New/estab Mod 5 [facility], [address] [address], [facility], [address], [place] tel:[phone] [facility] No Information 5 Nesset INSEAM TRIMMER [place]. [address] [facility], [facility] [address], [place], [address], [place]. tel:[phone] Referring Provider: Isai Ac MD, [address] [facility] [address], [place], [address]. tel:[phone] Offic/outpt E&m Estab Low-mod [facility], [address] [address], [place], [address], [place] tel:[phone] [facility] No Information 5 Licha Pryor. [address] [facility], [facility] 500, [place], [place], [address], [place]. tel:[phone] Referring Provider: Annabelel Nieto, [address] [place] [address], [place], [address]. tel:[phone] Init Inpt Cons New/est Mod-hi [facility], [address] [address], [place], [address], [place] tel:[phone] [facility] No Information Danuta Gomes. [address] [place] [address], [id number], [place]. tel:[phone] Referring Provider: Annabelle Nieto, [address], [place], [address]. tel:[phone] Subsqt Hosp-da E&m Minr Compl [facility], [address] [address], [place], [address], [place] tel:[phone] [facility] No Information Collin INSEAM TRIMMER [place]. [address] [place] [address], [id number], [place]. tel:[phone] Referring Provider: Annabelle Nieto, [address] , [place], [address]. tel:[phone] Subsqt Hosp-da E&m Minr Compl [facility], [address] [address], [facility], [address], [place] tel:[phone] [facility] No Information Collin Zambrano. [address] [place] [address], [address], [place]. tel:[phone] Referring Provider: Annabelle Nieto, [address] , [place], [address]. tel:[phone] Subsqt Hosp-da E&m Stable 15 M [facility], [address] [address], [place], [address], [place] tel:[phone] [facility] No Information No Information Referring Provider: Annabelle Nieto, [address] , [place], [address]. tel:[phone] Subsqt Hosp-da E&m Minr Compl [facility], [address] [address], [place], [address], [place] tel:[phone] [facility] No Information 0201 5 Nesset INSEAM TRIMMER [place]. [address] [place] [address], [id number], [place]. tel:[phone] Referring Provider: Annabelle Nieto, [address] [facility], [place], [address]. tel:[phone] Init Inpt Cons New/est Mod-hi [facility] [place], [address] [address], [facility], [address], [place] tel:[phone] [facility] No Information 5 Licha Pryor. [address] [place] [address], [id number], [place]. tel:[phone] Referring Provider: Annabelle Nieto, [address] [facility], [place], [address]. tel:[phone] [facility] Dig[facility]ive [facility], [facility], [address] [address], [facility], [place], [address], [place] tel:[phone] [facility] No Information 5 Licha Pryor. [address] [place] [address], [address], [place]. tel:[phone] Referring Provider: Annabelle Nieto, [address] [facility], [place], [address]. tel:[phone] [facility] Dig[facility]ive [facility], [facility], [address] [address], [facility], [address], [place] tel:[phone] [facility] Acute Pancreatitis 5201 5 No Information Referring Provider: Referral Self, USE FOR SELF REFERRALS. Subsqt Hosp-da E&m Minr Compl [facility] [place], [address] [address], [place], [address], [place] tel:[phone] [facility] No Information 0 3-201 5 Nesset INSEAM TRIMMER [place]. [address] [place] [address], [id number], [place]. tel:[phone] Referring Provider: Yariel Cortez MD, [address], [place], [address]. tel:[phone] Init Inpt Cons New/est Mod-hi [facility], [address] [address], [place], [place], [address], [place] tel:[phone] [facility] No Information 5 No Information Referring Provider: Yariel Cortez MD, [address], [place], [address]. tel:[phone] Offic/outpt E&m Estab Low-mod 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 Offic/outpt E&m Estab Mod-hi 2 [facility] Digestive [facility], [address] [address], [place], [place], [address], [place] tel:[phone] [facility] Non-alcoholi c Fatty LiverNon-alc oholic Fatty Liver 3 No Information Referring Provider: Annabelle Nieto, [address] [facility], [place], [address]. tel:[phone] Offic/outpt E&m Estab Low-mod [facility] Dig[facility]ive [facility], [address] [address], [place], [place], [address], [place] tel:[phone] [facility] No Information 3 Licha Pryor. [address] [facility], [address], [place], [place], [address], [place]. tel:[phone] Referring Provider: Annabelle Nieto, [address] [facility], [place], [address]. tel:[phone] Subsqt Hosp-da E&m Minr Compl [facility] Digestive [facility] [place], [address] [address], [place], [place], [address], [place] tel:[phone] [facility] No Information 3 Nesset INSEAM TRIMMER [place]. [address] [facility], [facility] [address], [place], [address], [place]. tel:[phone] Referring Provider: Rudi Burkett, [address], [place], [address]. tel:[phone] Subsqt Hosp-da E&m Minr Compl [facility], [address] [address], [place], [place], [address], [place] tel:[phone] [facility] No Information 3 Nesset INSEAM TRIMMER [place]. [address] [facility], [facility] [address], [place], [address], [place]. tel:[phone] Referring Provider: Rudi Burkett, [address], [place], [address]. tel:[phone] Subst Hosp-da E&m Minr Compl [facility], [address] [address], [place], [place], [address], [place] tel:[phone] [facility] No Information 3 Chandrakant Villanueva. [address] [facility], [facility] [address], [place], [address], [place]. tel:[phone] Referring Provider: Rudi Burkett, [address], [place], [address]. tel:[phone] Offic/outpt E&m Estab Mod-hi 2 [facility], [address] [address], [place], [place], [address], [place] tel:[phone] [facility] No Information 2 Licha Pryor. [address] [facility], [facility] [address], [place], [address], [place]. tel:[phone] [facility], [address] [address], [facility] [place], [address], [place] tel:[phone] [facility] Obstruction Of Bile Duct 2 Licha Pryor. [address] [facility], [facility] [address], [place], [place], [address], [place]. tel:[phone] [facility], [address] [address], [facility], [address], [place] tel:[phone] [facility] No Information 2 Licha Pryor. [address], [id number], [place]. tel:[phone] Referring Provider: Annabelle Nieto, [address] , [place], [address]. tel:[phone] Subsqt Hosp-da E&m Stable 15 M [facility], [address] [address], [facility], [address], [place] tel:[phone] [facility] No Information 2 Mahamed Garcia. [address], [address], [place]. tel:[phone] Referring Provider: Annabelle Nieto, [address] [facility], [place], [address]. tel:[phone] Subsqt Hosp-da E&m Minr Compl [facility], [address] [address], [facility], [address], [place] tel:[phone] [facility] No Information 2 Collin Zambrano. [address], [id number], [place]. tel:[phone] Referring Provider: Annabelle Nieto, [address], [place], [address]. tel:[phone] [facility], [address] [address], [facility], [place], [address], [place] tel:[phone] [facility] No Information 2 Licha Pryor. [address] [place] [address], [id number], [place]. tel:[phone] Referring Provider: Annabelle Nieto, [address] [facility], [place], [address]. tel:[phone] [facility], [address] [address], [place], [address], [place] tel:[phone] [facility] Obstruction Of Bile DuctAcute Pancreatitis 2 Licha Pryor. [address] [address], [place], [place], [address], [place]. tel:[phone] Referring Provider: Annabelle Nieto, [address] [facility], [place], [address]. tel:[phone] Subsqt Hosp-da E&m Minr Compl [facility], [address] [address], [place], [address], [place] tel:[phone] [facility] No Information 2 Collin Zambrano. [address] [facility] [address], [place], [place], [address], [place]. tel:[phone] Referring Provider: Maurice Burkett, [address] [place] [address], [place], [address]. tel:[phone] Subsqt Hosp-da E&m Minr Compl [facility], [address] [address], [place], [address], [place] tel:[phone] [facility] No Information 2 No Information Referring Provider: Maurice Burkett, [address] [place] [address] [place] [address], [place], [address]. tel:[phone] Subsqt Hosp-da E&m Minr Compl [facility], [address] [address], [place], [address], [place] tel:[phone] [facility] No Information 0 2 No Information Referring Provider: Maurice Burkett, [address] [place] [address] [place] [address], [place], [address]. tel:[phone] Subsqt Hosp-da E&m Minr Compl [facility], [address] [address], [place], [address], [place] tel:[phone] [facility] No Information 2 Collin VALENZUELA [place]. [address] [facility], [facility] 500, [place], [place], [address], [place]. tel:[phone] Referring Provider: Maurice Burkett, [address] [facility] [place] [address], [place], [address]. tel:[phone] [id number] [facility], [address] [address], [place], [address], [place] tel:[phone] [facility] No Information 2 Chandrakant Villanueva. [address] [facility], [facility] [address], [place], [place], [id number], [place]. tel:[phone] Referring Provider: Maurice Burkett, [address] [facility] [place] [address], [place], [address]. tel:[phone] [facility] Stable 15 M [facility], [address] [address], [place], [address], [place] tel:[phone] [facility] No Information 2 Mahamed Garcia. [address] [facility], [facility] [address], [place], [place], [id number], [place]. tel:[phone] Referring Provider: Maurice Burkett, [address] [place] [address], [place], [address]. tel:[phone] [facility] Min[facility] Compl [facility], [address] [address], [place], [address], [place] tel:[phone] [facility] No Information 2 No Information Referring Provider: Maurice Burkett, [address] [place] [address], [place], [address]. tel:[phone] [facility] Min[facility] Compl [facility], [address] [address], [place], [address], [place] tel:[phone] [facility] No Information 2 No Information Referring Provider: Maurice Burkett, [address] [place] [address], [place], [address]. tel:[phone] [facility] Min[facility] Compl [facility], [address] [address], [place], [address], [place] tel:[phone] [facility] No Information 2 Chandrakant Villanueva. [address] [place] [address], [facility] [address], [place], [place], [id number], [place]. tel:[phone] Referring Provider: Maurice Burkett, [address] [place] [address], [place], [address]. tel:[phone] [facility], [address] [address], [place], [address], [place] tel:[phone] [facility] No Information No Information Referring Provider: Maurice Burkett, [address] [place] [address], [place], [address]. tel:[phone] Init Inpt Cons New/est Mod-hi [facility], [address] [address], [place], [address], [place] tel:[phone] [facility] No Information 2 Flora Alexandra. [address] [place] [address], [place], [place], [id number], [place]. tel:[phone] Referring Provider: Maurice Burkett, [address] [place] [address], [place], [address]. tel:[phone] [facility] Minr [facility], [address] [address], [place], [address], [place] tel:[phone] [facility] No Information 2 No Information Referring Provider: Maurice Burkett, [address] [place] [address], [place], [address]. tel:[phone] [facility] E[facility] Minr Compl [facility], [address] [address], [place], [id number], [place] tel:[phone] [facility] No Information 2 Chandrakant Villanueva. [address] [facility], [facility] [address], [place], [place], [address], [place]. tel:[phone] Referring Provider: Maurice Burkett, [address] [place] [address], [place], [address]. tel:[phone] [facility] Minr Compl [facility], [address] [address], [place], [id number], [place] tel:[phone] [facility] No Information 2 Chandrakant Villanueva. [address] [place] [address], [facility] [address], [place], [place], [address], [place]. tel:[phone] Referring Provider: Kay Vu, [address] [place] [address] [address], [place], [address] . tel:[phone] [facility] Stable 15 M [facility], [address] [address], [place], [id number], [place] tel:[phone] [facility] No Information 2 No Information [facility]da E&m Minr Compl [facility], [address] [address], [place], [address], [place] tel:[phone] [facility] No Information 2 No Information [facility] H[facility]-da E&m Minr Compl [facility], [address] [address], [place], [id number], [place] tel:[phone] [facility] No Information 2 Chandrakant Villanueva. [address] [facility], [facility] [address], [place], [address], [place]. tel:[phone] Referring Provider: Annabelle Nieto, [address] , [place], [address]. tel:[phone] [facility] Minr Compl [facility], [address] [address], [facility] [place], [address], [place] tel:[phone] [facility] No Information No Information Subsqt Hosp-da E&m Sig Compl 3 [facility], [address] [address], [facility] [place], [address], [place] tel:[phone] [facility] No Information 2 Tyler ARMSTRONG Karen. [address] [facility], [facility] [address], [place], [address], [place]. tel:[phone] Referring Provider: Annabelle Nieto, [address] , [place], [address]. tel:[phone] [facility] Minr Compl [facility], [address] [address], [place], [place], [address], [place] tel:[phone] [facility] No Information 2 No Information Referring Provider: Annabelle Nieto, [address] , [place], [address]. tel:[phone] [facility]da E[facility]m Minr Compl [facility], [address] [address], [facility] [place], [address], [place] tel:[phone] [facility] No Information 2 No Information Referring Provider: Annabelle Nieto, [address] , [place], [address]. tel:[phone] [facility]da E&m Minr Compl [facility], [address] [address], [facility] [place], [id number], [place] tel:[phone] [facility] No Information 2 No Information Referring Provider: Annabelle Nieto, [address], [place], [address]. tel:[phone] [facility] E[facility]m Minr Compl [facility], [address] [address], [place], [address], [place] tel:[phone] [facility] No Information 2 No Information Referring Provider: Annabelle Nieto, [address], [place], [address]. tel:[phone] [facility]da E[facility]m Minr Compl [facility], [address] [address], [place], [address], [place] tel:[phone] [facility] No Information 2 Nesset INSEAM TRIMMER [place]. [address] [place] [address], [id number], [place]. tel:[phone] Referring Provider: Annabelle Nieto, [address] , [place], [address]. tel:[phone] [facility]m Minr Compl [facility], [address] [address], [facility] [place], [address], [place] tel:[phone] [facility] No Information 2 No Information Referring Provider: Annabelle Nieto, [address] , [place], [address]. tel:[phone] [facility]t H[facility]-da E&m Minr Compl [facility], [address] [address], [facility] [place] [facility], [address], [place] tel:[phone] [facility] No Information 2 Nesset INSEAM TRIMMER [place]. [address] [place] [address], [place], [id number], [place]. tel:[phone] Referring Provider: Annabelle Nieto, [address], [place], [address]. tel:[phone] Init Inpt Cons New/est Mod-hi [facility], [address] [address], [place], [address], [place] tel:[phone] [facility] No Information 2 No Information Referring Provider: Annabelle Nieto, [address], [place], [address]. tel:[phone] Offic/outpt E&m Estab Mod-hi 2 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 tel:[phone] [facility], [address] [address], [place], [address], [place] tel:[phone] [facility] Acute Pancreatitis 1 No Information Offic Cons New/estab Mod [facility], [address] [address], [place], [address], [place] tel:[phone] [facility] Pancreatitis (chief complaint) Acute Pancreatitis Non-alcoholi c Fatty Liver 1 No Information Referring Provider: Annabelle Nieto, [address], [place], [address]. tel:[phone] Family History Family Member Type Diagnosis Age [...] date/timeframe: 05/29/2017 ordered Referral Ordered: referred to [facility] chronic pain w/ pancreatitis ordered Referral [...]
--- OUTSIDE RECORDS SUMMARY | 2024-08-02 19:00 | XMS_ITS | Continuity of Care Document ---
Author Organization [facility] Address [address] [address] [place] [address] Phone Care Team Providers Care Carpet Sewer Name Role Phone Radha Ordoñez Unavailabl e [...] Encounter [facility] [address] [address], [place], [id number], [place] tel:[phone] [facility] No Information 4 Ap Garcia. [address] [facility] [address], [place], [place], [address], [place]. tel:[phone] Init Hosp-da E&m Mod Severity [facility], [address] [address], [place], [place], [address], [place] tel:[phone] [facility] No Information Jul-0 4 Ap Garcia. [address] [place] [address] 500, [place], [place], [address], [place]. tel:[phone] Referring Provider: Kyle Scherer DO, [address] [place] [address], [place], [address]. tel:[phone] Subsqt Hosp-da E&m Minr Compl [facility], [address] [address], [place], [address], [place] tel:[phone] [facility] No Information Sep- Nesset BIANCA Zambrano. [address] [place] [address], [id number], [place]. tel:[phone] Galo Huang DO. tel:[phone] erring Provider: Robin Holcomb, [address] [facility], [place], [address]. tel:[phone] Subsqt Hosp-da E&m Stable 15 M [facility], [address] [address], [place], [place], [address], [place] tel:[phone] [facility] No Information Sep- 7 Chandrakant Villanueva. [address] [address], [place], [place], [address], [place]. tel:[phone] Referring Provider: Robin Holcomb, [address] [facility], [place], [address]. tel:[phone] Init Inpt Cons New/est Mod-hi [facility], [address] [address], [facility], [place], [id number], [place] tel:[phone] [facility] No Information Sep-2 7 No Information Referring Provider: Robin Holcomb, [address], [place], [address]. tel:[phone] Subsqt Hosp-da E&m Minr Compl [facility], [address] [address], [place], [address], [place] tel:[phone] [facility] No Information Sep-2 0 7 Nesset BIANCA Ortizy. [address] [place] [address], [id number], [place]. tel:[phone] Referring Provider: Robin Holcomb, [address], [place], [address]. tel:[phone] Subsqt Hosp-da E&m Minr Compl [facility], [address] [address], [place], [address], [place] tel:[phone] [facility] No Information Sep- Chandrakant Villanueva. [address] [place] [address], [id number], [place]. tel:[phone] Referring Provider: Robin Holcomb, [address], [place], [address]. tel:[phone] [facility], [address] [address], [place], [address], [place] tel:[phone] [facility] No Information Sep- Licha Pryor. [address] [place] [address], [id number], [place]. tel:[phone] Referring Provider: Robin Holcomb, [address], [place], [address]. tel:[phone] [facility], [address] [address], [place], [address], [place] tel:[phone] [facility] Encounter for removal of biliary stentChronic pancreatitis , unspecified pancreatitis type Sep- Licha Pryor. [address] [place] [address], [id number], [place]. tel:[phone] Init Inpt Cons New/est Mod-hi [facility], [address] [address], [place], [address], [place] tel:[phone] [facility] No Information Sep- 7 Elsa Alfred. [address] [facility] [address], [place], [place], [address], [place]. tel:[phone] Referring Provider: Robin Holcomb, [address], [place], [address]. tel:[phone] [facility], [address] [address], [place], [address], [place] tel:[phone] [facility] Chronic pancreatitis , unspecified pancreatitis type Sep- 7 Ganesh King. [address] [place] [address], [id number], [place]. tel:[phone] Galo Huang DO. tel:[phone] Subsqt Hosp-da E&m Minr Compl [facility], [address] [address], [place], [address], [place] tel:[phone] [facility] No Information Sep-0 Stephane Neumann. [address] [address], [place], [place], [address], [place]. [phone] Referring Provider: Robin Holcomb, [address], [place], [address]. tel:[phone] Subsqt Hosp-da E&m Minr Compl [facility], [address] [address], [place], [address], [place] tel:[phone] [facility] No Information Sep-0 7 Chandrakant Villanueva. [address] [place] [address], [id number], [place]. tel:[phone] Referring Provider: Robni Holcomb, [address], [place], [address]. tel:[phone] Init Inpt Cons New/est Mod-hi [facility], [address] [address], [place], [address], [place] tel:[phone] [facility] No Information Ganesh King. [address] [facility] [address], [place], [place], [address], [place]. tel:[phone] Referring Provider: Robin Holcomb, [address], [place], [address]. tel:[phone] Subsqt Hosp-da E&m Minr Compl [facility], [address] [address], [place], [address], [place] tel:[phone] [facility] No Information No Information Referring Provider: Robin Holcomb, [address], [place], [address]. tel:[phone] [facility], [address] [address], [place], [address], [place] tel:[phone] [facility] No Information Licha Pryor. [address] [facility] [address], [place], [place], [address], [place]. tel:[phone] Referring Provider: Robin Holcomb, [address], [place], [address]. tel:[phone] Subsqt Hosp-da E&m Minr Compl [facility], [address] [address], [place], [address], [place] tel:[phone] [facility] No Information No Information Referring Provider: Robin Holcomb, [address], [place], [address]. tel:[phone] Init Inpt Cons New/estab Mod 5 [facility], [address] [address], [place], [address], [place] tel:[phone] [facility] No Information Madi Mcconnell. [address] [facility] [address], [place], [address], [place]. tel:[phone] Referring Provider: Robin Holcomb, [address], [place], [address]. tel:[phone] [facility], [address] [address], [facility] [place], [address], [place] tel:[phone] [facility] Chronic pancreatitis , unspecified pancreatitis type 7 Licha Pryor. [address] [facility] [address], [place], [address], [place]. tel:[phone] Galo Huang DO. tel:[phone] Init Inpt Cons New/est Mod-hi [facility], [address] [address], [facility], [address], [place] tel:[phone] [facility] No Information No Information Referring Provider: Robin Holcomb, [address], [place], [address]. tel:[phone] [facility], [address] [address], [facility] [place], [address], [place] tel:[phone] [facility] Chronic pancreatitis , unspecified pancreatitis type Dakota Reed. [address] [facility] [address], [place], [address], [place]. tel:[phone] Subsqt Hosp-da E&m Minr Compl [facility], [address] [address], [facility] [place], [address], [place] tel:[phone] [facility] No Information 6 Jesus Duran. [address] [facility] [address], [place], [place], [address], [place]. tel:[phone] Referring Provider: Renee James, [facility] [address], [place], [address] . tel:[phone] Init Inpt Cons New/est Mod-hi [facility], [address] [address], [place], [address], [place] tel:[phone] [facility] No Information Danuta Gomes. [address] [facility] [address], [place], [place], [address], [place]. tel:[phone] Referring Provider: Eliseo Burkett, [address] [facility] [address], [place], [address] . tel:[phone] [facility], [address] [address], [place], [address], [place] tel:[phone] [facility] No Information Licha Pryor. [address] [facility] [address], [place], [place], [address], [place]. tel:[phone] Referring Provider: Konstantin Hurt MD, [address] [place] [address] 500, [place], [address] . tel:[phone] [facility], [address] [address], [place], [address], [place] tel:[phone] [facility] Bile duct obstruction Licha Pryor. [address] [facility] [address], [place], [place], [address], [place]. tel:[phone] Galo Huang DO. tel:[phone] erring Provider: Referral Self, USE FOR SELF REFERRALS. [facility], [address] [address], [place], [address], [place] tel:[phone] [facility] No Information 5 Licha Pryor. [address] [place] [address], [facility] [address], [place], [place], [address], [place]. tel:[phone] Referring Provider: [place], [address] [place] [address] 500, [place], [address] . tel:[phone] Subsqt Hosp-da E&m Minr Compl [facility], [address] [address], [place], [address], [place] tel:[phone] [facility] No Information Apr-1 5 Nesset [employer] [place]. [address] [facility] [address], [place], [place], [address], [place]. [phone] Referring Provider: Isai Ac MD, [address] [facility] [address], [place], [address]. tel:[phone] [facility], [address] [address], [place], [address], [place] tel:[phone] [facility] No Information Apr-0 5 Licha Pryor. [address] [facility] [address], [place], [place], [address], [place]. [phone] Referring Provider: Isai Ac MD, [address] [facility] [address], [place], [address]. tel:[phone] [facility], [address] [address], [place], [address], [place] tel:[phone] [facility] Acute Pancreatitis Acute pancreatitis , unspecified 0 5 Licha Pryor. [address] [facility] [address], [place], [place], [address], [place]. tel:[phone] [facility], [address] [address], [place], [address], [place] tel:[phone] [facility] Acute Pancreatitis Mar-0 5 Licha Pryor. [address] [facility] [address], [place], [place], [address], [place]. [phone] Referring Provider: Referral Self, USE FOR SELF REFERRALS. Subsqt Hosp-da E&m Minr Compl [facility], [address] [address], [place], [address], [place] tel:[phone] [facility] No Information 0 5 Nesset [employer] [place]. [address] [facility] [address], [place], [place], [address], [place]. tel:[phone] Referring Provider: Isai Ac MD, [address] [facility] [address], [place], [address]. tel:[phone] Subsqt Hosp-da E&m Minr Compl [facility], [address] [address], [place], [address], [place] tel:[phone] [facility] No Information 5 Stephane EDWIN Nel. [address] [facility] [address], [place], [place], [address], [place]. tel:[phone] Referring Provider: Isai Ac MD, [address] [facility] [address], [place], [address]. tel:[phone] Init Inpt Cons New/estab Mod 5 [facility], [address] [address], [facility], [address], [place] tel:[phone] [facility] No Information 5 Nesset [employer] [place]. [address] [facility] [address], [place], [address], [place]. tel:[phone] Referring Provider: Isai Ac MD, [address] [facility] [address], [place], [address]. tel:[phone] Offic/outpt E&m Estab Low-mod [facility], [address] [address], [place], [address], [place] tel:[phone] [facility] No Information 5 Licha Pryor. [address] [facility] [address], [place], [place], [address], [place]. tel:[phone] Referring Provider: Annabelle Nieto, [address] [place] [address], [place], [address]. tel:[phone] Init Inpt Cons New/est Mod-hi [facility], [address] [address], [place], [address], [place] tel:[phone] [facility] No Information Danuta Gomes. [address] [place] [address], [address], [place]. tel:[phone] Referring Provider: Annabelle Nieto, [address], [place], [address]. tel:[phone] Subsqt Hosp-da E&m Minr Compl [facility], [address] [address], [place], [address], [place] tel:[phone] [facility] No Information Collin [employer] [place]. [address] [place] [address], [id number], [place]. tel:[phone] Referring Provider: Annabelle Nieto, [address] , [place], [address]. tel:[phone] Subsqt Hosp-da E&m Minr Compl [facility], [address] [address], [facility], [address], [place] tel:[phone] [facility] No Information Collin Zambrano. [address] [place] [address], [id number], [place]. tel:[phone] Referring Provider: Annabelle Nieto, [address] , [place], [address]. tel:[phone] Subsqt Hosp-da E&m Stable 15 M [facility], [address] [address], [place], [address], [place] tel:[phone] [facility] No Information No Information Referring Provider: Annabelle Nieto, [address] , [place], [address]. tel:[phone] Subsqt Hosp-da E&m Minr Compl [facility], [address] [address], [place], [address], [place] tel:[phone] [facility] No Information 0201 5 Nesset [employer] [place]. [address] [place] [address], [id number], [place]. tel:[phone] Referring Provider: Annabelle Nieto, [address] [facility], [place], [address]. tel:[phone] Init Inpt Cons New/est Mod-hi [facility] [place], [address] [address], [facility] [place], [address], [place] tel:[phone] [facility] No Information 5 Licha Pryor. [address] [place] [address], [id number], [place]. tel:[phone] Referring Provider: Annabelle Nieto, [address] [facility], [place], [address]. tel:[phone] [facility], [address] [address], [facility], [place], [address], [place] tel:[phone] [facility] No Information 5 Licha Pryor. [address] [place] [address], [id number], [place]. tel:[phone] Referring Provider: Annabelle Nieto, [address] [facility], [place], [address]. tel:[phone] [facility], [address] [address], [facility] [place], [address], [place] tel:[phone] [facility] Acute Pancreatitis 5201 5 No Information Referring Provider: Referral Self, USE FOR SELF REFERRALS. Subsqt Hosp-da E&m Minr Compl [facility] [place], [address] [address], [place], [address], [place] tel:[phone] [facility] No Information 0 3-201 5 Nesset [employer] [place]. [address] [place] [address], [id number], [place]. tel:[phone] Referring Provider: Yariel Cortez MD, [address], [place], [address]. tel:[phone] Init Inpt Cons New/est Mod-hi [facility], [address] [address], [place], [place], [address], [place] tel:[phone] [facility] No Information 5 No Information Referring Provider: Yariel Cortez MD, [address], [place], [address]. 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 tel:[phone] Offic/outpt E&m Estab Low-mod [facility], [address] [address], [place], [place], [address], [place] tel:[phone] [facility] No Information 3 Licha Pryor. [address] [facility], [place], [place], [address], [place]. tel:[phone] Referring Provider: Annabelle Nieto, [address] [facility], [place], [address]. tel:[phone] Subsqt Hosp-da E&m Minr Compl [facility] [place], [address] [address], [place], [place], [address], [place] tel:[phone] [facility] No Information 3 Nesset [employer] [place]. [address] [facility] [address], [place], [address], [place]. tel:[phone] Referring Provider: Rudi Burkett, [address], [place], [address]. tel:[phone] Subsqt Hosp-da E&m Minr Compl [facility], [address] [address], [place], [address], [place] tel:[phone] [facility] No Information 3 Nesset [employer] [place]. [address] [facility] [address], [place], [address], [place]. tel:[phone] Referring Provider: Rudi Burkett, [address], [place], [address]. tel:[phone] Subst Hosp-da E&m Minr Compl [facility], [address] [address], [place], [place], [address], [place] tel:[phone] [facility] No Information 3 Chandrakant Villanueva. [address] [facility] [address], [place], [address], [place]. tel:[phone] Referring Provider: Rudi Burkett, [address], [place], [address]. tel:[phone] Offic/outpt E&m Estab Mod-hi 2 [facility], [address] [address], [place], [place], [address], [place] tel:[phone] [facility] No Information 2 Licha Pryor. [address] [facility] [address], [place], [address], [place]. tel:[phone] [facility], [address] [address], [facility] [place], [address], [place] tel:[phone] [facility] Obstruction Of Bile Duct 2 Licha Pryor. [address] [facility] [address], [place], [place], [address], [place]. tel:[phone] [facility], [address] [address], [facility], [address], [place] tel:[phone] [facility] No Information 2 Licha Pryor. [address], [id number], [place]. tel:[phone] Referring Provider: Annabelle Nieto, [address] , [place], [address]. tel:[phone] Subsqt Hosp-da E&m Stable 15 M [facility], [address] [address], [facility], [place], [address], [place] tel:[phone] [facility] No Information 2 Mahamed Garcia. [address], [id number], [place]. tel:[phone] Referring Provider: Annabelle Nieto, [address] [facility], [place], [address]. tel:[phone] Subsqt Hosp-da E&m Minr Compl [facility], [address] [address], [facility], [place], [address], [place] tel:[phone] [facility] No Information 2 Collin Zambrano. [address], [id number], [place]. tel:[phone] Referring Provider: Annabelle Nieto, [address], [place], [address]. tel:[phone] [facility], [address] [address], [facility], [address], [place] tel:[phone] [facility] No Information 2 Licha Pryor. [address] [place] [address], [id number], [place]. tel:[phone] Referring Provider: Annabelle Nieto, [address] [facility], [place], [address]. tel:[phone] [facility], [address] [address], [place], [address], [place] tel:[phone] [facility] Obstruction Of Bile DuctAcute Pancreatitis 2 Licha Pryor. [address] [address], [place], [place], [address], [place]. tel:[phone] Referring Provider: Annabelle Nieto, [address] [facility], [place], [address]. tel:[phone] Subsqt Hosp-da E&m Minr Compl [facility], [address] [address], [place], [address], [place] tel:[phone] [facility] No Information 2 Collin Zambrano. [address] [facility] [address], [place], [place], [address], [place]. tel:[phone] Referring Provider: Maurice Burkett, [address] [place] [address], [place], [address]. tel:[phone] Subsqt Hosp-da E&m Minr Compl [facility], [address] [address], [place], [address], [place] tel:[phone] [facility] No Information 2 No Information Referring Provider: Maurice Burkett, [address] [place] [address] [place] [address], [place], [address]. tel:[phone] Subsqt Hosp-da E&m Minr Compl [facility], [address] [address], [place], [address], [place] tel:[phone] [facility] No Information 0 2 No Information Referring Provider: Maurice Burkett, [address] [place] [address], [place], [address]. tel:[phone] Subsqt Hosp-da E&m Minr Compl [facility], [address] [address], [place], [address], [place] tel:[phone] [facility] No Information 2 Collin VALENZUELA [place]. [address] [facility] [address], [place], [place], [address], [place]. tel:[phone] Referring Provider: Maurice Burkett, [address] [place] [address], [place], [address]. tel:[phone] Subsqt Hosp-da E&m Minr Compl [facility], [address] [address], [place], [id number], [place] tel:[phone] [facility] No Information 2 Chandrakant Villanueva. [address] [facility] [address], [place], [place], [id number], [place]. tel:[phone] Referring Provider: Maurice Burkett, [address] [place] [address], [place], [address]. tel:[phone] [facility] Stable 15 M [facility], [address] [address], [place], [place], [id number], [place] tel:[phone] [facility] No Information 2 Mahamed Garcia. [address] [facility] [facility], [place], [place], [id number], [place]. tel:[phone] Referring Provider: Maurice Burkett, [address] [place] [address], [place], [address]. tel:[phone] [facility], [address] [address], [place], [address], [place] tel:[phone] [facility] No Information 2 No Information Referring Provider: Maurice Burkett, [address] [place] [address], [place], [address]. tel:[phone] [facility], [address] [address], [place], [id number], [place] tel:[phone] [facility] No Information 2 No Information Referring Provider: Maurice Burkett, [address] [place] [address], [place], [address]. tel:[phone] [facility] Min[facility] Compl [facility], [address] [address], [place], [id number], [place] tel:[phone] [facility] No Information 2 Chandrakant Villanueva. [address] [place] [address], [facility], [place], [place], [id number], [place]. tel:[phone] Referring Provider: Maurice Burkett, [address] [place] [address], [place], [address]. tel:[phone] [facility], [address] [address], [place], [address], [place] tel:[phone] [facility] No Information No Information Referring Provider: Maurice Burkett, [address] [place] [address], [place], [address]. tel:[phone] Init Inpt Cons New/est Mod-hi [facility], [address] [address], [place], [id number], [place] tel:[phone] [facility] No Information 2 Flora Alexandra. [address] [place] [address], [place], [place], [id number], [place]. tel:[phone] Referring Provider: Maurice Burkett, [address] [place] [address], [place], [address]. tel:[phone] [facility]r [facility], [address] [address], [place], [address], [place] tel:[phone] [facility] No Information 2 No Information Referring Provider: Maurice Burkett, [address] [place] [address], [place], [address]. tel:[phone] [facility] Minr Compl [facility], [address] [address], [place], [id number], [place] tel:[phone] [facility] No Information 2 Chandrakant Villanueva. [address] [facility], [facility], [place], [place], [id number], [place]. tel:[phone] Referring Provider: Maurice Burkett, [address] [place] [address], [place], [address]. tel:[phone] [facility] Minr Compl [facility], [address] [address], [place], [id number], [place] tel:[phone] [facility] No Information 2 Chandrakant Villanueva. [address] [place] [address], [facility], [place], [place], [id number], [place]. tel:[phone] Referring Provider: Kay Vu, [address] [place] [address] [address], [place], [address] . tel:[phone] [facility] Stable 15 M [facility], [address] [address], [place], [id number], [place] tel:[phone] [facility] No Information 2 No Information [facility] Minr Compl [facility], [address] [address], [place], [id number], [place] tel:[phone] [facility] No Information 2 No Information [facility] Minr Compl [facility], [address] [address], [place], [id number], [place] tel:[phone] [facility] No Information 2 Chandrakant Villanueva. [address] [facility], [facility] [address], [place], [address], [place]. tel:[phone] Referring Provider: Annabelle Nieto, [address] , [place], [address]. tel:[phone] [facility] Minr Compl [facility], [address] [address], [facility] [place], [address], [place] tel:[phone] [facility] No Information No Information [facility]t Hosp-da E&m Sig Compl 3 [facility], [address] [address], [facility] [place], [id number], [place] tel:[phone] [facility] No Information 2 Tyler ARMSTRONG Karen. [address] [facility], [facility] [address], [place], [address], [place]. tel:[phone] Referring Provider: Annabelle Nieto, [address] , [place], [address]. tel:[phone] [facility] Minr Compl [facility], [address] [address], [place], [place], [address], [place] tel:[phone] [facility] No Information 2 No Information Referring Provider: Annabelle Nieto, [address] , [place], [address]. tel:[phone] [facility] Minr Compl [facility], [address] [address], [facility] [place], [id number], [place] tel:[phone] [facility] No Information 2 No Information Referring Provider: Annabelle Nieto, [address] , [place], [address]. tel:[phone] [facility]m Minr Compl [facility], [address] [address], [facility], [place], [address], [place] tel:[phone] [facility] No Information 2 No Information Referring Provider: Annabelle Nieto, [address], [place], [address]. tel:[phone] [facility]m Minr Compl [facility], [address] [address], [place], [address], [place] tel:[phone] [facility] No Information 2 No Information Referring Provider: Annabelle Nieto, [address], [place], [address]. tel:[phone] [facility] Minr Compl [facility], [address] [address], [place], [address], [place] tel:[phone] [facility] No Information 2 [employer] [place]. [address] [place] [address], [id number], [place]. tel:[phone] Referring Provider: Annabelle Nieto, [address] , [place], [address]. tel:[phone] [facility]m Minr Compl [facility], [address] [address], [facility] [place], [address], [place] tel:[phone] [facility] No Information 2 No Information Referring Provider: Annabelle Nieto, [address] , [place], [address]. tel:[phone] [facility]osp-da E&m Minr Compl [facility], [address] [address], [facility] [place] [address], [place] tel:[phone] [facility] No Information 2 [employer] [place]. [address] [place] [address], [place], [id number], [place]. tel:[phone] Referring Provider: Annabelle Nieto, [address], [place], [address]. tel:[phone] Init Inpt Cons New/est Mod-hi [facility], [address] [address], [place], [id number], [place] tel:[phone] [facility] No Information 2 No Information Referring Provider: Annabelle Nieto, [address], [place], [address]. 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 tel:[phone] [facility], [address] [address], [place], [address], [place] tel:[phone] [facility] Acute Pancreatitis 1 No Information Offic Cons New/estab Mod [facility], [address] [address], [place], [address], [place] tel:[phone] [facility] Pancreatitis (chief complaint) Acute Pancreatitis Non-alcoholi c Fatty Liver 1 No Information Referring Provider: Annabelle Nieto, [address], [place], [address]. tel:[phone] Family History Family Member Type Diagnosis Age [...] disorder Payers Payer name Insurance type Covered green party ID Authoriza tion(s) No Information Social History Type Description Quantity Date Captured Comments Sex Male Smoking Status No Information Chief Complaint And Reason For Visit No Information Reason For Referral Reason For Referral No Information Plan Of Treatment Date Type Action Status Referral Ordered: Xray Abdomen; Limited (AP View Only) (KUB) Appointment date/timeframe: 05/29/2017 ordered Referral Ordered: referred to [facility] chronic pain w/ pancreatitis ordered [...]
--- OUTSIDE RECORDS SUMMARY | 2025-02-07 05:05 | XMS_ITS | Clinical Summary ---
Author Organization [employer] [facility] [employer] [facility] Address [address] [place] [address] Care Team Providers Care Runstitching Machine Operator Name Role Phone JaseKyle craig Primary Care Provider [phone] Gianni Brink MD Unavailable Allergies Active Allergy [...] if needed for Nausea/Vomiting . 023 Active clobetasol (TEMOVATE) 0.05 % cream APPLY TOPICALLY TO THE AFFECTED AREA TWICE DAILY FOR 2 WEEKS 024 Active Lantus Solostar U-100 Insulin 100 unit/mL (3 mL) penIndications:Ty pe 1 diabetes mellitus without complication (HC) Inject 34 units subcutaneous before bedtime. INJECT 34 UNITS SUBCUTANEOUS BEFORE BEDTIME 30 mL 3 025 Active BD Insulin Pen Needle UF 31 gauge x 5/16 (disposable insulin pen needle)Indication s:Diabetes mellitus type 1, uncomplicated (HC) USE FOUR TIMES DAILY 400 Each 3 025 Active FreeStyle Jean 14 Day SensorIndications :Type 1 diabetes mellitus with hyperglycemia (HC) USE 1 SENSOR EVERY 14 DAYS 6 Each 3 025 Active insulin aspart (U-100) 100 unit/mL (3 mL) penIndications:Ty pe 1 diabetes mellitus without complication (HC) Inject 9 units subcutaneous three times daily before meals. 9 mL 025 Active FreeStyle Jean 14 Day SensorIndications :Type 1 diabetes mellitus with hyperglycemia (HC) USE DIRECTED 6 Each 3 024 2024 Discontinued insulin aspart (U-100) 100 unit/mL (3 mL) penIndications:Ty pe 1 diabetes mellitus without complication (HC) Inject 9 units subcutaneous three times daily before meals. 60 mL 025 2024 Discontinued(R eorder (E-cancel not sent)) Active Problems Problem Noted Date Diagnosed Date [...] Encounters Date Type Department Care Team Description 02/05/2025 Telephone [facility] [address] [place] [address] Shaqra, Adei, DO Medication Management (insulin aspart (U-100) 100 unit/mL (3 mL) subcutaneous pen (NOVOLOG FLEXPEN)/ /) 02/05/2025 Telephone [facility] [address] [place] [address] Kyle Scherer DO Refill Request (Novolog Flexpen Insulin) 02/03/2025 Refill [facility] [address] [place] [address] Kyle Scherer DO Refill Request (insulin aspart (U-100) 100 unit/mL (3 mL) pen) 01/23/2025 Refill [facility] [address] [place] [address] Kyle Scherer DO Refill Request (Freestyle Jean 14 Day Sensor) 01/01/2025 Refill [facility] [address] [place] [address] Kyle Scherer DO Refill Request (Insulin Aspart (U-100)) 12/11/2024 Refill [facility] [address] [place] [address] Kyle Scherer DO Refill Request (Bd Insulin Pen Needle Uf) 11/28/2024 Refill [facility] [address] [place] [address] Kyle Scherer DO Refill Request (Lantus Solostar U-100 Insulin) from Last 3 Months Immunizations Immunization Administration [...] Diabetes Paternal Grandmother Heart Disease Paternal Uncle [place] Anesthesia Problem No Family History Blood Disease [...] PM CDT Legal Sex Male 5:27 AM WIRELESS COMMUNICATIONS ENGINEER Gender Identity Male 05/23/2021 10:03 PM CDT Sexual Orientation Straight 05/23/2021 10 :03 PM CDT Obstetrics History Last Filed Vital Signs Vital Sign Reading Time Taken Comments Blood Pressure 126/80 08/12/2024 1:13 PM WIRELESS COMMUNICATIONS ENGINEER Pulse 74 08/12/2024 1:13 PM WIRELESS COMMUNICATIONS ENGINEER Temperature 36.6 C (97.8 F) 08/04/2024 7:53 AM WIRELESS COMMUNICATIONS ENGINEER Respiratory Rate 20 08/04/2024 7:53 AM WIRELESS COMMUNICATIONS ENGINEER Oxygen Saturation 98% 2024 1:46 PM WIRELESS COMMUNICATIONS ENGINEER Inhaled Oxygen Concentration - - Weight 72.7 kg (160 lb 4.8 oz) 08/12/2024 1:13 P M WIRELESS COMMUNICATIONS ENGINEER Height 167.6 cm (5' 6) 06/27/2023 8:44 AM CDT Body Mass Index 25.87 06/27/2023 8:44 AM CDT Plan of Treatment Upcoming Encounters Date Type Department Care Team (Late st Contact Info) Description 02/25/2025 7:15 AM CDT Office Visit [facility] [address] [place] [facility] [place] [address] Kyle Scherer DO [address] [place] [address] Health Maintenance Due Date Last Done Comments Depression screening for age 12+ 11/02/2023 11/01/2022, 07/15/2021, 07/07/2021, Additional history exists COVID-19 vaccine series ( season) 2024 07/05/2022, 07/08/2021, 11/04/2020 BMI (ht and wt on same day) for age 18+ 06/27/2024 06/27/2023, 11/01/2022, 10/11/2019, Additional history exists Influenza Vaccine (Season Ended) 2025 07/04/2022, 06/02/2021, 06/06/2019, Additional history exists Tetanus booster 01/09/2028 01/08/2018, 03/30, 04/27/2007 Hepatitis B series for 19+ Completed 04/17, 04/17/1995, 1994, Additional history exists Tdap Completed 04/27/2007 HIV for age 15-65 Completed 11/01/2022 Pneumococcal series for age 6-49 Completed 11/12/19, 10/11/2021 Hepatitis C screening for ag e 18-79 Completed 08/03/2024, 04/18/2017 Medical Devices Implanted Type Area Safety And Security Manager Device Identifier Shelf Expiration Date Model / Serial / Lot Stent Biliary 10-7 Raman Verakarolyn - [id number] Implanted:Qty: 1 on 04/11/2012 by Konstantin Hurt MD at [facility] N/A: Common Bile Duct Cook End[facility] CHBSO-10- 7# / / [id number] Stent Pancreatic Geenen 7-9gepd-7-9 [place] - [id number] Implanted:Qty: 1 on 04/11/2012 by Konstantin Hurt MD at [facility] N/A: Pancreas Cook Endoscopy GEPD-7-9# / / Stent Pancreatic [id number] Geenen Set - [id number] Implanted:Qty: 1 on 05/06/2015 by Konstantin Hurt MD at [facility] N/A: Pancreas [place] [facility] GEPD-7-9# / / [id number] Stent Pancreatic 10fr 7cm Gpso Segundomarissan - [id number] Implanted:Qty: 1 on 06/10/2015 by Konstantin Hurt MD at [facility] GPSO-10-7 # / / [id number] Stent Pancreatic 3sop2ms Geenen Sof-Flex No Flap - [id number] Implanted:Qty: 1 on 07/01/2015 by Konstantin Hurt MD at [facility] 01/25/2018 GPSOS-SF- 5-7# / / [id number] Description:implanted to ibrahim creatic duct during ERCP. Stent Pancreatic [id number] Advanix Stra Una Plst - [id number] Implanted:Qty: 1 on 04/21/2017 by Konstantin Hurt MD at [facility] N/A: Pancreas [facility] 07/11/2018 [id number] # / / [id number] Inactive/Delete 04/07/17stent Pancreatic [id number] Geene - [id number] Implanted:Qty: 1 on 05/15/2017 by Konstantin Hurt MD at [facility] 03/16/2020 GPSOS-SF- 5-5# / / Procedures Procedure Name Priority Date/Time Associated Diagnosis Comments ACUTE HEPATITIS PANEL MARTHA 08/03/2024 7:09 AM WIRELESS COMMUNICATIONS ENGINEER LC HIV-1/O/2, 4TH GENERATION Routine 11/01/2022 3:38 PM WIRELESS COMMUNICATIONS ENGINEER Screening for HIV (human immunodeficiency virus) from Last 3 Months or Most Recently Relevant to Health Maintenance Results * ACUTE HEPATITIS PANEL (08/03/2024 7:09 AM WIRELESS COMMUNICATIONS ENGINEER) HEPATITIS C ANTIBODY Non-Reactive Non-Reactive 08/04/2024 12:45 AM WIRELESS COMMUNICATIONS ENGINEER [facility] LABORAT[facility] Comment:Please note, per www .CDC.gov: If a patient is known to be at high risk of HCV infection, or is symptomatic, and the physician's suspicion of HCV infection is high, HCV RNA testing is often employed and is of diagnostic value, even after an initial negative anti-HCV test result. IGM ANTI HAV Non-Reactive Non-Reactive 08/04/20 12:45 AM WIRELESS COMMUNICATIONS ENGINEER [facility] Comment:Anti-HAV IgM non-macie ctive. Does not exclude the possibility of exposure to/or infection with HAV. Level of anti-HAV IgM may be below the cut-off in early infection. HBSAG Nonreactive Nonreactive 08/04/2024 12:45 AM WIRELESS COMMUNICATIONS ENGINEER [facility] IGM ANTI HBC Non-Reactive Non-Reactive 08/04/20 12:45 AM WIRELESS COMMUNICATIONS ENGINEER [facility] Comment:Anti-HBc IgM not det ected. Does not exclude the possibility of exposure to or infection with HBV. Blood BLOOD SPECIMEN / Unknown Butterfly / Unknown 08/03/2024 7:09 AM WIRELESS COMMUNICATIONS ENGINEER 08/03/2024 7:28 AM WIRELESS COMMUNICATIONS ENGINEER Narrative [facility] - 08/04/2024 12:45 AM WIRELESS COMMUNICATIONS ENGINEER Biotin supplements may cause clinically significant interference for this test assay. If interference is suspected, it is strongly recommended that biotin is discontinued for at least one week prior to retesting. us Robbie Dick MD SEND OUTS Final Result [facility] [address] [place] [address], [place] * HIV-1/O/2, 4TH GENERATION (11/01/2022 3:38 PM WIRELESS COMMUNICATIONS ENGINEER) HIV Scr 4th Gen Non Reactive Non Reactive 11/04/2022 10:06 PM WIRELESS COMMUNICATIONS ENGINEER [facility] ([facility] Comment: HIV Negative HIV-1/HIV-2 antibodies and HIV-1 p24 antigen were NOT detected. There is no laboratory evidence of HIV infection. Blood BLOOD SPECIMEN / Unknown Venipuncture / Unknown 11/01/2022 3:38 PM WIRELESS COMMUNICATIONS ENGINEER 11/01/2022 3:39 PM WIRELESS COMMUNICATIONS ENGINEER Narrative [facility] ([facility]) - 11/04/2022 10:06 PM WIRELESS COMMUNICATIONS ENGINEER [facility]formed at: [facility] [address] [place], [place] [id number] Spinner Fixer: Pravin Gardner MD, Phone: [phone] us Tosinteresita Lagunakiara [facility] Final Result [facility] [address] [place] [address], from Last 3 Months or Most Recently Relevant to Health Maintenance Insurance [facility] * Guarantor: [id number] Account Type Relation to Patient Date of Phone Billing Address [facility]/Ann Employer Advance Directives * Full Code [...] 9:53 AM 05/08/2017 2:06 PM Care Teams Runstitching Machine Operator Relationship Specialty Start Date End Date Kyle Scherer DO [facility] [place] [address] PCP - General Family Practice 03/11/21 Gianni Brink MD [address] [facility] [place] [address] Surgery - Urology 08/12/24
[2025-02-07 05:11] VITALS: BP 151/97; PULSE 100; RESP 18; TEMP 36.6; O2SAT 95
--- NOTE | 2025-02-07 05:44 | CRLHL7_ITS ---
For Patients: As a result of the Century Cures Act, medical imaging exams and procedure reports are released immediately into your electronic medical record. You may view this report before your referring provider. If you have questions, please contact your health care provider. INDICATION: Fall. COMPARISON: None. TECHNIQUE: CT of the brain / head without intravenous contrast. Multiplanar axial, coronal, and sagittal reformats were reconstructed. FINDINGS: No intracranial hemorrhage. Normal appearance of the white matter. No acute or subacute cortically based infarct. Scattered white matter hypodensities may be related to chronic microvascular ischemia. No mass or mass effect. Normal ventricles. Similar pattern of relative hyperdensity in the straight sinus and right transverse sinus. No skull fractures. No worrisome focal bone lesion. Dystrophic calcification in the subdermal lesion in the posterior neck just to the right of midline. See series 2, image 28. This is not a new finding. IMPRESSION: Normal head CT. Please note that all CT scans at this facility use dose modulation, iterative reconstruction, and/or weight-based dosing when appropriate to reduce radiation dose to as low as reasonably achievable. Dictated by Shara Maria MD @ 02/07/2025 6:11:20 AM (Electronically Signed)
[2025-02-07 05:47] LABS: Hemoglobin A1C* 8.2 % (0-5.6)
[2025-02-07 05:51] LABS: Albumin* 4.7 g/dL (3.3-5.0); Chloride* 106 mmol/L (96-114); Potassium* 3.7 mmol/L (3.6-5.1); Sodium* 142 mmol/L (135-149)
[2025-02-07 05:53] LABS: Blood Urea Nitrogen* 7 mg/dL (5-24); Creatinine* 0.6 mg/dL (0.5-1.5); Estimated Glomerular Filt Rate 133 ml/min
[2025-02-07 05:54] LABS: Alanine Aminotransferase* 38 U/L (4-50); Alkaline Phosphatase* 138 U/L (40-150); Anion Gap 12 mEq/L (7-15); Aspartate Amino Transferase* 45 U/L (12-35); Bilirubin Direct* 0.2 mg/dL (0.0-0.5); Bilirubin Total* 0.5 mg/dL (0.1-1.5); Calcium* 9.2 mg/dL (8.4-10.6); Carbon Dioxide* 24 mmol/L (20-32); Total Protein* 7.5 g/dL (6.0-8.3)
[2025-02-07 05:55] LABS: Ethanol* 0.25 % (0.01-0.03)
[2025-02-07 06:00] LABS: Glucose* 353 mg/dL (60-115)
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
[2025-02-07 06:14] LABS: Basophils Absolute Auto 0.05 K/uL (0.00-0.30); Basophils Percent Auto 0.8 % (0.0-3.0); Eosinophils Percent Auto 4.9 % (0.0-7.0); Hemoglobin* 15.1 gm/dL (13.5-17.5); Immature Granulocytes Abs Auto 0.06 K/uL (0.00-0.30); Lymphocytes Absolute Auto 1.59 K/uL (0.90-2.90); Lymphocytes Percent Auto 26.2 % (20-44); Mean Corpuscular HGB Conc 34 gm/dL (32-36); Mean Corpuscular Hemoglobin 30 pg (26-34); Mean Corpuscular Volume 87 fL (80-100); Monocytes Percent Auto 7.6 % (0.0-11.0); Neutrophils Absolute Auto 3.61 K/uL (1.7-7.0); Neutrophils Percent Auto 59.5 % (42.0-72.0); Platelet Count* 238 K/uL (140-440); RDW Coefficient of Variation % 12.1 % (11.5-15.5); Red Blood Count 5.06 m/uL (4.30-5.90); White Blood Count* 6.07 K/uL (4.50-11.00)
[2025-02-07 06:15] LABS: Slide Review Reflex No
[2025-02-07 06:29] LABS: Amphetamine Screen Urine Negative (Negative); Barbiturate Screen Urine Negative (Negative); Benzodiazepines Screen Urine Negative (Negative); Cannabinoid Screen Urine POSITIVE (Negative); Cocaine Screen Urine Negative (Negative); Methadone Screen Urine Negative (Negative); Methamphetamines Screen Urine Negative (Negative); Opiate Screen Urine Negative (Negative); Oxycodone Screen Urine Negative (Negative); Phencyclidine Screen Urine Negative (Negative); Tricyclic Antidepressant Urine Negative (Negative)
== END 2025-02-07 06:47 | disposition home or self-care (01) ==
PROVIDERS: Emergency Provider Family Medicine; PCP Student in an Organized Health Care Education/Training Program
DX: F10.129 Alcohol abuse with intoxication, unspecified (principal); F12.90 Cannabis use, unspecified, uncomplicated; E10.9 Type 1 diabetes mellitus without complications; Z79.4 Long term (current) use of insulin
CPT/HCPCS: 36415; 70450; 80048; 80076; 80306; 82077; 83036; 85025; 99282; 99283; 99284

== ENCOUNTER 2025-03-05 12:15 | Outpatient (CLI) | payer BC, SELFPAY | END 2025-03-05 12:16 | disposition home or self-care (01) | LOC: AMB 03-06 14:26 | PROVIDERS: PCP Student in an Organized Health Care Education/Training Program; Visit Provider Family Medicine | DX: R10.9 Unspecified abdominal pain (principal); R11.2 Nausea with vomiting, unspecified | CPT/HCPCS: A0425; A0427 ==

== ENCOUNTER 2025-03-05 12:51 | Emergency (ER) | payer BC, SELFPAY ==
--- OUTSIDE RECORDS SUMMARY | 2024-08-02 19:00 | XMS_ITS | Continuity of Care Document ---
Author Organization [facility] Address [address] [address] [place] [address] Phone Care Team Providers Care Wood Sawyer Name Role Phone Radha Ordoñez Unavailabl e [...] Encounter [facility] [address] [address], [place], [id number], [place] tel:[phone] [facility] No Information [address] [facility], [facility] 500, [place], [place], [address], [place]. tel:[phone] Init Hosp-da E&m Mod Severity [facility], [address] [address], [place], [place], [address], [place] tel:[phone] [facility] No Information Jul-0 4 Ap Garcia. [address] [place] [address] 500, [place], [place], [address], [place]. tel:[phone] Referring Provider: Kyle Scherer DO, [address] [place] [address], [place], [address]. tel:[phone] Subsqt Hosp-da E&m Minr Compl [facility], [address] [address], [place], [place], [address], [place] tel:[phone] [facility] No Information Sep- Nesset BIANCA Zambrano. [address] [place] [address], [id number], [place]. tel:[phone] Galo Huang DO. tel:[phone] erring Provider: Robin Holcomb, [address] [facility], [place], [address]. tel:[phone] Subsqt Hosp-da E&m Stable 15 M [facility], [address] [address], [place], [place], [address], [place] tel:[phone] [facility] No Information Sep- 7 Chandrakant Villanueva. [address] [address], [place], [place], [address], [place]. tel:[phone] Referring Provider: Robin Holcomb, [address] [facility], [place], [address]. tel:[phone] Init Inpt Cons New/est Mod-hi [facility], [address] [address], [facility], [place], [id number], [place] tel:[phone] [facility] No Information Sep-2 7 No Information Referring Provider: Robin Holcomb, [address], [place], [address]. tel:[phone] Subsqt Hosp-da E&m Minr Compl [facility], [address] [address], [place], [address], [place] tel:[phone] [facility] No Information Sep-2 0 7 Nesset BIANCA Ortizy. [address] [place] [address], [id number], [place]. tel:[phone] Referring Provider: Robin Holcomb, [address], [place], [address]. tel:[phone] Subsqt Hosp-da E&m Minr Compl [facility], [address] [address], [place], [address], [place] tel:[phone] [facility] No Information Sep- Chandrakant Villanueva. [address] [place] [address], [id number], [place]. tel:[phone] Referring Provider: Robin Holcomb, [address], [place], [address]. tel:[phone] [facility], [address] [address], [place], [address], [place] tel:[phone] [facility] No Information Sep- Licha Pryor. [address] [place] [address], [id number], [place]. tel:[phone] Referring Provider: Robin Holcomb, [address], [place], [address]. tel:[phone] [facility], [address] [address], [place], [address], [place] tel:[phone] [facility] Encounter for removal of biliary stentChronic pancreatitis , unspecified pancreatitis type Sep- Licha Pryor. [address] [place] [address], [id number], [place]. tel:[phone] Init Inpt Cons New/est Mod-hi [facility], [address] [address], [place], [address], [place] tel:[phone] [facility] No Information Sep- [address] [facility], [address] [address], [place], [place], [address], [place]. tel:[phone] Referring Provider: Robin Holcomb, [address], [place], [address]. tel:[phone] [facility], [address] [address], [place], [address], [place] tel:[phone] [facility] Chronic pancreatitis , unspecified pancreatitis type Sep- 7 Ganesh King. [address] [place] [address], [id number], [place]. tel:[phone] Galo Huang DO. tel:[phone] Subsqt Hosp-da E&m Minr Compl [facility], [address] [address], [place], [address], [place] tel:[phone] [facility] No Information Sep-0 Stephane Neumann. [address] [address], [place], [place], [address], [place]. [phone] Referring Provider: Robin Holcomb, [address], [place], [address]. tel:[phone] Subsqt Hosp-da E&m Minr Compl [facility], [address] [address], [place], [address], [place] tel:[phone] [facility] No Information Sep-0 7 Chandrakant Villanueva. [address] [place] [address], [id number], [place]. tel:[phone] Referring Provider: Robin Holcomb, [address], [place], [address]. tel:[phone] Init Inpt Cons New/est Mod-hi [facility], [address] [address], [place], [address], [place] tel:[phone] [facility] No Information Ganesh King. [address] [facility], [facility] 500, [place], [place], [address], [place]. tel:[phone] Referring Provider: Robin Holcomb, [address], [place], [address]. tel:[phone] Subsqt Hosp-da E&m Minr Compl [facility], [address] [address], [place], [address], [place] tel:[phone] [facility] No Information No Information Referring Provider: Robin Holcomb, [address], [place], [address]. tel:[phone] [facility], [address] [address], [place], [address], [place] tel:[phone] [facility] No Information Licha Pryor. [address] [facility], [facility] 500, [place], [place], [address], [place]. tel:[phone] Referring Provider: Robin Holcomb, [address], [place], [address]. tel:[phone] Subsqt Hosp-da E&m Minr Compl [facility], [address] [address], [place], [address], [place] tel:[phone] [facility] No Information No Information Referring Provider: Robin Holcomb, [address], [place], [address]. tel:[phone] Init Inpt Cons New/estab Mod 5 [facility], [address] [address], [place], [address], [place] tel:[phone] [facility] No Information Madi Mcconnell. [address] [facility], [facility] 500[place], [place], [address], [place]. tel:[phone] Referring Provider: Robin Holcomb, [address], [place], [address]. tel:[phone] [facility], [address] [address], [facility] [place], [address], [place] tel:[phone] [facility] Chronic pancreatitis , unspecified pancreatitis type [address] [facility], [facility] 500[place], [place], [address], [place]. tel:[phone] Galo Huang DO. tel:[phone] Init Inpt Cons New/est Mod-hi [facility], [address] [address], [facility] [place], [address], [place] tel:[phone] [facility] No Information No Information Referring Provider: Robin Holcomb, [address], [place], [address]. tel:[phone] [facility], [address] [address], [facility], [address], [place] tel:[phone] [facility] Chronic pancreatitis , unspecified pancreatitis type Dakota Reed. [address] [facility], [facility] [address], [place], [address], [place]. tel:[phone] Subsqt Hosp-da E&m Minr Compl [facility], [address] [address], [facility] [place], [address], [place] tel:[phone] [facility] No Information [address] [facility], [address] [address], [place], [place], [address], [place]. tel:[phone] Referring Provider: Renee James, [facility] [address] [facility] 500, [facility] [place], [address] . tel:[phone] Init Inpt Cons New/est Mod-hi [facility], [address] [address], [place], [address], [place] tel:[phone] [facility] No Information Danuta Gomes. [address] [facility], [facility] 500, [place], [place], [address], [place]. tel:[phone] Referring Provider: Eliseo Burkett, [address] [facility] [address], [place], [address] . tel:[phone] [facility], [address] [address], [place], [address], [place] tel:[phone] [facility] No Information Licha Pryor. [address] [facility], [facility] 500, [place], [place], [address], [place]. tel:[phone] Referring Provider: Konstantin Hurt MD, [address] [place] [address] 500, [place], [address] . tel:[phone] [facility], [address] [address], [place], [address], [place] tel:[phone] [facility] Bile duct obstruction Licha Pryor. [address] [facility], [facility] 500, [place], [place], [address], [place]. tel:[phone] Galo Huang DO. tel:[phone] erring Provider: Referral Self, USE FOR SELF REFERRALS. [facility], [address] [address], [place], [address], [place] tel:[phone] [facility] No Information 5 Licha Pryor. [address] [place] [address], [facility] 500, [place], [place], [address], [place]. tel:[phone] Referring Provider: [place], [address] [place] [address] 500, [place], [address] . tel:[phone] Subsqt Hosp-da E&m Minr Compl [facility], [address] [address], [place], [address], [place] tel:[phone] [facility] No Information Apr-1 5 Nesset PAPER PATTERN FOLDER [place]. [address] [facility], [facility] 500, [place], [place], [address], [place]. [phone] Referring Provider: Isai Ac MD, [address] [facility] [address], [place], [address]. tel:[phone] [facility], [address] [address], [place], [address], [place] tel:[phone] [facility] No Information Apr-0 [address] [facility], [facility] 500, [place], [place], [address], [place]. [phone] Referring Provider: Isai Ac MD, [address] [facility] [address], [place], [address]. tel:[phone] [facility], [address] [address], [place], [address], [place] tel:[phone] [facility] Acute Pancreatitis Acute pancreatitis , unspecified 0 [address] [facility], [facility] 500, [place], [place], [address], [place]. tel:[phone] [facility], [address] [address], [place], [address], [place] tel:[phone] [facility] Acute Pancreatitis Mar-0 [address] [facility], [facility] 500, [place], [place], [address], [place]. [phone] Referring Provider: Referral Self, USE FOR SELF REFERRALS. Subsqt Hosp-da E&m Minr Compl [facility], [address] [address], [place], [address], [place] tel:[phone] [facility] No Information 0 5 Nesset PAPER PATTERN FOLDER [place]. [address] [facility], [facility] 500, [place], [place], [address], [place]. tel:[phone] Referring Provider: Isai Ac MD, [address] [facility] [address], [facility] [place], [address]. tel:[phone] Subsqt Hosp-da E&m Minr Compl [facility], [address] [address], [place], [address], [place] tel:[phone] [facility] No Information 5 Stephane EDWIN Nel. [address] [facility], [facility] 500, [place], [place], [address], [place]. tel:[phone] Referring Provider: Isai Ac MD, [address] [facility] [address], [place], [address]. tel:[phone] Init Inpt Cons New/estab Mod 5 [facility], [address] [address], [facility] [place], [address], [place] tel:[phone] [facility] No Information 5 Nesset PAPER PATTERN FOLDER [place]. [address] [facility], [facility] [address], [place], [address], [place]. tel:[phone] Referring Provider: Isai Ac MD, [address] [facility] [address], [place], [address]. tel:[phone] Offic/outpt E&m Estab Low-mod [facility], [address] [address], [place], [address], [place] tel:[phone] [facility] No Information [address] [facility], [facility] 500, [place], [place], [address], [place]. tel:[phone] Referring Provider: Annabelle Nieto, [address] [place] [address], [place], [address]. tel:[phone] Init Inpt Cons New/est Mod-hi [facility], [address] [address], [place], [address], [place] tel:[phone] [facility] No Information Danuta Gomes. [address] [place] [address], [id number], [place]. tel:[phone] Referring Provider: Annabelle Nieto, [address], [place], [address]. tel:[phone] Subsqt Hosp-da E&m Minr Compl [facility], [address] [address], [place], [address], [place] tel:[phone] [facility] No Information Collin PAPER PATTERN FOLDER [place]. [address] [place] [address], [id number], [place]. tel:[phone] Referring Provider: Annabelle Nieto, [address] , [place], [address]. tel:[phone] Subsqt Hosp-da E&m Minr Compl [facility], [address] [address], [facility] [place], [address], [place] tel:[phone] [facility] No Information Collin Zambrano. [address] [place] [address], [id number], [place]. tel:[phone] Referring Provider: Annabelle Nieto, [address] , [place], [address]. tel:[phone] Subsqt Hosp-da E&m Stable 15 M [facility], [address] [address], [place], [address], [place] tel:[phone] [facility] No Information No Information Referring Provider: Annabelle Nieto, [address] , [place], [address]. tel:[phone] Subsqt Hosp-da E&m Minr Compl [facility], [address] [address], [place], [address], [place] tel:[phone] [facility] No Information 0201 5 Nesset PAPER PATTERN FOLDER [place]. [address] [place] [address], [id number], [place]. tel:[phone] Referring Provider: Annabelle Nieto, [address] [facility], [place], [address]. tel:[phone] Init Inpt Cons New/est Mod-hi [facility] [place], [address] [address], [facility], [address], [place] tel:[phone] [facility] No Information 5 Licha Pryor. [address] [place] [address], [id number], [place]. tel:[phone] Referring Provider: Annabelle Nieto, [address] [facility], [place], [address]. tel:[phone] [facility] Digestive [facility], [address] [address], [facility], [place], [address], [place] tel:[phone] [facility] No Information 5 Licha Pryor. [address] [place] [address], [id number], [place]. tel:[phone] Referring Provider: Annabelle Nieto, [address] [facility], [place], [address]. tel:[phone] [facility] Digestive [facility], [address] [address], [facility], [place], [address], [place] tel:[phone] [facility] Acute Pancreatitis 5201 5 No Information Referring Provider: Referral Self, USE FOR SELF REFERRALS. Subsqt Hosp-da E&m Minr Compl [facility] [place], [address] [address], [place], [address], [place] tel:[phone] [facility] No Information 0 3-201 5 Nesset PAPER PATTERN FOLDER [place]. [address] [place] [address], [id number], [place]. tel:[phone] Referring Provider: Yariel Cortez MD, [address], [place], [address]. tel:[phone] Init Inpt Cons New/est Mod-hi [facility], [address] [address], [place], [place], [address], [place] tel:[phone] [facility] No Information 5 No Information Referring Provider: Yariel Cortez MD, [address], [place], [address]. 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 Offic/outpt E&m Estab Mod-hi 2 [facility]ive [facility], [address] [address], [place], [place], [address], [place] tel:[phone] [facility] Non-alcoholi c Fatty LiverNon-alc oholic Fatty Liver 3 No Information Referring Provider: Annabelle Nieto, [address] [facility], [place], [address]. tel:[phone] Offic/outpt E&m Estab Low-mod [facility] Digestive [facility], [address] [address], [place], [place], [address], [place] tel:[phone] [facility] No Information [address] [facility], [address], [place], [place], [address], [place]. tel:[phone] Referring Provider: Annabelle Nieto, [address] [facility], [place], [address]. tel:[phone] Subsqt Hosp-da E&m Minr Compl [facility] Digestive [facility], [address] [address], [place], [place], [address], [place] tel:[phone] [facility] No Information 3 Nesset PAPER PATTERN FOLDER [place]. [address] [facility], [facility] [address], [place], [address], [place]. tel:[phone] Referring Provider: Rudi Burkett, [address], [place], [address]. tel:[phone] Subsqt Hosp-da E&m Minr Compl [facility], [address] [address], [place], [place], [address], [place] tel:[phone] [facility] No Information 3 Nesset PAPER PATTERN FOLDER [place]. [address] [facility], [facility] [address], [place], [address], [place]. tel:[phone] Referring Provider: Rudi Burkett, [address], [place], [address]. tel:[phone] Subst Hosp-da E&m Minr Compl [facility], [address] [address], [place], [place], [address], [place] tel:[phone] [facility] No Information 3 Chandrakant Villanueva. [address] [facility], [facility] [address], [place], [address], [place]. tel:[phone] Referring Provider: Rudi Burkett, [address], [place], [address]. tel:[phone] Offic/outpt E&m Estab Mod-hi 2 [facility], [address] [address], [place], [place], [address], [place] tel:[phone] [facility] No Information [address] [facility], [facility] [address], [place], [address], [place]. tel:[phone] [facility], [address] [address], [facility] [place], [address], [place] tel:[phone] [facility] Obstruction Of Bile Duct [address] [facility], [facility] 500, [place], [place], [address], [place]. tel:[phone] [facility], [address] [address], [facility], [address], [place] tel:[phone] [facility] No Information 2 Licha Pryor. [address], [id number], [place]. tel:[phone] Referring Provider: Annabelle Nieto, [address] , [place], [address]. tel:[phone] Subsqt Hosp-da E&m Stable 15 M [facility], [address] [address], [facility], [place], [address], [place] tel:[phone] [facility] No Information 2 Mahamed Garcia. [address], [id number], [place]. tel:[phone] Referring Provider: Annabelle Nieto, [address] [facility], [place], [address]. tel:[phone] Subsqt Hosp-da E&m Minr Compl [facility], [address] [address], [facility], [address], [place] tel:[phone] [facility] No Information 2 Collin Zambrano. [address], [id number], [place]. tel:[phone] Referring Provider: Annabelle Nieto, [address], [place], [address]. tel:[phone] [facility], [address] [address], [facility], [place], [address], [place] tel:[phone] [facility] No Information 2 Licha Pryor. [address] [place] [address], [id number], [place]. tel:[phone] Referring Provider: Annabelle Nieto, [address] [facility], [place], [address]. tel:[phone] [facility], [address] [address], [place], [address], [place] tel:[phone] [facility] Obstruction Of Bile DuctAcute Pancreatitis 2 Licha Pryor. [address] [address], [place], [place], [address], [place]. tel:[phone] Referring Provider: Annabelle Nieto, [address] [facility], [place], [address]. tel:[phone] Subsqt Hosp-da E&m Minr Compl [facility], [address] [address], [place], [address], [place] tel:[phone] [facility] No Information 2 Collin Zambrano. [address] [facility] 500, [place], [place], [address], [place]. tel:[phone] Referring Provider: Maurice Burkett, [address] [place] [address] [place] [address], [place], [address]. tel:[phone] Subsqt Hosp-da E&m Minr Compl [facility], [address] [address], [place], [address], [place] tel:[phone] [facility] No Information 2 No Information Referring Provider: Maurice Burkett, [address] [place] [address] [place] [address], [place], [address]. tel:[phone] Subsqt Hosp-da E&m Minr Compl [facility], [address] [address], [place], [address], [place] tel:[phone] [facility] No Information 0 2 No Information Referring Provider: Maurice Burkett, [address] [place] [address] [address], [place], [address]. tel:[phone] Subsqt Hosp-da E&m Minr Compl [facility], [address] [address], [place], [address], [place] tel:[phone] [facility] No Information 2 Collin VALENZUELA [place]. [address] [facility], [facility] 500, [place], [place], [address], [place]. tel:[phone] Referring Provider: Maurice Burkett, [address] [place] [address], [place], [address]. tel:[phone] Subsqt Hosp-da E&m Minr Compl [facility], [address] [address], [place], [address], [place] tel:[phone] [facility] No Information 2 Chandrakant [address]ueva[address] [facility] [facility], [facility] [address], [place], [place], [id number], [place]. tel:[phone] Referring Provider: Maurice Burkett, [address] [place] [address], [place], [address]. tel:[phone] Subsqt Hosp-da E&m Stable 15 M [facility], [address] [address], [place], [id number], [place] tel:[phone] [facility] No Information [address] [facility], [facility] [address], [place], [place], [id number], [place]. tel:[phone] Referring Provider: Maurice Burkett, [address] [place] [address], [place], [address]. tel:[phone] Subsqt Hosp-da E&m Minr Compl [facility], [address] [address], [place], [address], [place] tel:[phone] [facility] No Information 2 No Information Referring Provider: Maurice Burkett, [address] [place] [address], [place], [address]. tel:[phone] Sub[facility]t Hosp-da E&m Minr Compl [facility], [address] [address], [place], [address], [place] tel:[phone] [facility] No Information 2 No Information Referring Provider: Maurice Burkett, [address] [place] [address], [place], [address]. tel:[phone] Subsqt Hosp-da E&m Minr Compl [facility], [address] [address], [place], [address], [place] tel:[phone] [facility] No Information 2 Chandrakant Villanueva. [address] [place] [address], [facility] [address], [place], [place], [id number], [place]. tel:[phone] Referring Provider: Maurice Burkett, [address] [place] [address], [place], [address]. tel:[phone] [facility]da E&m [facility], [address] [address], [place], [id number], [place] tel:[phone] [facility] No Information No Information Referring Provider: Maurice Burkett, [address] [address], [place], [address]. tel:[phone] Init Inpt Cons New/est Mod-hi [facility], [address] [address], [place], [id number], [place] tel:[phone] [facility] No Information 2 Flora Alexandra. [address] [place] [address], [place] [address], [place], [id number], [place]. tel:[phone] Referring Provider: Maurice Burkett, [address] [place] [address], [place], [address]. tel:[phone] Subsqt Hosp-da E&m Minr [facility], [address] [address], [place], [address], [place] tel:[phone] [facility] No Information 2 No Information Referring Provider: Maurice Burkett, [address] [place] [address], [place], [address]. tel:[phone] Subsqt Hosp-da E&m Minr Compl [facility] [place], [address] [address], [place], [id number], [place] tel:[phone] [facility] No Information [address] [facility], [facility] [address], [place], [place], [id number], [place]. tel:[phone] Referring Provider: Maurice Burkett, [address] [place] [address], [place], [address]. tel:[phone] Subsqt Hosp-da E&m Minr Compl [facility] [place], [address] [address], [place], [id number], [place] tel:[phone] [facility] No Information 2 Chandrakant Villanueva. [address] [place] [address], [facility] [address], [place], [place], [address], [place]. tel:[phone] Referring Provider: Kay Vu, [address] [place] [address] [address], [place], [address] . tel:[phone] Subsqt Hosp-da E&m Stable 15 M [facility] [place], [address] [address], [place], [id number], [place] tel:[phone] [facility] No Information 2 No Information Subsqt Hosp-da E&m Minr Compl [facility] [place], [address] [address], [place], [id number], [place] tel:[phone] [facility] No Information 2 No Information Subsqt Hosp-da E&m Minr Compl [facility] [place], [address] [address], [place], [id number], [place] tel:[phone] [facility] No Information 2 Chandrak[address]ue[address] [facility], [facility] [address], [place], [address], [place]. tel:[phone] Referring Provider: Annabelle Nieto, [address] , [place], [address]. tel:[phone] Subsqt Hosp-da E&m Minr Compl [facility], [address] [address], [facility] [place], [address], [place] tel:[phone] Ramirez [facility] No Information No Information Subsqt Hosp-da E&m Sig Compl 3 [facility], [address] [address], [facility] [place], [address], [place] tel:[phone] [facility] No Information 2 Tyler ARMSTRONG Karen. [address] [facility], [facility] [address], [place], [address], [place]. tel:[phone] Referring Provider: Annabelle Nieto, [address] , [place], [address]. tel:[phone] Subsqt Hosp-da E&m Minr Compl [facility], [address] [address], [place], [place], [address], [place] tel:[phone] [facility] No Information 2 No Information Referring Provider: Annabelle Nieto, [address] , [place], [address]. tel:[phone] Subsqt Hosp-da E&m Minr Compl [facility], [address] [address], [facility] [place], [address], [place] tel:[phone] [facility] No Information 2 No Information Referring Provider: Annabelle Nieto, [address] , [place], [address]. tel:[phone] Subsqt Hosp-da E&m Minr Compl [facility], [address] [address], [facility], [address], [place] tel:[phone] [facility] No Information 2 No Information Referring Provider: Annabelle Nieto, [address], [place], [address]. tel:[phone] Subsqt Hosp-da E&m Minr Compl [facility], [address] [address], [place], [address], [place] tel:[phone] [facility] No Information 2 No Information Referring Provider: Annabelle Nieto, [address], [place], [address]. tel:[phone] Subsqt Hosp-da E&m Minr Compl [facility], [address] [address], [place], [address], [place] tel:[phone] [facility] No Information 2 Nesset [employer] [place]. [address] [place] [address], [id number], [place]. tel:[phone] Referring Provider: Annabelle Nieto, [address] , [place], [address]. tel:[phone] Subsqt Hosp-da E&m Minr Compl [facility], [address] [address], [facility] [place], [address], [place] tel:[phone] [facility] No Information 2 No Information Referring Provider: Annabelle Nieto, [address] , [place], [address]. tel:[phone] Subsqt Hosp-da E&m Minr Compl [facility], [address] [address], [facility], [address], [place] tel:[phone] [facility] No Information 2 Nesset [employer] [place]. [address] [place] [address], [place], [address], [place]. tel:[phone] Referring Provider: Annabelle Nieto, [address], [place], [address]. tel:[phone] Init Inpt Cons New/est Mod-hi [facility], [address] [address], [place], [id number], [place] tel:[phone] [facility] No Information 2 No Information Referring Provider: Annabelle Nieto, [address], [place], [address]. 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 tel:[phone] [facility], [address] [address], [place], [address], [place] tel:[phone] [facility] Acute Pancreatitis 1 No Information Offic Cons New/estab Mod [facility], [address] [address], [place], [address], [place] tel:[phone] [facility] Pancreatitis (chief complaint) Acute Pancreatitis Non-alcoholi c Fatty Liver 1 No Information Referring Provider: Annabelle Nieto, [address], [place], [address]. tel:[phone] Family History Family Member Type Diagnosis Age [...] disorder Payers Payer name Insurance type Covered libertarian ID Authoriza tion(s) No Information Social History [...] referred to [facility] chronic pain w/ pancreatitis ordered [...]
--- OUTSIDE RECORDS SUMMARY | 2024-08-02 19:00 | XMS_ITS | Continuity of Care Document ---
Author Organization [facility] Address [address] [address] [place] [address] Phone Care Team Providers Care Boom Crane Operator Name Role Phone Radha Ordoñez Unavailabl [...] Encounter [facility] [address] [address], [place], [id number], [place] tel:[phone] [facility] No Information 4 Ap Garcia. [address] [facility], [facility] 500, [place], [address], [place]. tel:[phone] Init Hosp-da E&m Mod Severity [facility], [address] [address], [place], [place], [address], [place] tel:[phone] [facility] No Information Jul-0 4 Ap Garcia. [address] [place] [address] 500, [place], [place], [address], [place]. tel:[phone] Referring Provider: Kyle Scherer DO, [address] [place] [address], [place], [address]. tel:[phone] Subsqt Hosp-da E&m Minr Compl [facility], [address] [address], [place], [place], [address], [place] tel:[phone] [facility] No Information Sep- Nesset BIANCA Zambrano. [address] [place] [address], [id number], [place]. tel:[phone] Galo Huang DO. tel:[phone] erring Provider: Robni Holcomb, [address] [facility], [place], [address]. tel:[phone] Subsqt Hosp-da E&m Stable 15 M [facility], [address] [address], [place], [place], [address], [place] tel:[phone] [facility] No Information Sep- 7 Chandrakant Villanueva. [address] [address], [place], [place], [address], [place]. tel:[phone] Referring Provider: Robin Holcomb, [address] [facility], [place], [address]. tel:[phone] Init Inpt Cons New/est Mod-hi [facility], [address] [address], [facility], [address], [place] tel:[phone] [facility] No Information Sep-2 7 No Information Referring Provider: Robin Holcomb, [address], [place], [address]. tel:[phone] Subsqt Hosp-da E&m Minr Compl [facility], [address] [address], [place], [address], [place] tel:[phone] [facility] No Information Sep-2 0 7 Nesset BIANCA Ortizy. [address] [place] [address], [id number], [place]. tel:[phone] Referring Provider: Robin Holcomb, [address], [place], [address]. tel:[phone] Subsqt Hosp-da E&m Minr Compl [facility], [address] [address], [place], [address], [place] tel:[phone] [facility] No Information Sep- Chandrakant Villanueva. [address] [place] [address], [id number], [place]. tel:[phone] Referring Provider: Robin Holcomb, [address], [place], [address]. tel:[phone] [facility], [address] [address], [place], [address], [place] tel:[phone] [facility] No Information Sep- Licha Pryor. [address] [place] [address], [id number], [place]. tel:[phone] Referring Provider: Robin Holcomb, [address], [place], [address]. tel:[phone] [facility], [address] [address], [place], [address], [place] tel:[phone] [facility] Encounter for removal of biliary stentChronic pancreatitis , unspecified pancreatitis type Sep- Licha Pryor. [address] [place] [address], [id number], [place]. tel:[phone] Init Inpt Cons New/est Mod-hi [facility], [address] [address], [place], [address], [place] tel:[phone] [facility] No Information Sep- 7 Elsa Alfred. [address] [facility], [address] [address], [place], [place], [address], [place]. tel:[phone] Referring Provider: Robin Holcomb, [address], [place], [address]. tel:[phone] [facility], [address] [address], [place], [address], [place] tel:[phone] [facility] Chronic pancreatitis , unspecified pancreatitis type Sep- 7 Ganesh King. [address] [place] [address], [id number], [place]. tel:[phone] Galo Huang DO. tel:[phone] Subsqt Hosp-da E&m Minr Compl [facility], [address] [address], [place], [address], [place] tel:[phone] [facility] No Information Sep-0 Stephane Neumann. [address] [address], [place], [place], [address], [place]. [phone] Referring Provider: Robin Holcomb, [address], [place], [address]. tel:[phone] Subsqt Hosp-da E&m Minr Compl [facility], [address] [address], [place], [address], [place] tel:[phone] [facility] No Information Sep-0 7 Chanrdakant Villanueva. [address] [place] [address], [id number], [place]. tel:[phone] Referring Provider: Robin Holcomb, [address], [place], [address]. tel:[phone] Init Inpt Cons New/est Mod-hi [facility], [address] [address], [place], [address], [place] tel:[phone] [facility] No Information Ganesh King. [address] [facility], [facility] 500, [place], [place], [address], [place]. tel:[phone] Referring Provider: Robin Holcomb, [address], [place], [address]. tel:[phone] Subsqt Hosp-da E&m Minr Compl [facility], [address] [address], [place], [address], [place] tel:[phone] [facility] No Information No Information Referring Provider: Robin Holcomb, [address], [place], [address]. tel:[phone] [facility], [address] [address], [place], [address], [place] tel:[phone] [facility] No Information Licha Pryor. [address] [facility], [facility] 500, [place], [place], [address], [place]. tel:[phone] Referring Provider: Robin Holcomb, [address], [place], [address]. tel:[phone] Subsqt Hosp-da E&m Minr Compl [facility], [address] [address], [place], [address], [place] tel:[phone] [facility] No Information No Information Referring Provider: Robin Holcomb, [address], [place], [address]. tel:[phone] Init Inpt Cons New/estab Mod 5 [facility], [address] [address], [place], [address], [place] tel:[phone] [facility] No Information Madi Mcconnell. [address] [facility], [facility] [address], [place], [address], [place]. tel:[phone] Referring Provider: Robin Holcomb, [address], [place], [address]. tel:[phone] [facility], [address] [address], [facility] [place], [address], [place] tel:[phone] [facility] Chronic pancreatitis , unspecified pancreatitis type 7 Licha Pryor. [address] [facility], [facility] [address], [place], [address], [place]. tel:[phone] Galo Huang DO. tel:[phone] Init Inpt Cons New/est Mod-hi [facility], [address] [address], [facility], [address], [place] tel:[phone] [facility] No Information No Information Referring Provider: Robin Holcomb, [address], [place], [address]. tel:[phone] [facility], [address] [address], [facility] [place], [address], [place] tel:[phone] [facility] Chronic pancreatitis , unspecified pancreatitis type Dakota Reed. [address] [facility], [facility] [address], [place], [address], [place]. tel:[phone] Subsqt Hosp-da E&m Minr Compl [facility], [address] [address], [facility] [address], [place] tel:[phone] [facility] No Information 6 Jesus Duran. [address] [facility], [address] [address], [place], [place], [address], [place]. tel:[phone] Referring Provider: Renee James, [facility] 500, [facility] [place], [address] . tel:[phone] Init Inpt Cons New/est Mod-hi [facility], [address] [address], [place], [address], [place] tel:[phone] [facility] No Information Danuta Gomes. [address] [facility], [facility] 500, [place], [place], [address], [place]. tel:[phone] Referring Provider: Eliseo Burkett, [address] [facility] [address], [place], [address] . tel:[phone] [facility], [address] [address], [place], [address], [place] tel:[phone] [facility] No Information Licha Pryor. [address] [facility], [facility] 500, [place], [place], [address], [place]. tel:[phone] Referring Provider: Konstantin Hurt MD, [address] [place] [address] 500, [place], [address] . tel:[phone] [facility], [address] [address], [place], [address], [place] tel:[phone] [facility] Bile duct obstruction Licha Pryor. [address] [facility], [facility] 500, [place], [place], [address], [place]. tel:[phone] Galo Huang DO. tel:[phone] erring Provider: Referral Self, USE FOR SELF REFERRALS. [facility], [address] [address], [place], [address], [place] tel:[phone] [facility] No Information 5 Licha Pryor. [address] [place] [address], [facility] 500, [place], [place], [address], [place]. tel:[phone] Referring Provider: [place], [address] [place] [address] 500, [place], [address] . tel:[phone] Subsqt Hosp-da E&m Minr Compl [facility], [address] [address], [place], [address], [place] tel:[phone] [facility] No Information Apr-1 5 Nesset PIANO ACCOMPANIST [place]. [address] [facility], [facility] 500, [place], [place], [address], [place]. [phone] Referring Provider: Isai Ac MD, [address] [facility] [address], [place], [address]. tel:[phone] [facility], [address] [address], [place], [address], [place] tel:[phone] [facility] No Information Apr-0 5 Licha Pryor. [address] [facility], [facility] 500, [place], [place], [address], [place]. [phone] Referring Provider: Isai Ac MD, [address] [facility] [address], [place], [address]. tel:[phone] [facility], [address] [address], [place], [address], [place] tel:[phone] [facility] Acute Pancreatitis Acute pancreatitis , unspecified 0 5 Licha Pryor. [address] [facility], [facility] 500, [place], [place], [address], [place]. tel:[phone] [facility], [address] [address], [place], [address], [place] tel:[phone] [facility] Acute Pancreatitis Mar-0 5 Licha Pryor. [address] [facility], [facility] 500, [place], [place], [address], [place]. [phone] Referring Provider: Referral Self, USE FOR SELF REFERRALS. Subsqt Hosp-da E&m Minr Compl [facility], [address] [address], [place], [address], [place] tel:[phone] [facility] No Information 0 5 Nesset PIANO ACCOMPANIST [place]. [address] [facility], [facility] 500, [place], [place], [address], [place]. tel:[phone] Referring Provider: Isai Ac MD, [address] [facility] [address], [facility] [place], [address]. tel:[phone] Subsqt Hosp-da E&m Minr Compl [facility], [address] [address], [place], [address], [place] tel:[phone] [facility] No Information 5 Stephane EDWIN Nel. [address] [facility], [facility] 500, [place], [place], [address], [place]. tel:[phone] Referring Provider: Isai Ac MD, [address] [facility] [address], [place], [address]. tel:[phone] Init Inpt Cons New/estab Mod 5 [facility], [address] [address], [facility], [address], [place] tel:[phone] [facility] No Information 5 Nesset PIANO ACCOMPANIST [place]. [address] [facility], [facility] [address], [place], [address], [place]. tel:[phone] Referring Provider: Isai Ac MD, [address] [facility] [address], [place], [address]. tel:[phone] Offic/outpt E&m Estab Low-mod [facility], [address] [address], [place], [address], [place] tel:[phone] [facility] No Information 5 Licha Pryor. [address] [facility], [facility] 500, [place], [place], [address], [place]. tel:[phone] Referring Provider: Annabelle Nieto, [address] [place] [address], [place], [address]. tel:[phone] Init Inpt Cons New/est Mod-hi [facility], [address] [address], [place], [address], [place] tel:[phone] [facility] No Information Danuta Gomes. [address] [place] [address], [address], [place]. tel:[phone] Referring Provider: Annabelle Nieto, [address], [place], [address]. tel:[phone] Subsqt Hosp-da E&m Minr Compl [facility], [address] [address], [place], [address], [place] tel:[phone] [facility] No Information Collin PIANO ACCOMPANIST [place]. [address] [place] [address], [id number], [place]. tel:[phone] Referring Provider: Annabelle Nieto, [address] , [place], [address]. tel:[phone] Subsqt Hosp-da E&m Minr Compl [facility], [address] [address], [facility], [address], [place] tel:[phone] [facility] No Information Collin Zambrano. [address] [place] [address], [id number], [place]. tel:[phone] Referring Provider: Annabelle Nieto, [address] , [place], [address]. tel:[phone] Subsqt Hosp-da E&m Stable 15 M [facility], [address] [address], [place], [address], [place] tel:[phone] [facility] No Information No Information Referring Provider: Ananbelle Nieto, [address] , [place], [address]. tel:[phone] Subsqt Hosp-da E&m Minr Compl [facility], [address] [address], [place], [address], [place] tel:[phone] [facility] No Information 0201 5 Nesset PIANO ACCOMPANIST [place]. [address] [place] [address], [id number], [place]. tel:[phone] Referring Provider: Annabelle Nieto, [address] [facility], [place], [address]. tel:[phone] Init Inpt Cons New/est Mod-hi [facility], [address] [address], [facility], [address], [place] tel:[phone] [facility] No Information 5 Licha Pryor. [address] [place] [address], [address], [place]. tel:[phone] Referring Provider: Annabelle Nieto, [address] [facility], [place], [address]. tel:[phone] [facility], [address] [address], [facility], [address], [place] tel:[phone] [facility] No Information 5 Licha Pryor. [address] [place] [address], [id number], [place]. tel:[phone] Referring Provider: Annabelle Nieto, [address] [facility], [place], [address]. tel:[phone] [facility], [address] [address], [facility], [address], [place] tel:[phone] [facility] Acute Pancreatitis 5201 5 No Information Referring Provider: Referral Self, USE FOR SELF REFERRALS. Subsqt Hosp-da E&m Minr Compl [facility], [address] [address], [place], [address], [place] tel:[phone] [facility] No Information 0 3-201 5 Nesset PIANO ACCOMPANIST [place]. [address] [place] [address], [id number], [place]. tel:[phone] Referring Provider: Yariel Cortez MD, [address], [place], [address]. tel:[phone] Init Inpt Cons New/est Mod-hi [facility], [address] [address], [place], [place], [address], [place] tel:[phone] [facility] No Information 5 No Information Referring Provider: Yariel Cortez MD, [address], [place], [address]. tel:[phone] Offic/outpt E&m Estab Low-mod [facility], [address] [address], [place], [place], [address], [place] tel:[phone] [facility] Non-alcoholi c Fatty LiverNon-alc oholic Fatty Liver 4 No Information Referring Provider: Referral Self, USE FOR SELF REFERRALS. Offic/outpt E&m Estab Mod-hi 2 [facility], [address] [address], [place], [place], [address], [place] tel:[phone] [facility] Non-alcoholi c Fatty LiverNon-alc oholic Fatty Liver 3 No Information Referring Provider: Annabelle Nieto, [address] [facility], [place], [address]. tel:[phone] Offic/outpt E&m Estab Low-mod [facility], [address] [address], [place], [place], [address], [place] tel:[phone] [facility] No Information 3 Licha Pryor. [address] [facility], [address], [place], [place], [address], [place]. tel:[phone] Referring Provider: Annabelle Nieto, [address] [facility], [place], [address]. tel:[phone] Subsqt Hosp-da E&m Minr Compl [facility], [address] [address], [place], [place], [address], [place] tel:[phone] [facility] No Information 3 Nesset PIANO ACCOMPANIST [place]. [address] [facility], [facility] [address], [place], [address], [place]. tel:[phone] Referring Provider: Rudi Burkett, [address], [place], [address]. tel:[phone] Subsqt Hosp-da E&m Minr Compl [facility], [address] [address], [place], [place], [address], [place] tel:[phone] [facility] No Information 3 Nesset PIANO ACCOMPANIST [place]. [address] [facility], [facility] [address], [place], [address], [place]. tel:[phone] Referring Provider: Rudi Burkett, [address], [place], [address]. tel:[phone] Subst Hosp-da E&m Minr Compl [facility], [address] [address], [place], [place], [address], [place] tel:[phone] [facility] No Information 3 Chandrakant Villanueva. [address] [facility], [facility] [address], [place], [address], [place]. tel:[phone] Referring Provider: Rudi Burkett, [address], [place], [address]. tel:[phone] Offic/outpt E&m Estab Mod-hi 2 [facility], [address] [address], [place], [place], [address], [place] tel:[phone] [facility] No Information 2 Licha Pryor. [address] [facility], [facility] [address], [place], [address], [place]. tel:[phone] [facility], [address] [address], [facility], [address], [place] tel:[phone] [facility] Obstruction Of Bile Duct 2 Licha Pryor. [address] [facility], [facility] 500, [place], [place], [address], [place]. tel:[phone] [facility], [address] [address], [facility], [address], [place] tel:[phone] [facility] No Information 2 Licha Pryor. [address], [address], [place]. tel:[phone] Referring Provider: Annabelle Nieto, [address] , [place], [address]. tel:[phone] Sub[facility]t Hosp-da E&m Stable 15 M [facility], [address] [address], [facility], [place], [address], [place] tel:[phone] [facility] No Information 2 Mahamed Garcia. [address], [id number], [place]. tel:[phone] Referring Provider: Annabelle Nieto, [address] [facility], [place], [address]. tel:[phone] Subsqt Hosp-da E&m Minr Compl [facility], [address] [address], [facility], [address], [place] tel:[phone] [facility] No Information 2 Collin Zambrano. [address], [address], [place]. tel:[phone] Referring Provider: Annabelle Nieto, [address], [place], [address]. tel:[phone] [facility], [address] [address], [facility], [place], [address], [place] tel:[phone] [facility] No Information 2 Licha Pryor. [address] [place] [address], [id number], [place]. tel:[phone] Referring Provider: Annabelle Nieto, [address] [facility], [place], [address]. tel:[phone] [facility], [address] [address], [place], [address], [place] tel:[phone] [facility] Obstruction Of Bile DuctAcute Pancreatitis 2 Licha Pryor. [address] [address], [place], [place], [address], [place]. tel:[phone] Referring Provider: Annabelle Nieto, [address] [facility], [place], [address]. tel:[phone] Subsqt Hosp-da E&m Minr Compl [facility], [address] [address], [place], [address], [place] tel:[phone] [facility] No Information 2 Collin Zambrano. [address] [facility] [address], [place], [place], [address], [place]. tel:[phone] Referring Provider: Maurice Burkett, [address] [place] [address] [place] [address], [place], [address]. tel:[phone] Subsqt Hosp-da E&m Minr Compl [facility], [address] [address], [place], [address], [place] tel:[phone] [facility] No Information 2 No Information Referring Provider: Maurice Burkett, [address] [place] [address] [place] [address], [place], [address]. tel:[phone] Subsqt Hosp-da E&m Minr Compl [facility], [address] [address], [place], [address], [place] tel:[phone] [facility] No Information 0 2 No Information Referring Provider: Maurice Burkett, [address] [place] [address] [address], [place], [address]. tel:[phone] Subsqt Hosp-da E&m Minr Compl [facility], [address] [address], [place], [address], [place] tel:[phone] [facility] No Information 2 Collin VALENZUELA [place]. [address] [facility], [facility] 500, [place], [place], [address], [place]. tel:[phone] Referring Provider: Maurice Burkett, [address] [place] [address], [place], [address]. tel:[phone] Subsqt Hosp-da E&m Minr Compl [facility], [address] [address], [place], [address], [place] tel:[phone] [facility] No Information 2 Chandrakant Villanueva. [address] [facility], [facility] 500, [place], [place], [address], [place]. tel:[phone] Referring Provider: Maurice Burkett, [address] [place] [address], [place], [address]. tel:[phone] Sub[facility]t Hosp-da E&m Stable 15 M [facility], [address] [address], [place], [address], [place] tel:[phone] [facility] No Information 2 Mahamed Garcia. [address] [facility], [facility] 500, [place], [place], [address], [place]. tel:[phone] Referring Provider: Maurice Burkett, [address] [place] [address], [place], [address]. tel:[phone] Subsqt Hosp-da E&m Minr Compl [facility], [address] [address], [place], [address], [place] tel:[phone] [facility] No Information 2 No Information Referring Provider: Maurice Burkett, [address] [place] [address], [place], [address]. tel:[phone] Subsqt Hosp-da E&m Minr Compl [facility], [address] [address], [place], [address], [place] tel:[phone] [facility] [facility] No Information 2 No Information Referring Provider: Maurice Burkett, [address] [place] [address], [place], [address]. tel:[phone] [facility] H[facility] Minr Compl [facility], [address] [address], [place], [place], [id number], [place] tel:[phone] [facility] No Information 2 Chandrakant Villanueva. [address] [place] [address], [facility] [address], [place], [place], [id number], [place]. tel:[phone] Referring Provider: Maurice Burkett, [address] [place] [address], [place], [address]. tel:[phone] [facility], [address] [address], [place], [id number], [place] tel:[phone] [facility] No Information No Information Referring Provider: Maurice Burkett, [address] [place] [address], [place], [address]. tel:[phone] Init Inpt Cons New/est Mod-hi [facility], [address] [address], [place], [id number], [place] tel:[phone] [facility] No Information 2 Flora Alexnadra. [address] [place] [address], [place], [place], [id number], [place]. tel:[phone] Referring Provider: Maurice Burkett, [address] [place] [address], [place], [address]. tel:[phone] [facility] Minr [facility], [address] [address], [place], [address], [place] tel:[phone] [facility] No Information 2 No Information Referring Provider: Maurice Burkett, [address] [place] [address], [place], [address]. tel:[phone] Sub[facility]t H[facility]da E&m Minr Compl [facility] [place], [address] [address], [place], [id number], [place] tel:[phone] [facility] No Information 2 Chandrakant Villanueva. [address] [facility], [facility] [address], [place], [place], [address], [place]. tel:[phone] Referring Provider: Maurice Burkett, [address] [place] [address], [place], [address]. tel:[phone] [facility] Minr Compl [facility] [place], [address] [address], [place], [id number], [place] tel:[phone] [facility] No Information 2 Chadnrakant Villanueva. [address] [place] [address], [facility], [place], [place], [address], [place]. tel:[phone] Referring Provider: Kay Vu, [address] [place] [address] [address], [place], [address] . tel:[phone] [facility]t Hosp-da E&m Stable 15 M [facility] [place], [address] [address], [place], [id number], [place] tel:[phone] [facility] No Information 2 No Information Sub[facility]t Hosp-da E&m Minr Compl [facility], [address] [address], [place], [id number], [place] tel:[phone] [facility] No Information 2 No Information Sub[facility]t Hosp-da E&m Minr Compl [facility] [place], [address] [address], [place], [id number], [place] tel:[phone] [facility] No Information 2 Chandrakant Villanueva. [address] [facility], [facility] [address], [place], [id number], [place]. tel:[phone] Referring Provider: Annabelle Nieto, [address] , [place], [address]. tel:[phone] Sub[facility]t H[facility]da E&m Minr Compl [facility], [address] [address], [facility] [place], [id number], [place] tel:[phone] [facility] No Information No Information Subsqt Hosp-da E&m Sig Compl 3 [facility], [address] [address], [facility] [place], [address], [place] tel:[phone] [facility] No Information 2 Tyler ARMSTRONG Karen. [address] [facility], [facility] [address], [place], [id number], [place]. tel:[phone] Referring Provider: Annabelle Nieto, [address] , [place], [address]. tel:[phone] Sub[facility]t Hosp-da E&m Minr Compl [facility], [address] [address], [place], [place], [address], [place] tel:[phone] [facility] No Information 2 No Information Referring Provider: Annabelle Nieto, [address] , [place], [address]. tel:[phone] Subsqt Hosp-da E&m Minr Compl [facility], [address] [address], [facility] [place], [address], [place] tel:[phone] [facility] No Information 2 No Information Referring Provider: Annabelle Nieto, [address] , [place], [address]. tel:[phone] Subsqt Hosp-da E&m Minr Compl [facility], [address] [address], [facility], [place], [address], [place] tel:[phone] [facility] No Information 2 No Information Referring Provider: Annabelle Nieto, [address], [place], [address]. tel:[phone] Sub[facility]t Hosp-da E&m Minr Compl [facility], [address] [address], [place], [address], [place] tel:[phone] [facility] No Information 2 No Information Referring Provider: Annabelle Nieto, [address], [place], [address]. tel:[phone] [facility] H[facility]da E&m Minr Compl [facility], [address] [address], [place], [address], [place] tel:[phone] [facility] No Information 2 Nesset PIANO ACCOMPANIST [place]. [address] [place] [address], [id number], [place]. tel:[phone] Referring Provider: Annabelle Nieto, [address] , [place], [address]. tel:[phone] Sub[facility] H[facility]da E&m Minr Compl [facility], [address] [address], [facility] [place], [address], [place] tel:[phone] [facility] No Information 2 No Information Referring Provider: Annabelle Nieto, [address] , [place], [address]. tel:[phone] Subsqt Hosp-da E&m Minr Compl [facility], [address] [address], [place] [facility], [id number], [place] tel:[phone] [facility] No Information 2 Nesset PIANO ACCOMPANIST [place]. [address] [place] [address], [place], [id number], [place]. tel:[phone] Referring Provider: Annabelle Nieto, [address], [place], [address]. tel:[phone] Init Inpt Cons New/est Mod-hi [facility], [address] [address], [place], [id number], [place] tel:[phone] [facility] No Information 2 No Information Referring Provider: Annabelle Nieto, [address], [place], [address]. 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 tel:[phone] [facility], [address] [address], [place], [address], [place] tel:[phone] [facility] Acute Pancreatitis 1 No Information Offic Cons New/estab Mod [facility], [address] [address], [place], [address], [place] tel:[phone] [facility] Pancreatitis (chief complaint) Acute Pancreatitis Non-alcoholi c Fatty Liver 1 No Information Referring Provider: Annabelle Nieto, [address], [place], [address]. tel:[phone] Family History Family Member Type Diagnosis Age [...] date/timeframe: 05/29/2017 ordered Referral Ordered: referred to [facility] chronic pain w/ pancreatitis ordered Referral Ordered: [...]
[2025-03-05 12:53] VITALS: BP 155/99; PULSE 74; RESP 18; TEMP 37.1; O2SAT 95
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
--- NOTE | 2025-03-05 13:23 | CRLHL7_ITS ---
For Patients: As a result of the Century Cures Act, medical imaging exams and procedure reports are released immediately into your electronic medical record. You may view this report before your referring provider. If you have questions, please contact your health care provider. INDICATION: Abdominal pain. TECHNIQUE: CT abdomen and pelvis acquired with 79 cc of Isovue 370 IV contrast. COMPARISON: CT abdomen and pelvis 08/02/2024. FINDINGS: Lower chest: Unremarkable. Liver: Fatty change. No focal lesion. Spleen: Unremarkable. Pancreas: Unremarkable. Gallbladder and bile ducts: Cholecystectomy. No biliary ductal dilatation. Kidneys: No urolithiasis, hydronephrosis or suspicious lesion. Adrenal glands: Unremarkable. GI tract: No obstruction or focal inflammatory changes. Normal appendix. No free air or free fluid. Lymph nodes: No pathologic lymphadenopathy. Vascular structures: Unremarkable. Pelvic Organs: Prostatomegaly. Bladder as imaged is unremarkable. Bones: No acute or suspicious osseous abnormality. IMPRESSION: 1. No acute intra-abdominal or pelvic abnormality. 2. Fatty change of the liver. Dictated by Stu Blood MD @ 03/05/2025 2:52:20 PM Please note that all CT scans at this facility use dose modulation, iterative reconstruction, and/or weight-based dosing when appropriate to reduce radiation dose to as low as reasonably achievable. Dictated by: Stu Bolod MD @ 03/05/2025 14:52:50 (Electronically Signed)
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
[2025-03-05] MEDS: ONDANSETRON 2 MG/ML inj IVP (13:38)
[2025-03-05 13:46] LABS: Hematocrit 41.7 % (37.0-53.0); Hemoglobin* 14.3 gm/dL (13.5-17.5); Immature Granulocytes Abs Auto 0.01 K/uL (0.00-0.30); Immature Granulocytes Pct Auto 0.2 %; Mean Corpuscular HGB Conc 34 gm/dL (32-36); Mean Corpuscular Hemoglobin 29 pg (26-34); Mean Corpuscular Volume 86 fL (80-100); RDW Coefficient of Variation % 11.7 % (11.5-15.5); Red Blood Count 4.88 m/uL (4.30-5.90); White Blood Count* 5.43 K/uL (4.50-11.00)
[2025-03-05 13:48] LABS: Lymphocytes Absolute Auto 0.80 K/uL (0.90-2.90); Slide Review Reflex No
[2025-03-05 13:59] LABS: Chloride* 105 mmol/L (96-114)
[2025-03-05 14:00] LABS: Albumin* 4.3 g/dL (3.3-5.0); Potassium* 4.1 mmol/L (3.6-5.1); Sodium* 137 mmol/L (135-149)
[2025-03-05 14:03] LABS: Alanine Aminotransferase* 30 U/L (4-50); Alkaline Phosphatase* 126 U/L (40-150); Anion Gap 6 mEq/L (7-15); Aspartate Amino Transferase* 40 U/L (12-35); Bilirubin Direct* 0.1 mg/dL (0.0-0.5); Bilirubin Total* 0.4 mg/dL (0.1-1.5); Blood Urea Nitrogen* 8 mg/dL (5-24); Calcium* 8.6 mg/dL (8.4-10.6); Carbon Dioxide* 26 mmol/L (20-32); Creatinine* 0.5 mg/dL (0.5-1.5); Estimated Glomerular Filt Rate 141 ml/min; Glucose* 298 mg/dL (60-115); Total Protein* 6.8 g/dL (6.0-8.3)
[2025-03-05 15:04] VITALS: BP 154/102; PULSE 73; RESP 18; TEMP 36.7; O2SAT 97
== END 2025-03-05 15:35 | disposition home or self-care (01) ==
PROVIDERS: Emergency Provider Family Medicine; PCP Student in an Organized Health Care Education/Training Program
DX: R11.2 Nausea with vomiting, unspecified (principal); E10.9 Type 1 diabetes mellitus without complications; K85.90 Acute pancreatitis without necrosis or infection, unspecified
CPT/HCPCS: 36415; 74177; 80048; 80076; 82150; 83690; 85025; 86140; 96374; 99284; 99285; J2405; J7030; Q9967

== ENCOUNTER 2025-03-23 17:31 | Emergency (ER) | payer BC, SELFPAY ==
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
[2025-03-23 17:41] VITALS: BP 169/120; PULSE 79; RESP 20; TEMP 36.1; O2SAT 97; BMI 27.0
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
[2025-03-23] MEDS: TRAMADOL HCL 50 MG TABLET 100 MG PO (18:21)
== END 2025-03-23 18:28 | disposition home or self-care (01) ==
PROVIDERS: Emergency Provider Family Medicine; PCP Student in an Organized Health Care Education/Training Program
DX: M54.12 Radiculopathy, cervical region (principal)
CPT/HCPCS: 99283; 99284; A9270; J7512

== ENCOUNTER 2025-07-04 04:41 | Emergency (ER) | payer BC, SELFPAY ==
--- OUTSIDE RECORDS SUMMARY | 2024-08-02 18:00 | XMS_ITS | Continuity of Care Document ---
Author Organization [facility] Address [address] [address] [place] [address] Phone Care Team Providers Care Tower Switch Operator Name Role Phone Radha Ordoñez Unavailabl e Procedures Procedure Date Init Hosp-da E&m Mod Severity 4 Subsqt Hosp-da E&m Minr Compl 7 Subsqt [...] 4 Routine Serum Collection Offic/outpt E&m Estab Mod-hi 2 13 Offic/outpt E&m Estab Low-mod 3 [...] Diagnoses Date Provider Providers Copied on Encounter [facility] [address] [address], [place], [id number], [place] tel:[phone] [facility] No Information 4 Ap Garcia. [address] [facility], [facility] [address], [place], [place], [address], [place]. tel:[phone] Init Hosp-da E&m Mod Severity [facility], [address] [address], [place], [place], [address], [place] tel:[phone] [facility] No Information Jul-0 4 Ap Garcia. [address] [place] [address] 500, [place], [place], [address], [place]. tel:[phone] Referring Provider: Kyle Scherer DO, [address] [place] [address], [place], [address]. tel:[phone] Subsqt Hosp-da E&m Minr Compl [facility], [address] [address], [place], [place], [address], [place] tel:[phone] [facility] No Information Sep- Nesset BIANCA Zambrano. [address] [place] [address], [id number], [place]. tel:[phone] Galo Huang DO. tel:[phone] erring Provider: Robin Holcomb, [address] [facility], [place], [address]. tel:[phone] Subsqt Hosp-da E&m Stable 15 M [facility], [address] [address], [place], [place], [address], [place] tel:[phone] [facility] No Information Sep- 7 Chandrakant Villanueva. [address] [address], [place], [place], [address], [place]. tel:[phone] Referring Provider: Robin Holcomb, [address] [facility], [place], [address]. tel:[phone] Init Inpt Cons New/est Mod-hi [facility], [address] [address], [facility], [place], [address], [place] tel:[phone] [facility] No Information Sep-2 7 No Information Referring Provider: Robin Holcomb, [address], [place], [address]. tel:[phone] Subsqt Hosp-da E&m Minr Compl [facility], [address] [address], [place], [address], [place] tel:[phone] [facility] No Information Sep-2 0 7 Nesset BIANCA Ortizy. [address] [place] [address], [id number], [place]. tel:[phone] Referring Provider: Robin Holcomb, [address], [place], [address]. tel:[phone] Subsqt Hosp-da E&m Minr Compl [facility], [address] [address], [place], [address], [place] tel:[phone] [facility] No Information Sep- Chandrakant Villanueva. [address] [place] [address], [id number], [place]. tel:[phone] Referring Provider: Robin Holcomb, [address], [place], [address]. tel:[phone] [facility], [address] [address], [place], [address], [place] tel:[phone] [facility] No Information Sep- Licha Pryor. [address] [place] [address], [id number], [place]. tel:[phone] Referring Provider: Robin Holcomb, [address], [place], [address]. tel:[phone] [facility], [address] [address], [place], [address], [place] tel:[phone] [facility] Encounter for removal of biliary stentChronic pancreatitis , unspecified pancreatitis type Sep- Licha Pryor. [address] [place] [address], [id number], [place]. tel:[phone] Init Inpt Cons New/est Mod-hi [facility], [address] [address], [place], [address], [place] tel:[phone] [facility] No Information Sep- 7 Elsa Alfred. [address] [facility], [address] [address], [place], [place], [address], [place]. tel:[phone] Referring Provider: Robin Holcomb, [address], [place], [address]. tel:[phone] [facility], [address] [address], [place], [address], [place] tel:[phone] [facility] Chronic pancreatitis , unspecified pancreatitis type Sep- 7 Ganesh King. [address] [place] [address], [id number], [place]. tel:[phone] Galo Huang DO. tel:[phone] Subsqt Hosp-da E&m Minr Compl [facility], [address] [address], [place], [address], [place] tel:[phone] [facility] No Information Sep-0 Stephane Neumann. [address] [address], [place], [place], [address], [place]. [phone] Referring Provider: Robin Holcomb, [address], [place], [address]. tel:[phone] Subsqt Hosp-da E&m Minr Compl [facility], [address] [address], [place], [address], [place] tel:[phone] [facility] No Information Sep-0 7 Chandrakant Villanueva. [address] [place] [address], [id number], [place]. tel:[phone] Referring Provider: Robin Holcomb, [address], [place], [address]. tel:[phone] Init Inpt Cons New/est Mod-hi [facility], [address] [address], [place], [address], [place] tel:[phone] [facility] No Information Ganesh King. [address] [facility], [facility] 500, [place], [place], [address], [place]. tel:[phone] Referring Provider: Robin Holcomb, [address], [place], [address]. tel:[phone] Subsqt Hosp-da E&m Minr Compl [facility], [address] [address], [place], [address], [place] tel:[phone] [facility] No Information No Information Referring Provider: Robin Holcomb, [address], [place], [address]. tel:[phone] [facility], [address] [address], [place], [address], [place] tel:[phone] [facility] No Information Licha Pryor. [address] [facility], [facility] [address], [place], [place], [address], [place]. tel:[phone] Referring Provider: Robin Holcomb, [address], [place], [address]. tel:[phone] Subsqt Hosp-da E&m Minr Compl [facility], [address] [address], [place], [address], [place] tel:[phone] [facility] No Information No Information Referring Provider: Robin Holcomb, [address], [place], [address]. tel:[phone] Init Inpt Cons New/estab Mod 5 [facility], [address] [address], [place], [address], [place] tel:[phone] [facility] No Information Madi Mcconnell. [address] [facility], [facility] [address], [address], [place]. tel:[phone] Referring Provider: Robin Holcomb, [address], [place], [address]. tel:[phone] [facility], [address] [address], [place] [facility] [place], [address], [place] tel:[phone] [facility] Chronic pancreatitis , unspecified pancreatitis type 7 Licha Pryor. [address] [facility], [facility] [address], [address], [place]. tel:[phone] Galo Huang DO. tel:[phone] Init Inpt Cons New/est Mod-hi [facility], [address] [address], [facility], [address], [place] tel:[phone] [facility] No Information No Information Referring Provider: Robin Holcomb, [address], [place], [address]. tel:[phone] [facility], [address] [address], [facility] [place], [address], [place] tel:[phone] [facility] Chronic pancreatitis , unspecified pancreatitis type Dakota Reed. [address] [facility], [facility] [address], [address], [place]. tel:[phone] Subsqt Hosp-da E&m Minr Compl [facility], [address] [address], [facility] [place], [address], [place] tel:[phone] [facility] No Information 6 Jesus Duran. [address] [facility], [address] [address], [place], [place], [address], [place]. tel:[phone] Referring Provider: Renee James, [facility] 500, [facility] [place], [address] . tel:[phone] Init Inpt Cons New/est Mod-hi [facility], [address] [address], [place], [address], [place] tel:[phone] [facility] No Information Danuta Gomes. [address] [facility], [facility] 500, [place], [place], [address], [place]. tel:[phone] Referring Provider: Eliseo Burkett, [address] [facility] [address], [place], [address] . tel:[phone] [facility], [address] [address], [place], [address], [place] tel:[phone] [facility] No Information Licha Pryor. [address] [facility], [facility] 500, [place], [place], [address], [place]. tel:[phone] Referring Provider: Konstantin Hurt MD, [address] [place] [address] 500, [place], [address] . tel:[phone] [facility], [address] [address], [place], [address], [place] tel:[phone] [facility] Bile duct obstruction Licha Pryor. [address] [facility], [facility] 500, [place], [place], [address], [place]. tel:[phone] Galo Huang DO. tel:[phone] erring Provider: Referral Self, USE FOR SELF REFERRALS. [facility], [address] [address], [place], [address], [place] tel:[phone] [facility] No Information 5 Licha Pryor. [address] [place] [address], [facility] [address], [place], [place], [address], [place]. tel:[phone] Referring Provider: [place], [address] [place] [address] 500, [place], [address] . tel:[phone] Subsqt Hosp-da E&m Minr Compl [facility], [address] [address], [place], [address], [place] tel:[phone] [facility] No Information Apr-1 5 Nesset NIGHTMAN Kenya. [address] [facility], [facility] 500, [place], [place], [address], [place]. [phone] Referring Provider: Isai Ac MD, [address] [facility] [address], [place], [address]. tel:[phone] [facility], [address] [address], [place], [address], [place] tel:[phone] [facility] No Information Apr-0 5 Licha Pryor. [address] [facility], [facility] [address], [place], [place], [address], [place]. [phone] Referring Provider: Isai Ac MD, [address] [facility] [address], [place], [address]. tel:[phone] [facility], [address] [address], [place], [address], [place] tel:[phone] [facility] Acute Pancreatitis Acute pancreatitis , unspecified 0 5 Licha Pryor. [address] [facility], [facility] [address], [place], [place], [address], [place]. tel:[phone] [facility], [address] [address], [place], [address], [place] tel:[phone] [facility] Acute Pancreatitis Mar-0 5 Licha Pryor. [address] [facility], [facility] 500, [place], [place], [address], [place]. [phone] Referring Provider: Referral Self, USE FOR SELF REFERRALS. Subsqt Hosp-da E&m Minr Compl [facility], [address] [address], [place], [address], [place] tel:[phone] [facility] No Information 0 5 Nesset NIGHTMAN [place]. [address] [facility], [facility] 500, [place], [place], [address], [place]. tel:[phone] Referring Provider: Isai Ac MD, [address] [facility] [address], [place], [address]. tel:[phone] Subsqt Hosp-da E&m Minr Compl [facility], [address] [address], [place], [address], [place] tel:[phone] [facility] No Information 5 Stephane EDWIN Nel. [address] [facility], [facility] 500, [place], [place], [address], [place]. tel:[phone] Referring Provider: Isai Ac MD, [address] [facility] [address], [place], [address]. tel:[phone] Init Inpt Cons New/estab Mod 5 [facility], [address] [address], [place], [address], [place] tel:[phone] [facility] No Information 5 Nesset NIGHTMAN [place]. [address] [facility], [facility] [address], [address], [place]. tel:[phone] Referring Provider: Isai cA MD, [address] [facility] [address], [place], [address]. tel:[phone] Offic/outpt E&m Estab Low-mod [facility], [address] [address], [place], [address], [place] tel:[phone] [facility] No Information 5 Licha Pryor. [address] [facility], [facility] [address], [place], [place], [address], [place]. tel:[phone] Referring Provider: Annabelle Nieto, [address] [place] [address], [place], [address]. tel:[phone] Init Inpt Cons New/est Mod-hi [facility], [address] [address], [place], [address], [place] tel:[phone] [facility] No Information Danuta Gomes. [address] [place] [address], [id number], [place]. tel:[phone] Referring Provider: Annabelle Nieto, [address], [place], [address]. tel:[phone] Subsqt Hosp-da E&m Minr Compl [facility], [address] [address], [place], [address], [place] tel:[phone] [facility] No Information Collin NIGHTMAN Kenya. [address] [place] [address], [id number], [place]. tel:[phone] Referring Provider: Annabelle Nieto, [address] , [place], [address]. tel:[phone] Subsqt Hosp-da E&m Minr Compl [facility], [address] [address], [place], [address], [place] tel:[phone] [facility] No Information Collin Zambrano. [address] [place] [address], [id number], [place]. tel:[phone] Referring Provider: Annabelle Nieto, [address] , [place], [address]. tel:[phone] Subsqt Hosp-da E&m Stable 15 M [facility], [address] [address], [place], [address], [place] tel:[phone] [facility] No Information No Information Referring Provider: Annabelle Nieto, [address] , [place], [address]. tel:[phone] Subsqt Hosp-da E&m Minr Compl [facility], [address] [address], [place], [address], [place] tel:[phone] [facility] No Information 0201 5 Nesset NIGHTMAN Kenya. [address] [place] [address], [id number], [place]. tel:[phone] Referring Provider: Annabelle Nieto, [address] [facility], [place], [address]. tel:[phone] Init Inpt Cons New/est Mod-hi [facility] [place], [address] [address], [place] [facility] [place], [address], [place] tel:[phone] [facility] No Information 5 Licha Pryor. [address] [place] [address], [id number], [place]. tel:[phone] Referring Provider: Annabelle Nieto, [address] [facility], [place], [address]. tel:[phone] [facility] Digestive [facility], [address] [address], [facility], [place], [address], [place] tel:[phone] [facility] No Information 5 Licha Pryor. [address] [place] [address], [id number], [place]. tel:[phone] Referring Provider: Annabelle Nieto, [address] [facility], [place], [address]. tel:[phone] [facility] Digestive [facility], [address] [address], [facility], [address], [place] tel:[phone] [facility] Acute Pancreatitis 5201 5 No Information Referring Provider: Referral Self, USE FOR SELF REFERRALS. Subsqt Hosp-da E&m Minr Compl [facility] [place], [address] [address], [place], [address], [place] tel:[phone] [facility] No Information 0 3-201 5 Nesset NIGHTMAN Kenya. [address] [place] [address], [id number], [place]. tel:[phone] Referring Provider: Yariel Cortez MD, [address], [place], [address]. tel:[phone] Init Inpt Cons New/est Mod-hi [facility], [address] [address], [place], [place], [address], [place] tel:[phone] [facility] No Information 5 No Information Referring Provider: Yariel Cortez MD, [address], [place], [address]. 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 tel:[phone] Offic/outpt E&m Estab Low-mod [facility] Digestive [facility], [address] [address], [place], [place], [address], [place] tel:[phone] [facility] No Information 3 Licha Pryor. [address] [facility], [address], [place], [place], [address], [place]. tel:[phone] Referring Provider: Annabelle Nieto, [address] [facility], [place], [address]. tel:[phone] Subsqt Hosp-da E&m Minr Compl [facility] Digestive [facility], [address] [address], [place], [place], [address], [place] tel:[phone] [facility] No Information 3 Nesset NIGHTMAN [place]. [address] [facility], [facility] [address], [place], [address], [place]. tel:[phone] Referring Provider: Rudi Burkett, [address], [place], [address]. tel:[phone] Subsqt Hosp-da E&m Minr Compl [facility], [address] [address], [place], [place], [address], [place] tel:[phone] [facility] No Information 3 Nesset NIGHTMAN [place]. [address] [facility], [facility] [address], [place], [address], [place]. tel:[phone] Referring Provider: Rudi Burkett, [address], [place], [address]. tel:[phone] Subst Hosp-da E&m Minr Compl [facility], [address] [address], [place], [place], [address], [place] tel:[phone] [facility] No Information 3 Chandrakant Villanueva. [address] [facility], [facility] [address], [place], [address], [place]. tel:[phone] Referring Provider: Rudi Burkett, [address], [place], [address]. tel:[phone] Offic/outpt E&m Estab Mod-hi 2 [facility], [address] [address], [place], [place], [address], [place] tel:[phone] [facility] No Information 2 Licha Pryor. [address] [facility], [facility] [address], [place], [address], [place]. tel:[phone] [facility], [address] [address], [facility] [place], [address], [place] tel:[phone] [facility] Obstruction Of Bile Duct 2 Licha Pryor. [address] [facility], [facility] 500, [place], [place], [address], [place]. tel:[phone] [facility], [address] [address], [facility], [place], [address], [place] tel:[phone] [facility] No Information 2 Licha Pryor. [address], [id number], [place]. tel:[phone] Referring Provider: Annabelle Nieto, [address] , [place], [address]. tel:[phone] Subsqt Hosp-da E&m Stable 15 M [facility], [address] [address], [facility], [place], [address], [place] tel:[phone] [facility] No Information 2 Mahamed Garcia. [address], [id number], [place]. tel:[phone] Referring Provider: Annabelle Nieto, [address] [facility], [place], [address]. tel:[phone] Subsqt Hosp-da E&m Minr Compl [facility], [address] [address], [facility], [place], [address], [place] tel:[phone] [facility] No Information 2 Collin Zambrano. [address], [id number], [place]. tel:[phone] Referring Provider: Annabelle Nieto, [address], [place], [address]. tel:[phone] [facility], [address] [address], [facility], [place], [address], [place] tel:[phone] [facility] No Information 2 Licha Pryor. [address] [place] [address], [id number], [place]. tel:[phone] Referring Provider: Annabelle Nieto, [address] [facility], [place], [address]. tel:[phone] [facility], [address] [address], [place], [address], [place] tel:[phone] [facility] Obstruction Of Bile DuctAcute Pancreatitis 2 Licha Pryor. [address] [address], [place], [place], [address], [place]. tel:[phone] Referring Provider: Annabelle Nieto, [address] [facility], [place], [address]. tel:[phone] Subsqt Hosp-da E&m Minr Compl [facility], [address] [address], [place], [address], [place] tel:[phone] [facility] No Information 2 Collin Zambrano. [address] [facility] [address], [place], [place], [address], [place]. tel:[phone] Referring Provider: Maurice Burkett, [address] [place] [address], [place], [address]. tel:[phone] Subsqt Hosp-da E&m Minr Compl [facility], [address] [address], [place], [address], [place] tel:[phone] [facility] No Information 2 No Information Referring Provider: Maurice Burkett, [address] [place] [address] [place] [address], [place], [address]. tel:[phone] Subsqt Hosp-da E&m Minr Compl [facility], [address] [address], [place], [address], [place] tel:[phone] [facility] No Information 0 2 No Information Referring Provider: Maurice Burkett, [address] [place] [address] [place] [address], [place], [address]. tel:[phone] Subsqt Hosp-da E&m Minr Compl [facility], [address] [address], [place], [place], [id number], [place] tel:[phone] [facility] No Information 2 Collin VALENZUELA [place]. [address] [facility], [facility] [address], [place], [place], [id number], [place]. tel:[phone] Referring Provider: Maurice Burkett, [address] [place] [id number], [place], [address]. tel:[phone] [facility], [address] [address], [place], [place], [id number], [place] tel:[phone] [id number] [facility] No Information 2 Chandrakant Villanueva. [address] [facility], [facility] [address], [place], [place], [id number], [place]. tel:[phone] Referring Provider: Maurice Burkett, [address] [place] [id number], [place], [address]. tel:[phone] [facility] H[facility] Stable 15 M [facility], [address] [address], [place], [address], [place] tel:[phone] [facility] No Information 2 Mahamed Garcia. [address] [facility], [facility] [address], [place], [place], [id number], [place]. tel:[phone] Referring Provider: Maurice Burkett, [address] [place] [address], [place], [address]. tel:[phone] Sub[facility]t Hosp-da E&m Minr Compl [facility], [address] [address], [place], [address], [place] tel:[phone] [facility] No Information 2 No Information Referring Provider: Maurice Burkett, [address] [place] [address], [place], [address]. tel:[phone] [facility] H[facility]-da E&m Minr Compl [facility], [address] [address], [place], [id number], [place] tel:[phone] [facility] No Information 2 No Information Referring Provider: Maurice Burkett, [address] [place] [address] [place] [address], [place], [address]. tel:[phone] [facility] H[facility]-da E&m Minr Compl [facility], [address] [address], [place], [id number], [place] tel:[phone] [facility] No Information 2 Chandrakant Villanueva. [address] [place] [address], [facility] [address], [place], [place], [id number], [place]. tel:[phone] Referring Provider: Maurice Burkett, [address] [place] [address], [place], [address]. tel:[phone] [facility], [address] [address], [place], [address], [place] tel:[phone] [facility] No Information No Information Referring Provider: Maurice Burkett, [address] [place] [address], [place], [address]. tel:[phone] Init Inpt Cons New/est Mod-hi [facility], [address] [address], [place], [address], [place] tel:[phone] [facility] No Information 2 Flora Alexandra. [address] [place] [address], [place] [address], [place], [id number], [place]. tel:[phone] Referring Provider: Maurice Burkett, [address] [place] [address], [place], [address]. tel:[phone] [facility]-da E&m Minr [facility], [address] [address], [place], [id number], [place] tel:[phone] [facility] No Information 2 No Information Referring Provider: Maurice Burkett, [address] [place] [address], [place], [address]. tel:[phone] Subsqt Hosp-da E&m Minr Compl [facility] [place], [address] [address], [place], [id number], [place] tel:[phone] [facility] No Information 2 Chandrakant Villanueva. [address] [facility], [facility] [address], [place], [place], [address], [place]. tel:[phone] Referring Provider: Maurice Burkett, [address] [place] [address], [place], [address]. tel:[phone] Sub[facility]t Hosp-da E&m Minr Compl [facility] [place], [address] [address], [place], [id number], [place] tel:[phone] [facility] No Information 2 Chandrakant Villanueva. [address] [place] [address], [facility] [address], [place], [place], [address], [place]. tel:[phone] Referring Provider: Kay Vu, [address] [place] [address] [address], [place], [address] . tel:[phone] [facility]&m Stable 15 M [facility] [place], [address] [address], [place], [id number], [place] tel:[phone] [facility] No Information 2 No Information Subsqt Hosp-da E&m Minr Compl [facility] [place], [address] [address], [place], [id number], [place] tel:[phone] [facility] No Information 2 No Information Subsqt Hosp-da E&m Minr Compl [facility] [place], [address] [address], [place], [id number], [place] tel:[phone] [facility] No Information 2 Chandrakant Villanueva. [address] [facility], [facility] [address], [address], [place]. tel:[phone] Referring Provider: Annabelle Nieto, [address] , [place], [address]. tel:[phone] Subsqt Hosp-da E&m Minr Compl [facility], [address] [address], [facility] [place], [address], [place] tel:[phone] [facility] No Information No Information Subsqt Hosp-da E&m Sig Compl 3 [facility], [address] [address], [facility] [place], [address], [place] tel:[phone] [facility] No Information 2 Tyler ARMSTRONG Karen. [address] [facility], [facility] [address], [address], [place]. tel:[phone] Referring Provider: Annabelle Nieto, [address] , [place], [address]. tel:[phone] Subsqt Hosp-da E&m Minr Compl [facility], [address] [address], [place], [place], [address], [place] tel:[phone] [facility] No Information 2 No Information Referring Provider: Annabelle Nieto, [address] , [place], [address]. tel:[phone] Subsqt Hosp-da E&m Minr Compl [facility], [address] [address], [facility] [place], [address], [place] tel:[phone] [facility] No Information 2 No Information Referring Provider: Annabelle Nieto, [address] , [place], [address]. tel:[phone] Subsqt Hosp-da E&m Minr Compl [facility], [address] [address], [facility], [place], [address], [place] tel:[phone] [facility] No Information 2 No Information Referring Provider: Annabelle Nieto, [address], [place], [address]. tel:[phone] Subsqt Hosp-da E&m Minr Compl [facility], [address] [address], [place], [address], [place] tel:[phone] [facility] No Information 2 No Information Referring Provider: Annabelle Nieto, [address], [place], [address]. tel:[phone] Subsqt Hosp-da E&m Minr Compl [facility], [address] [address], [place], [address], [place] tel:[phone] [facility] No Information 2 Nesset NIGHTMAN Kenya. [address] [place] [address], [id number], [place]. tel:[phone] Referring Provider: Annabelle Nieto, [address] , [place], [address]. tel:[phone] Subsqt Hosp-da E&m Minr Compl [facility], [address] [address], [facility] [place], [address], [place] tel:[phone] [facility] No Information 2 No Information Referring Provider: Annabelle Nieto, [address] , [place], [address]. tel:[phone] Subsqt Hosp-da E&m Minr Compl [facility], [address] [address], [place], [address], [place] tel:[phone] [facility] No Information 2 Nesset NIGHTMAN Kenya. [address] [place] [address], [place], [id number], [place]. tel:[phone] Referring Provider: Annabelle Nieto, [address], [place], [address]. tel:[phone] Init Inpt Cons New/est Mod-hi [facility], [address] [address], [place], [id number], [place] tel:[phone] [facility] No Information 2 No Information Referring Provider: Annabelle Nieto, [address], [place], [address]. 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 tel:[phone] [facility], [address] [address], [place], [address], [place] tel:[phone] [facility] Acute Pancreatitis 1 No Information Offic Cons New/estab Mod [facility], [address] [address], [place], [address], [place] tel:[phone] [facility] Pancreatitis (chief complaint) Acute Pancreatitis Non-alcoholi c Fatty Liver 1 No Information Referring Provider: Annabelle Nieto, [address], [place], [address]. tel:[phone] Family History Family Member Type Diagnosis Age [...] name Insurance type Covered alliance party ID Authoriza tion(s) No Information Social History Type Description Quantity Date Captured Comments Sex Male Smoking Status No Information Chief Complaint And Reason For Visit No Information Reason For Referral Reason For Referral No Information Plan Of Treatment Date Type Action Status Referral Ordered: Xray Abdomen; Limited (AP View Only) (KUB) Appointment date/timeframe: 05/29/2017 ordered Referral Ordered: referred to [facility] chronic pain w/ pancreatitis ordered Referral [...]
--- OUTSIDE RECORDS SUMMARY | 2024-08-02 18:00 | XMS_ITS | Continuity of Care Document ---
Author Organization [facility] Address [address] [address] [place] [address] Phone Care Team Providers Care Telecommunications Consultant Name Role Phone Radha Ordoñez Unavailabl e [...] Encounter [facility] [address] [address], [place], [id number], [place] tel:[phone] [facility] No Information 4 Ap Garcia. [address] [facility], [facility] 500, [place], [place], [address], [place]. tel:[phone] Init Hosp-da E&m Mod Severity [facility], [address] [address], [place], [place], [address], [place] tel:[phone] [facility] No Information Jul-0 4 Ap Garcia. [address] [place] [address] 500, [place], [place], [address], [place]. tel:[phone] Referring Provider: Kyle Scherer DO, [address] [place] [address], [place], [address]. tel:[phone] Subsqt Hosp-da E&m Minr Compl [facility], [address] [address], [place], [place], [address], [place] tel:[phone] [facility] No Information Sep- Nesset BIANCA Zambrano. [address] [place] [address], [id number], [place]. tel:[phone] Galo Huang DO. tel:[phone] erring Provider: Robin Holcomb, [address] [facility], [place], [address]. tel:[phone] Subsqt Hosp-da E&m Stable 15 M [facility], [address] [address], [place], [place], [address], [place] tel:[phone] [facility] No Information Sep- 7 Chandrakant Villanueva. [address] [address], [place], [place], [address], [place]. tel:[phone] Referring Provider: Robin Holcomb, [address] [facility], [place], [address]. tel:[phone] Init Inpt Cons New/est Mod-hi [facility], [address] [address], [facility], [place], [address], [place] tel:[phone] [facility] No Information Sep-2 7 No Information Referring Provider: Robin Holcomb, [address], [place], [address]. tel:[phone] Subsqt Hosp-da E&m Minr Compl [facility], [address] [address], [place], [address], [place] tel:[phone] [facility] No Information Sep-2 0 7 Nesset BIANCA Ortizy. [address] [place] [address], [id number], [place]. tel:[phone] Referring Provider: Robin Holcomb, [address], [place], [address]. tel:[phone] Subsqt Hosp-da E&m Minr Compl [facility], [address] [address], [place], [address], [place] tel:[phone] [facility] No Information Sep- Chandrakant Villanueva. [address] [place] [address], [id number], [place]. tel:[phone] Referring Provider: Robin Holcomb, [address], [place], [address]. tel:[phone] [facility], [address] [address], [place], [address], [place] tel:[phone] [facility] No Information Sep- Licha Pryor. [address] [place] [address], [id number], [place]. tel:[phone] Referring Provider: Robin Holcomb, [address], [place], [address]. tel:[phone] [facility], [address] [address], [place], [address], [place] tel:[phone] [facility] Encounter for removal of biliary stentChronic pancreatitis , unspecified pancreatitis type Sep- Licha Pryor. [address] [place] [address], [id number], [place]. tel:[phone] Init Inpt Cons New/est Mod-hi [facility], [address] [address], [place], [address], [place] tel:[phone] [facility] No Information Sep- 7 Elsa Alfred. [address] [facility], [address] [address], [place], [place], [address], [place]. tel:[phone] Referring Provider: Robin Holcomb, [address], [place], [address]. tel:[phone] [facility], [address] [address], [place], [address], [place] tel:[phone] [facility] Chronic pancreatitis , unspecified pancreatitis type Sep- 7 Ganesh King. [address] [place] [address], [id number], [place]. tel:[phone] Galo Huang DO. tel:[phone] Subsqt Hosp-da E&m Minr Compl [facility], [address] [address], [place], [address], [place] tel:[phone] [facility] No Information Sep-0 Stephane Neumann. [address] [address], [place], [place], [address], [place]. [phone] Referring Provider: Robin Holcomb, [address], [place], [address]. tel:[phone] Subsqt Hosp-da E&m Minr Compl [facility], [address] [address], [place], [address], [place] tel:[phone] [facility] No Information Sep-0 7 Chandrakant Villanueva. [address] [place] [address], [id number], [place]. tel:[phone] Referring Provider: Robin Holcomb, [address], [place], [address]. tel:[phone] Init Inpt Cons New/est Mod-hi [facility], [address] [address], [place], [address], [place] tel:[phone] [facility] No Information Ganesh King. [address] [facility], [facility] 500, [place], [place], [address], [place]. tel:[phone] Referring Provider: Robin Holcomb, [address], [place], [address]. tel:[phone] Subsqt Hosp-da E&m Minr Compl [facility], [address] [address], [place], [address], [place] tel:[phone] [facility] No Information No Information Referring Provider: Robin Holcomb, [address], [place], [address]. tel:[phone] [facility], [address] [address], [place], [address], [place] tel:[phone] [facility] No Information Licha Pryor. [address] [facility], [facility] 500, [place], [place], [address], [place]. tel:[phone] Referring Provider: Robin Holcomb, [address], [place], [address]. tel:[phone] Subsqt Hosp-da E&m Minr Compl [facility], [address] [address], [place], [address], [place] tel:[phone] [facility] No Information No Information Referring Provider: Robin Holcomb, [address], [place], [address]. tel:[phone] Init Inpt Cons New/estab Mod 5 [facility], [address] [address], [place], [address], [place] tel:[phone] [facility] No Information Madi Mcconnell. [address] [facility], [facility] [address], [place], [address], [place]. tel:[phone] Referring Provider: Robin Holcomb, [address], [place], [address]. tel:[phone] [facility], [address] [address], [facility] [place] [facility] [place], [address], [place] tel:[phone] [facility] Chronic pancreatitis , unspecified pancreatitis type 7 Licha Pryor. [address] [facility], [facility] [address], [place], [address], [place]. tel:[phone] Galo Huang DO. tel:[phone] Init Inpt Cons New/est Mod-hi [facility], [address] [address], [facility] [place], [address], [place] tel:[phone] [facility] No Information No Information Referring Provider: Robin Holcomb, [address], [place], [address]. tel:[phone] [facility], [address] [address], [facility] [place], [address], [place] tel:[phone] [facility] Chronic pancreatitis , unspecified pancreatitis type Dakota Reed. [address] [facility], [facility] [address], [place], [address], [place]. tel:[phone] Subsqt Hosp-da E&m Minr Compl [facility], [address] [address], [facility] [address], [place] tel:[phone] [facility] No Information 6 Jesus Duran. [address] [facility], [address] [address], [place], [place], [address], [place]. tel:[phone] Referring Provider: Renee James, [facility] 500, [facility] [place], [address] . tel:[phone] Init Inpt Cons New/est Mod-hi [facility], [address] [address], [place], [address], [place] tel:[phone] [facility] No Information Danuta Gomes. [address] [facility], [facility] 500, [place], [place], [address], [place]. tel:[phone] Referring Provider: Eliseo Burkett, [address] [facility] [address], [place], [address] . tel:[phone] [facility], [address] [address], [place], [address], [place] tel:[phone] [facility] No Information Licha Pryor. [address] [facility], [facility] 500, [place], [place], [address], [place]. tel:[phone] Referring Provider: Konstantin Hurt MD, [address] [place] [address] 500, [place], [address] . tel:[phone] [facility], [address] [address], [place], [address], [place] tel:[phone] [facility] Bile duct obstruction Licha Pryor. [address] [facility], [facility] 500, [place], [place], [address], [place]. tel:[phone] Galo Huang DO. tel:[phone] erring Provider: Referral Self, USE FOR SELF REFERRALS. [facility], [address] [address], [place], [address], [place] tel:[phone] [facility] No Information 5 Licha Pryor. [address] [place] [address], [facility] 500, [place], [place], [address], [place]. tel:[phone] Referring Provider: [place], [address] [place] [address] 500, [place], [address] . tel:[phone] Subsqt Hosp-da E&m Minr Compl [facility], [address] [address], [place], [address], [place] tel:[phone] [facility] No Information Apr-1 5 Nesset TRANSCRIPTION COORDINATOR [place]. [address] [facility], [facility] 500, [place], [place], [address], [place]. [phone] Referring Provider: Isai Ac MD, [address] [facility] [address], [place], [address]. tel:[phone] [facility], [address] [address], [place], [address], [place] tel:[phone] [facility] No Information Apr-0 5 Licha Pryor. [address] [facility], [facility] 500, [place], [place], [address], [place]. [phone] Referring Provider: Isai Ac MD, [address] [facility] [address], [place], [address]. tel:[phone] [facility], [address] [address], [place], [address], [place] tel:[phone] [facility] Acute Pancreatitis Acute pancreatitis , unspecified 0 5 Licha Pryor. [address] [facility], [facility] 500, [place], [place], [address], [place]. tel:[phone] [facility], [address] [address], [place], [address], [place] tel:[phone] [facility] Acute Pancreatitis Mar-0 5 Licha Pryor. [address] [facility], [facility] 500, [place], [place], [address], [place]. [phone] Referring Provider: Referral Self, USE FOR SELF REFERRALS. Subsqt Hosp-da E&m Minr Compl [facility], [address] [address], [place], [address], [place] tel:[phone] [facility] No Information 0 5 Nesset TRANSCRIPTION COORDINATOR [place]. [address] [facility], [facility] 500, [place], [place], [address], [place]. tel:[phone] Referring Provider: Isai Ac MD, [address] [facility] [address], [place], [address]. tel:[phone] Subsqt Hosp-da E&m Minr Compl [facility], [address] [address], [place], [address], [place] tel:[phone] [facility] No Information 5 Stephane EDWIN Nel. [address] [facility], [facility] 500, [place], [place], [address], [place]. tel:[phone] Referring Provider: Isai Ac MD, [address] [facility] [address], [place], [address]. tel:[phone] Init Inpt Cons New/estab Mod 5 [facility], [address] [address], [facility], [address], [place] tel:[phone] [facility] No Information 5 Nesset TRANSCRIPTION COORDINATOR [place]. [address] [facility], [facility] [address], [place], [address], [place]. tel:[phone] Referring Provider: Isai Ac MD, [address] [facility] [address], [place], [address]. tel:[phone] Offic/outpt E&m Estab Low-mod [facility], [address] [address], [place], [address], [place] tel:[phone] [facility] No Information 5 Licha Pryor. [address] [facility], [facility] 500, [place], [place], [address], [place]. tel:[phone] Referring Provider: Annabelle Nieto, [address] [place] [address], [place], [address]. tel:[phone] Init Inpt Cons New/est Mod-hi [facility], [address] [address], [place], [address], [place] tel:[phone] [facility] No Information Danuta Gomes. [address] [place] [address], [address], [place]. tel:[phone] Referring Provider: Annabelle Nieto, [address], [place], [address]. tel:[phone] Subsqt Hosp-da E&m Minr Compl [facility], [address] [address], [place], [address], [place] tel:[phone] [facility] No Information Collin TRANSCRIPTION COORDINATOR [place]. [address] [place] [address], [address], [place]. tel:[phone] Referring Provider: Annabelle Nieto, [address] , [place], [address]. tel:[phone] Subsqt Hosp-da E&m Minr Compl [facility], [address] [address], [facility], [address], [place] tel:[phone] [facility] No Information Collin Zambrano. [address] [place] [address], [address], [place]. tel:[phone] Referring Provider: Annabelle Nieto, [address] , [place], [address]. tel:[phone] Subsqt Hosp-da E&m Stable 15 M [facility], [address] [address], [place], [address], [place] tel:[phone] [facility] No Information No Information Referring Provider: Annabelle Nieto, [address] , [place], [address]. tel:[phone] Subsqt Hosp-da E&m Minr Compl [facility], [address] [address], [place], [address], [place] tel:[phone] [facility] No Information 0201 5 Nesset TRANSCRIPTION COORDINATOR [place]. [address] [place] [address], [id number], [place]. tel:[phone] Referring Provider: Annabelle Nieto, [address] [facility], [place], [address]. tel:[phone] Init Inpt Cons New/est Mod-hi [facility], [address] [address], [facility], [address], [place] tel:[phone] [facility] No Information 5 Licha Pryor. [address] [place] [address], [id number], [place]. tel:[phone] Referring Provider: Annabelle Nieto, [address] [facility], [place], [address]. tel:[phone] [facility] Pending [facility], [address] [address], [facility], [address], [place] tel:[phone] [facility] No Information 5 Licha Pryor. [address] [place] [address], [address], [place]. tel:[phone] Referring Provider: Annabelle Nieto, [address] [facility], [place], [address]. tel:[phone] [facility] Pending [facility], [address] [address], [facility], [address], [place] tel:[phone] [facility] Acute Pancreatitis 5201 5 No Information Referring Provider: Referral Self, USE FOR SELF REFERRALS. Subsqt Hosp-da E&m Minr Compl [facility], [address] [address], [place], [address], [place] tel:[phone] [facility] No Information 0 3-201 5 Nesset TRANSCRIPTION COORDINATOR [place]. [address] [place] [address], [id number], [place]. tel:[phone] Referring Provider: Yariel Cortez MD, [address], [place], [address]. tel:[phone] Init Inpt Cons New/est Mod-hi [facility], [address] [address], [place], [place], [address], [place] tel:[phone] [facility] No Information 5 No Information Referring Provider: Yariel Cortez MD, [address], [place], [address]. 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 Offic/outpt E&m Estab Mod-hi 2 [facility] Dig[facility], [address] [address], [place], [place], [address], [place] tel:[phone] [facility] Non-alcoholi c Fatty LiverNon-alc oholic Fatty Liver 3 No Information Referring Provider: Annabelle Nieto, [address] [facility], [place], [address]. tel:[phone] Offic/outpt E&m Estab Low-mod [facility], [address] [address], [place], [place], [address], [place] tel:[phone] [facility] No Information 3 Licha Pryor. [address] [facility], [address], [place], [place], [address], [place]. tel:[phone] Referring Provider: Annabelle Nieto, [address] [facility], [place], [address]. tel:[phone] Subsqt Hosp-da E&m Minr Compl [facility] Digestive [facility], [address] [address], [place], [place], [address], [place] tel:[phone] [facility] No Information 3 Nesset TRANSCRIPTION COORDINATOR [place]. [address] [facility], [facility] [address], [place], [address], [place]. tel:[phone] Referring Provider: Rudi Burkett, [address], [place], [address]. tel:[phone] Subsqt Hosp-da E&m Minr Compl [facility], [address] [address], [place], [place], [address], [place] tel:[phone] [facility] No Information 3 Nesset TRANSCRIPTION COORDINATOR [place]. [address] [facility], [facility] [address], [place], [address], [place]. tel:[phone] Referring Provider: Rudi Burkett, [address], [place], [address]. tel:[phone] Subst Hosp-da E&m Minr Compl [facility], [address] [address], [place], [place], [address], [place] tel:[phone] [facility] No Information 3 Chandrakant Villanueva. [address] [facility], [facility] [address], [place], [address], [place]. tel:[phone] Referring Provider: Rudi Burkett, [address], [place], [address]. tel:[phone] Offic/outpt E&m Estab Mod-hi 2 [facility], [address] [address], [place], [place], [address], [place] tel:[phone] [facility] No Information 2 Licha Pryor. [address] [facility], [facility] [address], [place], [address], [place]. tel:[phone] [facility], [address] [address], [facility] [place], [address], [place] tel:[phone] [facility] Obstruction Of Bile Duct 2 Licha Pryor. [address] [facility], [facility] 500, [place], [place], [address], [place]. tel:[phone] [facility], [address] [address], [facility], [place], [address], [place] tel:[phone] [facility] No Information 2 Licha Pryor. [address], [id number], [place]. tel:[phone] Referring Provider: Annabelle Nieto, [address] , [place], [address]. tel:[phone] Subsqt Hosp-da E&m Stable 15 M [facility], [address] [address], [facility], [place], [address], [place] tel:[phone] [facility] No Information 2 Mahamed Garcia. [address], [address], [place]. tel:[phone] Referring Provider: Annabelle Nieto, [address] [facility], [place], [address]. tel:[phone] Subsqt Hosp-da E&m Minr Compl [facility], [address] [address], [facility], [place], [address], [place] tel:[phone] [facility] No Information 2 Collin Zambrano. [address], [address], [place]. tel:[phone] Referring Provider: Annabelle Nieto, [address], [place], [address]. tel:[phone] [facility], [address] [address], [facility], [address], [place] tel:[phone] [facility] No Information 2 Licha Pryor. [address] [place] [address], [id number], [place]. tel:[phone] Referring Provider: Annabelle Nieto, [address] [facility], [place], [address]. tel:[phone] [facility], [address] [address], [place], [address], [place] tel:[phone] [facility] Obstruction Of Bile DuctAcute Pancreatitis 2 Licha Pryor. [address] [address], [place], [place], [address], [place]. tel:[phone] Referring Provider: Annabelle Nieto, [address] [facility], [place], [address]. tel:[phone] Subsqt Hosp-da E&m Minr Compl [facility], [address] [address], [place], [address], [place] tel:[phone] [facility] No Information 2 Collin Zambrano. [address] [facility] 500, [place], [place], [address], [place]. tel:[phone] Referring Provider: Maurice Burkett, [address] [place] [address] [place] [address], [place], [address]. tel:[phone] Subsqt Hosp-da E&m Minr Compl [facility], [address] [address], [place], [id number], [place] tel:[phone] [facility] No Information 2 No Information Referring Provider: Maurice Burkett, [address] [place] [address], [place], [address]. tel:[phone] Subsqt Hosp-da E&m Minr Compl [facility], [address] [address], [place], [address], [place] tel:[phone] [facility] No Information 0 2 No Information Referring Provider: Maurice Burkett, [address] [place] [address], [place], [address]. tel:[phone] Sub[facility] Hosp-da E&m Minr Compl [facility], [address] [address], [place], [address], [place] tel:[phone] [facility] No Information 2 Collin VALENZUELA Kenya. [address] [facility], [facility] [address], [place], [place], [address], [place]. tel:[phone] Referring Provider: Maurice Burkett, [address] [facility] [place] [address], [place], [address]. tel:[phone] Subsqt Hosp-da E&m Minr Compl [facility], [address] [address], [place], [id number], [place] tel:[phone] [facility] No Information 2 Chandrakant Villanueva. [address] [facility], [facility] [address], [place], [place], [id number], [place]. tel:[phone] Referring Provider: Maurice Burkett, [address] [facility] [place] [address], [place], [address]. tel:[phone] Sub[facility] Hosp-da E&m Stable 15 M [facility], [address] [address], [place], [address], [place] tel:[phone] [facility] No Information 2 Mahamed Garcia. [address] [facility], [facility] [address], [place], [place], [address], [place]. tel:[phone] Referring Provider: Maurice Burkett, [address] [place] [address], [place], [address]. tel:[phone] Subsqt Hosp-da E&m Minr Compl [facility], [address] [address], [place], [address], [place] tel:[phone] [facility] No Information 2 No Information Referring Provider: Maurice Burkett, [address] [facility] [place] [address], [place], [address]. tel:[phone] Subsqt Hosp-da E&m Minr Compl [facility], [address] [address], [place], [id number], [place] tel:[phone] [facility] No Information 2 No Information Referring Provider: Maurice Burkett, [address] [place] [address], [place], [address]. tel:[phone] Subsqt Hosp-da E&m Minr Compl [facility], [address] [address], [place], [address], [place] tel:[phone] [facility] No Information 2 Chandrakant Villanueva. [address] [place] [address], [facility] [address], [place], [place], [id number], [place]. tel:[phone] Referring Provider: Maurice Burkett, [address] [place] [address], [place], [address]. tel:[phone] [facility], [address] [address], [place], [id number], [place] tel:[phone] [facility] No Information No Information Referring Provider: Maurice Burkett, [address] [place] [address], [place], [address]. tel:[phone] Init Inpt Cons New/est Mod-hi [facility], [address] [address], [place], [id number], [place] tel:[phone] [facility] No Information 2 Flora Alexandra. [address] [place] [address], [place] [address], [place], [address], [place]. tel:[phone] Referring Provider: Maurice Burkett, [address] [place] [address], [place], [address]. tel:[phone] Subsqt Hosp-da E&m Minr [facility], [address] [address], [place], [address], [place] tel:[phone] [facility] No Information 2 No Information Referring Provider: Maurice Burkett, [address] [place] [address], [place], [address]. tel:[phone] Subsqt Hosp-da E&m Minr Compl [facility] [place], [address] [address], [place], [id number], [place] tel:[phone] [facility] No Information 2 Chandrakant Villanueva. [address] [facility], [facility] [address], [place], [place], [address], [place]. tel:[phone] Referring Provider: Maurice Burkett, [address] [place] [address], [place], [address]. tel:[phone] Subsqt Hosp-da E&m Minr Compl [facility] [place], [address] [address], [place], [id number], [place] tel:[phone] [facility] No Information 2 Chandrakant Villanueva. [address] [place] [address], [facility] [address], [place], [place], [address], [place]. tel:[phone] Referring Provider: Kay Vu, [address] [place] [address] [address], [place], [address] . tel:[phone] Subsqt Hosp-da E&m Stable 15 M [facility] [place], [address] [address], [place], [id number], [place] tel:[phone] [facility] No Information 2 No Information Subsqt Hosp-da E&m Minr Compl [facility] [place], [address] [address], [place], [id number], [place] tel:[phone] [facility] No Information 2 No Information Subsqt Hosp-da E&m Minr Compl [facility] [place], [address] [address], [place], [id number], [place] tel:[phone] [facility] No Information 2 Chandrakant Villanueva. [address] [facility], [facility] [address], [place], [address], [place]. tel:[phone] Referring Provider: Annabelle Nieto, [address] , [place], [address]. tel:[phone] Subsqt Hosp-da E&m Minr Compl [facility], [address] [address], [facility] [place], [address], [place] tel:[phone] [facility] No Information No Information Subsqt Hosp-da E&m Sig Compl 3 [facility], [address] [address], [facility] [place], [address], [place] tel:[phone] [facility] No Information 2 Tyler ARMSTRONG Karen. [address] [facility], [facility] [address], [place], [address], [place]. tel:[phone] Referring Provider: Annabelle Nieto, [address] , [place], [address]. tel:[phone] Subsqt Hosp-da E&m Minr Compl [facility], [address] [address], [place], [place], [address], [place] tel:[phone] [facility] No Information 2 No Information Referring Provider: Annabelle Nieto, [address] , [place], [address]. tel:[phone] Subsqt Hosp-da E&m Minr Compl [facility], [address] [address], [facility] [place], [address], [place] tel:[phone] [facility] No Information 2 No Information Referring Provider: Annabelle Nieto, [address] , [place], [address]. tel:[phone] Subsqt Hosp-da E&m Minr Compl [facility], [address] [address], [facility], [place], [address], [place] tel:[phone] [facility] No Information 2 No Information Referring Provider: Annabelle Nieto, [address], [place], [address]. tel:[phone] Subsqt Hosp-da E&m Minr Compl [facility], [address] [address], [place], [address], [place] tel:[phone] [facility] No Information 2 No Information Referring Provider: Annabelle Nieto, [address], [place], [address]. tel:[phone] Subsqt Hosp-da E&m Minr Compl [facility], [address] [address], [place], [address], [place] tel:[phone] [facility] No Information 2 Nesset TRANSCRIPTION COORDINATOR [place]. [address] [place] [address], [id number], [place]. tel:[phone] Referring Provider: Annabelle Nieto, [address] , [place], [address]. tel:[phone] Subsqt Hosp-da E&m Minr Compl [facility], [address] [address], [facility] [place], [address], [place] tel:[phone] [facility] No Information 2 No Information Referring Provider: Annabelle Nieto, [address] , [place], [address]. tel:[phone] Subsqt Hosp-da E&m Minr Compl [facility], [address] [address], [facility] [address], [place] tel:[phone] [facility] No Information 2 Nesset TRANSCRIPTION COORDINATOR [place]. [address] [place] [address], [place], [id number], [place]. tel:[phone] Referring Provider: Annabelle Nieto, [address], [place], [address]. tel:[phone] Init Inpt Cons New/est Mod-hi [facility], [address] [address], [place], [address], [place] tel:[phone] [facility] No Information 2 No Information Referring Provider: Annabelle Nieto, [address], [place], [address]. 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 tel:[phone] [facility], [address] [address], [place], [address], [place] tel:[phone] [facility] Acute Pancreatitis 1 No Information Offic Cons New/estab Mod [facility], [address] [address], [place], [address], [place] tel:[phone] [facility] Pancreatitis (chief complaint) Acute Pancreatitis Non-alcoholi c Fatty Liver 1 No Information Referring Provider: Annabelle iNeto, [address], [place], [address]. tel:[phone] Family History Family Member Type Diagnosis Age [...] Payer name Insurance type Covered democrat ID Authoriza tion(s) No Information Social History Type Description Quantity Date Captured Comments Sex Male Smoking Status No Information Chief Complaint And Reason For Visit No Information Reason For Referral Reason For Referral No Information Plan Of Treatment Date Type Action Status Referral Ordered: Xray Abdomen; Limited (AP View Only) (KUB) Appointment date/timeframe: 05/29/2017 ordered Referral Ordered: referred to [facility] chronic pain w/ pancreatitis ordered Referral [...]
--- OUTSIDE RECORDS SUMMARY | 2025-07-04 04:44 | XMS_ITS | Clinical Summary ---
Author Organization [facility] Address [address] [place] [id number] Care Team Providers Care Burial Vault Setter Name Role Phone JaseKyle craig Primary Care Provider Gianni Brink MD Unavailable [phone] Allergies Active Allergy Reactions Criticality Noted Date [...] if needed for Nausea/Vomiting . 023 Active Lantus Solostar U-100 Insulin 100 unit/mL (3 mL) penIndications:Ty pe 1 diabetes mellitus without complication (HC) Inject 34 units subcutaneous before bedtime. INJECT 34 UNITS SUBCUTANEOUS BEFORE BEDTIME 30 mL 3 025 Active pen needle (BD Insulin Pen Needle UF) 31 gauge x 5/16 (disposable insulin pen needle)Indication s:Diabetes mellitus type 1, uncomplicated (HC) Inject 100 Each subcutaneous four times daily. 400 Each 3 025 Active FreeStyle Jean 14 Day SensorIndications :Type 1 diabetes mellitus with hyperglycemia (HC) USE 1 SENSOR EVERY 14 DAYS 6 Each 3 025 Active clobetasol (TEMOVATE) 0.05 % creamIndications: Phimosis of penis Apply 1 Dose topically to affected area(s) two times daily. 60 g 025 Active insulin aspart (U-100) (NOVOLOG FLEXPEN) 100 unit/mL (3 mL) penIndications:Ty pe 1 diabetes mellitus without complications (HC) INJECT 9 UNITS UNDER THE SKIN THREE TIMES DAILY BEFORE MEALS 60 mL 025 Active insulin aspart (U-100) 100 unit/mL (3 mL) penIndications:Ty pe 1 diabetes mellitus without complication (HC) Inject 9 units subcutaneous three times daily before meals. 9 mL 025 2024 Discontinued Active Problems Problem Noted Date [...] Encounters Date Type Department Care Team Description 06/28/2025 Telephone [facility] [address], [place] [id number] Kyle Scherer DO Prior Authorization (insulin aspart (U-100) (NOVOLOG FLEXPEN) 100 unit/mL (3 mL) pen - PA NOT NEEDED) 06/25/2025 Refill [facility] [address] [place] [address] Kyle Scherer DO Refill Request (Insulin Aspart (U-100)) 06/10/2025 Travel from Last 3 Months Immunizations Immunization [...] Diabetes Paternal Grandmother Heart Disease Paternal Uncle [place] Anesthesia Problem No Family History Blood Disease [...] PM CDT Legal Sex Male 5:27 AM BINDING STITCHER Gender Identity Male 05/23/2021 10:03 PM CDT Sexual Orientation Straight 05/23/2021 10 :03 PM CDT Obstetrics History Last Filed Vital Signs Vital Sign Reading Time Taken Comments Blood Pressure 130/88 03/10/2025 1:12 PM CDT rec heck Pulse 76 03/10/2025 1:11 PM CDT Temperature 36.6 C (97.8 F) 08/04/2024 7:53 AM BINDING STITCHER Respiratory Rate 20 08/04/2024 7:53 AM BINDING STITCHER Oxygen Saturation 99% 03/10/2025 1:11 PM CDT Inhaled Oxygen Concentration - - Weight 75.4 kg (166 lb 3.2 oz) 03/10/2025 1:11 P M CDT Height 167.6 cm (5' 6) 03/10/2025 1:11 PM CDT Body Mass Index 26.83 03/10/2025 1:11 PM CDT Plan of Treatment Health Maintenance Due Date Last Done Comments HPV series for age 9-45 (1 - 3-dose SCDM series) 2021 Influenza Vaccine (#1) 2025 , 06/02/2021, 06/06/2019, Additional history exists BMI (ht and wt on same day) for age 18+ 03/10/2026 03/10/2025, 06/27/2023, 11/01/2022, Additional history exists Depression screening for age 12+ 03/10/2026 03/10/2025, 11/01/2022, 07/15/2021, Additional history exists Tetanus booster 01/09/2028 01/08/2018, 03/30, 04/27/2007 RSV vaccine for adults or (1 - 1-dose 75+ series) 2069 Hepatitis B series for 19+ Completed 04/17, 04/17/1995, 1994, Additional history exists HIV for age 15-65 Completed 11/01/2022 Pneumococcal series for age 6-49 Completed 11/12/19 23, 10/11/2021 Hepatitis C screening for ag e 18-79 Completed 08/03/2024, 04/18/2017 Medical Devices Implanted Type [place] [employer] Device Identifier Shelf Expiration Date Model / Serial / Lot Stent Biliary 10-7 Raman Crouch - [id number] Implanted:Qty: 1 on 04/11/2012 by Konstantin Hurt MD at [employer] N/A: Common Bile Duct [facility] CHBSO-10- 7# / / [id number] Stent Pancreatic Geenen 7-9gepd-7-9 Cook - [id number] Implanted:Qty: 1 on 04/11/2012 by Konstantin Hurt MD at [employer] N/A: Pancreas [facility] GEPD-7-9# / / Stent Pancreatic 8scg5px Geenen Set - [id number] Implanted:Qty: 1 on 05/06/2015 by Konstantin Hurt MD at [employer] N/A: Pancreas [facility] GEPD-7-9# / / [id number] Stent Pancreatic 10fr 7cm Gpso Geenen - [id number] Implanted:Qty: 1 on 06/10/2015 by Konstantin Hurt MD at [facility] GPSO-10-7 # / / [id number] Stent Pancreatic 5obo9kx Geenen Sof-Flex No Flap - [id number] Implanted:Qty: 1 on 07/01/2015 by Konstantin Hurt MD at [facility] 01/25/2018 GPSOS-SF- 5-7# / / [id number] Description:implanted to ibrahim creatic duct during ERCP. Stent Pancreatic [id number] Advanix Stra Una Plst - [id number] Implanted:Qty: 1 on 04/21/2017 by Konstantin Hurt MD at [employer] N/A: Pancreas [facility] 07/11/2018 [id number] # / / [id number] Inactive/Delete 04/07/17stent Pancreatic 8xlt0yj Geene - [id number] Implanted:Qty: 1 on 05/15/2017 by Konstantin Hurt MD at [facility] 03/16/2020 GPSOS-SF- 5-5# / / Procedures Procedure Name Priority Date/Time Associated Diagnosis Comments ACUTE HEPATITIS PANEL MARTHA 08/03/2024 7:09 AM BINDING STITCHER LC HIV-1/O/2, 4TH GENERATION Routine 11/01/2022 3:38 PM BINDING STITCHER Screening for HIV (human immunodeficiency virus) from Last 3 Months or Most Recently Relevant to Health Maintenance Results * ACUTE HEPATITIS PANEL (08/03/2024 7:09 AM BINDING STITCHER) HEPATITIS C ANTIBODY Non-Reactive Non-Reactive 08/04/2024 12:45 AM BINDING STITCHER [facility] Comment:Please note, per www .CDC.gov: If a patient is known to be at high risk of HCV infection, or is symptomatic, and the physician's suspicion of HCV infection is high, HCV RNA testing is often employed and is of diagnostic value, even after an initial negative anti-HCV test result. IGM ANTI HAV Non-Reactive Non-Reactive 08/04/20 12:45 AM BINDING STITCHER [facility] Comment:Anti-HAV IgM non-macie ctive. Does not exclude the possibility of exposure to/or infection with HAV. Level of anti-HAV IgM may be below the cut-off in early infection. HBSAG Nonreactive Nonreactive 08/04/2024 12:45 AM BINDING STITCHER [facility] IGM ANTI HBC Non-Reactive Non-Reactive 08/04/20 12:45 AM BINDING STITCHER [facility] Comment:Anti-HBc IgM not det ected. Does not exclude the possibility of exposure to or infection with HBV. Blood BLOOD SPECIMEN / Unknown Butterfly / Unknown 08/03/2024 7:09 AM BINDING STITCHER 08/03/2024 7:28 AM BINDING STITCHER Narrative [facility] - 08/04/2024 12:45 AM BINDING STITCHER Biotin supplements may cause clinically significant interference for this test assay. If interference is suspected, it is strongly recommended that biotin is discontinued for at least one week prior to retesting. us Robbie Dick MD SEND OUTS Final Result [facility] [address] [place] [address], [place] * LC HIV-1/O/2, 4TH GENERATION (11/01/2022 3:38 PM BINDING STITCHER) HIV Scr 4th Gen Non Reactive Non Reactive 11/04/2022 10:06 PM BINDING STITCHER [facility] Comment: HIV Negative HIV-1/HIV-2 antibodies and HIV-1 p24 antigen were NOT detected. There is no laboratory evidence of HIV infection. Blood BLOOD SPECIMEN / Unknown Venipuncture / Unknown 11/01/2022 3:38 PM BINDING STITCHER 11/01/2022 3:39 PM BINDING STITCHER Narrative [facility] - 11/04/2022 10:06 PM BINDING STITCHER Performed at: [address] [place] [id number] Acoustic Intelligence Specialist: Pravin Gardner MD, Phone: [phone] us Tosini Niesha DO LABORATORY Final Result [facility]) [address] [place] [address], from Last 3 Months or Most Recently Relevant to Health Maintenance Insurance [facility] * Guarantor: [id number] Account Type Relation to Patient Date of Phone Billing Address Occ Health/Ann Employer Advance Directives * Full Code [...] 9:53 AM 05/08/2017 2:06 PM Care Teams Burial Vault Setter Relationship Specialty Start Date End Date Kyle Scherer DO [address] [place] [address] PCP - General Family Practice 03/11/21 Gianni Brink MD [address] [place] [address] [place] [id number] Surgery - Urology 08/12/24
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
[2025-07-04 04:50] VITALS: BP 181/114; PULSE 67; RESP 18; TEMP 36.8; O2SAT 98; BMI 26.6
[2025-07-04 05:08] LABS: HCO3 VBG 28 mmol/L (21-28); PCO2 VBG 45 mmHG (40-50); PO2 VBG 42.5 mmHG (25-47); pH VBG 7.404 (7.32-7.43)
[2025-07-04 05:09] LABS: Hematocrit* 44.9 % (37.0-53.0); Hemoglobin* 15.1 gm/dL (13.5-17.5); Immature Granulocytes Pct Auto 0.2 %; Mean Corpuscular HGB Conc 34 gm/dL (32-36); Mean Corpuscular Hemoglobin 29 pg (26-34); Mean Corpuscular Volume 85 fL (80-100); RDW Coefficient of Variation % 11.7 % (11.5-15.5); Red Blood Count* 5.30 m/uL (4.30-5.90); White Blood Count* 12.87 K/uL (4.50-11.00)
[2025-07-04] MEDS: ONDANSETRON 2 MG/ML inj 4 MG IVP (05:09)
[2025-07-04] MEDS: FAMOTIDINE 10 MG/ML inj 20 MG IVP (05:09)
[2025-07-04 05:10] LABS: Immature Granulocytes Abs Auto 0.00 K/uL (0.00-0.30); Lymphocytes Absolute Auto 0.60 K/uL (0.90-2.90); Slide Review Reflex No
[2025-07-04 05:38] LABS: Albumin* 5.1 g/dL (3.3-5.0)
[2025-07-04 05:40] LABS: Chloride* 97 mmol/L (96-114); Potassium* 3.7 mmol/L (3.6-5.1); Sodium* 141 mmol/L (135-149)
[2025-07-04 05:41] LABS: Anion Gap 18 mEq/L (7-15); Blood Urea Nitrogen* 10 mg/dL (5-24); Calcium* 9.3 mg/dL (8.4-10.6); Carbon Dioxide* 26 mmol/L (20-32); Creatinine* 0.6 mg/dL (0.5-1.5); Est. Creatinine Clearance* 156.60; Estimated Glomerular Filt Rate 133 ml/min; Glucose* 308 mg/dL (60-115); Total Protein* 8.0 g/dL (6.0-8.3)
[2025-07-04 05:43] LABS: Alanine Aminotransferase* 41 U/L (4-50); Alkaline Phosphatase* 132 U/L (40-150); Aspartate Amino Transferase* 38 U/L (12-35); Bilirubin Direct* 0.3 mg/dL (0.0-0.5); Bilirubin Total* 0.7 mg/dL (0.1-1.5)
[2025-07-04 05:44] LABS: Ethanol* < 0.01 % (0.01-0.03)
[2025-07-04] MEDS: GI COCKTAIL (VISC LIDO/ANTACID) 30 ML PO (06:11)
== END 2025-07-04 06:24 | disposition home or self-care (01) ==
PROVIDERS: Emergency Provider Family Medicine; PCP Student in an Organized Health Care Education/Training Program
DX: E10.65 Type 1 diabetes mellitus with hyperglycemia (principal); K29.00 Acute gastritis without bleeding
CPT/HCPCS: 36415; 80048; 80076; 82077; 82803; 83690; 83735; 85025; 96374; 96375; 99284; A9270; J1308; J2405

== ENCOUNTER 2025-08-12 14:03 | Emergency (ER) | payer OTHER, SELFPAY ==
[2025-08-12] VITALS (17 sets, daily range): BP systolic 104–150; BP diastolic 62–82; PULSE 85–143; RESP 11–28; TEMP 36.2; O2SAT 93–100
--- NOTE | 2025-08-12 14:36 | CRLHL7_ITS ---
For Patients: As a result of the Century Cures Act, medical imaging exams and procedure reports are released immediately into your electronic medical record. You may view this report before your referring provider. If you have questions, please contact your health care provider. INDICATION: Diffuse abdominal pain, diarrhea. TECHNIQUE: CT abdomen and pelvis acquired with 74 cc Isovue 370 IV contrast. COMPARISON: March 05, 2025. FINDINGS: Lower chest: Scattered atelectasis. Liver: Hepatic steatosis. No suspicious masses. Gallbladder and bile ducts: Prior cholecystectomy. Pancreas: Unremarkable. No mass or inflammation. Spleen: Unremarkable. Normal in size. No masses. Adrenal glands: Unremarkable. No nodules. Kidneys: Unremarkable. No suspicious masses, stones, or hydronephrosis. GI tract: Fluid-filled colon with wall thickening/hyperemia no bowel obstruction normal appendix. Vasculature: Abdominal aorta is normal in caliber. Mesenteric arteries are patent. Lymph nodes: No lymphadenopathy. Peritoneum/Abdominal Wall: Diffuse mesenteric edema. Small volume free fluid in the pelvis, likely reactive. No free intraperitoneal air. Pelvis: Mildly distended bladder with circumferential wall thickening. Bones: Unremarkable for age. IMPRESSION: Findings suggestive of acute pancolitis, likely infectious/inflammatory in etiology. No bowel obstruction, free intraperitoneal air, or drainable fluid collections. Small volume free fluid in the pelvis, likely reactive. Mildly distended bladder with circumferential wall thickening. Recommend correlation with urinalysis if UTI suspected. Hepatic steatosis. Please note that all CT scans at this facility use dose modulation, iterative reconstruction, and/or weight-based dosing when appropriate to reduce radiation dose to as low as reasonably achievable. Dictated by Brian Yoon MD @ 08/12/2025 4:51:52 PM (Electronically Signed)
--- OUTSIDE RECORDS SUMMARY | 2025-08-12 14:49 | XMS_ITS | Clinical Summary ---
Author Organization [facility] Address [address] [place] [address] Care Team Providers Care Refractory Tile Helper Name Role Phone JaseKyle craig Primary Care Provider [phone] Gianni Brink MD Unavailable Allergies Active AllergyReactionsCriticalityNoted DateCommentsProchlorperazineHives, Duywcui4604/17/20179558CuxfmmglkBiedszg27/30/2017 Per patient he does not get itching with Percocet and is effective .05/27/2017 FyalqasxuOtrvp90/03/2017 Medications MedicationSigDispense QuantityRefillsLast FilledStart DateEnd DateStatus lancets Indications:Type 1 diabetes mellitus without complication (HC)As directed. Test 3-4 times per day. 400 Each 11001/15/2019Active SUMAtriptan (IMITREX) 25 mg tablet Indications:Migraine syndromeTake 1 Tablet (25 mg) by mouth every 2 hours if needed for Migraine. Give at minimum 2hrs apart. Max Dose: 200mg per 24hrs. 10 Tablet ctive blood-glucose meter Indications:Type 1 diabetes mellitus without complication (HC)Dispense meter covered by pt ins. 1 Kit 08/31/2021ctive Blood Sugar Diagnostic, Disc strip Indications:Type 1 diabetes mellitus without complication (HC)As directed. Test 3 times per day 200 Each ctive Accu-Chek Guide test strips strip 3 times daily.10/02/2021ctive ondansetron (ZOFRAN ODT) [address] 4 mg on the tongue every 8 hours if needed for Nausea/Vomiting.11/10/2022 Active Lantus Solostar U-100 Insulin 100 unit/mL (3 mL) pen Indications:Type 1 diabetes mellitus without complication (HC)Inject 34 units subcutaneous before bedtime. INJECT 34 UNITS SUBCUTANEOUS BEFORE BEDTIME 30 mL 5Active pen needle (BD Insulin Pen Needle UF) 31 gauge x 5/16 (disposable insulin pen needle) Indications:Diabetes mellitus type 1, uncomplicated (HC)Inject 100 Each subcutaneous four times daily. 400 Each 5Active FreeStyle Jean 14 Day Sensor Indications:Type 1 diabetes mellitus with hyperglycemia (HC)USE 1 SENSOR EVERY 14 DAYS 6 Each 5Active clobetasol (TEMOVATE) 0.05 % cream Indications:Phimosis of penisApply 1 Dose topically to affected area(s) two times daily. 60 g 5Active insulin aspart (U-100) (NOVOLOG FLEXPEN) 100 unit/mL (3 mL) pen Indications:Type 1 diabetes mellitus without complications (HC)INJECT 9 UNITS UNDER THE SKIN THREE TIMES DAILY BEFORE MEALS 60 mL 5Active Active Problems ProblemNoted DateDiagnosed DateAlcoholic hepatitis without tjxfsub6508/02/2024 Atrophic enktjscd02/06/2024lcohol-induced acute pancreatitis without infection or eltamiqb63/06/2024Medical non-/21/2022plenic vein thrombosis 08/31/2021Type 1 diabetes mellitus with qvsyxnrsmnpsm69/04/2022Multiple trauma 01/01/2020Traumatic brain injury with loss of ctgoakikfzqgt43/06/2020Alcohol abuse01/15/2019Chronic ypqibbgbgmdl37/21/7066Odlqbam02/30/2015Elevated transaminase level03/26/2015Hepatic gjyggpujh59/02/2015Major depressive disorder, recurrent episode, uyatzwdj18/20/2014Hearing loss in right ear 10/17/2013 Overview (10/17/2013): Recommend comprehensive hearing test Microcytic idcgzp8004/17/2012Chronic pain04/09/2012CP (advance care planning) 03/06/2012 Overview (05/04/2017): Patient [...] Preferences: a.) Code Status: CPR/Attempt Resuscitation Recurrent cyydjivrjofq01/03/2012 Overview (01/29/2012): First episode in December 2009 was thought to be secondary to gallstones/sludge, so he underwent cholecystectomy. Since that time, he has had 3 recurrences. One of which he rode it out at home and the other two he was hospitalized for. Adjustment disorder with mixed anxiety and depressed mood10/04/2007Goiter, nqulcjjkmix80/27/2005 Resolved Problems ProblemNoted DateDiagnosed DateResolved DateLeft upper lobe aprqgaets15/18/2015 01/31/2016R/O ADHD (attention deficit hyperactivity disorder)08/06/2014 05/14/2017Bipolar I disorder, most recent episode (or current) mixed, moderate 10/09/cute uxdwdeqmrojc96/22/Nausea & vomiting 04/18/Sinus /21/4360Rmggbbawxykl51/21/2012 05/03/20138356Oazoabisytxafq95/21/Fever07//Physical deconditioning following prolonged hospitalization for zyqnkfhtcvxp24/13/2012 05/03/2013Gallstone gljeypnxgfvm56/20/ Encounters DateTypeDepartmentCare TzjvSylohauylsw26/01/2025Telephone [facility] [address] [place] [address] Kyle Scherer DO Prior Authorization (insulin aspart (U-100) (NOVOLOG FLEXPEN) 100 unit/mL (3 mL) pen - [place] NOT NEEDED)06/25/2025Refill [facility] [address] [place] [address] Kyle Scherer DO Refill Request (Insulin Aspart (U-100))06/10/2025Travelfrom Last 3 Months Immunizations ImmunizationAdministration DatesNext DueAMB Influenza, IIV3 (Age >=3 years)(Flu Clinic Only)07/05/2010,08/15/2008MB Influenza, IIV4 PF (=>6 mos Flulaval,Fluzone Fluarix)(Flu Clinic Only)05/25/2017DTP11/09/1995,02/08/1995, 1994,1994DTaP04/11/2000HIB PRP-T (ActHIB,Hiberix)11/09/1995, 02/08/1995,1994,1994Hepatitis A (Peds)Hepatitis B (Peds)04/17/1995,1994,1994Hepatitis B, Isyncvfehwm07/21/1995, 1994Hib Conjugate, Dtptxkwkmva22/14/1996,1994,1994Influenza, IIV3 (Age 6-35 mos)07/04/2011Influenza, IIV3 (Age >=3 years)09/18/2012, 07/04/2011Influenza, HCC464/02/2022,06/02/2021,05/27/2016,08/12/2014Influenza, IIV4 (=>6mos) MDV1MMR05/24/2005,1995Meningococcal Vaccine (Menactra)04/27/2007Oral Polio Qabyype5302/19/1996,02/08/1995,1994, 1994Pneumococcal Conj 20-valent (Prevnar 20)3Pneumococcal Poly,23-Valent (Pneumovax)10/11/2021Td (Age >=7 Years)04/27/2007Td, Preservative Free (age >= 7 Years)01/08/2018Tdap04/27/2007Tetanus/Ondxzpvrw25/31/2007 Family History Medical HistoryRelationNameCommentsDiabetesFatherHyperlipidemiaFather HypertensionFatherSleep apneaFatherHyperlipidemiaMotherThyroid DiseaseMother hypothyroidismOtherOthermultiple family members on Dad's side in his teens had their gall bladders removed when they were teensDiabetesPaternal Grandmother Heart DiseasePaternal UncleMIAnesthesia ProblemNo Family HistoryBlood DiseaseNo Family HistoryRelationNameStatusCommentsFatherAliveMotherAliveOtherPaternal GrandmotherPaternal Uncle Social History Tobacco UseTypesPacks/DayYears UsedDateSmoking Tobacco: NeverPassive Smoke Exposure: PastSmokeless Tobacco: Never Tobacco Cessation:Counseling Given: Yes Alcohol UseStandard Drinks/WeekCommentsNot Currently0 (1 standard drink = 0.6 oz pure alcohol)has been sober since 07/2020PHQ-2AnswerDate RecordedPHQ-2 TOTAL UQERT612Social ConnectionsAnswerDate RecordedDo you often feel lonely or isolated from those around you?Financial Resource StrainAnswerDate RecordedDifficulty of Paying Living Fosvmymm086/07/2024ifficulty of Paying Living ExpensesNot on file08/03/2024Food InsecurityAnswerDate RecordedDo you worry your food will run out before you are able to buy more? Transportation NeedsAnswerDate RecordedDoes lack of transportation keep you from medical appointments?oes lack of transportation keep you from work, meetings or getting things that you need?Housing StabilityAnswerDate RecordedWhat is your housing situation today?Interpersonal Safety AnswerDate RecordedAre you being hit, kicked, pushed or yelled at (see row info)?No08/02/2024Interpersonal Safety Abuse 12 - 18Not on file08/02/2024 Interpersonal Safety Ambulatory VulnerabilityNot on file08/02/2024Utilities AnswerDate RecordedDo you have trouble paying for utilities (for example, heat, electricity, water, phone)?Sex and Gender InformationValueDate RecordedSex Assigned at VkhfuZsym06/26/2021 10:03 PM CDTLegal HyhAtte9509/10/2012 5:27 AM CSTGender WfnromyvXiif32/26/2021 10:03 PM CDTSexual OrientationStraight 05/23/2021 10:03 PM CDT Last Filed Vital Signs Vital SignReadingTime TakenCommentsBlood Pnxzvbue080/8803/10/2025 1:12 PM CDT pxlmhicUbzmd5122/14/2025 1:11 PM VKRVeiegavmzhw83.6 ??C (97.8 ??F)08/04/2024 7:53 AM CSTRespiratory Asyw2201 7:53 AM CSTOxygen Ukntpeeupw33% 03/10/2025 1:11 PM CDTInhaled Oxygen Concentration--Woxguc02.4 kg (166 lb 3.2 oz)03/10/2025 1:11 PM PNMPhzmao938.6 cm (5' 6)03/10/2025 1:11 PM CDTBody Mass Index26.8303/10/2025 1:11 PM CDT Plan of Treatment Health MaintenanceDue DateLast DoneCommentsHPV series for age 9-45 (1 - 3-dose SCDM series)2021OVID-19 vaccine series ( season)2025 07/05/2022, 07/08/2021, 11/04/2020Influenza Vaccine (#1)5109/03/2021, 06/02/2021, 06/06/2019, Additional history existsBMI (ht and wt on same day) for age 18+, 06/27/2023, 11/01/2022, Additional history exists Depression screening for age 12+, 11/01/2022, 07/15/2021, Additional history existsTetanus spjmhel70/, 04/27/2007, 04/27/2007Hepatitis B series for 19+Jwjgwjklf02/21/1995, 04/17/1995, 1994, Additional history existsHIV for age 15-22Rrgdrxigp02/07/2023neumococcal series for age 6-05Nddcwrjat58/17/2023, 10/11/2021Hepatitis C screening for age 18-79 Agkhvncpq63/07/2024, 04/18/2017 Medical Devices ImplantedTypeAreaManufacturerDevice IdentifierShelf Expiration DateModel / Serial / LotStent Biliary 10-7 Cotton Huibregste - [id number] Implanted:Qty: 1 on 04/11/2012 [facility] Common Bile DuctCook ZngajjwwxMWDSH-95-8# / / [id number] Pancreatic Geenen 7-9gepd-7-9 Cook - [id number] Implanted:Qty: 1 on 04/11/2012 [facility]: PancreasCook GskjxfvmyUCVI-6-6# / / Stent Pancreatic 8lyh7ik Geenen Set - [id number] Implanted:Qty: 1 on 05/06/2015 [facility]: PancreasCook QqsfncglhWZSV-8-0# / / [id number] Pancreatic 10fr 7cm Gpso Geenen - [id number] Implanted:Qty: 1 on 06/10/2015 by Konstantin Hurt MD at [facility] XahhvgyzeHRGZ-62-8# / / [id number] Pancreatic 3ywi5rj Geenen Sof-Flex No Flap - [id number] Implanted:Qty: 1 on 07/01/2015 by Konstantin Hurt MD at [facility] Hqttucecm74/31/4385LXGIC-XJ-6-7# / / [id number]:implanted to pancreatic duct during ERCP.Stent Pancreatic 0sbx6ea Advanix Stra Una Plst - [id number] Implanted:Qty: 1 on 04/21/2017 [facility]: PancreasBS Pnlrdrgyruzidyau21/14/[id number]# / / [id number]/Delete 04/07/17stent Pancreatic 0yac2um Kvng - [id number] Implanted:Qty: 1 on 05/15/2017 by [facility]Coma Ifkulxkza79/20/1605SUDVP-GD-1-5# / / Procedures Procedure NamePriorityDate/TimeAssociated DiagnosisCommentsACUTE HEPATITIS PANEL ASAP110/04/2023 7:09 AM [facility] LC HIV-1/O/2, 4TH HYYCWBYHFQSagjhkd28/07/2023 3:38 PM [facility] Screening for HIV (human immunodeficiency virus) from Last 3 Months or Most Recently Relevant to Health Maintenance Results * ACUTE HEPATITIS PANEL (08/03/2024 7:09 AM [facility])ComponentValueRef RangeTest MethodAnalysis TimePerformed AtPathologist SignatureHEPATITIS C ANTIBODY Tkk-ZiwpkeklBep-Gyonnqeh04/08/2024 12:45 AM [facility] CENTRAL LABORATORYComment:Please note, per www.CDC.gov: If a patient is known to be at high risk of HCV infection, or is symptomatic, and the physician's suspicion of HCV infection is high, HCV RNA testing is often employed and is of diagnostic value, even after an initial negative anti-HCV test result.IGM ANTI WUHVul-TnmguutyOjg-Nzpcdldr10/08/2024 12:45 AM [facility] LABORATORYComment:Anti-HAV IgM non-reactive. Does not exclude the possibility of exposure to/or infection with HAV. Level of anti- HAV IgM may be below the cut-off in early infection.HBSAGNonreactive Djwnrcasnzd61/08/2024 12:45 AM [facility] LAB[facility]ORY IGM ANTI ROMJtf-RzkzkqscGpw-Dtmqxxzr62/08/2024 12:45 AM [facility] LABORATORYComment:Anti-HBc IgM not detected. Does not exclude the possibility of exposure to or infection with HBV.Specimen (Source) Anatomical Location / LateralityCollection Method / VolumeCollection Time Received TimeBloodBLOOD SPECIMEN / UnknownButterfly / Gacdtdo9808/03/2024 7:09 AM CST08/03/2024 7:28 AM [facility] - 08/04/2024 12:45 AM [facility] Biotin supplements may cause clinically significant interference for this test assay. If interference is suspected, it is strongly recommended that biotin is discontinued for at least one week prior to retesting. Authorizing ProviderResult TypeResult StatusNicjennyfer Fatimah Dick MDSEND OUTSFinal ResultPerforming OrganizationAddressCity/State/ZIP CodePhone Number [facility] [address] [place] [address], * HIV-1/O/2, 4TH GENERATION (11/01/2022 3:38 PM [facility])ComponentValueRef Range Test MethodAnalysis TimePerformed AtPathologist SignatureHIV Scr 4th GenNon ReactiveNon Ijwnhmav14/10/2023 10:06 PM CSTLABC[facility] ([facility])Comment: HIV Negative HIV-1/HIV-2 antibodies and HIV-1 p24 antigen were NOT detected. There is no laboratory evidence of HIV infection. Specimen (Source)Anatomical Location / LateralityCollection Method / Volume Collection TimeReceived TimeBloodBLOOD SPECIMEN / UnknownVenipuncture / Unknown 11/01/2022 3:38 PM CST11/01/2022 3:39 PM [facility] Narrative [facility] - 11/04/2022 10:06 PM [facility] Performed at: [address] [place] [address] ??[id number] Computer Methods Analyst: Pravin Gardner MD, Phone: ??[phone] Authorizing ProviderResult TypeResult StatusAdei Niesha DOLABORATORYFinal Result Performing OrganizationAddressCity/State/ZIP CodePhone Number [facility] ([facility]) [address] [place] [address] from Last 3 Months or Most Recently Relevant to Health Maintenance Insurance * Guarantor: [id number] TypeRelation to PatientDate of BirthPhoneBilling AddressOcc Health/CorpEmployer * Guarantor: RAMIRO RAUSCH AND TIM PERLAINOCENCIOAccount TypeRelation to PatientDate of BirthPhoneBilling AddressOcc Health/YaosYuozvbpl03/01/2001 [facility] [address] [place] [address] * Guarantor: DALI HARPER INCAccount TypeRelation to PatientDate of BirthPhone Billing AddressOcc Health/CorpEmployer ATTHorace PARDO [address] [place] [address] * Guarantor: ALL FLEX FLEXIBLE CIRCUTSAccount TypeRelation to PatientDate of BirthPhoneBilling AddressOcc Health/CorpEmployer ATTHorace HAGER [address] [place] [address] Advance Directives * Full Code (Latest Code Status on File) Date ActivatedDate QzfclyawjgxYhvlompl05/6/2024 9:18 PM08/04/2024 4:19 PMQuestion AnswerCommentsCode Status Discussion:* Reviewed Preferences * Full Code Date ActivatedDate InactivatedComments05/27/2017 9:28 AM10 7:17 PM * Full Code Date ActivatedDate InactivatedComments05/21/2017 4:59 AM9 5:31 PM * Full Code Date ActivatedDate InactivatedComments05/14/2017 11:17 AM05/18/2017 6:26 PM QuestionAnswerCommentsCode Status Discussion:* Discussed * Full Code Date ActivatedDate InactivatedComments05/04/2017 9:53 AM05/08/2017 2:06 PM Care Teams Team MemberRelationshipSpecialtyStart DateEnd Date Kyle Scherer DO [facility] [place] [address] PCP - GeneralFamily Practice03/11/21 Gianni Brink MD [address] [place] [address] [facility] [id number] Surgery - Mxnphdd37/16/24
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
[2025-08-12] MEDS: ONDANSETRON 2 MG/ML inj 4 MG IVP (15:24)
[2025-08-12 15:36] LABS: Lactate* 3.3 mmol/L (0.5-1.9)
[2025-08-12 15:39] LABS: Hematocrit* 57.5 % (37.0-53.0); Hemoglobin* 18.3 gm/dL (13.5-17.5); Immature Granulocytes Pct Auto 0.3 %; Mean Corpuscular HGB Conc 32 gm/dL (32-36); Mean Corpuscular Hemoglobin 27 pg (26-34); Mean Corpuscular Volume 86 fL (80-100); RDW Coefficient of Variation % 12.7 % (11.5-15.5); Red Blood Count* 6.68 m/uL (4.30-5.90); White Blood Count* 22.88 K/uL (4.50-11.00)
[2025-08-12 15:53] LABS: Albumin* 5.6 g/dL (3.3-5.0); Chloride* 98 mmol/L (96-114)
[2025-08-12 15:54] LABS: Potassium* 4.3 mmol/L (3.6-5.1); Sodium* 137 mmol/L (135-149)
[2025-08-12 15:56] LABS: Blood Urea Nitrogen* 14 mg/dL (5-24); Creatinine* 0.9 mg/dL (0.5-1.5); Estimated Glomerular Filt Rate 117 ml/min
[2025-08-12 15:57] LABS: Alanine Aminotransferase* 34 U/L (4-50); Alkaline Phosphatase* 154 U/L (40-150); Anion Gap 14 mEq/L (7-15); Aspartate Amino Transferase* 47 U/L (12-35); Bilirubin Direct* 0.7 mg/dL (0.0-0.5); Bilirubin Total* 1.5 mg/dL (0.1-1.5); Calcium* 9.9 mg/dL (8.4-10.6); Carbon Dioxide* 25 mmol/L (20-32); Glucose* 220 mg/dL (60-115); Total Protein* 9.6 g/dL (6.0-8.3)
[2025-08-12 16:06] LABS: Acetaminophen* < 10.0 ug/mL (10.0-30.0); Ethanol* < 0.01 % (0.01-0.03); Salicylate* < 1.0 mg/dL (1.0-10)
[2025-08-12 16:13] LABS: Procalcitonin* 0.36 ng/mL (<0.50)
[2025-08-12 16:16] LABS: Immature Granulocytes Abs Auto 0.10 K/uL (0.00-0.30); Lymphocytes Absolute Auto 0.60 K/uL (0.90-2.90); Slide Review Reflex Yes
[2025-08-12 17:14] LABS: PCR FLU A Negative PCR FLU A (Negative); PCR FLU B Negative PCR FLU B (Negative); SARS PCR* Negative SARS-CoV-2 (Negative)
[2025-08-12] MEDS: MORPHINE 4 MG/ML INJ IVP (17:23)
[2025-08-12 17:43] LABS: Lactate* 1.0 mmol/L (0.5-1.9)
[2025-08-12 20:37] LABS: Slide Review Acceptable Review (Acceptable)
== END 2025-08-12 19:17 | disposition home or self-care (01) ==
PROVIDERS: Family Medicine; Emergency Provider Student in an Organized Health Care Education/Training Program; PCP Student in an Organized Health Care Education/Training Program
DX: K52.9 Noninfective gastroenteritis and colitis, unspecified (principal)
CPT/HCPCS: 36415; 74177; 80048; 80076; 80143; 80179; 81001; 82077; 83605; 83690; 83735; 84145; 85025; 86140; 87045; 87046; 87086; 87427; 87493; 87636; 93005; 96361; 96374; 96375; 99284; 99285; J2060; J2270; J2405; J3010; J7030; Q9967